=== PATIENT | female | born 1970 | race Caucasian/White ===

== ENCOUNTER 2020-05-06 19:21 | Inpatient (IN) | payer MEDICARE, MEDICAID, SELFPAY ==
--- NOTE | 2020-05-06 | ECG_ITS ---
Test Reason : OVRDOSE Blood Pressure : / mmHG Vent. Rate : 096 BPM Atrial Rate : 096 BPM P-R Int : 138 ms QRS Dur : 078 ms QT Int : 364 ms P-R-T Axes : 065 073 049 degrees QTc Int : 459 ms Normal sinus rhythm Normal ECG When compared with ECG of 06-MAY-2020 21:35, No significant change was found Referred By: Edilson Macario Electronically Signed By:RUBEN COLE MD
--- NOTE | ~2020-05-06 | CT_ITS ---
EXAMINATION: CT HEAD WITHOUT CONTRAST CLINICAL INFORMATION: Altered mental status COMPARISON: None. TECHNIQUE: Contiguous axial imaging was performed from the skull base to vertex without intravenous administration of contrast. Coronal and sagittal reformatted images are performed at the CT scanner. [This CT examination was performed using dose optimization techniques as appropriate, variously including the following: *Automated exposure control *Adjustment of mA and/or kV according to patient size (this includes techniques or standardized protocols for targeted exams where dose is matched to indication/reason for exam; i.e. extremities or head) *Use of iterative reconstruction technique] DLP: 739 mGy-cm. FINDINGS: There is no evidence of acute intracranial hemorrhage or territorial infarction. No abnormal mass-effect or midline shift is seen. Marti to white matter differentiation is well preserved. No extra-axial fluid collections are identified. The ventricles are normal in size. There is no abnormal attenuation within the brain parenchyma. There is no osseous abnormality. The mastoid air cells and visualized portions of the paranasal sinuses are well-aerated. CT/CT head/brain wo con IMPRESSION: No acute intracranial pathology.
--- NOTE | ~2020-05-06 | XR_ITS ---
EXAMINATION: XR CHEST CLINICAL INFORMATION: Hypoxia. Rule out aspiration. COMPARISON: Previous chest x-ray from yesterday TECHNIQUE: Frontal view of the chest was obtained. FINDINGS: The patient is rotated to the right. The cardiac and mediastinal contours are stable. There are increased markings in the right infrahilar region adjacent to the right heart border. It is uncertain whether this is related to patient rotation or could represent a small infiltrate. The lungs are otherwise clear. There is no pleural effusion or pneumothorax. Bony structures are unremarkable. XR/XR chest 1V IMPRESSION: Increased markings at the right lung base, question related to patient rotation versus small infiltrate.
--- NOTE | ~2020-05-06 | XR_ITS ---
EXAMINATION: XR CHEST CLINICAL INFORMATION: Fever COMPARISON: None TECHNIQUE: Frontal view of the chest was obtained. FINDINGS: No significant abnormality is noted involving the heart, lungs, mediastinum, bony thorax or soft tissues. XR/XR chest 1V IMPRESSION: Unremarkable examination.
[2020-05-06 19:33] VITALS: BP 123/56; BP 124/46; PULSE 108; PULSE 111; RESP 16; TEMP 38; O2SAT 2; O2SAT 98; BMI 30.5
--- NOTE | 2020-05-06 19:40 | ECG_ITS ---
Test Reason : Unresponsiveness Blood Pressure : / mmHG Vent. Rate : 109 BPM Atrial Rate : 109 BPM P-R Int : 128 ms QRS Dur : 072 ms QT Int : 326 ms P-R-T Axes : 108 094 128 degrees QTc Int : 439 ms Sinus tachycardia Rightward axis Prolonged QT Abnormal ECG When compared to the previous EKG of QT has lengthened Referred By: Edilson Macario Electronically Signed By: RUBEN COLE MD MTDD
--- NOTE | 2020-05-06 19:43 | ED.AMS ---
HPI - Altered Mental Status General Chief Complaint: Altered Mental Status Stated Complaint: UNRESPONSIVE Time Seen by Provider: 05/06/20 19:40 Source: family and EMS Mode of arrival: EMS Limitations: altered mental status History of Present Illness HPI narrative: Patient has history of depression and history of overdose in 2016 on Zyprexa amitriptyline and was taking Benadryl lately according to her mother patient was doing fine she texted her at 13:00 she responded to text then she texted her at 16:00 but patient did not respond to her text which is not very unusual at 18:30 and mother reached home she found her in her bed not responding and felt warm. She checked her medication and did not find any missing but she could not find bottle of Benadryl which she was taking lately. Arrival patient is semiconscious with dilated people tachycardic flushed face and temperature of 100.4 degrees matching the criteria for possible anticholinergic overdose Related Data Home Medications Medication Instructions Recorded Confirmed cholecalciferol (vitamin D3) 1 tab PO DAILY 05/07/20 05/07/20 [Vitamin D3] clonidine HCl 0.1 mg PO BID PRN 05/07/20 05/07/20 lamotrigine 150 mg PO BID 05/07/20 05/07/20 olanzapine 12.5 mg PO DAILY 05/07/20 05/07/20 pyridoxine (vitamin B6) 50 mg PO DAILY 05/07/20 05/07/20 sertraline 25 mg PO DAILY 05/07/20 05/07/20 Allergies Allergy/AdvReac Type Severity Reaction Status Date / Time Sulfa (Sulfonamide Allergy Unknown HIVES Verified 05/06/20 20:38 Antibiotics) [SULFA (SULFONAMIDE ANTIBIOTICS)] Review of Systems Review of Systems: Yes Unobtainable due to mental status Neurologic: Reports confusion Psychiatric: Psychiatric: Reports confusion PMFSH Past Medical History Medical History Anxiety Bipolar 1 disorder Hx of drug overdose Hyperthyroidism Major depression Social History Social History Advance Directives: No Advance Directives Information Provided: Yes Physical Exam Vital Signs: Vital Signs: Last Vital Signs Temp 100.4 F 05/06/20 23:55 Pulse 100 05/06/20 23:55 Resp 13 05/06/20 23:55 BP 117/68 05/06/20 23:55 Pulse Ox 100 05/06/20 23:55 Body Mass Index 30.5 Const: General: well developed, confusion and patient obtunded Orientation/consciousness: confusion and patient obtunded HENMT: Head: Yes normocephalic and Yes atraumatic Eyes: Conjunctivae: conjunctivae normal Sclerae: sclerae normal Corneas: corneas normal Pupils: Dilated pupils Neck: Neck: Yes normal visual inspection, Yes no lymphadenopathy and Yes no JVD Thyroid: Thyroid normal Chest: Chest palpation & inspection: normal palpation of entire chest wall Resp: Effort & Inspection: normal respiratory effort Auscultation: clear to auscultation bilaterally, no crackles, no rales and no rhonchi Cardio: Jugular venous distension: no JVD Palpation: normal PMI Rate: tachycardic Rhythm: regular rhythm Heart sounds: S1 normal heart sound present, S2 normal heart sound present and no murmurs Peripheral pulses: Peripheral pulses 2+ throughout GI: Inspection: Yes normal to inspection Palpation (GI): Soft to palpation and nontender Auscultation: normal bowel sounds Back/Spine/Pelvis: Thoracic/Lumbar Spine: thoracic and lumbar spine normal to inspection Skin: General skin exam: no rashes or lesions noted Neuro: General: moves all extremities, no focal motor deficits, confusion and patient obtunded Deep tendon reflexes (DTR's): Right patellar reflex intensity grade: 1+ and Left patellar reflex intensity grade: 1+ Plantar Reflex Responses: downgoing: bilateral Extrem: General: Yes normal to inspection and No pedal edema Course Reevaluation(s) Reevaluation #1: Patient likely with anticholinergic overdose workup so far is negative for any other pathology will repeat chemistry and salicylate levels, Patient ABG showed normal anion gap slightly metabolic alkalosis Time: 01:06 Reevaluation #2: Patient repeat chemistry essentially normal C-reactive protein also negative, will continue to watch case discussed with nursing reduction plant supervisor about Physostigmine with is not available in the hospital she will try pharmacist Time: 01:17 Reevaluation #3: Physostigmine not available per pharmacist. Patient repeat salicylate level was negative and Tylenol level is 5 patient received 2 doses of Tylenol per rectum. At this time working diagnosis is anticholinergic overdose plan to observe her tonight patient is able to maintain her airway patient signed out to Dr. Duncan Time: 01:40 MDM - Altered Mental Status MDM Narrative Medical decision making narrative: Patient altered mental status etiology is not very clear likely anticholinergic overdose. Labs workup was negative for any sepsis patient is still febrile 100.4 give Tylenol spinal tap was tried, but was unsuccessful will check the ABG repeat chemistry and salicylate level, case discussed with poison control advised physostigmine which is not available here or continue supportive tt repeat EKG done at 23:39 showed normal sinus rhythm heart rate 96 beats per minute QTC interval [address] T wave changes Differential Diagnosis Differential diagnosis: Likely altered mental status, encephalopathy, hyponatremia, overdose polysubstance, renal failure, subarachnoid hemorrhage and sepsis Medical Records Attestation: I reviewed the patient's medical records. Lab Data Attestation: I reviewed the patient's lab results. Result diagrams: 05/06/20 20:07 05/07/20 00:39 Labs: Lab Results 05/06/20 05/06/20 05/06/20 Range/Units 19:53 20:07 20:07 WBC 9.7 (4.8-10.8) X10*3/uL RBC 4.50 (4.20-5.50) X10*6/uL Hgb 13.5 (12.0-16.0) g/dl Hct 40.0 (37-47) % MCV 88.9 (80-98) fL MCH 30.0 (27.0-33.0) pg MCHC 33.8 (31.0-35.0) g/dl RDW 11.9 (11.0-16.0) % Plt Count 255 (160-400) X10*3/uL MPV 10.8 (9.4-12.3) fL Immature Gran % (Auto) 0.3 (0.0-0.4) % Neut % (Auto) 83.6 H (45-73) % Lymph % (Auto) 8.9 L (20-40) % [place] % (Auto) 7.0 (2-11) % Eos % (Auto) 0.0 (0-4) % Baso % (Auto) 0.2 (0-2) % Lymph # (Auto) 0.9 L (1.2-4.9) X10*3/uL [place] # (Auto) 0.7 (0.1-1.2) X10*3/uL Eos # (Auto) 0.0 (0.0-0.4) X10*3/uL Baso # (Auto) 0.0 (0.0-0.2) X10*3/uL Abs Immat Gran (auto) 0.03 (0.00-0.03) X10*3/uL Absolute Neuts (auto) 8.1 (2.0-8.3) X10*3/uL Absolute Nucleated RBC 0.000 (0.0-0.012) X10*3/uL Nucleated RBC % (auto) 0.0 (0.0-0.2) /100WBC PT 14.0 H (10.8-13.0) SEC INR 1.2 H (0.9-1.1) APTT 35.4 (24.1-38.0) SEC ABG pH (7.35-7.45) ABG pCO2 (32-45) mmHg ABG pO2 (83-108) mmHg ABG HCO3 (22-26) mmol/L ABG O2 Saturation % ABG Base Excess Oxygen Given Sodium (135-145) mmol/L Potassium (3.3-5.1) mmol/L Chloride (96-108) mmol/L Carbon Dioxide (22-29) mmol/L Anion Gap (12-20) BUN (9-16) mg/dL Creatinine (0.5-1.4) mg/dL Estim Creat Clear Calc Estimated GFR POC Glucose 133 H (60-115) mg/dL Random Glucose (60-115) mg/dL Lactic Acid (0.5-2.0) mmol/L Calcium (8.4-10.2) mg/dL Magnesium (1.6-2.6) mg/dL Total Bilirubin (0.0-1.0) mg/dL Direct Bilirubin (0.0-0.5) mg/dL AST (5-31) U/L ALT (0-31) U/L Alkaline Phosphatase (39-117) U/L C-Reactive Protein (< or = 0.50) mg/dL Total Protein (6.5-8.0) g/dL Albumin (3.5-5.0) g/dL Lipase (8-78) U/L Urine Color Urine Appearance Urine pH (5.0-8.0) Ur Specific [place] (1.005-1.025) Urine Protein (NEG-TRACE) MG/DL Urine Glucose (UA) (NEG) MG/DL Urine Ketones (NEG) MG/DL Urine Blood (NEG) Urine Nitrite (NEG) Ur Leukocyte Esterase (NEG) Urine RBC (0) /HPF Urine WBC (0-4) /HPF Ur Squamous Epith Cells /LPF Urine Bacteria /LPF Urine Mucus /LPF Salicylates (15-30) mg/dL Urine Opiates Screen (Not Detect) Acetaminophen (<30) mcg/mL Ur Barbiturates Screen (Not Detect) Ur Phencyclidine Scrn (Not Detect) Ur Amphetamines Screen (Not Detect) U Benzodiazepines Scrn (Not Detect) Urine Cocaine Screen (Not Detect) U Marijuana (THC) Screen (Not Detect) Ethyl Alcohol mg/dL COVID-19 ([facility]) (Negative) COVID-19 Clin Com 05/06/20 05/06/20 05/06/20 Range/Units 20:07 20:07 20:07 WBC (4.8-10.8) X10*3/uL RBC (4.20-5.50) X10*6/uL Hgb (12.0-16.0) g/dl Hct (37-47) % MCV (80-98) fL MCH (27.0-33.0) pg MCHC (31.0-35.0) g/dl RDW (11.0-16.0) % Plt Count (160-400) X10*3/uL MPV (9.4-12.3) fL Immature Gran % (Auto) (0.0-0.4) % Neut % (Auto) (45-73) % Lymph % (Auto) (20-40) % [place] % (Auto) (2-11) % Eos % (Auto) (0-4) % Baso % (Auto) (0-2) % Lymph # (Auto) (1.2-4.9) X10*3/uL [place] # (Auto) (0.1-1.2) X10*3/uL Eos # (Auto) (0.0-0.4) X10*3/uL Baso # (Auto) (0.0-0.2) X10*3/uL Abs Immat Gran (auto) (0.00-0.03) X10*3/uL Absolute Neuts (auto) (2.0-8.3) X10*3/uL Absolute Nucleated RBC (0.0-0.012) X10*3/uL Nucleated RBC % (auto) (0.0-0.2) /100WBC PT (10.8-13.0) SEC INR (0.9-1.1) APTT (24.1-38.0) SEC ABG pH (7.35-7.45) ABG pCO2 (32-45) mmHg ABG pO2 (83-108) mmHg ABG HCO3 (22-26) mmol/L ABG O2 Saturation % ABG Base Excess Oxygen Given Sodium 138 (135-145) mmol/L Potassium 4.2 (3.3-5.1) mmol/L Chloride 101 (96-108) mmol/L Carbon Dioxide 26 (22-29) mmol/L Anion Gap 15 (12-20) BUN 18 H (9-16) mg/dL Creatinine 0.92 (0.5-1.4) mg/dL Estim Creat Clear Calc 85.3 Estimated GFR > 60 POC Glucose (60-115) mg/dL Random Glucose 141 H (60-115) mg/dL Lactic Acid 1.8 (0.5-2.0) mmol/L Calcium 9.1 (8.4-10.2) mg/dL Magnesium 2.0 (1.6-2.6) mg/dL Total Bilirubin 0.6 (0.0-1.0) mg/dL Direct Bilirubin 0.2 (0.0-0.5) mg/dL AST 28 (5-31) U/L ALT 33 H (0-31) U/L Alkaline Phosphatase 74 (39-117) U/L C-Reactive Protein (< or = 0.50) mg/dL Total Protein 6.8 (6.5-8.0) g/dL Albumin 4.1 (3.5-5.0) g/dL Lipase 22 (8-78) U/L Urine Color Urine Appearance Urine pH (5.0-8.0) Ur Specific [place] (1.005-1.025) Urine Protein (NEG-TRACE) MG/DL Urine Glucose (UA) (NEG) MG/DL Urine Ketones (NEG) MG/DL Urine Blood (NEG) Urine Nitrite (NEG) Ur Leukocyte Esterase (NEG) Urine RBC (0) /HPF Urine WBC (0-4) /HPF Ur Squamous Epith Cells /LPF Urine Bacteria /LPF Urine Mucus /LPF Salicylates < 5.0 L (15-30) mg/dL Urine Opiates Screen (Not Detect) Acetaminophen < 1 (<30) mcg/mL Ur Barbiturates Screen (Not Detect) Ur Phencyclidine Scrn (Not Detect) Ur Amphetamines Screen (Not Detect) U Benzodiazepines Scrn (Not Detect) Urine Cocaine Screen (Not Detect) U Marijuana (THC) Screen (Not Detect) Ethyl Alcohol mg/dL COVID-19 ([facility]) (Negative) COVID-19 Clin Com 05/06/20 05/06/20 05/06/20 Range/Units 20:07 20:07 20:07 WBC (4.8-10.8) X10*3/uL RBC (4.20-5.50) X10*6/uL Hgb (12.0-16.0) g/dl Hct (37-47) % MCV (80-98) fL MCH (27.0-33.0) pg MCHC (31.0-35.0) g/dl RDW (11.0-16.0) % Plt Count (160-400) X10*3/uL MPV (9.4-12.3) fL Immature Gran % (Auto) (0.0-0.4) % Neut % (Auto) (45-73) % Lymph % (Auto) (20-40) % [place] % (Auto) (2-11) % Eos % (Auto) (0-4) % Baso % (Auto) (0-2) % Lymph # (Auto) (1.2-4.9) X10*3/uL [place] # (Auto) (0.1-1.2) X10*3/uL Eos # (Auto) (0.0-0.4) X10*3/uL Baso # (Auto) (0.0-0.2) X10*3/uL Abs Immat Gran (auto) (0.00-0.03) X10*3/uL Absolute Neuts (auto) (2.0-8.3) X10*3/uL Absolute Nucleated RBC (0.0-0.012) X10*3/uL Nucleated RBC % (auto) (0.0-0.2) /100WBC PT (10.8-13.0) SEC INR (0.9-1.1) APTT (24.1-38.0) SEC ABG pH (7.35-7.45) ABG pCO2 (32-45) mmHg ABG pO2 (83-108) mmHg ABG HCO3 (22-26) mmol/L ABG O2 Saturation % ABG Base Excess Oxygen Given Sodium (135-145) mmol/L Potassium (3.3-5.1) mmol/L Chloride (96-108) mmol/L Carbon Dioxide (22-29) mmol/L Anion Gap (12-20) BUN (9-16) mg/dL Creatinine (0.5-1.4) mg/dL Estim Creat Clear Calc Estimated GFR POC Glucose (60-115) mg/dL Random Glucose (60-115) mg/dL Lactic Acid (0.5-2.0) mmol/L Calcium (8.4-10.2) mg/dL Magnesium (1.6-2.6) mg/dL Total Bilirubin (0.0-1.0) mg/dL Direct Bilirubin (0.0-0.5) mg/dL AST (5-31) U/L ALT (0-31) U/L Alkaline Phosphatase (39-117) U/L C-Reactive Protein (< or = 0.50) mg/dL Total Protein (6.5-8.0) g/dL Albumin (3.5-5.0) g/dL Lipase (8-78) U/L Urine Color YELLOW Urine Appearance CLEAR Urine pH 6.0 (5.0-8.0) Ur Specific [place] 1.025 (1.005-1.025) Urine Protein NEG (NEG-TRACE) MG/DL Urine Glucose (UA) NEG (NEG) MG/DL Urine Ketones 15 (NEG) MG/DL Urine Blood TRACE (NEG) Urine Nitrite NEG (NEG) Ur Leukocyte Esterase NEG (NEG) Urine RBC 10-14 H (0) /HPF Urine WBC 0-2 (0-4) /HPF Ur Squamous Epith Cells TRACE /LPF Urine Bacteria TRACE /LPF Urine Mucus TRACE /LPF Salicylates (15-30) mg/dL Urine Opiates Screen Not Detected (Not Detect) Acetaminophen (<30) mcg/mL Ur Barbiturates Screen Not Detected (Not Detect) Ur Phencyclidine Scrn Not Detected (Not Detect) Ur Amphetamines Screen Not Detected (Not Detect) U Benzodiazepines Scrn Not Detected (Not Detect) Urine Cocaine Screen Not Detected (Not Detect) U Marijuana (THC) Screen Not Detected (Not Detect) Ethyl Alcohol < 10 mg/dL COVID-19 ([facility]) (Negative) COVID-19 Clin Com 05/06/20 05/07/20 05/07/20 Range/Units 20:58 00:39 00:47 WBC (4.8-10.8) X10*3/uL RBC (4.20-5.50) X10*6/uL Hgb (12.0-16.0) g/dl Hct (37-47) % MCV (80-98) fL MCH (27.0-33.0) pg MCHC (31.0-35.0) g/dl RDW (11.0-16.0) % Plt Count (160-400) X10*3/uL MPV (9.4-12.3) fL Immature Gran % (Auto) (0.0-0.4) % Neut % (Auto) (45-73) % Lymph % (Auto) (20-40) % [place] % (Auto) (2-11) % Eos % (Auto) (0-4) % Baso % (Auto) (0-2) % Lymph # (Auto) (1.2-4.9) X10*3/uL [place] # (Auto) (0.1-1.2) X10*3/uL Eos # (Auto) (0.0-0.4) X10*3/uL Baso # (Auto) (0.0-0.2) X10*3/uL Abs Immat Gran (auto) (0.00-0.03) X10*3/uL Absolute Neuts (auto) (2.0-8.3) X10*3/uL Absolute Nucleated RBC (0.0-0.012) X10*3/uL Nucleated RBC % (auto) (0.0-0.2) /100WBC PT (10.8-13.0) SEC INR (0.9-1.1) APTT (24.1-38.0) SEC ABG pH 7.47 H (7.35-7.45) ABG pCO2 32 (32-45) mmHg ABG pO2 143 H (83-108) mmHg ABG HCO3 24 (22-26) mmol/L ABG O2 Saturation 99.0 % ABG Base Excess 1.3 Oxygen Given 2 L Sodium 140 (135-145) mmol/L Potassium 3.9 (3.3-5.1) mmol/L Chloride 106 (96-108) mmol/L Carbon Dioxide 26 (22-29) mmol/L Anion Gap 12 (12-20) BUN 16 (9-16) mg/dL Creatinine 0.82 (0.5-1.4) mg/dL Estim Creat Clear Calc 95.7 Estimated GFR > 60 POC Glucose (60-115) mg/dL Random Glucose 150 H (60-115) mg/dL Lactic Acid (0.5-2.0) mmol/L Calcium 8.4 D (8.4-10.2) mg/dL Magnesium (1.6-2.6) mg/dL Total Bilirubin (0.0-1.0) mg/dL Direct Bilirubin (0.0-0.5) mg/dL AST (5-31) U/L ALT (0-31) U/L Alkaline Phosphatase (39-117) U/L C-Reactive Protein 0.49 (< or = 0.50) mg/dL Total Protein (6.5-8.0) g/dL Albumin (3.5-5.0) g/dL Lipase (8-78) U/L Urine Color Urine Appearance Urine pH (5.0-8.0) Ur Specific [place] (1.005-1.025) Urine Protein (NEG-TRACE) MG/DL Urine Glucose (UA) (NEG) MG/DL Urine Ketones (NEG) MG/DL Urine Blood (NEG) Urine Nitrite (NEG) Ur Leukocyte Esterase (NEG) Urine RBC (0) /HPF Urine WBC (0-4) /HPF Ur Squamous Epith Cells /LPF Urine Bacteria /LPF Urine Mucus /LPF Salicylates < 5.0 L (15-30) mg/dL Urine Opiates Screen (Not Detect) Acetaminophen 5 (<30) mcg/mL Ur Barbiturates Screen (Not Detect) Ur Phencyclidine Scrn (Not Detect) Ur Amphetamines Screen (Not Detect) U Benzodiazepines Scrn (Not Detect) Urine Cocaine Screen (Not Detect) U Marijuana (THC) Screen (Not Detect) Ethyl Alcohol mg/dL COVID-19 ([facility]) Negative (Negative) COVID-19 Clin Com See Note ABG Data ABG results: Slight metabolic alkalosis without any anion gap ECG Data ECG #1: Attestation: I personally reviewed and interpreted this ECG as follows: Interpretation: Sinus tachycardia heart rate of 114 beats per minute QT interval was prolonged to 523 millisecond rightward axis no acute ST T wave changes. ECG #2: Attestation: I personally reviewed and interpreted this ECG as follows: ECG interpretation date: 05/06/20 ECG interpretation time: 21:35 Prior ECG tracings: available for review Interpretation: Sinus tachycardia heart rate 109 beats per minute normal QT interval no acute ST T wave changes ECG #3: Attestation: I personally reviewed and interpreted this ECG as follows: ECG interpretation date: 05/06/20 ECG interpretation time: 23:39 Prior ECG tracings: available for review Interpretation: Normal sinus rhythm heart rate 96 beats per minute normal intervals normal axis no acute ST T wave changes impression normal EKG Critical Care Time Critical Care Time Critical Care Time: Yes Total Critical Care Time: 50 Attestation: I spent 50 minutes of critical care, with interventions, assessments, speaking to family. Discharge Plan Discharge Clinical Impression: Altered mental status Qualifiers: Altered mental status type: disorientation Qualified Code(s): R41.0 - Disorientation, unspecified Anticholinergic drug overdose Qualifiers: Encounter type: initial encounter Injury intent: undetermined intent Qualified Code(s): T44.3X4A - Poisoning by other parasympatholytics [anticholinergics and antimuscarinics] and spasmolytics, undetermined, initial encounter Prescriptions: No Action lamotrigine 150 mg tablet 150 mg PO BID RF: 0 clonidine HCl 0.1 mg tablet 0.1 mg PO BID PRN (Reason: Anxiety) RF: 0 olanzapine 10 mg tablet 12.5 mg PO DAILY RF: 0 pyridoxine (vitamin B6) 50 mg tablet 50 mg PO DAILY RF: 0 sertraline 25 mg tablet 25 mg PO DAILY RF: 0 cholecalciferol (vitamin D3) [Vitamin D3] 50 mcg (2,000 unit) tablet 1 tab PO DAILY RF: 0
[2020-05-06] MEDS: 0.9 % Sodium Chloride 1,000 ML 999 ML IVCONT ×3 (19:45→23:51)
--- NOTE | 2020-05-06 19:45 | PC.NURSE ---
ED provider is aware that patient is febrile. Medication order for tylenol suppository and patient medicated for fever per emar. Temperature sensing Desouza catheter placed.
[2020-05-06 20:00] VITALS: BP 119/71; PULSE 101; RESP 17; TEMP 37.5; O2SAT 95
[2020-05-06 20:20] LABS: MANUAL DIFF FLAG NO
[2020-05-06 20:25] LABS: Basophils Percent Auto 0.2 % (0-2); Hemoglobin 13.5 g/dl (12.0-16.0); Imm Gran Abs Auto 0.03 X10*3/uL (0.00-0.03); Imm Gran Pct Auto 0.3 % (0.0-0.4); Lymphocytes Absolute Auto 0.9 X10*3/uL (1.2-4.9); Lymphocytes Percent Auto 8.9 % (20-40); Mean Corpuscular HGB Conc 33.8 g/dl (31.0-35.0); Mean Corpuscular Volume 88.9 fL (80-98); Mean Platelet Volume 10.8 fL (9.4-12.3); Monocytes Absolute Auto 0.7 X10*3/uL (0.1-1.2); Neutrophils Absolute Auto 8.1 X10*3/uL (2.0-8.3); Neutrophils Percent Auto 83.6 % (45-73); Platelet Count 255 X10*3/uL (160-400); Red Cell Distribution Width 11.9 % (11.0-16.0); White Blood Count 9.7 X10*3/uL (4.8-10.8)
[2020-05-06 20:28] LABS: INTERNATIONAL NORM RATIO 1.2 (0.9-1.1)
--- NOTE | 2020-05-06 20:30 | PC.NURSE ---
Poison control contacted due to possibility of benadryl overdose. Per conversation that ED Provider spoke with patient's mother and stated that mother believes patient took benadryl because she couldn't find the bottle. Per poison control patient should have EKG q 2 hrs. If potassium is low then patient should have a magnesium supplement. If widened QRS then bicarb should be supplemented. The rest is supportive care. ED provider made aware of recommendations. This job specification writer also spoke with patient's mother for clarification of what were the events leading up to finding patient unresponsive. Mother states that patient text her this morning at 1030 to tell her that she took her morning medication. Mother stated that she text the patient at 1:30 and she got no response and then texted her again at 4:30 and she got no response. When mother arrived home after work is when she found the patient in bed unresponsive and could not wake her up. EMS was called and patient arrived in ER at 1921.
[2020-05-06 20:31] LABS: Partial Thromboplastin Time 35.4 SEC (24.1-38.0)
[2020-05-06 20:39] LABS: Glucose Urine UA NEG (NEG); Leukocyte Esterase Urine NEG (NEG); Nitrite Urine NEG (NEG); Specific Gravity - Urine 1.025 (1.005-1.025); Urine Blood TRACE (NEG); Urine Ketones 15 MG/DL (NEG); Urine Protein NEG (NEG-TRACE)
[2020-05-06 20:42] LABS: Appearance Urine CLEAR; Color Urine YELLOW
[2020-05-06 20:47] LABS: Bacteria Urine TRACE /LPF; Mucus Urine TRACE /LPF; Squamous Epithelial Cell Urine TRACE /LPF; WBC Urine 0-2 /HPF (0-4)
[2020-05-06 20:49] LABS: Lactic Acid 1.8 mmol/L (0.5-2.0)
[2020-05-06 20:54] LABS: Glucose, Whole Blood 133 mg/dL (60-115)
[2020-05-06 20:56] LABS: Acetaminophen LAB < 1 mcg/mL (<30)
[2020-05-06 20:57] LABS: Alanine Aminotransferase 33 U/L (0-31); Albumin Level 4.1 g/dL (3.5-5.0); Alkaline Phosphatase 74 U/L (39-117); Amphetamine Screen Urine Not Detected (Not Detect); Anion Gap 15 (12-20); Aspartate Amino Transferase 28 U/L (5-31); Barbiturates, Urine Not Detected (Not Detect); Benzodiazepines Screen Urine Not Detected (Not Detect); Bilirubin Direct 0.2 mg/dL (0.0-0.5); Bilirubin Total 0.6 mg/dL (0.0-1.0); Blood Urea Nitrogen 18 mg/dL (9-16); Calcium 9.1 mg/dL (8.4-10.2); Cannabinoid Screen Urine Not Detected (Not Detect); Carbon Dioxide 26 mmol/L (22-29); Chloride 101 mmol/L (96-108); Cocaine Screen Urine Not Detected (Not Detect); Creatinine Clr Calc Pharmacy 85.3; Estimated Glomerular Filt Rate > 60; Ethanol < 10 mg/dL; Glucose Random 141 mg/dL (60-115); Lipase 22 U/L (8-78); Opiate Screen Urine Not Detected (Not Detect); Phencyclidine Screen Urine Not Detected (Not Detect); Potassium 4.2 mmol/L (3.3-5.1); Sodium 138 mmol/L (135-145); Total Protein 6.8 g/dL (6.5-8.0)
[2020-05-06 21:00] LABS: Salicylate < 5.0 mg/dL (15-30)
[2020-05-06 21:18] LABS: COVID-19 Test Negative (Negative)
[2020-05-06] MEDS: LORazepam 2 MG/ML VIAL IVPUSH (21:40)
[2020-05-06 22:04] VITALS: BP 135/76; PULSE 107; RESP 17; TEMP 38; O2SAT 100
--- NOTE | 2020-05-06 23:54 | PC.NURSE ---
NO REPORT OF FEVER FROM PREVIOUS RN. DR MEAD AWARE. MEDICATED CHARTED. PATIENT DIFFICULT TO AROUSE.
[2020-05-06 23:55] VITALS: BP 117/68; PULSE 100; RESP 13; TEMP 38; O2SAT 100
[2020-05-07] VITALS (10 sets, daily range): BP systolic 106–124; BP diastolic 49–83; PULSE 95–110; RESP 12–20; TEMP 37–39.1; O2SAT 90–100
--- NOTE | 2020-05-07 00:24 | PC.NURSE ---
DR MEAD ATTEMPTED TO PERFORM LP. UNSUCCESSFUL IN THE LYING POSITION. MULTIPLE STAFF ASSISTED PATIENT TO SITTING POSITION. PATIENT WAS WEIGHT. REMAINS UNSUCCESSFUL AT LP ATTEMPT. NO AREAS OF SKIN BREAK DOWN NOTED AT THIS TIME.
[2020-05-07 00:52] LABS: Pt Ventilation O2% 2 L
[2020-05-07 00:55] LABS: pH ABG 7.47 (7.35-7.45)
[2020-05-07 00:56] LABS: ABG PCO2 32 mmHg (32-45); Base Excess ABG 1.3; HCO3 ABG 24 mmol/L (22-26); PO2 ABG 143 mmHg (83-108)
[2020-05-07 01:14] LABS: Anion Gap 12 (12-20); Blood Urea Nitrogen 16 mg/dL (9-16); C Reactive Protein 0.49 mg/dL (< or = 0.50); Calcium 8.4 mg/dL (8.4-10.2); Carbon Dioxide 26 mmol/L (22-29); Chloride 106 mmol/L (96-108); Creatinine Clr Calc Pharmacy 95.7; Estimated Glomerular Filt Rate > 60; Glucose Random 150 mg/dL (60-115); Potassium 3.9 mmol/L (3.3-5.1); Salicylate < 5.0 mg/dL (15-30); Sodium 140 mmol/L (135-145)
--- NOTE | 2020-05-07 02:00 | PC.NURSE ---
SPOKE WITH POISON CONTROL CONTINUE TO MONITOR. WATCH FOR TEMP AND GIVE MORE BENZOS IF HR SPIKES. DR MEAD AWARE.
--- NOTE | 2020-05-07 03:04 | PC.NURSE ---
PATIENT CONTINUES TO BE DIFFICULT TO AROUSE. RESPONDS TO PAINFUL STIMULI. 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 SUCTIONED THICK, LIGHT YELLOW SPUTUM FROM BACK OF MOUTH. ORAL MUCOSA DRY. CONTINUES TO PRODUCE URINE.
[2020-05-07] MEDS: Heparin Sodium,Porcine 5,000 UNIT/ML VIAL 5000 UNIT SUBCUT ×2 (04:28→14:15)
[2020-05-07] MEDS: Naloxone HCl Nasal 4 MG SPRAY NOSTRILALT (04:57)
--- NOTE | 2020-05-07 04:59 | P.HPHOSP_ITS ---
History of Present Illness Date of Service: 05/07/20 Chief Complaint: Lethargy Female with past medical history of bipolar, hyperthyroidism, major depression disorder, anxiety and history of suicide attempt who presents to the hospital after her mother found her to be lethargic, and unresponsive around 6:00 p.m. Patient is completely lethargic, grimaces to painful stimuli but does not wake up, does not answer any questions, does track with her eyes for very short period time it then goes back to being somnolent. Therefore history is obtained from ED physician and EMR. According to the mother patient was doing fine and last time she heard from her was around 1:00 p.m.. She responded to a text message that her mother sent her. Her mother texted her once again at 4 with no response. Around 630 the mother reached her home and found her in her bed not responding and felt very hot. According to the ED staff and the mother patient usually gets her medication blister pack and no medication was missing. It appears the patient had recently started on Benadryl and it is unclear if patient had taking extra Benadryl or not but according to the mom the blister pack is intact and no medication is missing. On arrival patient was somnolent, had dilated pupils, tachycardic, flushed, had temperature of a 100.4? making it very likely the patient has anticholinergic toxicity. She is currently hemodynamically stable with no CO2 retention, stable blood pressure, no longer tachycardic. Temperature of 99.7?. Labs are generally unremarkable with a PT of 14, INR of 1.2, pH of 7.47, CO2 of 32, PaO2 of 143,. With BMP being unremarkable as well. UA is negative, urine drug screen is negative for salicylates, Tylenol, no opioids, or other drugs detected. CT of the head shows no evidence of acute intracranial hemorrhage or territorial infarction. No abnormal mass effect or midline shift. Chest x-ray unremarkable Past medical history as per EMR Review of Systems Review of Systems: Yes all other systems are reviewed and are negative [facility] Medical History Anxiety Bipolar 1 disorder Hx of drug overdose Hyperthyroidism Major depression Social History Advance Directives: No Advance Directives Information Provided: Yes Meds Allergies Allergy/AdvReac Type Severity Reaction Status Date / Time Sulfa (Sulfonamide Allergy Unknown HIVES Verified 05/06/20 20:38 Antibiotics) [SULFA (SULFONAMIDE ANTIBIOTICS)] Active Medications: Current Medications Generic Name Dose Route Start Last Admin Trade Name Freq PRN Reason Stop Dose Admin Acetaminophen 650 mg 05/07/20 02:50 Acetaminophen 325 Mg Tablet PO Q6H PRN Pain, Mild (Pain Scale 1-3) Docusate Sodium 100 mg 05/07/20 02:50 Docusate Sodium 100 Mg Capsule PO DAILY PRN Constipation Heparin Sodium (Porcine) 5,000 unit 05/07/20 04:00 05/07/20 04:28 Heparin Sodium,Porcine 5,000 Unit/Ml Vial SUBCUT 5,000 unit Q12H GEM Administration Ondansetron HCl 4 mg 05/07/20 02:50 Ondansetron Hcl 4 Mg/2 Ml Vial IVPUSH Q8H PRN Nausea and Vomiting Sodium Chloride 3 ml 05/07/20 08:00 0.9 % Sodium Chloride Flush 3 Ml Syringe IVFLUSH QSHIFT [facility] Home Medications Medication Instructions Recorded Confirmed Last Taken Type cholecalciferol (vitamin D3) 1 tab PO DAILY 05/07/20 05/07/20 Unknown History [Vitamin D3] clonidine HCl 0.1 mg PO BID PRN 05/07/20 05/07/20 Unknown History lamotrigine 150 mg PO BID 05/07/20 05/07/20 Unknown History olanzapine 12.5 mg PO DAILY 05/07/20 05/07/20 Unknown History pyridoxine (vitamin B6) 50 mg PO DAILY 05/07/20 05/07/20 Unknown History sertraline 25 mg PO DAILY 05/07/20 05/07/20 Unknown History Physical Exam Vital Signs and Narrative: Vital Signs: Last Vital Signs Temp 99.7 F 05/07/20 02:00 Pulse 97 05/07/20 02:00 Resp 14 05/07/20 02:00 BP 111/83 05/07/20 02:00 Pulse Ox 97 05/07/20 02:00 Body Mass Index 30.5 Const: General: patient obtunded Orientation/consciousness: patient obtunded Eyes: Other: No pinpoint pupils General: appearance normal, both eyes and all related structures Pupils: Equal, round and reactive pupils present EOM: EOMs intact bilaterally Resp: Effort & Inspection: normal respiratory effort Cardio: Rate: regular rate Rhythm: regular rhythm GI: Palpation (GI): Soft to palpation Auscultation: normal bowel sounds Skin: General skin exam: no rashes or lesions noted Neuro: General: patient obtunded Cranial nerves: Yes Equal, round and reactive pupils present Extrem: Other: pulls away from painful stimuli General: Yes normal to i nspection and Yes no pedal edema Results Labs CBC and Chem 7: 05/06/20 20:07 05/07/20 00:39 Labs: Laboratory Results - last 24 hr 05/06/20 05/06/20 05/06/20 19:53 20:07 20:07 MCV 88.9 MCH 30.0 MCHC 33.8 RDW 11.9 Plt Count 255 MPV 10.8 Immature Gran % (Auto) 0.3 Neut % (Auto) 83.6 H Lymph % (Auto) 8.9 L [place] % (Auto) 7.0 Eos % (Auto) 0.0 Baso % (Auto) 0.2 Lymph # (Auto) 0.9 L [place] # (Auto) 0.7 Eos # (Auto) 0.0 Baso # (Auto) 0.0 Abs Immat Gran (auto) 0.03 Absolute Neuts (auto) 8.1 Absolute Nucleated RBC 0.000 Nucleated RBC % (auto) 0.0 PT 14.0 H INR 1.2 H APTT 35.4 ABG pH ABG pCO2 ABG pO2 ABG HCO3 ABG O2 Saturation ABG Base Excess Oxygen Given Anion Gap Estim Creat Clear Calc Estimated GFR POC Glucose 133 H Random Glucose Lactic Acid Calcium Magnesium Total Bilirubin Direct Bilirubin AST ALT Alkaline Phosphatase C-Reactive Protein Total Protein Albumin Lipase Urine Color Urine Appearance Urine pH Ur Specific [place] Urine Protein Urine Glucose (UA) Urine Ketones Urine Blood Urine Nitrite Ur Leukocyte Esterase Urine RBC Urine WBC Ur Squamous Epith Cells Urine Bacteria Urine Mucus Salicylates Urine Opiates Screen Acetaminophen Ur Barbiturates Screen Ur Phencyclidine Scrn Ur Amphetamines Screen U Benzodiazepines Scrn Urine Cocaine Screen U Marijuana (THC) Screen Ethyl Alcohol COVID-19 ([facility]) COVID-19 Clin Com 05/06/20 05/06/20 05/06/20 20:07 20:07 20:07 MCV MCH MCHC RDW Plt Count MPV Immature Gran % (Auto) Neut % (Auto) Lymph % (Auto) [place] % (Auto) Eos % (Auto) Baso % (Auto) Lymph # (Auto) [place] # (Auto) Eos # (Auto) Baso # (Auto) Abs Immat Gran (auto) Absolute Neuts (auto) Absolute Nucleated RBC Nucleated RBC % (auto) PT INR APTT ABG pH ABG pCO2 ABG pO2 ABG HCO3 ABG O2 Saturation ABG Base Excess Oxygen Given Anion Gap 15 Estim Creat Clear Calc 85.3 Estimated GFR > 60 POC Glucose Random Glucose 141 H Lactic Acid 1.8 Calcium 9.1 Magnesium 2.0 Total Bilirubin 0.6 Direct Bilirubin 0.2 AST 28 ALT 33 H Alkaline Phosphatase 74 C-Reactive Protein Total Protein 6.8 Albumin 4.1 Lipase 22 Urine Color Urine Appearance Urine pH Ur Specific [place] Urine Protein Urine Glucose (UA) Urine Ketones Urine Blood Urine Nitrite Ur Leukocyte Esterase Urine RBC Urine WBC Ur Squamous Epith Cells Urine Bacteria Urine Mucus Salicylates < 5.0 L Urine Opiates Screen Acetaminophen < 1 Ur Barbiturates Screen Ur Phencyclidine Scrn Ur Amphetamines Screen U Benzodiazepines Scrn Urine Cocaine Screen U Marijuana (THC) Screen Ethyl Alcohol COVID-19 ([facility]) COVID-19 Clin Com 05/06/20 05/06/20 05/06/20 20:07 20:07 20:07 MCV MCH MCHC RDW Plt Count MPV Immature Gran % (Auto) Neut % (Auto) Lymph % (Auto) [place] % (Auto) Eos % (Auto) Baso % (Auto) Lymph # (Auto) [place] # (Auto) Eos # (Auto) Baso # (Auto) Abs Immat Gran (auto) Absolute Neuts (auto) Absolute Nucleated RBC Nucleated RBC % (auto) PT INR APTT ABG pH ABG pCO2 ABG pO2 ABG HCO3 ABG O2 Saturation ABG Base Excess Oxygen Given Anion Gap Estim Creat Clear Calc Estimated GFR POC Glucose Random Glucose Lactic Acid Calcium Magnesium Total Bilirubin Direct Bilirubin AST ALT Alkaline Phosphatase C-Reactive Protein Total Protein Albumin Lipase Urine Color YELLOW Urine Appearance CLEAR Urine pH 6.0 Ur Specific [place] 1.025 Urine Protein NEG Urine Glucose (UA) NEG Urine Ketones 15 Urine Blood TRACE Urine Nitrite NEG Ur Leukocyte Esterase NEG Urine RBC 10-14 H Urine WBC 0-2 Ur Squamous Epith Cells TRACE Urine Bacteria TRACE Urine Mucus TRACE Salicylates Urine Opiates Screen Not Detected Acetaminophen Ur Barbiturates Screen Not Detected Ur Phencyclidine Scrn Not Detected Ur Amphetamines Screen Not Detected U Benzodiazepines Scrn Not Detected Urine Cocaine Screen Not Detected U Marijuana (THC) Screen Not Detected Ethyl Alcohol < 10 COVID-19 ([facility]) COVID-19 Clin Com 05/06/20 05/07/20 05/07/20 20:58 00:39 00:47 MCV MCH MCHC RDW Plt Count MPV Immature Gran % (Auto) Neut % (Auto) Lymph % (Auto) [place] % (Auto) Eos % (Auto) Baso % (Auto) Lymph # (Auto) [place] # (Auto) Eos # (Auto) Baso # (Auto) Abs Immat Gran (auto) Absolute Neuts (auto) Absolute Nucleated RBC Nucleated RBC % (auto) PT INR APTT ABG pH 7.47 H ABG pCO2 32 ABG pO2 143 H ABG HCO3 24 ABG O2 Saturation 99.0 ABG Base Excess 1.3 Oxygen Given 2 L Anion Gap 12 Estim Creat Clear Calc 95.7 Estimated GFR > 60 POC Glucose Random Glucose 150 H Lactic Acid Calcium 8.4 D Magnesium Total Bilirubin Direct Bilirubin AST ALT Alkaline Phosphatase C-Reactive Protein 0.49 Total Protein Albumin Lipase Urine Color Urine Appearance Urine pH Ur Specific [place] Urine Protein Urine Glucose (UA) Urine Ketones Urine Blood Urine Nitrite Ur Leukocyte Esterase Urine RBC Urine WBC Ur Squamous Epith Cells Urine Bacteria Urine Mucus Salicylates < 5.0 L Urine Opiates Screen Acetaminophen 5 Ur Barbiturates Screen Ur Phencyclidine Scrn Ur Amphetamines Screen U Benzodiazepines Scrn Urine Cocaine Screen U Marijuana (THC) Screen Ethyl Alcohol COVID-19 ([facility]) Negative COVID-19 Clin Com See Note Imaging Radiologist's Impressions: Impressions Chest X-Ray 05/06/20 19:40 IMPRESSION: Unremarkable examination. Head CT 05/06/20 21:02 IMPRESSION: No acute intracranial pathology. Assessment and Plan (1) Altered mental status: Qualifiers: Altered mental status type: disorientation Qualified Code(s): R41.0 - Disorientation, unspecified Status: Acute (2) Anticholinergic drug overdose: Qualifiers: Encounter type: initial encounter Injury intent: undetermined intent Qualified Code(s): T44.3X4A - Poisoning by other parasympatholytics [anticholinergics and antimuscarinics] and spasmolytics, undetermined, initial encounter Status: Acute This is a 49-year-old female with past medical history on her psych disease including bipolar, anxiety and depression, attempt who presents to the hospital lethargic and altered. # altered mental status - most likely secondary to drug overdose although unclear which 1 - clinical presentation indicates an anticholinergic drug overdose possibly Benadryl - patient presented with tachycardia, fever, dry mouth, flushed - received 2 mg of lorazepam, and currently hemodynamically stable - has no significant prolonged QT on EKG - poison control has been informed, they recommend benzodiazepines for symptomatic relief and monitoring on telemetry Plan: - will monitor on telemetry - benzodiazepine if needed # mood disorder - at this time will hold all her psych medications - will need evaluation by Psychiatry and most likely admission to [facility] once medically stable DVT prophylaxis: Heparin subQ
--- NOTE | 2020-05-07 05:42 | PC.NURSE ---
510AM PT OXYGEN SAT DROPPED TO 86-88%, EtCO2 DROPPED TO 34 PT ORALLY SUCTIONED PATIENT FOR A LARGE AMOUNT OF CREAMY SPUTUM FROM POSTERIOR OROPHARYNX. OROPHARYNX VERY DRY, MOUTH CARE PROVIDED AND SUCTIONED AGAIN. DR. BRIAN AWARE, NEW ORDER FOR O2 AT 3L, HUMIDIFIED. PT SATS NOW 92-93% ON 3L O2 VIA N/C, EtCO2 AT 36. WILL CONTINUE TO MONITOR AND ASSESS.
--- NOTE | 2020-05-07 07:33 | PC.NURSE ---
report taken from lennox salazar pt being admitted for ams secondary to possible overdose. pt is only responding to pain, appears to be having trouble managing secretions on own, desat to 88-90% on 3.[address] moss messaged about pt current presentation. resp tx at bedside to attempt suction.
[2020-05-07] MEDS: Piperacillin Sodium/Tazobactam 3.375 GM in 0.9 % Sodium Chloride 50 ML IV ×3 (09:25→19:57)
--- NOTE | 2020-05-07 09:28 | PC.NURSE ---
VALENTIN MCCORMICK ADJUNCT BUSINESS INSTRUCTOR called to report she is the pts cosmetician apprentice (private practice) and was concerned about pts differential dx. she can be contacted as needed for supportive data. [phone]
[2020-05-07 09:58] LABS: Acetaminophen LAB 6 mcg/mL (<30)
[2020-05-07] MEDS: Acetaminophen Supp 650 MG SUPP.RECT PR ×2 (11:03→17:20)
--- NOTE | 2020-05-07 12:09 | MHC.CM.PN ---
pt lives c her parent in their home. she is independent in her care. pending a psych eval admission to BHU may be appropriate. if this is not indicated then dc plan will be to return home c prior svcs. parent to provide transportation. cm to cont. to follow.
--- NOTE | 2020-05-07 16:55 | PM.EVENT ---
Event Note Date of Service: 05/07/20 Event Note: 49 y o f admitted with history of depression and suicide attempt admitted with drug overdose , poison Control was contacted, Patient seen and examined at bedside patient was very lethargic but arousablein morning more awake now on exam lethargic abd soft , lungs basial rales Admitted for Drug overdose likely anticholenergic from benadryl Poison control contacted monitor on telemetry , Spiking fever likely from anticholenergic or possibly from aspiration pneumonia Continue supportive management, continue Zosyn for aspiration pneumonia, continue oxygen supplementation monitor on telemetry , follow up cultures Discussed with patient's mother healthcare proxy was concerned about patient's fever ,reported questionable h/o infection in brain in past and admitted at [facility] , will get records from [facility] patient is more awake now and given suddenly became unresponsive with no symptoms before and no meningeal signs meningitis less likely but if continue to spike fever and remains confuse will consider lumbar punture
[2020-05-07] MEDS: Dextrose 5 % and 0.9 % NaCl 1,000 ML 100 ML IVCONT (17:20)
[2020-05-08] MEDS: Piperacillin Sodium/Tazobactam 3.375 GM in 0.9 % Sodium Chloride 50 ML IV ×4 (01:26→20:16)
--- NOTE | 2020-05-08 02:48 | PC.NURSE ---
patient on vehicle monitor technician, being monitored by imc rn
[2020-05-08 03:44] VITALS: BP 124/60; PULSE 95; RESP 18; TEMP 36.8; O2SAT 100
[2020-05-08 07:36] VITALS: BP 119/71; PULSE 93; RESP 16; TEMP 37.7; O2SAT 100
[2020-05-08 07:40] LABS: MANUAL DIFF FLAG NO
[2020-05-08 07:51] LABS: Basophils Percent Auto 0.3 % (0-2); Eosinophils Percent Auto 0.1 % (0-4); Hematocrit 35.5 % (37-47); Imm Gran Abs Auto 0.04 X10*3/uL (0.00-0.03); Imm Gran Pct Auto 0.3 % (0.0-0.4); Lymphocytes Absolute Auto 1.2 X10*3/uL (1.2-4.9); Lymphocytes Percent Auto 10.2 % (20-40); Mean Corpuscular HGB Conc 33.8 g/dl (31.0-35.0); Mean Corpuscular Hemoglobin 30.2 pg (27.0-33.0); Mean Corpuscular Volume 89.4 fL (80-98); Mean Platelet Volume 10.9 fL (9.4-12.3); Monocytes Absolute Auto 0.7 X10*3/uL (0.1-1.2); Monocytes Percent Auto 6.1 % (2-11); Neutrophils Absolute Auto 9.8 X10*3/uL (2.0-8.3); Platelet Count 196 X10*3/uL (160-400); Red Blood Count 3.97 X10*6/uL (4.20-5.50); Red Cell Distribution Width 12.2 % (11.0-16.0); White Blood Count 11.8 X10*3/uL (4.8-10.8)
[2020-05-08 08:27] LABS: Anion Gap 12 (12-20); Blood Urea Nitrogen 10 mg/dL (9-16); Calcium 8.3 mg/dL (8.4-10.2); Carbon Dioxide 24 mmol/L (22-29); Chloride 111 mmol/L (96-108); Creatinine Clr Calc Pharmacy 99.4; Estimated Glomerular Filt Rate > 60; Glucose Random 109 mg/dL (60-115); Potassium 3.5 mmol/L (3.3-5.1); Sodium 143 mmol/L (135-145)
[2020-05-08] MEDS: Dextrose 5 % and 0.9 % NaCl 1,000 ML 100 ML IVCONT ×2 (09:19→20:21)
--- NOTE | 2020-05-08 09:20 | HO.PM.IMPN ---
Subjective Subjective Date of Service: 05/08/20 Interval History: Seen in f/u for drug overdose, suicide attempt. She is more alert and wake and says she took klonopin Review of Systems Gen: no fever Resp: no sob, no cough CV: no chest, no HILLS, no leg edema GI: No n/v, no abd pain Neuro: No confusion Physical Exam Vital Signs: Vital Signs: Last Vital Signs Temp 99.8 F 05/08/20 07:36 Pulse 93 05/08/20 07:36 Resp 16 05/08/20 07:36 BP 119/71 05/08/20 07:36 Pulse Ox 100 05/08/20 07:36 Body Mass Index 30.5 Const: General: cooperative and well developed Resp: Effort & Inspection: normal respiratory effort Auscultation: clear to auscultation bilaterally Cardio: Jugular venous distension: no JVD Rate: regular rate Rhythm: regular rhythm Heart sounds: S1 normal heart sound present, S2 normal heart sound present and no murmurs Peripheral pulses: Peripheral pulses 2+ throughout GI: Inspection: Yes normal to inspection Palpation (GI): Soft to palpation and nontender Auscultation: normal bowel sounds Skin: General skin exam: no rashes or lesions noted Neuro: General: moves all extremities and no focal motor deficits Psych: Judgement: Limited judgement present (Psych) Objective Data Current Medications Generic Name Dose Route Start Last Admin Trade Name Freq PRN Reason Stop Dose Admin Acetaminophen 650 mg 05/07/20 10:54 05/07/20 17:20 Acetaminophen Supp 650 Mg Supp.Rect [place] 650 mg Q6H PRN Administration Fever Docusate Sodium 100 mg 05/07/20 02:50 Docusate Sodium 100 Mg Capsule PO DAILY PRN Constipation Heparin Sodium (Porcine) 5,000 unit 05/07/20 04:00 05/08/20 04:40 Heparin Sodium,Porcine 5,000 Unit/Ml Vial SUBCUT Not Given Q12H GEM Piperacillin Sod/Tazobactam 50 mls @ 100 mls/hr 05/07/20 08:00 05/08/20 02:24 Sod 3.375 gm/ Sodium Chloride IV Infused Q6H GEM Infusion Dextrose/Sodium Chloride 1,000 mls @ 100 mls/hr 05/07/20 17:15 05/08/20 07:03 D5ns IVCONT Infused .Q10H GEM Infusion Vancomycin HCl 750 mg/ 275 mls @ 183.333 mls/hr 05/07/20 20:00 05/07/20 23:02 Vancomycin HCl 500 mg/ Sodium IV Infused Chloride Q12H GEM Infusion Ondansetron HCl 4 mg 05/07/20 02:50 Ondansetron Hcl 4 Mg/2 Ml Vial IVPUSH Q8H PRN Nausea and Vomiting Pharmacy Consult 1 each 05/07/20 17:18 Consult Rx Vancomycin Dosing MISCELLANE DAILY PRN Consult order Sodium Chloride 3 ml 05/07/20 08:00 05/08/20 01:52 0.9 % Sodium Chloride Flush 3 Ml Syringe IVFLUSH Not Given QSHIFT [facility] Labs CBC & Chem 7: 05/08/20 07:15 05/08/20 07:15 Microbiology Microbiology Results: Microbiology 05/07/20 00:39 Blood - Venous Blood Culture - Preliminary No growth after 24 hours. 05/06/20 16:59 Blood - Venous Blood Culture - Preliminary No growth after 24 hours. Assessment and Plan (1) Altered mental status: Status: Acute (2) Anticholinergic drug overdose: Status: Acute Assessment and Plan: hosp #2, 49-year-old female with past medical history on her psych disease including bipolar, anxiety and depression, suicide attempt who presented with AMS, Sucide attempt by way of drung over dose # Altered mental status--related to overdose suspected anticholinergic OD, but also claims she took klonopin -She is more lucid this morning. -continue close monitoring -Continue sitter, will need Psych placement # Mood disorder--Hold meds for now,
[2020-05-08 11:24] VITALS: BP 127/76; PULSE 89; RESP 16; TEMP 38.3; O2SAT 100
[2020-05-08 15:34] VITALS: BP 119/66; PULSE 96; RESP 17; TEMP 36.7; O2SAT 100
[2020-05-08] MEDS: Heparin Sodium,Porcine 5,000 UNIT/ML VIAL 5000 UNIT SUBCUT (16:24)
[2020-05-08 19:26] VITALS: BP 112/66; PULSE 92; RESP 13; TEMP 35.6; O2SAT 98
--- NOTE | 2020-05-08 22:11 | P.CNID_ITS ---
History of Present Illness Data of Consult Service Date: 05/08/20 Requesting physician: Kishan Pitt Primary Care Provider: Unknown Physician HPI Reason for consult: fever of unknown origin She presents with suicidal ideation after ingestion of excessive Bendryl She also took Klonipin She is confused and has temperature of 101 Review of Systems Review of Systems: Yes all other systems are reviewed and are negative Neurologic: Reports confusion Psychiatric: Psychiatric: Reports confusion [facility] Past Medical History Medical History Anxiety Bipolar 1 disorder Hx of drug overdose Hyperthyroidism Major depression Family History Family history: reviewed and not pertinent Social History Social History Household Members Other:: unable to access, patient non verbal after SI attempt Unable to assess alcohol history related to: Unable to respond Smoking Status: Unknown if ever smoked Use of substances other than those prescribed or required for medical reasons: Unable to respond Currently Displaying Signs/Symptoms of Drug Intoxication Withdrawal: Yes (drowsyness) Advance Directives: No Advance Directives Information Provided: Yes Do you have thoughts of harming others: None Do you have a plan to hurt others: No Plan Recently lost weight without trying: Unsure service: No Current occupational status: unemployed Meds Allergies Allergy/AdvReac Type Severity Reaction Status Date / Time Sulfa (Sulfonamide Allergy Unknown HIVES Verified 05/06/20 20:38 Antibiotics) [SULFA (SULFONAMIDE ANTIBIOTICS)] Active Medications: Current Medications Generic Name Dose Route Start Last Admin Trade Name Freq PRN Reason Stop Dose Admin Acetaminophen 650 mg 05/07/20 10:54 05/07/20 17:20 Acetaminophen Supp 650 Mg Supp.Rect [place] 650 mg Q6H PRN Administration Fever Docusate Sodium 100 mg 05/07/20 02:50 Docusate Sodium 100 Mg Capsule PO DAILY PRN Constipation Heparin Sodium (Porcine) 5,000 unit 05/07/20 04:00 05/08/20 16:24 Heparin Sodium,Porcine 5,000 Unit/Ml Vial SUBCUT 5,000 unit Q12H GEM Administration Piperacillin Sod/Tazobactam 50 mls @ 100 mls/hr 05/07/20 08:00 05/08/20 20:55 Sod 3.375 gm/ Sodium Chloride IV Infused Q6H GEM Infusion Dextrose/Sodium Chloride 1,000 mls @ 100 mls/hr 05/07/20 17:15 05/08/20 20:21 D5ns IVCONT 100 mls/hr .Q10H GEM Administration Ondansetron HCl 4 mg 05/07/20 02:50 Ondansetron Hcl 4 Mg/2 Ml Vial IVPUSH Q8H PRN Nausea and Vomiting Pharmacy Consult 1 each 05/07/20 17:18 Consult Rx Vancomycin Dosing MISCELLANE DAILY PRN Consult order Sodium Chloride 3 ml 05/07/20 08:00 05/08/20 16:17 0.9 % Sodium Chloride Flush 3 Ml Syringe IVFLUSH Not Given QSHIFT [facility] Home Medications Medication Instructions Recorded Confirmed Last Taken Type cholecalciferol (vitamin D3) 1 tab PO DAILY 05/07/20 05/07/20 Unknown History [Vitamin D3] clonidine HCl 0.1 mg PO BID PRN 05/07/20 05/07/20 Unknown History lamotrigine 150 mg PO BID 05/07/20 05/07/20 Unknown History olanzapine 12.5 mg PO DAILY 05/07/20 05/07/20 Unknown History pyridoxine (vitamin B6) 50 mg PO DAILY 05/07/20 05/07/20 Unknown History sertraline 25 mg PO DAILY 05/07/20 05/07/20 Unknown History Physical Exam Vital Signs: Vital Signs: Last Vital Signs Temp 96.0 F L 05/08/20 19:26 Pulse 92 05/08/20 19:26 Resp 13 05/08/20 19:26 BP 112/66 05/08/20 19:26 Pulse Ox 98 05/08/20 19:26 Body Mass Index 30.5 Const: General: cooperative and confusion Orientation/consciousness: confusion HENMT: Other: some enlarged pupils Mouth: Normal oral and palatal mucosa present Eyes: Other: enlarged pupils Resp: Effort & Inspection: normal respiratory effort Cardio: Rate: regular rate Rhythm: regular rhythm GI: Palpation (GI): Soft to palpation and nontender : General: Yes no CVA tenderness Back/Spine/Pelvis: Back: no CVA tenderness Neuro: General: confusion Extrem: General: Yes normal to inspection Results Labs CBC & Chem 7: 05/08/20 07:15 05/08/20 07:15 Labs: Short CBC 05/08/20 Range/Units 07:15 WBC 11.8 H (4.8-10.8) X10*3/uL Hgb 12.0 (12.0-16.0) g/dl Hct 35.5 L (37-47) % Plt Count 196 (160-400) X10*3/uL BMP 05/08/20 07:15 Sodium 143 Potassium 3.5 Chloride 111 H Carbon Dioxide 24 BUN 10 Creatinine 0.79 Calcium 8.3 L Microbiology Microbiology Results: Microbiology 05/07/20 00:39 Blood - Venous Blood Culture - Preliminary No growth after 24 hours. 05/06/20 16:59 Blood - Venous Blood Culture - Preliminary No growth after 24 hours. Assessment and Plan (1) Altered mental status: Qualifiers: Altered mental status type: disorientation Qualified Code(s): R41.0 - Disorientation, unspecified Problem details: Fever and altered mental status likely due to drug overdose Benadryl particularly causes dilated eyes,dry skin and high temperatures. There is possible aspiration pneumonia,doubt MRSA Status: Acute Continue Zosyn at this time,possible 3-5 days Await cultures (2) Anticholinergic drug overdose: Qualifiers: Encounter type: initial encounter Injury intent: undetermined intent Qualified Code(s): T44.3X4A - Poisoning by other parasympatholytics [anticho linergics and antimuscarinics] and spasmolytics, undetermined, initial encounter Status: Acute
[2020-05-08] MEDS: 0.9 % Sodium Chloride Flush 3 ML SYRINGE IVFLUSH (23:50)
[2020-05-09] VITALS (8 sets, daily range): BP systolic 104–129; BP diastolic 57–83; PULSE 87–110; RESP 14–20; TEMP 36.8–37.4; O2SAT 96–100
[2020-05-09] MEDS: Piperacillin Sodium/Tazobactam 3.375 GM in 0.9 % Sodium Chloride 50 ML IV ×4 (02:29→20:59)
[2020-05-09] MEDS: Heparin Sodium,Porcine 5,000 UNIT/ML VIAL 5000 UNIT SUBCUT ×2 (03:04→15:42)
[2020-05-09 07:39] LABS: Vancomycin Trough 15.7 mcg/mL (10.0-20.0)
--- NOTE | 2020-05-09 08:20 | P.PNIM_ITS ---
Subjective Subjective Date of Service: 05/09/20 Interval History: Seen in f/u for drug overdose, suicide attempt. She is more alert. Denies SI, still has sitter Review of Systems Gen: no fever Resp: no sob, no cough CV: no chest, no HILLS, no leg edema GI: No n/v, no abd pain Neuro: No confusion Physical Exam Vital Signs: Vital Signs: Last Vital Signs Temp 98.7 F 05/09/20 07:54 Pulse 96 05/09/20 07:54 Resp 18 05/09/20 07:54 BP 115/60 05/09/20 07:54 Pulse Ox 96 05/09/20 07:54 Body Mass Index 30.5 Const: General: cooperative and well developed Resp: Effort & Inspection: normal respiratory effort Auscultation: clear to auscultation bilaterally Cardio: Jugular venous distension: no JVD Rate: regular rate Rhythm: regular rhythm Heart sounds: S1 normal heart sound present, S2 normal heart sound present and no murmurs Peripheral pulses: Peripheral pulses 2+ throughout GI: Inspection: Yes normal to inspection Palpation (GI): Soft to palpation and nontender Auscultation: normal bowel sounds Skin: General skin exam: no rashes or lesions noted Neuro: General: moves all extremities and no focal motor deficits Psych: Judgement: Limited judgement present (Psych) Objective Data Current Medications Generic Name Dose Route Start Last Admin Trade Name Freq PRN Reason Stop Dose Admin Acetaminophen 650 mg 05/07/20 10:54 05/07/20 17:20 Acetaminophen Supp 650 Mg Supp.Rect W[place] 650 mg Q6H PRN Administration Fever Docusate Sodium 100 mg 05/07/20 02:50 Docusate Sodium 100 Mg Capsule PO DAILY PRN Constipation Heparin Sodium (Porcine) 5,000 unit 05/07/20 04:00 05/09/20 03:04 Heparin Sodium,Porcine 5,000 Unit/Ml Vial SUBCUT 5,000 unit Q12H GEM Administration Piperacillin Sod/Tazobactam 50 mls @ 100 mls/hr 05/07/20 08:00 05/09/20 03:04 Sod 3.375 gm/ Sodium Chloride IV Infused Q6H GEM Infusion Dextrose/Sodium Chloride 1,000 mls @ 100 mls/hr 05/07/20 17:15 05/09/20 03:04 D5ns IVCONT 100 mls/hr .Q10H GEM Infusion Ondansetron HCl 4 mg 05/07/20 02:50 Ondansetron Hcl 4 Mg/2 Ml Vial IVPUSH Q8H PRN Nausea and Vomiting Pharmacy Consult 1 each 05/07/20 17:18 Consult Rx Vancomycin Dosing MISCELLANE DAILY PRN Consult order Sodium Chloride 3 ml 05/07/20 08:00 05/08/20 23:50 0.9 % Sodium Chloride Flush 3 Ml Syringe IVFLUSH 3 ml QSHIFT [facility] Administration Labs CBC & Chem 7: 05/08/20 07:15 05/08/20 07:15 Microbiology Microbiology Results: Microbiology 05/07/20 00:39 Blood - Venous Blood Culture - Preliminary No growth after 48 hours. 05/06/20 16:59 Blood - Venous Blood Culture - Preliminary No growth after 48 hours. Assessment and Plan (1) Altered mental status: Status: Acute (2) Anticholinergic drug overdose: Status: Acute Assessment and Plan: hosp #2, 49-year-old female with past medical history on her psych disease incl uding bipolar, anxiety and depression, suicide attempt who presented with AMS, Sucide attempt by way of drung over dose # Altered mental status--related to overdose suspected anticholinergic OD, but also claims she took klonopin -She is more lucid this morning. -continue close monitoring -Continue sitter, will need Psych placement #Fever and altered mental status likely due to drug overdose Benadryl particularly causes dilated eyes,dry skin and high temperatures. There is possible aspiration pneumonia,doubt MRSA -Zosyn for now and if cultures negative by tomorrow, change to PO Augmentin or discontinued Abx all together. # Mood disorder--Hold meds for now,
[2020-05-09] MEDS: 0.9 % Sodium Chloride Flush 3 ML SYRINGE IVFLUSH (15:43)
[2020-05-10] MEDS: Piperacillin Sodium/Tazobactam 3.375 GM in 0.9 % Sodium Chloride 50 ML IV ×2 (02:32→08:50)
[2020-05-10] MEDS: 0.9 % Sodium Chloride Flush 3 ML SYRINGE IVFLUSH ×4 (02:33→23:50)
[2020-05-10 03:08] VITALS: BP 109/56; PULSE 85; RESP 18; TEMP 37.2; O2SAT 95
[2020-05-10] MEDS: Heparin Sodium,Porcine 5,000 UNIT/ML VIAL 5000 UNIT SUBCUT ×2 (03:43→17:58)
[2020-05-10 07:05] VITALS: BP 123/58; PULSE 85; RESP 20; TEMP 36.4; O2SAT 97
--- NOTE | 2020-05-10 09:45 | P.PNIM_ITS ---
Subjective Subjective Date of Service: 05/10/20 Interval History: Seen in f/u for drug overdose, suicide attempt. She is lucid, no SI Review of Systems Gen: no fever Resp: no sob, no cough CV: no chest, no HILLS, no leg edema GI: No n/v, no abd pain Neuro: No confusion Physical Exam Vital Signs: Vital Signs: Last Vital Signs Temp 97.6 F 05/10/20 07:05 Pulse 85 05/10/20 07:05 Resp 20 05/10/20 07:05 BP 123/58 L 05/10/20 07:05 Pulse Ox 97 05/10/20 07:05 Body Mass Index 30.5 Const: General: cooperative and well developed Resp: Effort & Inspection: normal respiratory effort Auscultation: clear to auscultation bilaterally Cardio: Jugular venous distension: no JVD Rate: regular rate Rhythm: regular rhythm Heart sounds: S1 normal heart sound present, S2 normal heart sound present and no murmurs Peripheral pulses: Peripheral pulses 2+ throughout GI: Inspection: Yes normal to inspection Palpation (GI): Soft to palpation and nontender Auscultation: normal bowel sounds Skin: General skin exam: no rashes or lesions noted Neuro: General: moves all extremities and no focal motor deficits Psych: Judgement: Limited judgement present (Psych) Objective Data Current Medications Generic Name Dose Route Start Last Admin Trade Name Freq PRN Reason Stop Dose Admin Acetaminophen 650 mg 05/07/20 10:54 05/07/20 17:20 Acetaminophen Supp 650 Mg Supp.Rect [place] 650 mg Q6H PRN Administration Fever Docusate Sodium 100 mg 05/07/20 02:50 Docusate Sodium 100 Mg Capsule PO DAILY PRN Constipation Heparin Sodium (Porcine) 5,000 unit 05/07/20 04:00 05/10/20 03:43 Heparin Sodium,Porcine 5,000 Unit/Ml Vial SUBCUT 5,000 unit Q12H GEM Administration Piperacillin Sod/Tazobactam 50 mls @ 100 mls/hr 05/07/20 08:00 05/10/20 08:50 Sod 3.375 gm/ Sodium Chloride IV 100 mls/hr Q6H GEM Administration Ondansetron HCl 4 mg 05/07/20 02:50 Ondansetron Hcl 4 Mg/2 Ml Vial IVPUSH Q8H PRN Nausea and Vomiting Pharmacy Consult 1 each 05/07/20 17:18 Consult Rx Vancomycin Dosing MISCELLANE DAILY PRN Consult order Sodium Chloride 3 ml 05/07/20 08:00 05/10/20 08:50 0.9 % Sodium Chloride Flush 3 Ml Syringe IVFLUSH 3 ml QSHIFT GEM Administration Labs CBC & Chem 7: 05/08/20 07:15 05/08/20 07:15 Microbiology Microbiology Results: Microbiology 05/07/20 00:39 Blood - Venous Blood Culture - Preliminary No growth after 48 hours. 05/06/20 16:59 Blood - Venous Blood Culture - Preliminary No growth after 48 hours. Assessment and Plan (1) Altered mental status: Status: Acute (2) Anticholinergic drug overdose: Status: Acute Assessment and Plan: hosp #2, 49-year-old female with past medical history on her psych disease including bipolar, anxiety and depression, suicide attempt who presented with AMS, Sucide attempt by way of drung over dose # Altered mental status--d/t Overdose, SI attempt. Resolved. She is lucid #Overdose/Suicide attempt with benadrul and possibly other agents--Has sitter -[facility] consult for inpatient Psych consideration, she is not objecting to this. -Continue Sitter #Fever and altered mental status likely due to drug overdose Benadryl particularly causes dilated eyes,dry skin and high temperatures. There is possible aspiration pneumonia,doubt MRSA Cultures are negative. DC Zosyn and PO Augmentin for total of 7 days of Abx Zosyn for now and if cultures negative by tomorrow, change to PO Augmentin or discontinued Abx all together. # Mood disorder--Resume meds (Clonidine, Lamotrigine, Olanzapin) Dispo: proably inpatient Psych when bed available.
--- NOTE | 2020-05-10 09:47 | MHC.CDI.CONC ---
CDI Concurrent Query Service Date: 05/11/20 Documentation Clarification: Please clarify if you are treating a probable/suspected/likely or confirmed: Toxic encephalopathy Acute encephalopathy Metabolic encephalopathy not treating encephalopathy Please specify if known Provider Response: Toxic Encephalopathy PLEASE DO NOT DELETE/MODIFY EXISTING CONTENT Additional information is needed in order to code to the highest accuracy and appropriate Severity of Illness (SOI). Please clarify the information noted below in your progress notes and discharge summary. Risk Factors/Clinical Indicators/Treatments Altered mental status most likely due to drug overdose Anticholinergic OD ? klonopin spiking fever 100.4 CDS: Maribel Yeung [facility], CDIS Contact Number: [phone] Please Review the information above and exercise your independent professional judgment in responding to the query. If you concur, pleas document in the PROGRESS NOTES and DISCHARGE SUMMARY. If you do not agree with the query, please document in the query above. THIS QUERY IS PART OF THE PERMANENT MEDICAL RECORD
[2020-05-10 11:33] VITALS: BP 106/63; PULSE 68; RESP 18; TEMP 37.4; O2SAT 96
[2020-05-10] MEDS: OLANZapine 10 MG TABLET 12.5 MG PO (12:02)
[2020-05-10] MEDS: Cholecalciferol (Vitamin D3) 25 MCG TABLET 50 MCG PO (12:13)
[2020-05-10] MEDS: Sertraline HCL 25 MG TABLET PO (12:13)
[2020-05-10] MEDS: Pyridoxine HCl (Vitamin B6) 50 MG TABLET PO (12:13)
[2020-05-10] MEDS: lamoTRIgine 25 MG TABLET 150 MG PO ×2 (14:09→22:23)
[2020-05-10 15:18] VITALS: BMI 30.5
[2020-05-10 15:32] VITALS: BP 111/62; PULSE 71; RESP 20; TEMP 37.4; O2SAT 98
--- NOTE | 2020-05-10 15:58 | PC.NURSE ---
1230 mom called stated that Crystal overdosed on zyprexa Message relayed to Dr Pitt.
[2020-05-10 19:07] VITALS: BP 112/65; PULSE 82; RESP 20; TEMP 36.9; O2SAT 100
[2020-05-10 23:27] VITALS: RESP 16
[2020-05-11 04:00] VITALS: BP 101/72; PULSE 69; RESP 18; TEMP 36.4
[2020-05-11] MEDS: Heparin Sodium,Porcine 5,000 UNIT/ML VIAL 5000 UNIT SUBCUT (05:07)
[2020-05-11 07:24] VITALS: BP 116/64; PULSE 71; RESP 19; TEMP 37.1; O2SAT 97
[2020-05-11] MEDS: lamoTRIgine 25 MG TABLET 150 MG PO (08:13)
[2020-05-11] MEDS: Cholecalciferol (Vitamin D3) 25 MCG TABLET 50 MCG PO (08:13)
[2020-05-11] MEDS: Pyridoxine HCl (Vitamin B6) 50 MG TABLET PO (08:13)
[2020-05-11] MEDS: Sertraline HCL 25 MG TABLET PO (08:13)
[2020-05-11] MEDS: 0.9 % Sodium Chloride Flush 3 ML SYRINGE IVFLUSH (08:14)
--- NOTE | 2020-05-11 08:14 | MHC.CM.PN ---
pending a psych evaluation, pt may need BHU stay vs. home no svcs. cm to cont. to follow.
[2020-05-11 11:26] VITALS: BP 110/68; PULSE 70; RESP 18; TEMP 36.5; O2SAT 100
[2020-05-11 15:20] VITALS: BP 104/64; PULSE 86; RESP 18; TEMP 36.4; O2SAT 97
--- NOTE | 2020-05-11 17:13 | PM.DS ---
DS: Providers Provider Date of Service: 07/10/20 Date of admission: 05/07/20 02:13 Primary care physician: Unknown Physician Consults: 05/07/20 17:18 Consult to Infectious Diseases Routine Consulting Provider: Delfina Patton Reason for consultation: fever encephalopathy 05/10/20 08:27 Consult to Crisis NOW Reason for consultation: Intentional sucide attempt, needs inpatient Psych admit, medically readu DS: Diagnosis Discharge Diagnosis (1) Altered mental status: Status: Acute (2) Anticholinergic drug overdose: Status: Resolved DS: Medications Discharge Medications Home Medications: Home Medications Medication Instructions Recorded Confirmed cholecalciferol (vitamin D3) 1 tab PO DAILY 05/07/20 05/07/20 [Vitamin D3] clonidine HCl 0.1 mg PO BID PRN 05/07/20 05/07/20 lamotrigine 150 mg PO BID 05/07/20 05/07/20 olanzapine 12.5 mg PO DAILY 05/07/20 05/07/20 pyridoxine (vitamin B6) 50 mg PO DAILY 05/07/20 05/07/20 sertraline 25 mg PO DAILY 05/07/20 05/07/20 DS: Summary Hospital Course Hospital Course: Chief Complaint: Lethargy 49 Female with past medical history of bipolar, hyperthyroidism, major depression disorder, anxiety and history of suicide attempt who presents to the hospital after her mother found her to be lethargic, and unresponsive around 6:00 p.m. Patient is completely lethargic, grimaces to painful stimuli but does not wake up, does not answer any questions, does track with her eyes for very short period time it then goes back to being somnolent. Therefore history is obtained from ED physician and EMR. According to the mother patient was doing fine and last time she heard from her was around 1:00 p.m.. She responded to a text message that her mother sent her. Her mother texted her once again at 4 with no response. Around 630 the mother reached her home and found her in her bed not responding and felt very hot. According to the ED staff and the mother patient usually gets her medication blister pack and no medication was missing. It appears the patient had recently started on Benadryl and it is unclear if patient had taking extra Benadryl or not but according to the mom the blister pack is intact and no medication is missing. On arrival patient was somnolent, had dilated pupils, tachycardic, flushed, had temperature of a 100.4? making it very likely the patient has anticholinergic toxicity. She is currently hemodynamically stable with no CO2 retention, stable blood pressure, no longer tachycardic. Temperature of 99.7?. Labs are generally unremarkable with a PT of 14, INR of 1.2, pH of 7.47, CO2 of 32, PaO2 of 143,. With BMP being unremarkable as well. UA is negative, urine drug screen is negative for salicylates, Tylenol, no opioids, or other drugs detected. CT of the head shows no evidence of acute intracranial hemorrhage or territorial infarction. No abnormal mass effect or midline shift. Chest x-ray unremarkable Hospital course Essentially the patient was admitted for drug overdose and initially believed to be Benedryl overdose. She was minimally responsive, yet hemodynamically stable. She had a low grade temp and was initiaated on IV antiboitics for possible aspiration pneumonia. ECG showed normal QTC. Over the course of hospital stay she became completly lucid. I spoke to her mother whom she lived with and she related that patient was mixing about 40 tabs of Zyprexa and believed that was the medication she took possibly in addition to Benedryl. Patient later sated also that she had taken Zyprexa in an attempt to drive away all her axiety. She was evaluated by [facility] and recommeded to be admitted to inpatient Psych which she is agreable with. For now Zyprexa has been on hold and restarting this should be reevaluated upon admission to inpatient Psych. For possible aspiration pneumonia, she was on IV Zosyn, she has been afebrile, no sob, and will transition to oral Augmentin for 3 more days. Time Spent with Patient Time attestation: Total time spent providing and/or coordinating discharge services: Discharge coordination time: Greater than 30 minutes Physical Exam Vital Signs: Vital Signs: Last Vital Signs Temp 97.6 F 05/11/20 15:20 Pulse 86 05/11/20 15:20 Resp 18 05/11/20 15:20 BP 104/64 05/11/20 15:20 Pulse Ox 97 05/11/20 15:20 Body Mass Index 30.5 Const: General: cooperative and well developed Resp: Effort & Inspection: normal respiratory effort Auscultation: clear to auscultation bilaterally Cardio: Jugular venous distension: no JVD Rate: regular rate Rhythm: regular rhythm Heart sounds: S1 normal heart sound present, S2 normal heart sound present and no murmurs Peripheral pulses: Peripheral pulses 2+ throughout GI: Inspection: Yes normal to inspection Palpation (GI): Soft to palpation and nontender Auscultation: normal bowel sounds Skin: General skin exam: no rashes or lesions noted Neuro: General: moves all extremities and no focal motor deficits Psych: Judgement: Limited judgement present (Psych) DS: Data Data Completed and Pending Labs on day of discharge: Preliminary micro results at discharge 05/07/20 00:39 Blood Culture - Preliminary Blood - Venous No growth after 48 hours. 05/06/20 16:59 Blood Culture - Preliminary Blood - Venous No growth after 48 hours. Discharge Plan Discharge Anticipated Discharge Date/Time: 05/11/20 17:04 Patient Disposition: Xfer Psychiatric Hosp Referrals: [facility] [Other] Physician,Unknown [Primary Care Provider] - Discharge Medications: Continued pyridoxine (vitamin B6) 50 mg tablet 50 mg PO DAILY RF: 0 cholecalciferol (vitamin D3) [Vitamin D3] 50 mcg (2,000 unit) tablet 1 tab PO DAILY RF: 0 No Action cyanocobalamin (vitamin B-12) [Vitamin B-12] 500 mcg Tablet 500 mcg PO DAILY RF: 0 ascorbic acid (vitamin C) [Vitamin C] 500 mg Tablet 500 mg PO DAILY RF: 0 zinc 50 mg Tablet 50 mg PO DAILY RF: 0 folic acid 800 mcg Tablet 0.8 mg PO DAILY RF: 0 omega-3 fatty acids 1,250 mg Capsule 1,250 mg PO DAILY RF: 0 lamotrigine 150 mg tablet 150 mg PO BID Qty: 60 RF: 0 trazodone 50 mg Tablet 50 mg PO BEDTIME PRN (Reason: Insomnia) Qty: 30 RF: 0 oxcarbazepine 300 mg Tablet 300 mg PO BID Qty: 60 RF: 0 docusate sodium 100 mg Capsule 100 mg PO BID PRN (Reason: Constipation) Qty: 60 RF: 0 gabapentin 300 mg capsule 300 mg PO TID Qty: 90 RF: 0 sertraline 50 mg Tablet 50 mg PO DAILY Qty: 30 RF: 0 Latuda 40 mg Tablet 40 mg PO BEDTIME Qty: 30 RF: 0 Discharge Orders: Discharge Order (Routine); Ordered 05/11/20 Ordered By: Kishan Pitt Diet: advance to usual diet Activity on Discharge: As tolerated Stand Alone Forms: Patient Portal Discharge page Care Plan Goals: Transfer to inpatient Psych Health Concerns: suicide attempt Plan of Treatment: Transfer to Psych Discharge Date/Time: 05/11/20 18:19
== END 2020-05-11 18:19 | DRG 917 ==
LOC: HO.ED 05-07 02:11 → HO.EDOVER 05-07 02:19 → HO.S3 05-07 15:38
PROVIDERS: Internal Medicine; Admitting Provider Internal Medicine; Emergency Provider Internal Medicine; Visit Provider Internal Medicine
DX: T43.592A Poisoning by other antipsychotics and neuroleptics, intentional self-harm, initial encounter (principal); G92 Toxic encephalopathy; T45.0X2A Poisoning by antiallergic and antiemetic drugs, intentional self-harm, initial encounter; Y92.9 Unspecified place or not applicable; Z20.822 Contact with and (suspected) exposure to COVID-19; Z91.5 Personal history of self-harm; Z88.2 Allergy status to sulfonamides; Z79.899 Other long term (current) drug therapy
CPT/HCPCS: 36415; 70450; 71045; 80048; 80076; 80143; 80179; 80202; 80307; 80320; 81001; 82550; 82803; 82947; 83605; 83690; 83735; 85025; 85610; 85730; 86140; 87040; 87635; 93005; 96374; 99285; J2060; J2543; J3370

== ENCOUNTER 2020-05-11 18:52 | Inpatient (IN) | payer MEDICARE, MEDICAID, SELFPAY ==
[2020-05-11] MEDS: OXcarbazepine 150 MG TABLET PO (22:06)
[2020-05-11] MEDS: lamoTRIgine 100 MG TABLET 150 MG PO (22:06)
[2020-05-11 22:14] VITALS: BP 94/66; PULSE 87; TEMP 36.4; O2SAT 97
--- NOTE | 2020-05-11 23:04 | PC.ADMIT ---
Pt is a 44 year old female that came to [facility] due to mother finding pt on the bed after taking 40 zyprexa pills and was unresponsive. Had a prior OD 6 years ago. Came from Med floor to . CV signed. Denied having SI/HI, reports that I feel very regretful for doing that, I'm just happy I'm alive...I have just been stressed out with my new job. 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 Reports that she has been having obsessive thoughts and worrying about the future. I will think of things like my Jury duty that is scheduled in September and I worry about how I am going to get there even though I should not even worry about that right now. Pt states that she has good supports through her therapist, [employer], mother and brother. Reports that her goal is to find the right medication for myself . Zyprexa she does not want to be on and stated that a possible increase in zoloft she would try. Has had previous psych admission and hx of suicidal gestures as early as 17 years old. Medications were verified per [facility] and Med rec from medical floor. Dr. Hood ordered and medications were obtained. Placed on 15 minute checks.
[2020-05-12 06:45] VITALS: BP 100/51; PULSE 77; RESP 18; TEMP 36.4; O2SAT 99
[2020-05-12 08:18] LABS: MANUAL DIFF FLAG NO
[2020-05-12 08:34] LABS: Basophils Percent Auto 0.4 % (0-2); Eosinophils Absolute Auto 0.2 X10*3/uL (0.0-0.4); Eosinophils Percent Auto 2.5 % (0-4); Hematocrit 40.6 % (37-47); Hemoglobin 13.3 g/dl (12.0-16.0); Imm Gran Abs Auto 0.03 X10*3/uL (0.00-0.03); Imm Gran Pct Auto 0.4 % (0.0-0.4); Lymphocytes Absolute Auto 2.9 X10*3/uL (1.2-4.9); Lymphocytes Percent Auto 41.1 % (20-40); Mean Corpuscular HGB Conc 32.8 g/dl (31.0-35.0); Mean Corpuscular Hemoglobin 29.5 pg (27.0-33.0); Mean Platelet Volume 10.3 fL (9.4-12.3); Monocytes Absolute Auto 0.6 X10*3/uL (0.1-1.2); Monocytes Percent Auto 8.9 % (2-11); Neutrophils Absolute Auto 3.3 X10*3/uL (2.0-8.3); Neutrophils Percent Auto 46.7 % (45-73); Platelet Count 353 X10*3/uL (160-400); Red Blood Count 4.51 X10*6/uL (4.20-5.50); Red Cell Distribution Width 11.8 % (11.0-16.0); White Blood Count 7.1 X10*3/uL (4.8-10.8)
[2020-05-12] MEDS: OXcarbazepine 150 MG TABLET PO ×2 (08:49→20:01)
[2020-05-12] MEDS: lamoTRIgine 100 MG TABLET 150 MG PO ×2 (08:49→20:01)
[2020-05-12] MEDS: Cholecalciferol (Vitamin D3) 25 MCG TABLET 50 MCG PO (08:50)
[2020-05-12] MEDS: Sertraline HCL 25 MG TABLET PO (08:50)
[2020-05-12] MEDS: Pyridoxine HCl (Vitamin B6) 50 MG TABLET PO (08:50)
[2020-05-12 08:59] LABS: Alanine Aminotransferase 54 U/L (0-31); Albumin Level 3.9 g/dL (3.5-5.0); Alkaline Phosphatase 85 U/L (39-117); Anion Gap 10 (12-20); Aspartate Amino Transferase 51 U/L (5-31); Bilirubin Total 0.5 mg/dL (0.0-1.0); Blood Urea Nitrogen 18 mg/dL (9-16); Calcium 9.5 mg/dL (8.4-10.2); Carbon Dioxide 30 mmol/L (22-29); Chloride 101 mmol/L (96-108); Cholesterol 232 mg/dL; Estimated Glomerular Filt Rate > 60; Glucose Fasting 95 mg/dL (60-99); HDL Cholesterol 61 mg/dL; LDL Cholesterol Calculated 151 mg/dl; Potassium 4.3 mmol/L (3.3-5.1); Sodium 137 mmol/L (135-145); Triglycerides 100 mg/dL
[2020-05-12 09:19] LABS: TSH reflex Free T4 1.82 uIU/mL (0.32-4.0)
[2020-05-12 10:47] LABS: Reflex LDLD? No
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
[2020-05-12 18:00] VITALS: BP 101/48; BP 109/55; PULSE 71; PULSE 75; TEMP 36.3; TEMP 37
[2020-05-12] MEDS: traZODone HCL 50 MG TABLET PO (20:07)
[2020-05-12] MEDS: Bacitracin Oint 14 GM TUBE 1 APPL TOPICAL (20:52)
[2020-05-13 07:00] VITALS: BMI 29.9
[2020-05-13] MEDS: OXcarbazepine 150 MG TABLET PO ×2 (09:10→20:01)
[2020-05-13] MEDS: Pyridoxine HCl (Vitamin B6) 50 MG TABLET PO (09:10)
[2020-05-13] MEDS: Sertraline HCL 25 MG TABLET 37.5 MG PO (09:10)
[2020-05-13] MEDS: Cholecalciferol (Vitamin D3) 25 MCG TABLET 50 MCG PO (09:10)
[2020-05-13] MEDS: lamoTRIgine 100 MG TABLET 150 MG PO ×2 (09:10→20:00)
[2020-05-13 09:13] VITALS: BP 146/63; PULSE 101
[2020-05-13] MEDS: cloNIDine HCL 0.1 MG TABLET PO (09:13)
[2020-05-13 09:15] LABS: Vitamin D 25-OH Total 41.6 ng/mL (>30)
[2020-05-13 10:26] LABS: Folate 17.7 ng/mL (> or = 4.0); Vitamin B12 735 pg/mL (200-900)
[2020-05-13 11:00] VITALS: BP 146/63
[2020-05-13] MEDS: Bacitracin Oint 14 GM TUBE 1 APPL TOPICAL ×3 (11:06→20:00)
--- NOTE | 2020-05-13 13:08 | HO.PSYCHPN ---
Subjective Subjective Date of Service: 05/13/20 Reason For Visit: MDD, SHIN Subjective Notes: Conditional Voluntary Interim History: Reports she slept last night, is feeling safe in the milieu. Reviewed options of Vraylar, Latuda and prefers Latuda trial. Also interested in TMS consultation and EMDR consultation. Visited by a friend of her mother's who is an employee which she felt supported by. Tolerating small requested increase of Sertraline. No sx of dystonia, dyskinesia noted by pt (mother reports perioral sx) Medication Compliance: Yes Side effects from medications: No Attending Groups: Yes Review of Systems Review of Systems Yes all other systems are reviewed and are negative (denies current sx.) Psychiatric: Reports depression, Reports difficulty concentrating, Reports hopelessness and Reports panic attacks Mental Status Exam Mental Status Exam Patient Appearance: Appropriate Patient Orientation: Person, Place, Time and Situation Level of Consciousness: Awake and Alert Patient Behavior: Talkative, Cooperative, Passive and Anxious Mood Description: Anxious Affect Description: Flat Patient Cognition Impaired: No Ability to Follow Directions: Good Speech Pattern: Clear, Appropriate and Spontaneous Speech Memory Description: Intact Hallucinations: None Delusions: Not Present Thought Process: Intact and Rumination Thought Content: positive for [place], positive for Circumstantial, positive for Perseveration and positive for Suicidal Ideation (denies SI plan or intent today) Depressive Symptoms: Increased Anxiety, Diff. Making Decisions, Loss of Int. in Activity, Feelings of Worthlessness, Hopelessness, Isolating-Friends/Family, Feelings of Guilt, Unhappiness, Increased Fatigue, Low Self Esteem, Loss of Energy and Difficulty Concentrating Judgement: Fair Diagnostics Vital Signs (24Hr): Vital Signs - 24 hr 05/12/20 18:00 05/13/20 09:13 05/13/20 11:00 Temperature 97.3 F Pulse Rate 71 101 H Blood Pressure 101/48 L 146/63 H 146/63 H Labs Results: 05/12/20 08:04 05/12/20 08:03 Labs: Laboratory Results - last 48 hr 05/12/20 05/12/20 05/13/20 08:03 08:04 07:50 WBC 7.1 RBC 4.51 Hgb 13.3 Hct 40.6 MCV 90.0 MCH 29.5 MCHC 32.8 RDW 11.8 Plt Count 353 D MPV 10.3 Immature Gran % (Auto) 0.4 Neut % (Auto) 46.7 Lymph % (Auto) 41.1 H [place] % (Auto) 8.9 Eos % (Auto) 2.5 Baso % (Auto) 0.4 Lymph # (Auto) 2.9 [place] # (Auto) 0.6 Eos # (Auto) 0.2 Baso # (Auto) 0.0 Abs Immat Gran (auto) 0.03 Absolute Neuts (auto) 3.3 Absolute Nucleated RBC 0.000 Nucleated RBC % (auto) 0.0 Sodium 137 Potassium 4.3 D Chloride 101 Carbon Dioxide 30 H Anion Gap 10 L BUN 18 H D Creatinine 0.97 Estim Creat Clear Calc TNP Estimated GFR > 60 Fasting Glucose 95 Calcium 9.5 D Total Bilirubin 0.5 AST 51 H ALT 54 H Alkaline Phosphatase 85 Total Protein 7.0 Albumin 3.9 Triglycerides 100 Cholesterol 232 LDL Cholesterol, Calc 151 HDL Cholesterol 61 Vitamin B12 25-OH Vitamin D Total 41.6 Folate TSH 1.82 05/13/20 07:51 WBC RBC Hgb Hct MCV MCH MCHC RDW Plt Count MPV Immature Gran % (Auto) Neut % (Auto) Lymph % (Auto) [place] % (Auto) Eos % (Auto) Baso % (Auto) Lymph # (Auto) [place] # (Auto) Eos # (Auto) Baso # (Auto) Abs Immat Gran (auto) Absolute Neuts (auto) Absolute Nucleated RBC Nucleated RBC % (auto) Sodium Potassium Chloride Carbon Dioxide Anion Gap BUN Creatinine Estim Creat Clear Calc Estimated GFR Fasting Glucose Calcium Total Bilirubin AST ALT Alkaline Phosphatase Total Protein Albumin Triglycerides Cholesterol LDL Cholesterol, Calc HDL Cholesterol Vitamin B12 735 25-OH Vitamin D Total Folate 17.7 TSH Medications Medications Current Medications Generic Name Dose Route Start Last Admin Trade Name Freq PRN Reason Stop Dose Admin Acetaminophen 650 mg 05/11/20 19:15 Acetaminophen Supp 650 Mg Supp.Rect [place] Q6H PRN Fever Acetaminophen 650 mg 05/11/20 19:15 Acetaminophen 325 Mg Tablet PO Q6H PRN Headache/Pain Mild Scale (1-3) Al Hydroxide/Mg Hydroxide 30 ml 05/11/20 19:15 Magnesium Hydrox/Alum Hydrox 30 Ml Oral.Susp PO Q6H PRN Heartburn/Nausea Bacitracin 1 appl 05/12/20 21:00 05/13/20 11:06 Bacitracin Oint 14 Gm Tube TOPICAL 1 appl TID GEM Administration Protocol Clonidine HCl 0.1 mg 05/11/20 19:15 05/13/20 09:13 Clonidine Hcl 0.1 Mg Tablet PO 0.1 mg BID PRN Administration Anxiety Protocol Docusate Sodium 100 mg 05/11/20 19:15 Docusate Sodium 100 Mg Capsule PO DAILY PRN Constipation Hydroxyzine HCl 25 mg 05/11/20 19:15 Hydroxyzine Hcl 25 Mg Tablet PO BEDTIME PRN Anxiety Lamotrigine 150 mg 05/11/20 21:00 05/13/20 09:10 Lamotrigine 100 Mg Tablet PO 150 mg BID GEM Administration Magnesium Hydroxide 30 ml 05/11/20 19:15 Milk Of Magnesia 30 Ml Oral.Susp PO DAILY PRN Constipation Oxcarbazepine 150 mg 05/11/20 22:00 05/13/20 09:10 Oxcarbazepine 150 Mg Tablet PO 150 mg BID GEM Administration Pyridoxine HCl 50 mg 05/12/20 09:00 05/13/20 09:10 Pyridoxine Hcl (Vitamin B6) 50 Mg Tablet PO 50 mg DAILY GME Administration Sertraline HCl 37.5 mg 05/13/20 09:00 05/13/20 09:10 Sertraline Hcl 25 Mg Tablet PO 37.5 mg DAILY GEM Administration Trazodone HCl 50 mg 05/11/20 19:15 05/12/20 20:07 Trazodone Hcl 50 Mg Tablet PO 50 mg BEDTIME PRN Administration Insomnia Vitamin D 50 mcg 05/12/20 09:00 05/13/20 09:10 Cholecalciferol (Vitamin D3) 25 Mcg Tablet PO 50 mcg DAILY GEM Administration Allergies Allergies Allergy/AdvReac Type Severity Reaction Status Date / Time Sulfa (Sulfonamide Allergy Unknown HIVES Verified 05/06/20 20:38 Antibiotics) [SULFA (SULFONAMIDE ANTIBIOTICS)] Assessment & Plan Assessment & Plan (1) PTSD (post-traumatic stress disorder): Status: Acute Code(s): F43.10 - Post-traumatic stress disorder, unspecified Assessment and Plan: -Pt requests consult for EMDR- will discuss with social services director and provide out patient contact resources. (2) Bipolar disorder: Status: Acute Code(s): F31.9 - Bipolar disorder, unspecified Assessment and Plan: Latuda 20 mg HS Pt requests consult for TMS. Will begin referral process. Greater than 50% of the session was spent on counseling and/or coordination of care Reason for contiued inpatient stay Substantial Risk for: harm to self, inability to function and rapid decompensation
[2020-05-13 18:00] VITALS: BP 114/65; PULSE 89; TEMP 37
[2020-05-13] MEDS: Lurasidone HCl 20 MG TABLET PO (20:01)
[2020-05-13] MEDS: traZODone HCL 50 MG TABLET PO (20:05)
[2020-05-14 06:42] VITALS: BP 102/62; PULSE 91; RESP 16; TEMP 36.6; O2SAT 98
[2020-05-14] MEDS: Sertraline HCL 25 MG TABLET 37.5 MG PO (08:37)
[2020-05-14] MEDS: Cholecalciferol (Vitamin D3) 25 MCG TABLET 50 MCG PO (08:38)
[2020-05-14] MEDS: lamoTRIgine 100 MG TABLET 150 MG PO ×2 (08:38→20:33)
[2020-05-14] MEDS: OXcarbazepine 150 MG TABLET PO ×2 (08:38→20:32)
[2020-05-14] MEDS: Pyridoxine HCl (Vitamin B6) 50 MG TABLET PO (08:38)
[2020-05-14] MEDS: Bacitracin Oint 14 GM TUBE 1 APPL TOPICAL ×3 (08:39→20:33)
[2020-05-14 10:34] LABS: Estimated Average Glucose 88 mg/dL; Hemoglobin A1c % 4.7 %
--- NOTE | 2020-05-14 13:59 | HO.PSYCHPN ---
Subjective Subjective Date of Service: 05/14/20 Reason For Visit: MDD, SHIN Subjective Notes: Conditional Voluntary Interim History: Tolerating Latuda initiation and small increase in Sertraline. Reports feeling bored and worried about work, filing taxes and about her mother. Discussed mother making a statement that if she was hospitalized again she could not live at home. She reports she has not been asked to leave currently and believes she will have housing upon discharge. Pt asks for assistance in applying for housing in [place] so she can work on increasing independence. Pt discussed having a conflictual relationship-wanting to be independent but being dependent in ways where she felt mother had control as I am not successful like my brother is. Discussed mother's request for TW to call to discuss medications-pt authorized permission with some limits we discussed. Pt reports mother wants her to have EMDR and TMS-Discussed EMDR and her therapist's recommendation that this would not be in her best interest at this time. Pt has EMDR literature from [facility]. TMS information given to pt as well, however this is not recommended due to diagnosis of Bipolar Disorder. Call to pt's mother, Susan Blanco [phone] who reports pt has had difficult results with medications including perioral TD, sx where pt appeared groggy (mother reports pt sounded groggy when she spoke with her this morning). Pt, also by hx has had [facility] testing however with no results received. is concerned that pt is not bipolar but depressed as family history is present for major depression in father, grandmother and uncle. By history pt has done poorly on antidepressants and atypicals. Discussed rationale for Latuda in consultation with pt's out patient prescriber and FDA approval for bipolar depression, citing less risk of samuel which both pt and mother report a history is present in pt. Reviewed rationale for not pursuing TMS and therapists indication to [facility] that EMDR is currently not appropriate. Mother was given TW contact information should she have further questions. Call to [facility] [facility] [phone] RE testing results. Pt signed their ALEX and it was sent. [employer] will send results today or on 05/17/20. Review of Systems Review of Systems Yes all other systems are reviewed and are negative (pt denies active sx today ) Psychiatric: Reports anxiety, Reports depression, Reports difficulty concentrating, Reports hopelessness, Reports anhedonia, Reports panic attacks, Reports suicidal ideation (denies active SI plan or intent currently) and Reports other (?OCD sx.) Mental Status Exam Mental Status Exam Patient Appearance: Appropriate Patient Orientation: Person, Place, Time and Situation Level of Consciousness: Awake and Alert Patient Behavior: Appropriate, Talkative, Cooperative, Passive, Anxious, Fearful, Fatigued and Good Eye Contact Mood Description: Withdrawn, Depressed, Anxious and Apprehensive Affect Description: Flat Patient Cognition Impaired: No Ability to Follow Directions: Good Speech Pattern: Clear, Appropriate, Spontaneous Speech and Soft-Spoken Memory Description: Intact Hallucinations: None Delusions: Not Present Thought Process: Intact and Rumination Thought Content: positive for Obsessional Thoughts, positive for Circumstantial, positive for Perseveration and positive for Suicidal Ideation (denies current SI plan or intent) Depressive Symptoms: Increased Anxiety, Diff. Making Decisions, Sleeping More Than Usual, Loss of Int. in Activity, Feelings of Worthlessness, Hopelessness, Isolating-Friends/Family, Feelings of Guilt, Unhappiness, Increased Fatigue, Low Self Esteem, Loss of Energy and Difficulty Concentrating Judgement: Fair Diagnostics Vital Signs (24Hr): Vital Signs - 24 hr 05/13/20 18:00 05/14/20 06:42 Temperature 98.6 F 97.8 F Pulse Rate 89 91 Respiratory Rate 16 Blood Pressure 114/65 102/62 Pulse Oximetry 98 Body Mass Index 29.9 Labs Results: 05/12/20 08:04 05/12/20 08:03 Labs: Laboratory Results - last 48 hr 05/13/20 05/13/20 05/14/20 07:50 07:51 10:07 Estimat Average Glucose 88 Hemoglobin A1c % 4.7 Vitamin B12 735 25-OH Vitamin D Total 41.6 Folate 17.7 Medications Medications Current Medications Generic Name Dose Route Start Last Admin Trade Name Freq PRN Reason Stop Dose Admin Acetaminophen 650 mg 05/11/20 19:15 Acetaminophen Supp 650 Mg Supp.Rect OR Q6H PRN Fever Acetaminophen 650 mg 05/11/20 19:15 Acetaminophen 325 Mg Tablet PO Q6H PRN Headache/Pain Mild Scale (1-3) Al Hydroxide/Mg Hydroxide 30 ml 05/11/20 19:15 Magnesium Hydrox/Alum Hydrox 30 Ml Oral.Susp PO Q6H PRN Heartburn/Nausea Bacitracin 1 appl 05/12/20 21:00 05/14/20 08:39 Bacitracin Oint 14 Gm Tube TOPICAL 1 appl TID GEM Administration Protocol Clonidine HCl 0.1 mg 05/11/20 19:15 05/13/20 09:13 Clonidine Hcl 0.1 Mg Tablet PO 0.1 mg BID PRN Administration Anxiety Protocol Docusate Sodium 100 mg 05/11/20 19:15 Docusate Sodium 100 Mg Capsule PO DAILY PRN Constipation Hydroxyzine HCl 25 mg 05/11/20 19:15 Hydroxyzine Hcl 25 Mg Tablet PO BEDTIME PRN Anxiety Lamotrigine 150 mg 05/11/20 21:00 05/14/20 08:38 Lamotrigine 100 Mg Tablet PO 150 mg BID GEM Administration Lurasidone HCl 20 mg 05/13/20 21:00 05/13/20 20:01 Lurasidone Hcl 20 Mg Tablet PO 20 mg BEDTIME GEM Administration Magnesium Hydroxide 30 ml 05/11/20 19:15 Milk Of Magnesia 30 Ml Oral.Susp PO DAILY PRN Constipation Oxcarbazepine 150 mg 05/11/20 22:00 05/14/20 08:38 Oxcarbazepine 150 Mg Tablet PO 150 mg BID GEM Administration Pyridoxine HCl 50 mg 05/12/20 09:00 05/14/20 08:38 Pyridoxine Hcl (Vitamin B6) 50 Mg Tablet PO 50 mg DAILY GEM Administration Sertraline HCl 37.5 mg 05/13/20 09:00 05/14/20 08:37 Sertraline Hcl 25 Mg Tablet PO 37.5 mg DAILY GEM Administration Trazodone HCl 50 mg 05/11/20 19:15 05/13/20 20:05 Trazodone Hcl 50 Mg Tablet PO 50 mg BEDTIME PRN Administration Insomnia Vitamin D 50 mcg 05/12/20 09:00 05/14/20 08:38 Cholecalciferol (Vitamin D3) 25 Mcg Tablet PO 50 mcg DAILY GEM Administration Allergies Allergies Allergy/AdvReac Type Severity Reaction Status Date / Time Sulfa (Sulfonamide Allergy Unknown HIVES Verified 05/06/20 20:38 Antibiotics) [SULFA (SULFONAMIDE ANTIBIOTICS)] Assessment & Plan Assessment & Plan (1) PTSD (post-traumatic stress disorder): Status: Acute Code(s): F43.10 - Post-traumatic stress disorder, unspecified (2) Bipolar disorder: Status: Acute Code(s): F31.9 - Bipolar disorder, unspecified Assessment and Plan: -Continue current regime -[facility] results requested -Family contact as they request -YBOCS, Mood questionairres for pt. Greater than 50% of the session was spent on counseling and/or coordination of care Reason for contiued inpatient stay Substantial Risk for: harm to self, inability to function and rapid decompensation
[2020-05-14 18:00] VITALS: BP 110/58; PULSE 80; TEMP 37.1
[2020-05-14] MEDS: Lurasidone HCl 20 MG TABLET PO (20:32)
[2020-05-14] MEDS: traZODone HCL 50 MG TABLET PO (20:39)
[2020-05-15 06:20] VITALS: BP 100/56; PULSE 76; RESP 18; TEMP 36.7; O2SAT 97
[2020-05-15] MEDS: OXcarbazepine 150 MG TABLET PO ×2 (08:33→20:32)
[2020-05-15] MEDS: Cholecalciferol (Vitamin D3) 25 MCG TABLET 50 MCG PO (08:33)
[2020-05-15] MEDS: lamoTRIgine 100 MG TABLET 150 MG PO ×2 (08:33→20:31)
[2020-05-15] MEDS: Sertraline HCL 25 MG TABLET 37.5 MG PO (08:34)
[2020-05-15] MEDS: Pyridoxine HCl (Vitamin B6) 50 MG TABLET PO (08:34)
[2020-05-15] MEDS: cloNIDine HCL 0.1 MG TABLET PO (08:36)
[2020-05-15] MEDS: Bacitracin Oint 14 GM TUBE 1 APPL TOPICAL ×3 (10:00→20:26)
[2020-05-15 18:00] VITALS: BP 98/50; PULSE 73; TEMP 36.6
[2020-05-15] MEDS: Lurasidone HCl 20 MG TABLET PO (20:30)
[2020-05-15] MEDS: traZODone HCL 50 MG TABLET PO (20:31)
--- NOTE | 2020-05-15 20:43 | HO.PSYCHPN ---
Subjective Subjective Date of Service: 05/15/20 Reason For Visit: MDD, SHIN Subjective Notes: Conditional Voluntary Interim History: Patient withdrawn and depressed started on Latuda Medication Compliance: Yes Mental Status Exam Mental Status Exam Patient Appearance: Appropriate Patient Orientation: Person, Place, Time and Situation Level of Consciousness: Awake and Alert Patient Behavior: Appropriate, Talkative, Cooperative, Passive, Anxious, Fearful, Fatigued and Good Eye Contact Mood Description: Withdrawn, Depressed, Anxious and Apprehensive Affect Description: Depressed and Flat Patient Cognition Impaired: No Ability to Follow Directions: Good Speech Pattern: Clear, Appropriate, Spontaneous Speech and Soft-Spoken Memory Description: Intact Hallucinations: None Delusions: Not Present Thought Process: Intact and Rumination Thought Content: positive for Obsessional Thoughts, positive for Circumstantial, positive for Perseveration and positive for Suicidal Ideation (denies current SI plan or intent) Depressive Symptoms: Increased Anxiety, Diff. Making Decisions, Sleeping More Than Usual, Loss of Int. in Activity, Feelings of Worthlessness, Hopelessness, Isolating-Friends/Family, Feelings of Guilt, Unhappiness, Increased Fatigue, Low Self Esteem, Loss of Energy and Difficulty Concentrating Judgement: Fair Diagnostics Vital Signs (24Hr): Vital Signs - 24 hr 05/15/20 06:20 Temperature 98.1 F Pulse Rate 76 Respiratory Rate 18 Blood Pressure 100/56 L Pulse Oximetry 97 Body Mass Index 29.9 Labs Results: 05/12/20 08:04 05/12/20 08:03 Labs: Laboratory Results - last 48 hr 05/14/20 10:07 Estimat Average Glucose 88 Hemoglobin A1c % 4.7 Medications Medications Current Medications Generic Name Dose Route Start Last Admin Trade Name Geraldq PRN Reason Stop Dose Admin Acetaminophen 650 mg 05/11/20 19:15 Acetaminophen Supp 650 Mg Supp.Rect [place] Q6H PRN Fever Acetaminophen 650 mg 05/11/20 19:15 Acetaminophen 325 Mg Tablet PO Q6H PRN Headache/Pain Mild Scale (1-3) Al Hydroxide/Mg Hydroxide 30 ml 05/11/20 19:15 Magnesium Hydrox/Alum Hydrox 30 Ml Oral.Susp PO Q6H PRN Heartburn/Nausea Bacitracin 1 appl 05/12/20 21:00 05/15/20 13:50 Bacitracin Oint 14 Gm Tube TOPICAL 1 appl TID GEM Administration Protocol Clonidine HCl 0.1 mg 05/11/20 19:15 05/15/20 08:36 Clonidine Hcl 0.1 Mg Tablet PO 0.1 mg BID PRN Administration Anxiety Protocol Docusate Sodium 100 mg 05/11/20 19:15 Docusate Sodium 100 Mg Capsule PO DAILY PRN Constipation Hydroxyzine HCl 25 mg 05/11/20 19:15 Hydroxyzine Hcl 25 Mg Tablet PO BEDTIME PRN Anxiety Lamotrigine 150 mg 05/11/20 21:00 05/15/20 08:33 Lamotrigine 100 Mg Tablet PO 150 mg BID GEM Administration Lurasidone HCl 20 mg 05/13/20 21:00 05/14/20 20:32 Lurasidone Hcl 20 Mg Tablet PO 20 mg BEDTIME GEM Administration Magnesium Hydroxide 30 ml 05/11/20 19:15 Milk Of Magnesia 30 Ml Oral.Susp PO DAILY PRN Constipation Oxcarbazepine 150 mg 05/11/20 22:00 05/15/20 08:33 Oxcarbazepine 150 Mg Tablet PO 150 mg BID GEM Administration Pyridoxine HCl 50 mg 05/12/20 09:00 05/15/20 08:34 Pyridoxine Hcl (Vitamin B6) 50 Mg Tablet PO 50 mg DAILY GEM Administration Sertraline HCl 37.5 mg 05/13/20 09:00 05/15/20 08:34 Sertraline Hcl 25 Mg Tablet PO 37.5 mg DAILY GEM Administration Trazodone HCl 50 mg 05/11/20 19:15 05/14/20 20:39 Trazodone Hcl 50 Mg Tablet PO 50 mg BEDTIME PRN Administration Insomnia Vitamin D 50 mcg 05/12/20 09:00 05/15/20 08:33 Cholecalciferol (Vitamin D3) 25 Mcg Tablet PO 50 mcg DAILY GEM Administration Allergies Allergies Allergy/AdvReac Type Severity Reaction Status Date / Time Sulfa (Sulfonamide Allergy Unknown HIVES Verified 05/06/20 20:38 Antibiotics) [SULFA (SULFONAMIDE ANTIBIOTICS)] Assessment & Plan Assessment & Plan (1) Bipolar disorder: Status: Acute Code(s): F31.9 - Bipolar disorder, unspecified Assessment and Plan: Continue treatment plan monitor response to Latuda evaluate safety admission history and physical reviewed (2) PTSD (post-traumatic stress disorder): Status: Acute Code(s): F43.10 - Post-traumatic stress disorder, unspecified Greater than 50% of the session was spent on counseling and/or coordination of care Reason for contiued inpatient stay Substantial Risk for: harm to self
[2020-05-16 06:00] VITALS: BP 100/55; PULSE 75; RESP 16; TEMP 36.8; O2SAT 98
[2020-05-16 08:30] VITALS: BP 105/63; PULSE 72
[2020-05-16] MEDS: lamoTRIgine 100 MG TABLET 150 MG PO ×2 (08:34→20:38)
[2020-05-16] MEDS: OXcarbazepine 150 MG TABLET PO ×2 (08:34→20:38)
[2020-05-16] MEDS: Sertraline HCL 25 MG TABLET 37.5 MG PO (08:34)
[2020-05-16] MEDS: cloNIDine HCL 0.1 MG TABLET PO (08:35)
[2020-05-16] MEDS: Pyridoxine HCl (Vitamin B6) 50 MG TABLET PO (08:35)
[2020-05-16] MEDS: Cholecalciferol (Vitamin D3) 25 MCG TABLET 50 MCG PO (08:35)
[2020-05-16] MEDS: Bacitracin Oint 14 GM TUBE 1 APPL TOPICAL ×2 (09:00→12:53)
[2020-05-16] MEDS: hydrOXYzine HCL 25 MG TABLET PO (17:00)
[2020-05-16 18:00] VITALS: BP 137/88; PULSE 72; TEMP 37.1
--- NOTE | 2020-05-16 20:06 | HO.PSYCHPN ---
Subjective Subjective Date of Service: 05/16/20 Reason For Visit: MDD, SHIN Subjective Notes: Conditional Voluntary Interim History: pt depressed anxious ruminating asking about medication for anxiety Medication Compliance: Yes Mental Status Exam Mental Status Exam Patient Appearance: Appropriate Patient Orientation: Person, Place, Time and Situation Level of Consciousness: Awake and Alert Patient Behavior: Appropriate, Talkative, Cooperative, Passive, Anxious, Fearful, Fatigued and Good Eye Contact Mood Description: Withdrawn, Depressed, Anxious and Apprehensive Affect Description: Depressed, Anxious and Flat Patient Cognition Impaired: No Ability to Follow Directions: Good Speech Pattern: Clear, Appropriate, Spontaneous Speech and Soft-Spoken Memory Description: Intact Hallucinations: None Delusions: Not Present Thought Process: Intact and Rumination Thought Content: positive for Obsessional Thoughts, positive for Circumstantial, positive for Perseveration and positive for Suicidal Ideation (denies current SI plan or intent) Depressive Symptoms: Increased Anxiety, Diff. Making Decisions, Sleeping More Than Usual, Loss of Int. in Activity, Feelings of Worthlessness, Hopelessness, Isolating-Friends/Family, Feelings of Guilt, Unhappiness, Increased Fatigue, Low Self Esteem, Loss of Energy and Difficulty Concentrating Judgement: Fair Diagnostics Vital Signs (24Hr): Vital Signs - 24 hr 05/16/20 06:00 05/16/20 08:30 05/16/20 18:00 Temperature 98.2 F 98.8 F Pulse Rate 75 72 72 Respiratory Rate 16 Blood Pressure 100/55 L 105/63 137/88 Pulse Oximetry 98 Body Mass Index 29.9 Labs Results: 05/12/20 08:04 05/12/20 08:03 Medications Medications Current Medications Generic Name Dose Route Start Last Admin Trade Name Geraldq PRN Reason Stop Dose Admin Acetaminophen 650 mg 05/11/20 19:15 Acetaminophen Supp 650 Mg Supp.Rect [place] Q6H PRN Fever Acetaminophen 650 mg 05/11/20 19:15 Acetaminophen 325 Mg Tablet PO Q6H PRN Headache/Pain Mild Scale (1-3) Al Hydroxide/Mg Hydroxide 30 ml 05/11/20 19:15 Magnesium Hydrox/Alum Hydrox 30 Ml Oral.Susp PO Q6H PRN Heartburn/Nausea Bacitracin 1 appl 05/12/20 21:00 05/16/20 12:53 Bacitracin Oint 14 Gm Tube TOPICAL 1 appl TID GEM Administration Protocol Clonidine HCl 0.1 mg 05/11/20 19:15 05/16/20 08:35 Clonidine Hcl 0.1 Mg Tablet PO 0.1 mg BID PRN Administration Anxiety Protocol Docusate Sodium 100 mg 05/11/20 19:15 Docusate Sodium 100 Mg Capsule PO DAILY PRN Constipation Hydroxyzine HCl 25 mg 05/11/20 19:15 Hydroxyzine Hcl 25 Mg Tablet PO BEDTIME PRN Anxiety Hydroxyzine HCl 25 mg 05/16/20 16:45 05/16/20 17:00 Hydroxyzine Hcl 25 Mg Tablet PO 25 mg TID PRN Administration anxiety/restlessness Lamotrigine 150 mg 05/11/20 21:00 05/16/20 08:34 Lamotrigine 100 Mg Tablet PO 150 mg BID GEM Administration Lurasidone HCl 20 mg 05/13/20 21:00 05/15/20 20:30 Lurasidone Hcl 20 Mg Tablet PO 20 mg BEDTIME GEM Administration Magnesium Hydroxide 30 ml 05/11/20 19:15 Milk Of Magnesia 30 Ml Oral.Susp PO DAILY PRN Constipation Oxcarbazepine 150 mg 05/11/20 22:00 05/16/20 08:34 Oxcarbazepine 150 Mg Tablet PO 150 mg BID GEM Administration Pyridoxine HCl 50 mg 05/12/20 09:00 05/16/20 08:35 Pyridoxine Hcl (Vitamin B6) 50 Mg Tablet PO 50 mg DAILY GEM Administration Sertraline HCl 37.5 mg 05/13/20 09:00 05/16/20 08:34 Sertraline Hcl 25 Mg Tablet PO 37.5 mg DAILY GEM Administration Trazodone HCl 50 mg 05/11/20 19:15 05/15/20 20:31 Trazodone Hcl 50 Mg Tablet PO 50 mg BEDTIME PRN Administration Insomnia Vitamin D 50 mcg 05/12/20 09:00 05/16/20 08:35 Cholecalciferol (Vitamin D3) 25 Mcg Tablet PO 50 mcg DAILY GEM Administration Allergies Allergies Allergy/AdvReac Type Severity Reaction Status Date / Time Sulfa (Sulfonamide Allergy Unknown HIVES Verified 05/06/20 20:38 Antibiotics) [SULFA (SULFONAMIDE ANTIBIOTICS)] Assessment & Plan Assessment & Plan (1) PTSD (post-traumatic stress disorder): Status: Acute Code(s): F43.10 - Post-traumatic stress disorder, unspecified (2) Bipolar disorder: Status: Acute Code(s): F31.9 - Bipolar disorder, unspecified Assessment and Plan: dcont latuda hydroxyzine started for anxiety monitor safety Greater than 50% of the session was spent on counseling and/or coordination of care Reason for contiued inpatient stay Substantial Risk for: harm to self and inability to function
[2020-05-16] MEDS: traZODone HCL 50 MG TABLET PO (20:38)
[2020-05-16] MEDS: Lurasidone HCl 20 MG TABLET PO (20:38)
[2020-05-17 05:55] VITALS: BP 88/52; PULSE 80; RESP 18; TEMP 36.7; O2SAT 95
[2020-05-17] MEDS: Sertraline HCL 25 MG TABLET 37.5 MG PO (08:28)
[2020-05-17] MEDS: Bacitracin Oint 14 GM TUBE 1 APPL TOPICAL ×3 (08:28→20:37)
[2020-05-17] MEDS: Cholecalciferol (Vitamin D3) 25 MCG TABLET 50 MCG PO (08:28)
[2020-05-17] MEDS: OXcarbazepine 150 MG TABLET PO ×2 (08:30→20:38)
[2020-05-17] MEDS: Pyridoxine HCl (Vitamin B6) 50 MG TABLET PO (08:30)
[2020-05-17] MEDS: lamoTRIgine 100 MG TABLET 150 MG PO ×2 (08:30→20:37)
[2020-05-17] MEDS: hydrOXYzine HCL 25 MG TABLET PO ×3 (08:54→18:52)
--- NOTE | 2020-05-17 14:45 | HO.PSYCHPN ---
Subjective Subjective Date of Service: 05/17/20 Reason For Visit: MDD, SHIN Subjective Notes: Conditional Voluntary Interim History: Received [facility] testing results-reviewed with pt. Pt completed YBOCS/ MDQ as well. Reports tolerating Latuda without SE, Discussed titration which she is agreeable with.Pt's therapist called as well. Will call pt on 05/18/20 to check in. OP team has housing, case mgt services for pt as needed. Discussed her pattern of telling everyone she is fine to distract attention. Today, states, she is working on things, but is not fine-there is work to do on mood, depression, anxiety. Medication Compliance: Yes Side effects from medications: No Attending Groups: Yes Review of Systems Review of Systems Yes all other systems are reviewed and are negative Psychiatric: Reports anxiety and Reports depression Mental Status Exam Mental Status Exam Patient Appearance: Disheveled Patient Orientation: Person, Place, Time and Situation Level of Consciousness: Alert Patient Behavior: Talkative, Cooperative, Anxious, Fearful and Good Eye Contact Mood Description: Anxious Affect Description: Flat Patient Cognition Impaired: No Ability to Follow Directions: Good Speech Pattern: Clear, Appropriate and Spontaneous Speech Memory Description: Intact Hallucinations: None Delusions: Not Present Thought Process: Intact Thought Content: positive for [place] and positive for Circumstantial Depressive Symptoms: Increased Anxiety Judgement: Fair Diagnostics Vital Signs (24Hr): Vital Signs - 24 hr 05/16/20 18:00 05/17/20 05:55 Temperature 98.8 F 98.0 F Pulse Rate 72 80 Respiratory Rate 18 Blood Pressure 137/88 88/52 L Pulse Oximetry 95 Body Mass Index 29.9 Labs Results: 05/12/20 08:04 05/12/20 08:03 Medications Medications Current Medications Generic Name Dose Route Start Last Admin Trade Name Freq PRN Reason Stop Dose Admin Acetaminophen 650 mg 05/11/20 19:15 Acetaminophen Supp 650 Mg Supp.Rect [place] Q6H PRN Fever Acetaminophen 650 mg 05/11/20 19:15 Acetaminophen 325 Mg Tablet PO Q6H PRN Headache/Pain Mild Scale (1-3) Al Hydroxide/Mg Hydroxide 30 ml 05/11/20 19:15 Magnesium Hydrox/Alum Hydrox 30 Ml Oral.Susp PO Q6H PRN Heartburn/Nausea Bacitracin 1 appl 05/12/20 21:00 05/17/20 08:28 Bacitracin Oint 14 Gm Tube TOPICAL 1 appl TID GEM Administration Protocol Clonidine HCl 0.1 mg 05/11/20 19:15 05/16/20 08:35 Clonidine Hcl 0.1 Mg Tablet PO 0.1 mg BID PRN Administration Anxiety Protocol Docusate Sodium 100 mg 05/11/20 19:15 Docusate Sodium 100 Mg Capsule PO DAILY PRN Constipation Hydroxyzine HCl 25 mg 05/11/20 19:15 Hydroxyzine Hcl 25 Mg Tablet PO BEDTIME PRN Anxiety Hydroxyzine HCl 25 mg 05/16/20 16:45 05/17/20 08:54 Hydroxyzine Hcl 25 Mg Tablet PO 25 mg TID PRN Administration anxiety/restlessness Lamotrigine 150 mg 05/11/20 21:00 05/17/20 08:30 Lamotrigine 100 Mg Tablet PO 150 mg BID GEM Administration Lurasidone HCl 20 mg 05/13/20 21:00 05/16/20 20:38 Lurasidone Hcl 20 Mg Tablet PO 20 mg BEDTIME GEM Administration Magnesium Hydroxide 30 ml 05/11/20 19:15 Milk Of Magnesia 30 Ml Oral.Susp PO DAILY PRN Constipation Oxcarbazepine 150 mg 05/11/20 22:00 05/17/20 08:30 Oxcarbazepine 150 Mg Tablet PO 150 mg BID GEM Administration Pyridoxine HCl 50 mg 05/12/20 09:00 05/17/20 08:30 Pyridoxine Hcl (Vitamin B6) 50 Mg Tablet PO 50 mg DAILY GEM Administration Sertraline HCl 37.5 mg 05/13/20 09:00 05/17/20 08:28 Sertraline Hcl 25 Mg Tablet PO 37.5 mg DAILY GEM Administration Trazodone HCl 50 mg 05/11/20 19:15 05/16/20 20:38 Trazodone Hcl 50 Mg Tablet PO 50 mg BEDTIME PRN Administration Insomnia Vitamin D 50 mcg 05/12/20 09:00 05/17/20 08:28 Cholecalciferol (Vitamin D3) 25 Mcg Tablet PO 50 mcg DAILY GEM Administration Allergies Allergies Allergy/AdvReac Type Severity Reaction Status Date / Time Sulfa (Sulfonamide Allergy Unknown HIVES Verified 05/06/20 20:38 Antibiotics) [SULFA (SULFONAMIDE ANTIBIOTICS)] Assessment & Plan Assessment & Plan (1) PTSD (post-traumatic stress disorder): Status: Acute Code(s): F43.10 - Post-traumatic stress disorder, unspecified (2) Bipolar disorder: Status: Acute Code(s): F31.9 - Bipolar disorder, unspecified Assessment and Plan: -Increase Latuda to 40 mg HS Greater than 50% of the session was spent on counseling and/or coordination of care Reason for contiued inpatient stay Substantial Risk for: harm to self, inability to function and rapid decompensation
[2020-05-17 18:00] VITALS: BP 121/63; PULSE 78; TEMP 37.1
[2020-05-17] MEDS: Lurasidone HCl 40 MG TABLET PO (20:38)
[2020-05-17] MEDS: traZODone HCL 50 MG TABLET PO (20:41)
[2020-05-18 06:00] VITALS: BP 95/55; PULSE 78; RESP 16; TEMP 36.4; O2SAT 98
[2020-05-18] MEDS: Bacitracin Oint 14 GM TUBE 1 APPL TOPICAL ×3 (08:23→20:44)
[2020-05-18] MEDS: lamoTRIgine 100 MG TABLET 150 MG PO ×2 (08:24→20:41)
[2020-05-18] MEDS: Sertraline HCL 25 MG TABLET 37.5 MG PO (08:24)
[2020-05-18] MEDS: OXcarbazepine 150 MG TABLET PO ×2 (08:25→20:43)
[2020-05-18] MEDS: Pyridoxine HCl (Vitamin B6) 50 MG TABLET PO (08:35)
[2020-05-18] MEDS: Cholecalciferol (Vitamin D3) 25 MCG TABLET 50 MCG PO (08:35)
[2020-05-18] MEDS: hydrOXYzine HCL 25 MG TABLET PO ×3 (08:51→22:49)
--- NOTE | 2020-05-18 17:40 | P.PNPSI_ITS ---
Subjective Subjective Date of Service: 05/18/20 Reason For Visit: MDD, SHIN Subjective Notes: Conditional Voluntary Interim History: I still want to have a TMS consult. My therapist tells me [facility] can do this. Reports depressive sx 09/18 today. Tolerating increase in Latuda. Attending groups, participating in milieu today. Medication Compliance: Yes Side effects from medications: No Attending Groups: Yes Review of Systems Review of Systems Yes all other systems are reviewed and are negative (denies) Psychiatric: Reports anxiety, Reports depression, Reports hopelessness, Reports anhedonia and Reports suicidal ideation (reflecting upon the 4 attempts today and asking why-denies current SI) Mental Status Exam Mental Status Exam Patient Appearance: Disheveled Patient Orientation: Person, Place, Time and Situation Level of Consciousness: Awake and Alert Patient Behavior: Appropriate, Talkative and Cooperative Mood Description: Withdrawn, Depressed, Anxious, Nervous and Apprehensive Affect Description: Flat Patient Cognition Impaired: No Ability to Follow Directions: Good Speech Pattern: Clear and Spontaneous Speech Memory Description: Intact Hallucinations: None Delusions: Not Present Thought Process: Rumination (work, housing, needing to do taxes, mom, why she has depression) Thought Content: positive for [place], positive for Obsessional Thoughts (does mom feel pt needs to be taken care of, work, taxes, housing), positive for Circumstantial, positive for Perseveration, positive for Preoccupation and positive for Suicidal Ideation (denies current plan/intent) Depressive Symptoms: Increased Anxiety, Insomnia (last night yes-will increase prn Trazodone), Diff. Making Decisions, Difficulty Sleeping, Feelings of Worthlessness, Hopelessness, Increased Fatigue, Thoughts of /Suicide (denies today, but thinking about her suicide attempts and their meaning.) and Low Self Esteem Judgement: Fair Diagnostics Vital Signs (24Hr): Vital Signs - 24 hr 05/17/20 18:00 05/18/20 06:00 Temperature 98.7 F 97.6 F Pulse Rate 78 78 Respiratory Rate 16 Blood Pressure 121/63 95/55 L Pulse Oximetry 98 Body Mass Index 29.9 Labs Results: 05/12/20 08:04 05/12/20 08:03 Medications Medications Current Medications Generic Name Dose Route Start Last Admin Trade Name Freq PRN Reason Stop Dose Admin Acetaminophen 650 mg 05/11/20 19:15 Acetaminophen Supp 650 Mg Supp.Rect [place] Q6H PRN Fever Acetaminophen 650 mg 05/11/20 19:15 Acetaminophen 325 Mg Tablet PO Q6H PRN Headache/Pain Mild Scale (1-3) Al Hydroxide/Mg Hydroxide 30 ml 05/11/20 19:15 Magnesium Hydrox/Alum Hydrox 30 Ml Oral.Susp PO Q6H PRN Heartburn/Nausea Bacitracin 1 appl 05/12/20 21:00 05/18/20 14:57 Bacitracin Oint 14 Gm Tube TOPICAL 1 appl TID GEM Administration Protocol Clonidine HCl 0.1 mg 05/11/20 19:15 05/16/20 08:35 Clonidine Hcl 0.1 Mg Tablet PO 0.1 mg BID PRN Administration Anxiety Protocol Docusate Sodium 100 mg 05/11/20 19:15 Docusate Sodium 100 Mg Capsule PO DAILY PRN Constipation Hydroxyzine HCl 25 mg 05/11/20 19:15 Hydroxyzine Hcl 25 Mg Tablet PO BEDTIME PRN Anxiety Hydroxyzine HCl 25 mg 05/16/20 16:45 05/18/20 08:51 Hydroxyzine Hcl 25 Mg Tablet PO 25 mg TID PRN Administration anxiety/restlessness Lamotrigine 150 mg 05/11/20 21:00 05/18/20 08:24 Lamotrigine 100 Mg Tablet PO 150 mg BID GEM Administration Lurasidone HCl 40 mg 05/17/20 21:00 05/17/20 20:38 Lurasidone Hcl 40 Mg Tablet PO 40 mg BEDTIME GEM Administration Magnesium Hydroxide 30 ml 05/11/20 19:15 Milk Of Magnesia 30 Ml Oral.Susp PO DAILY PRN Constipation Oxcarbazepine 150 mg 05/11/20 22:00 05/18/20 08:25 Oxcarbazepine 150 Mg Tablet PO 150 mg BID GEM Administration Pyridoxine HCl 50 mg 05/12/20 09:00 05/18/20 08:35 Pyridoxine Hcl (Vitamin B6) 50 Mg Tablet PO 50 mg DAILY GEM Administration Sertraline HCl 37.5 mg 05/13/20 09:00 05/18/20 08:24 Sertraline Hcl 25 Mg Tablet PO 37.5 mg DAILY GEM Administration Trazodone HCl 50 mg 05/11/20 19:15 05/17/20 20:41 Trazodone Hcl 50 Mg Tablet PO 50 mg BEDTIME PRN Administration Insomnia Vitamin D 50 mcg 05/12/20 09:00 05/18/20 08:35 Cholecalciferol (Vitamin D3) 25 Mcg Tablet PO 50 mcg DAILY GEM Administration Allergies Allergies Allergy/AdvReac Type Severity Reaction Status Date / Time Sulfa (Sulfonamide Allergy Unknown HIVES Verified 05/06/20 20:38 Antibiotics) [SULFA (SULFONAMIDE ANTIBIOTICS)] Assessment & Plan Assessment & Plan (1) PTSD (post-traumatic stress disorder): Status: Acute Code(s): F43.10 - Post-traumatic stress disorder, unspecified Assessment and Plan: -Increase Sertraline to 50 mg daily -Increase Trazodone to 75 mg HS prn insomnia (2) Bipolar disorder: Status: Acute Code(s): F31.9 - Bipolar disorder, unspecified Assessment and Plan: -Continue Latuda Greater than 50% of the session was spent on counseling and/or coordination of care Patient educated on: therapeutic strategies Informed Consent: understands and further education needed Reason for contiued inpatient stay Substantial Risk for: harm to self, inability to function and rapid decompensation
[2020-05-18 18:00] VITALS: BP 128/68; PULSE 84; TEMP 36.4
[2020-05-18] MEDS: Lurasidone HCl 40 MG TABLET PO (20:41)
[2020-05-18] MEDS: traZODone HCL 25 MG HALFTAB 75 MG PO (20:41)
[2020-05-19 06:00] VITALS: BP 100/48; PULSE 68; TEMP 36.6
[2020-05-19] MEDS: Cholecalciferol (Vitamin D3) 25 MCG TABLET 50 MCG PO (08:23)
[2020-05-19] MEDS: Pyridoxine HCl (Vitamin B6) 50 MG TABLET PO (08:24)
[2020-05-19] MEDS: OXcarbazepine 150 MG TABLET PO ×2 (08:24→20:31)
[2020-05-19] MEDS: Sertraline HCL 50 MG TABLET PO (08:24)
[2020-05-19] MEDS: lamoTRIgine 100 MG TABLET 150 MG PO ×2 (09:10→20:30)
[2020-05-19] MEDS: Bacitracin Oint 14 GM TUBE 1 APPL TOPICAL ×3 (09:33→20:30)
--- NOTE | 2020-05-19 17:58 | P.PNPSI_ITS ---
Subjective Subjective Date of Service: 05/19/20 Reason For Visit: MDD, SHIN Subjective Notes: Conditional Voluntary Interim History: Tolerating medication titration. Asking about discharge on 05/24. Talking with therapist about attending [facility] program that they will choose. Depressive sx continue 09/18. Discussed relationship with mother and feeling she has to obey all of mothers choices or risk losing her home. Sleeping 8-11pm then 12-6:30am. Medication Compliance: Yes Side effects from medications: No Attending Groups: Yes Review of Systems Review of Systems Yes all other systems are reviewed and are negative (denies) Psychiatric: Reports abnormal sleep pattern (2 hours/6 hours divided), Reports anxiety and Reports depression Mental Status Exam Mental Status Exam Patient Appearance: Disheveled Patient Orientation: Person, Place, Time and Situation Level of Consciousness: Alert Patient Behavior: Talkative, Anxious and Good Eye Contact Mood Description: Depressed Affect Description: Flat Patient Cognition Impaired: No Ability to Follow Directions: Good Speech Pattern: Spontaneous Speech Memory Description: Intact Hallucinations: None Delusions: Not Present Thought Process: Rumination Thought Content: positive for Intact, positive for [place], positive for Circumstantial and positive for Suicidal Ideation (denies current SI plan or intent) Depressive Symptoms: Difficulty Sleeping (divided sleep 2 hours/6 hours with a 1 hour awakening between), Unhappiness, Thoughts of /Suicide (denies SI plan intent) and Low Self Esteem Judgement: Good Diagnostics Vital Signs (24Hr): Vital Signs - 24 hr 05/18/20 18:00 05/19/20 06:00 Temperature 97.6 F 97.9 F Pulse Rate 84 68 Blood Pressure 128/68 100/48 L Body Mass Index 29.9 Labs Results: 05/12/20 08:04 05/12/20 08:03 Medications Medications Current Medications Generic Name Dose Route Start Last Admin Trade Name Freq PRN Reason Stop Dose Admin Acetaminophen 650 mg 05/11/20 19:15 Acetaminophen Supp 650 Mg Supp.Rect [place] Q6H PRN Fever Acetaminophen 650 mg 05/11/20 19:15 Acetaminophen 325 Mg Tablet PO Q6H PRN Headache/Pain Mild Scale (1-3) Al Hydroxide/Mg Hydroxide 30 ml 05/11/20 19:15 Magnesium Hydrox/Alum Hydrox 30 Ml Oral.Susp PO Q6H PRN Heartburn/Nausea Bacitracin 1 appl 05/12/20 21:00 05/19/20 15:23 Bacitracin Oint 14 Gm Tube TOPICAL 1 appl TID GEM Administration Protocol Clonidine HCl 0.1 mg 05/11/20 19:15 05/16/20 08:35 Clonidine Hcl 0.1 Mg Tablet PO 0.1 mg BID PRN Administration Anxiety Protocol Docusate Sodium 100 mg 05/11/20 19:15 Docusate Sodium 100 Mg Capsule PO DAILY PRN Constipation Hydroxyzine HCl 25 mg 05/11/20 19:15 05/18/20 22:49 Hydroxyzine Hcl 25 Mg Tablet PO 25 mg BEDTIME PRN Administration Anxiety Hydroxyzine HCl 25 mg 05/16/20 16:45 05/18/20 18:08 Hydroxyzine Hcl 25 Mg Tablet PO 25 mg TID PRN Administration anxiety/restlessness Lamotrigine 150 mg 05/11/20 21:00 05/19/20 09:10 Lamotrigine 100 Mg Tablet PO 150 mg BID GEM Administration Lurasidone HCl 40 mg 05/17/20 21:00 05/18/20 20:41 Lurasidone Hcl 40 Mg Tablet PO 40 mg BEDTIME GEM Administration Magnesium Hydroxide 30 ml 05/11/20 19:15 Milk Of Magnesia 30 Ml Oral.Susp PO DAILY PRN Constipation Oxcarbazepine 150 mg 05/11/20 22:00 05/19/20 08:24 Oxcarbazepine 150 Mg Tablet PO 150 mg BID GEM Administration Pyridoxine HCl 50 mg 05/12/20 09:00 05/19/20 08:24 Pyridoxine Hcl (Vitamin B6) 50 Mg Tablet PO 50 mg DAILY GEM Administration Sertraline HCl 50 mg 05/19/20 09:00 05/19/20 08:24 Sertraline Hcl 50 Mg Tablet PO 50 mg DAILY GEM Administration Trazodone HCl 75 mg 05/18/20 17:42 05/18/20 20:41 Trazodone Hcl 25 Mg Halftab PO 75 mg BEDTIME PRN Administration Insomnia Vitamin D 50 mcg 05/12/20 09:00 05/19/20 08:23 Cholecalciferol (Vitamin D3) 25 Mcg Tablet PO 50 mcg DAILY GEM Administration Allergies Allergies Allergy/AdvReac Type Severity Reaction Status Date / Time Sulfa (Sulfonamide Allergy Unknown HIVES Verified 05/06/20 20:38 Antibiotics) [SULFA (SULFONAMIDE ANTIBIOTICS)] Assessment & Plan Assessment & Plan (1) Bipolar disorder: Status: Acute Code(s): F31.9 - Bipolar disorder, unspecified Assessment and Plan: Continue current regime. (2) PTSD (post-traumatic stress disorder): Status: Acute Code(s): F43.10 - Post-traumatic stress disorder, unspecified Greater than 50% of the session was spent on counseling and/or coordination of care Reason for contiued inpatient stay Substantial Risk for: harm to self, inability to function and rapid decompensation
[2020-05-19] MEDS: Lurasidone HCl 40 MG TABLET PO (20:30)
[2020-05-19 20:44] VITALS: BP 108/65; PULSE 67; TEMP 36.8; O2SAT 96
[2020-05-19] MEDS: hydrOXYzine HCL 25 MG TABLET PO (20:47)
[2020-05-19] MEDS: traZODone HCL 25 MG HALFTAB 75 MG PO (20:48)
[2020-05-20 06:00] VITALS: BP 99/48; PULSE 63; RESP 16; TEMP 36.6; O2SAT 99
[2020-05-20] MEDS: Bacitracin Oint 14 GM TUBE 1 APPL TOPICAL ×3 (08:55→20:57)
[2020-05-20] MEDS: lamoTRIgine 100 MG TABLET 150 MG PO ×2 (08:55→20:54)
[2020-05-20] MEDS: OXcarbazepine 150 MG TABLET PO ×2 (08:56→20:54)
[2020-05-20] MEDS: hydrOXYzine HCL 25 MG TABLET PO (08:56)
[2020-05-20] MEDS: Sertraline HCL 50 MG TABLET PO (08:56)
[2020-05-20] MEDS: Cholecalciferol (Vitamin D3) 25 MCG TABLET 50 MCG PO (08:56)
[2020-05-20] MEDS: Pyridoxine HCl (Vitamin B6) 50 MG TABLET PO (08:56)
[2020-05-20 11:09] VITALS: BMI 30.2
--- NOTE | 2020-05-20 16:46 | P.PNPSI_ITS ---
Subjective Subjective Date of Service: 05/21/20 Reason For Visit: MDD, SHIN Subjective Notes: Conditional Voluntary Interim History: Pt reports depression 09/18. Tolerating increases in Sertraline, Latuda. Plans to meet with her therapist via Zoom this afternoon and mom plans to visit on Sunday which pt is anxious about. Pt and therapist [place] [facility] [place]entative discharge date 05/24/20 to begin PHP 05/25/20. Medication Compliance: Yes Side effects from medications: No Attending Groups: Yes Review of Systems Review of Systems Yes all other systems are reviewed and are negative (pt denies medical sx) Psychiatric: Reports anxiety, Reports depression and Reports suicidal ideation (denies SI) Mental Status Exam Mental Status Exam Patient Appearance: Appropriate Patient Orientation: Person, Place, Time and Situation Level of Consciousness: Awake and Alert Patient Behavior: Appropriate and Talkative Mood Description: Anxious Affect Description: Flat Patient Cognition Impaired: No Ability to Follow Directions: Good Speech Pattern: Spontaneous Speech Memory Description: Intact Hallucinations: None Delusions: Not Present Thought Process: Intact and Rumination Thought Content: positive for [place], positive for Circumstantial and positive for Suicidal Ideation (denies) Depressive Symptoms: Increased Anxiety, Difficulty Sleeping (improved per pt report) and Thoughts of /Suicide (denies) Judgement: Good Diagnostics Vital Signs (24Hr): Vital Signs - 24 hr 05/19/20 20:44 05/20/20 06:00 Temperature 98.3 F 97.9 F Pulse Rate 67 63 Respiratory Rate 16 Blood Pressure 108/65 99/48 L Pulse Oximetry 96 99 Body Mass Index 30.2 Labs Results: 05/12/20 08:04 05/21/20 07:45 Medications Medications Current Medications Generic Name Dose Route Start Last Admin Trade Name Freq PRN Reason Stop Dose Admin Acetaminophen 650 mg 05/11/20 19:15 Acetaminophen Supp [address] Q6H PRN Fever Acetaminophen 650 mg 05/11/20 19:15 Acetaminophen 325 Mg Tablet PO Q6H PRN Headache/Pain Mild Scale (1-3) Al Hydroxide/Mg Hydroxide 30 ml 05/11/20 19:15 Magnesium Hydrox/Alum Hydrox 30 Ml Oral.Susp PO Q6H PRN Heartburn/Nausea Bacitracin 1 appl 05/12/20 21:00 05/20/20 14:09 Bacitracin Oint 14 Gm Tube TOPICAL 1 appl TID GEM Administration Protocol Clonidine HCl 0.1 mg 05/11/20 19:15 05/16/20 08:35 Clonidine Hcl 0.1 Mg Tablet PO 0.1 mg BID PRN Administration Anxiety Protocol Docusate Sodium 100 mg 05/11/20 19:15 Docusate Sodium 100 Mg Capsule PO DAILY PRN Constipation Hydroxyzine HCl 25 mg 05/11/20 19:15 05/18/20 22:49 Hydroxyzine Hcl 25 Mg Tablet PO 25 mg BEDTIME PRN Administration Anxiety Hydroxyzine HCl 25 mg 05/16/20 16:45 05/20/20 08:56 Hydroxyzine Hcl 25 Mg Tablet PO 25 mg TID PRN Administration anxiety/restlessness Lamotrigine 150 mg 05/11/20 21:00 05/20/20 08:55 Lamotrigine 100 Mg Tablet PO 150 mg BID GEM Administration Lurasidone HCl 40 mg 05/17/20 21:00 05/19/20 20:30 Lurasidone Hcl 40 Mg Tablet PO 40 mg BEDTIME GEM Administration Magnesium Hydroxide 30 ml 05/11/20 19:15 Milk Of Magnesia 30 Ml Oral.Susp PO DAILY PRN Constipation Oxcarbazepine 150 mg 05/11/20 22:00 05/20/20 08:56 Oxcarbazepine 150 Mg Tablet PO 150 mg BID GEM Administration Pyridoxine HCl 50 mg 05/12/20 09:00 05/20/20 08:56 Pyridoxine Hcl (Vitamin B6) 50 Mg Tablet PO 50 mg DAILY GEM Administration Sertraline HCl 50 mg 05/19/20 09:00 05/20/20 08:56 Sertraline Hcl 50 Mg Tablet PO 50 mg DAILY GEM Administration Trazodone HCl 50 mg 05/20/20 15:38 Trazodone Hcl 50 Mg Tablet PO BEDTIME PRN Insomnia Vitamin D 50 mcg 05/12/20 09:00 05/20/20 08:56 Cholecalciferol (Vitamin D3) 25 Mcg Tablet PO 50 mcg DAILY GEM Administration Allergies Allergies Allergy/AdvReac Type Severity Reaction Status Date / Time Sulfa (Sulfonamide Allergy Unknown HIVES Verified 05/06/20 20:38 Antibiotics) [SULFA (SULFONAMIDE ANTIBIOTICS)] Assessment & Plan Assessment & Plan (1) PTSD (post-traumatic stress disorder): Status: Acute Code(s): F43.10 - Post-traumatic stress disorder, unspecified (2) Bipolar disorder: Status: Acute Code(s): F31.9 - Bipolar disorder, unspecified Greater than 50% of the session was spent on counseling and/or coordination of care Reason for contiued inpatient stay Substantial Risk for: harm to self, inability to function and rapid decompensation
[2020-05-20 18:00] VITALS: BP 124/62; PULSE 72; TEMP 36.3
[2020-05-20] MEDS: Lurasidone HCl 40 MG TABLET PO (20:54)
[2020-05-20] MEDS: traZODone HCL 50 MG TABLET PO (21:00)
[2020-05-21 06:00] VITALS: BP 100/54; PULSE 61; RESP 16; TEMP 36.2; O2SAT 98
[2020-05-21] MEDS: Pyridoxine HCl (Vitamin B6) 50 MG TABLET PO (08:30)
[2020-05-21] MEDS: lamoTRIgine 100 MG TABLET 150 MG PO ×2 (08:30→20:23)
[2020-05-21] MEDS: Cholecalciferol (Vitamin D3) 25 MCG TABLET 50 MCG PO (08:33)
[2020-05-21] MEDS: Sertraline HCL 50 MG TABLET PO (08:33)
[2020-05-21 08:44] LABS: Alanine Aminotransferase 35 U/L (0-31); Albumin Level 3.6 g/dL (3.5-5.0); Alkaline Phosphatase 72 U/L (39-117); Anion Gap 12 (12-20); Aspartate Amino Transferase 24 U/L (5-31); Bilirubin Total 0.3 mg/dL (0.0-1.0); Blood Urea Nitrogen 19 mg/dL (9-16); Calcium 8.9 mg/dL (8.4-10.2); Carbon Dioxide 31 mmol/L (22-29); Chloride 104 mmol/L (96-108); Creatinine Clr Calc Pharmacy 66.2; Estimated Glomerular Filt Rate 51; Glucose Fasting 85 mg/dL (60-99); Potassium 4.7 mmol/L (3.3-5.1); Sodium 142 mmol/L (135-145); Total Protein 6.2 g/dL (6.5-8.0)
[2020-05-21] MEDS: Bacitracin Oint 14 GM TUBE 1 APPL TOPICAL ×3 (11:23→20:26)
[2020-05-21] MEDS: Gabapentin 100 MG CAPSULE PO (11:33)
--- NOTE | 2020-05-21 15:46 | HO.PSYCHPN ---
Subjective Subjective Date of Service: 05/21/20 Reason For Visit: MDD, SHIN Subjective Notes: Conditional Voluntary Interim History: Reports anxiety and asks for another medication for mgt-reports hydroxyzine is not helpful. Discussed titration of Trileptal and Gabapentin prn. Pt trialed 100 mg Gabapentin and requested increase. Mother to visit today-possibly contributing to anxiety, pt agrees that this may be a factor. Reports some improvement in her sleep. Tentative discharge for 05/24 with transfer to [facility] on 05/25. Review of Systems Psychiatric: Reports anxiety and Reports depression Mental Status Exam Mental Status Exam Patient Appearance: Appropriate Patient Orientation: Person, Place, Time and Situation Level of Consciousness: Alert Patient Behavior: Talkative and Good Eye Contact Mood Description: Anxious Affect Description: Flat Patient Cognition Impaired: No Ability to Follow Directions: Good Speech Pattern: Spontaneous Speech Memory Description: Intact Hallucinations: None Delusions: Not Present Thought Process: Rumination (worry) Thought Content: positive for Intact Depressive Symptoms: Increased Anxiety, Difficulty Sleeping, Hopelessness, Unhappiness, Low Self Esteem and Loss of Energy Judgement: Good Diagnostics Vital Signs (24Hr): Vital Signs - 24 hr 05/20/20 18:00 05/21/20 06:00 Temperature 97.4 F 97.2 F Pulse Rate 72 61 Respiratory Rate 16 Blood Pressure 124/62 100/54 L Pulse Oximetry 98 Body Mass Index 30.2 Labs Results: 05/12/20 08:04 05/21/20 07:45 Labs: Laboratory Results - last 48 hr 05/21/20 07:45 Sodium 142 Potassium 4.7 Chloride 104 Carbon Dioxide 31 H Anion Gap 12 BUN 19 H Creatinine 1.14 Estim Creat Clear Calc 66.2 Estimated GFR 51 Random Glucose TNP Fasting Glucose 85 Calcium 8.9 D Total Bilirubin 0.3 AST 24 D ALT 35 H Alkaline Phosphatase 72 Total Protein 6.2 L Albumin 3.6 Medications Medications Current Medications Generic Name Dose Route Start Last Admin Trade Name Freq PRN Reason Stop Dose Admin Acetaminophen 650 mg 05/11/20 19:15 Acetaminophen Supp 650 Mg Supp.Rect NM Q6H PRN Fever Acetaminophen 650 mg 05/11/20 19:15 Acetaminophen 325 Mg Tablet PO Q6H PRN Headache/Pain Mild Scale (1-3) Al Hydroxide/Mg Hydroxide 30 ml 05/11/20 19:15 Magnesium Hydrox/Alum Hydrox 30 Ml Oral.Susp PO Q6H PRN Heartburn/Nausea Bacitracin 1 appl 05/12/20 21:00 05/21/20 14:41 Bacitracin Oint 14 Gm Tube TOPICAL 1 appl TID GEM Administration Protocol Clonidine HCl 0.1 mg 05/11/20 19:15 05/16/20 08:35 Clonidine Hcl 0.1 Mg Tablet PO 0.1 mg BID PRN Administration Anxiety Protocol Docusate Sodium 100 mg 05/11/20 19:15 Docusate Sodium 100 Mg Capsule PO DAILY PRN Constipation Gabapentin 300 mg 05/21/20 15:06 Gabapentin 300 Mg Capsule PO BID PRN Anxiety Hydroxyzine HCl 25 mg 05/11/20 19:15 05/18/20 22:49 Hydroxyzine Hcl 25 Mg Tablet PO 25 mg BEDTIME PRN Administration Anxiety Hydroxyzine HCl 25 mg 05/16/20 16:45 05/20/20 08:56 Hydroxyzine Hcl 25 Mg Tablet PO 25 mg TID PRN Administration anxiety/restlessness Lamotrigine 150 mg 05/11/20 21:00 05/21/20 08:30 Lamotrigine 100 Mg Tablet PO 150 mg BID GEM Administration Lurasidone HCl 40 mg 05/17/20 21:00 05/20/20 20:54 Lurasidone Hcl 40 Mg Tablet PO 40 mg BEDTIME GEM Administration Magnesium Hydroxide 30 ml 05/11/20 19:15 Milk Of Magnesia 30 Ml Oral.Susp PO DAILY PRN Constipation Oxcarbazepine 300 mg 05/21/20 21:00 Oxcarbazepine 300 Mg Tablet PO BID GEM Pyridoxine HCl 50 mg 05/12/20 09:00 05/21/20 08:30 Pyridoxine Hcl (Vitamin B6) 50 Mg Tablet PO 50 mg DAILY GEM Administration Sertraline HCl 50 mg 05/19/20 09:00 05/21/20 08:33 Sertraline Hcl 50 Mg Tablet PO 50 mg DAILY GEM Administration Trazodone HCl 50 mg 05/20/20 15:38 05/20/20 21:00 Trazodone Hcl 50 Mg Tablet PO 50 mg BEDTIME PRN Administration Insomnia Vitamin D 50 mcg 05/12/20 09:00 05/21/20 08:33 Cholecalciferol (Vitamin D3) 25 Mcg Tablet PO 50 mcg DAILY GEM Administration Allergies Allergies Allergy/AdvReac Type Severity Reaction Status Date / Time Sulfa (Sulfonamide Allergy Unknown HIVES Verified 05/06/20 20:38 Antibiotics) [SULFA (SULFONAMIDE ANTIBIOTICS)] Assessment & Plan Assessment & Plan (1) PTSD (post-traumatic stress disorder): Status: Acute Code(s): F43.10 - Post-traumatic stress disorder, unspecified (2) Bipolar disorder: Status: Acute Code(s): F31.9 - Bipolar disorder, unspecified Assessment and Plan: Increase Trileptal to 300 mg bid Gabapentin 100 mg tid prn for anxiety changed to 300 mg bid prn anxiety Greater than 50% of the session was spent on counseling and/or coordination of care Reason for contiued inpatient stay Substantial Risk for: harm to self, inability to function and rapid decompensation
[2020-05-21 18:00] VITALS: BP 124/58; PULSE 78; TEMP 36.6
[2020-05-21] MEDS: Lurasidone HCl 40 MG TABLET PO (20:23)
[2020-05-21] MEDS: OXcarbazepine 300 MG TABLET PO (20:23)
[2020-05-21] MEDS: traZODone HCL 50 MG TABLET PO (20:23)
[2020-05-22 06:05] VITALS: BP 99/51; PULSE 67; RESP 16; TEMP 36.9; O2SAT 97
[2020-05-22] MEDS: Bacitracin Oint 14 GM TUBE 1 APPL TOPICAL ×3 (08:34→20:45)
[2020-05-22] MEDS: Sertraline HCL 50 MG TABLET PO (08:35)
[2020-05-22] MEDS: OXcarbazepine 300 MG TABLET PO ×2 (08:35→20:43)
[2020-05-22] MEDS: lamoTRIgine 100 MG TABLET 150 MG PO ×2 (08:35→20:42)
[2020-05-22] MEDS: Pyridoxine HCl (Vitamin B6) 50 MG TABLET PO (08:35)
[2020-05-22] MEDS: Cholecalciferol (Vitamin D3) 25 MCG TABLET 50 MCG PO (08:35)
[2020-05-22] MEDS: Gabapentin 300 MG CAPSULE PO ×2 (09:00→20:42)
[2020-05-22] MEDS: Docusate Sodium 100 MG CAPSULE PO (10:06)
[2020-05-22] MEDS: Milk of Magnesia 30 ML ORAL.SUSP PO (10:06)
--- NOTE | 2020-05-22 12:10 | HO.PSYCHPN ---
Subjective Subjective Date of Service: 05/22/20 Reason For Visit: MDD, SHIN Interim History: 05/22/2020: Patient doing very well. No complains. pleasant mood looking forward to discharge plan on Sunday. Patient feels medications are working well. : Reports anxiety and asks for another medication for mgt-reports hydroxyzine is not helpful. Discussed titration of Trileptal and Gabapentin prn. Pt trialed 100 mg Gabapentin and requested increase. Mother to visit today-possibly contributing to anxiety, pt agrees that this may be a factor. Reports some improvement in her sleep. Tentative discharge for 05/24 with transfer to [facility] on 05/25. 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) Psychiatric: Reports abnormal sleep pattern (2 hours/6 hours divided), Reports anxiety, Reports behavioral changes, Reports depression, Reports difficulty concentrating, Reports hopelessness, Reports anhedonia, Reports panic attacks, Reports suicidal ideation (denies SI) and Reports other (?OCD sx.) Mental Status Exam Mental Status Exam Patient Appearance: Appropriate Patient Orientation: Person, Place, Time and Situation Level of Consciousness: Alert Patient Behavior: Talkative and Good Eye Contact Mood Description: Anxious Affect Description: Flat Patient Cognition Impaired: No Ability to Follow Directions: Good Speech Pattern: Spontaneous Speech Memory Description: Intact Diagnostics Vital Signs (24Hr): Vital Signs - 24 hr 05/21/20 18:00 05/22/20 06:05 Temperature 97.8 F 98.5 F Pulse Rate 78 67 Respiratory Rate 16 Blood Pressure 124/58 L 99/51 L Pulse Oximetry 97 Body Mass Index 30.2 Labs Results: 05/12/20 08:04 05/21/20 07:45 Labs: Laboratory Results - last 48 hr 05/21/20 07:45 Sodium 142 Potassium 4.7 Chloride 104 Carbon Dioxide 31 H Anion Gap 12 BUN 19 H Creatinine 1.14 Estim Creat Clear Calc 66.2 Estimated GFR 51 Random Glucose TNP Fasting Glucose 85 Calcium 8.9 D Total Bilirubin 0.3 AST 24 D ALT 35 H Alkaline Phosphatase 72 Total Protein 6.2 L Albumin 3.6 Medications Medications Current Medications Generic Name Dose Route Start Last Admin Trade Name Freq PRN Reason Stop Dose Admin Acetaminophen 650 mg 05/11/20 19:15 Acetaminophen Supp [address] Q6H PRN Fever Acetaminophen 650 mg 05/11/20 19:15 Acetaminophen 325 Mg Tablet PO Q6H PRN Headache/Pain Mild Scale (1-3) Al Hydroxide/Mg Hydroxide 30 ml 05/11/20 19:15 Magnesium Hydrox/Alum Hydrox 30 Ml Oral.Susp PO Q6H PRN Heartburn/Nausea Bacitracin 1 appl 05/12/20 21:00 05/22/20 08:34 Bacitracin Oint 14 Gm Tube TOPICAL 1 appl TID GEM Administration Protocol Clonidine HCl 0.1 mg 05/11/20 19:15 05/16/20 08:35 Clonidine Hcl 0.1 Mg Tablet PO 0.1 mg BID PRN Administration Anxiety Protocol Docusate Sodium 100 mg 05/11/20 19:15 05/22/20 10:06 Docusate Sodium 100 Mg Capsule PO 100 mg DAILY PRN Administration Constipation Gabapentin 300 mg 05/21/20 15:06 05/22/20 09:00 Gabapentin 300 Mg Capsule PO 300 mg BID PRN Administration Anxiety Hydroxyzine HCl 25 mg 05/11/20 19:15 05/18/20 22:49 Hydroxyzine Hcl 25 Mg Tablet PO 25 mg BEDTIME PRN Administration Anxiety Hydroxyzine HCl 25 mg 05/16/20 16:45 05/20/20 08:56 Hydroxyzine Hcl 25 Mg Tablet PO 25 mg TID PRN Administration anxiety/restlessness Lamotrigine 150 mg 05/11/20 21:00 05/22/20 08:35 Lamotrigine 100 Mg Tablet PO 150 mg BID GEM Administration Lurasidone HCl 40 mg 05/17/20 21:00 05/21/20 20:23 Lurasidone Hcl 40 Mg Tablet PO 40 mg BEDTIME GEM Administration Magnesium Hydroxide 30 ml 05/11/20 19:15 05/22/20 10:06 Milk Of Magnesia 30 Ml Oral.Susp PO 30 ml DAILY PRN Administration Constipation Oxcarbazepine 300 mg 05/21/20 21:00 05/22/20 08:35 Oxcarbazepine 300 Mg Tablet PO 300 mg BID GEM Administration Pyridoxine HCl 50 mg 05/12/20 09:00 05/22/20 08:35 Pyridoxine Hcl (Vitamin B6) 50 Mg Tablet PO 50 mg DAILY GEM Administration Sertraline HCl 50 mg 05/19/20 09:00 05/22/20 08:35 Sertraline Hcl 50 Mg Tablet PO 50 mg DAILY GEM Administration Trazodone HCl 50 mg 05/20/20 15:38 05/21/20 20:23 Trazodone Hcl 50 Mg Tablet PO 50 mg BEDTIME PRN Administration Insomnia Vitamin D 50 mcg 05/12/20 09:00 05/22/20 08:35 Cholecalciferol (Vitamin D3) 25 Mcg Tablet PO 50 mcg DAILY GEM Administration Allergies Allergies Allergy/AdvReac Type Severity Reaction Status Date / Time Sulfa (Sulfonamide Allergy Unknown HIVES Verified 05/06/20 20:38 Antibiotics) [SULFA (SULFONAMIDE ANTIBIOTICS)] Assessment & Plan Assessment & Plan (1) PTSD (post-traumatic stress disorder): Status: Acute Code(s): F43.10 - Post-traumatic stress disorder, unspecified (2) Bipolar disorder: Status: Acute Code(s): F31.9 - Bipolar disorder, unspecified Assessment and Plan: Trileptal to 300 mg bid Gabapentin 100 mg tid prn for anxiety changed to 300 mg bid prn anxiety Continue current treatment plan no medication changes. Greater than 50% of the session was spent on counseling and/or coordination of care Reason for contiued inpatient stay Substantial Risk for: rapid decompensation
[2020-05-22 18:00] VITALS: BP 109/58; PULSE 65; TEMP 37
[2020-05-22] MEDS: traZODone HCL 50 MG TABLET PO (20:42)
[2020-05-22] MEDS: Lurasidone HCl 40 MG TABLET PO (20:43)
[2020-05-23 06:10] VITALS: BP 97/53; PULSE 60; RESP 16; TEMP 36.4; O2SAT 97
--- NOTE | 2020-05-23 08:03 | HO.PSYCHPN ---
Subjective Subjective Date of Service: 05/23/20 Reason For Visit: MDD, SHIN Interim History: 05/23/2020: Patient has no complains. Bright affect looking forward to discharge tomorrow. Future oriented 05/22/2020: Patient doing very well. No complains. pleasant mood looking forward to discharge plan on Sunday. Patient feels medications are working well. : Reports anxiety and asks for another medication for mgt-reports hydroxyzine is not helpful. Discussed titration of Trileptal and Gabapentin prn. Pt trialed 100 mg Gabapentin and requested increase. Mother to visit today-possibly contributing to anxiety, pt agrees that this may be a factor. Reports some improvement in her sleep. Tentative discharge for 05/24 with transfer to [facility] on 05/25. 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) Psychiatric: Reports abnormal sleep pattern (2 hours/6 hours divided), Reports anxiety, Reports behavioral changes, Reports depression, Reports difficulty concentrating, Reports hopelessness, Reports anhedonia, Reports panic attacks, Reports suicidal ideation (denies SI) and Reports other (?OCD sx.) Mental Status Exam Mental Status Exam Patient Appearance: Appropriate Patient Orientation: Person, Place, Time and Situation Level of Consciousness: Alert Patient Behavior: Talkative and Good Eye Contact Mood Description: Anxious Affect Description: Flat Patient Cognition Impaired: No Ability to Follow Directions: Good Speech Pattern: Spontaneous Speech Memory Description: Intact Diagnostics Vital Signs (24Hr): Vital Signs - 24 hr 05/22/20 18:00 05/23/20 06:10 Temperature 98.6 F 97.5 F Pulse Rate 65 60 Respiratory Rate 16 Blood Pressure 109/58 L 97/53 L Pulse Oximetry 97 Body Mass Index 30.2 Labs Results: 05/12/20 08:04 05/21/20 07:45 Labs: Laboratory Results - last 48 hr 05/21/20 07:45 Sodium 142 Potassium 4.7 Chloride 104 Carbon Dioxide 31 H Anion Gap 12 BUN 19 H Creatinine 1.14 Estim Creat Clear Calc 66.2 Estimated GFR 51 Random Glucose TNP Fasting Glucose 85 Calcium 8.9 D Total Bilirubin 0.3 AST 24 D ALT 35 H Alkaline Phosphatase 72 Total Protein 6.2 L Albumin 3.6 Medications Medications Current Medications Generic Name Dose Route Start Last Admin Trade Name Freq PRN Reason Stop Dose Admin Acetaminophen 650 mg 05/11/20 19:15 Acetaminophen Supp 650 Mg Supp.Rect [place] Q6H PRN Fever Acetaminophen 650 mg 05/11/20 19:15 Acetaminophen 325 Mg Tablet PO Q6H PRN Headache/Pain Mild Scale (1-3) Al Hydroxide/Mg Hydroxide 30 ml 05/11/20 19:15 Magnesium Hydrox/Alum Hydrox 30 Ml Oral.Susp PO Q6H PRN Heartburn/Nausea Bacitracin 1 appl 05/12/20 21:00 05/22/20 20:45 Bacitracin Oint 14 Gm Tube TOPICAL 1 appl TID GEM Administration Protocol Clonidine HCl 0.1 mg 05/11/20 19:15 05/16/20 08:35 Clonidine Hcl 0.1 Mg Tablet PO 0.1 mg BID PRN Administration Anxiety Protocol Docusate Sodium 100 mg 05/11/20 19:15 05/22/20 10:06 Docusate Sodium 100 Mg Capsule PO 100 mg DAILY PRN Administration Constipation Gabapentin 300 mg 05/21/20 15:06 05/22/20 20:42 Gabapentin 300 Mg Capsule PO 300 mg BID PRN Administration Anxiety Hydroxyzine HCl 25 mg 05/11/20 19:15 05/18/20 22:49 Hydroxyzine Hcl 25 Mg Tablet PO 25 mg BEDTIME PRN Administration Anxiety Hydroxyzine HCl 25 mg 05/16/20 16:45 05/20/20 08:56 Hydroxyzine Hcl 25 Mg Tablet PO 25 mg TID PRN Administration anxiety/restlessness Lamotrigine 150 mg 05/11/20 21:00 05/22/20 20:42 Lamotrigine 100 Mg Tablet PO 150 mg BID GEM Administration Lurasidone HCl 40 mg 05/17/20 21:00 05/22/20 20:43 Lurasidone Hcl 40 Mg Tablet PO 40 mg BEDTIME GEM Administration Magnesium Hydroxide 30 ml 05/11/20 19:15 05/22/20 10:06 Milk Of Magnesia 30 Ml Oral.Susp PO 30 ml DAILY PRN Administration Constipation Oxcarbazepine 300 mg 05/21/20 21:00 05/22/20 20:43 Oxcarbazepine 300 Mg Tablet PO 300 mg BID GEM Administration Pyridoxine HCl 50 mg 05/12/20 09:00 05/22/20 08:35 Pyridoxine Hcl (Vitamin B6) 50 Mg Tablet PO 50 mg DAILY GEM Administration Sertraline HCl 50 mg 05/19/20 09:00 05/22/20 08:35 Sertraline Hcl 50 Mg Tablet PO 50 mg DAILY GEM Administration Trazodone HCl 50 mg 05/20/20 15:38 05/22/20 20:42 Trazodone Hcl 50 Mg Tablet PO 50 mg BEDTIME PRN Administration Insomnia Vitamin D 50 mcg 05/12/20 09:00 05/22/20 08:35 Cholecalciferol (Vitamin D3) 25 Mcg Tablet PO 50 mcg DAILY GEM Administration Allergies Allergies Allergy/AdvReac Type Severity Reaction Status Date / Time Sulfa (Sulfonamide Allergy Unknown HIVES Verified 05/06/20 20:38 Antibiotics) [SULFA (SULFONAMIDE ANTIBIOTICS)] Assessment & Plan Assessment & Plan (1) PTSD (post-traumatic stress disorder): Status: Acute Code(s): F43.10 - Post-traumatic stress disorder, unspecified (2) Bipolar disorder: Status: Acute Code(s): F31.9 - Bipolar disorder, unspecified Assessment and Plan: Trileptal to 300 mg bid Gabapentin 100 mg tid prn for anxiety changed to 300 mg bid prn anxiety Continue current treatment plan no medication changes. Greater than 50% of the session was spent on counseling and/or coordination of care Reason for contiued inpatient stay Substantial Risk for: inability to function and rapid decompensation
[2020-05-23] MEDS: Bacitracin Oint 14 GM TUBE 1 APPL TOPICAL ×3 (08:33→20:36)
[2020-05-23] MEDS: lamoTRIgine 100 MG TABLET 150 MG PO ×2 (08:33→20:36)
[2020-05-23] MEDS: Pyridoxine HCl (Vitamin B6) 50 MG TABLET PO (08:34)
[2020-05-23] MEDS: OXcarbazepine 300 MG TABLET PO ×2 (08:34→20:36)
[2020-05-23] MEDS: Gabapentin 300 MG CAPSULE PO ×2 (08:34→20:36)
[2020-05-23] MEDS: Cholecalciferol (Vitamin D3) 25 MCG TABLET 50 MCG PO (08:34)
[2020-05-23] MEDS: Sertraline HCL 50 MG TABLET PO (08:34)
[2020-05-23] MEDS: Docusate Sodium 100 MG CAPSULE PO (09:24)
[2020-05-23 18:00] VITALS: BP 109/63; PULSE 71; TEMP 37.4
[2020-05-23] MEDS: traZODone HCL 50 MG TABLET PO (20:35)
[2020-05-23] MEDS: Lurasidone HCl 40 MG TABLET PO (20:36)
[2020-05-24 06:00] VITALS: BP 94/55; PULSE 60; RESP 16; TEMP 36.4; O2SAT 98
[2020-05-24] MEDS: Bacitracin Oint 14 GM TUBE 1 APPL TOPICAL (08:38)
[2020-05-24] MEDS: Cholecalciferol (Vitamin D3) 25 MCG TABLET 50 MCG PO (08:38)
[2020-05-24] MEDS: lamoTRIgine 100 MG TABLET 150 MG PO (08:39)
[2020-05-24] MEDS: Sertraline HCL 50 MG TABLET PO (08:39)
[2020-05-24] MEDS: Pyridoxine HCl (Vitamin B6) 50 MG TABLET PO (08:40)
[2020-05-24] MEDS: Docusate Sodium 100 MG CAPSULE PO (08:40)
[2020-05-24] MEDS: OXcarbazepine 300 MG TABLET PO (08:40)
[2020-05-24] MEDS: Gabapentin 300 MG CAPSULE PO (08:40)
--- NOTE | 2020-05-24 10:12 | PC.NURSE ---
PT REPORTS READINESS AND AWARENESS FOR DISCHARGE. PT STATES THAT SHE IS EXCITED BUT NERVOUS TO BE LEAVING. PT REPORTS ANXIETY AND DEPRESSION A 4/10 BUT IT IS BEING HELPED WITH MEDICATIONS. PT IS INDEPENDENTLY TAKING CARE OF ADLS. SHE IS EATING AND SLEEPING ADEQUATELY. PT HAS BEEN ATTENDING ALL GROUPS. PT HAS BEEN EDUCATED ON HER MEDICATIONS AND COPING SKILLS. PT VERBALIZES UNDERSTANDING. PT HAS A SOLID SUPPORT SYSTEM. PT HAS A PLAN FOR DISCARGE AFTERCARE INCLUDING A PARTIAL PROGRAM. PTS PAPERWORK HAS BEEN FAXED TO PCP PER PROTOCOL. PTS APPOINTMENTS ARE SCHEDULED.
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
--- NOTE | 2020-06-03 16:31 | PM.EVENT ---
Event Note Date of Service: 06/03/20 Event Note: Paperwork completed for Jeremiah Lui per pt request. Reviewed with pt by phone and faxed. Copy mailed to pt on this day.
== END 2020-05-24 11:05 | disposition home or self-care (01) | DRG 885 ==
PROVIDERS: Admitting Provider Psychiatry & Neurology Psychiatry; Visit Provider Clinical Nurse Specialist Psychiatric/Mental Health, Adult
DX: F31.9 Bipolar disorder, unspecified (principal); R45.851 Suicidal ideations; F43.10 Post-traumatic stress disorder, unspecified; E03.9 Hypothyroidism, unspecified; Z88.2 Allergy status to sulfonamides; Z79.899 Other long term (current) drug therapy
CPT/HCPCS: 36415; 80053; 80061; 82306; 82607; 82746; 82947; 83036; 84443; 85025

== ENCOUNTER 2020-06-11 08:30 | Outpatient (RCR) | payer MEDICARE, MEDICAID, SELFPAY ==
[2020-05-25 13:22] VITALS: BMI 30.2
--- NOTE | 2020-05-25 13:35 | PC.ADMIT ---
Patient was referred by [facility] M/[facility] unit where patient was hospitalized after a suicide attempt. Pt reportedly had taken an overdose of Zyprexa taking 45 tabs. She was found by her mother and taken to the hospital. 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 In addition prior to hospitalization patient had some medication changes. Patient stated she is attending PHP as, I had a suicide attempt and I'd like to prevent that from ever happening again . Patient presents with depressed mood anxious affect. Denied SI. Stated she has thought about the suicide attempt and stated she is sad that it happened. Patient denied any substance use. Thus far reports liking the groups. Medications reconciled with patient and [facility] [place] list. Patient reports taking as prescribed.
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
--- NOTE | 2020-05-26 14:57 | PC.NURSE ---
I called and left a message for casey Davey clients therapist. RE client started program and will be attending 10-12 days.
--- NOTE | 2020-05-27 14:58 | PC.NURSE ---
Case opened in treatment team
--- NOTE | 2020-05-31 15:12 | PC.NURSE ---
Client states she needs [facility] paperwork completed. I gave her the fax number.
--- NOTE | 2020-05-31 17:19 | P.PNPSP_ITS ---
Subjective Subjective Date of Service: 05/31/20 Reason For Visit: depression Interim History: Pt reports increase in motivation, able to go out with a friend yesterday and was able to enjoy herself with anxiety 7-8/10 as my mind grasps onto things . Depression is 6/10. Sleep is good, appetite is WNL, SI- thoughts and is discussing with her therapist. Pt did call suicide prevention hotlines to preview programming in case she is in need. Currently no active plan or intent. Appt with Dr. Carrion postponed until June 17, 2020 however therapist she states met with her mom and pt will go to medication appt alone, without mother- she reports mother is upset about this, but she is tolerating it. Mom still telling pt she has perioral TD-today, no sx seen and pt's friends are not noticing this symptom as well. Medication Compliance: Yes Side effects from medications: No Attending Groups: Yes Review of Systems Review of Systems Yes all other systems are reviewed and are negative (denies) Psychiatric: Reports anxiety, Reports depression and Reports suicidal ideation (passive at times, denies plan or intent) Mental Status Exam Mental Status Exam Patient Appearance: Appropriate Patient Orientation: Person, Place, Time and Situation Level of Consciousness: Alert Patient Behavior: Talkative Mood Description: Anxious Affect Description: Flat Patient Cognition Impaired: No Ability to Follow Directions: Good Speech Pattern: Spontaneous Speech Memory Description: Intact Hallucinations: None Delusions: Not Present Thought Process: Intact and Rumination Thought Content: positive for Intact and positive for Circumstantial Depressive Symptoms: Increased Anxiety and Low Self Esteem Judgement: Good Diagnostics Vital Signs (24Hr): Body Mass Index 30.2 Assessment & Plan Assessment & Plan (1) PTSD (post-traumatic stress disorder): Status: Acute Code(s): F43.10 - Post-traumatic stress disorder, unspecified (2) Bipolar disorder: Status: Acute Code(s): F31.9 - Bipolar disorder, unspecified Assessment and Plan: -Continue current regime. Certification I certify that partial hospital treatment is medically necessary due to the symptoms and problems resulting from the patient's mental illness and the failure to treat the patient at the partial hospital level of care would likely result in the patient requiring inpatient psychiatric care which could not be prevented at a less intensive level of care. Greater than 50% of the session was spent on counseling and/or coordination of care Discharge Plan Discharge Attending provider: Zoltan Hood Medications: New gabapentin 300 mg capsule 300 mg PO TID Qty: 21 RF: 3 Continued Latuda 40 mg Tablet 40 mg PO BEDTIME Qty: 14 RF: 1 Discontinued gabapentin 300 mg Capsule 300 mg PO BID PRN (Reason: Anxiety) Qty: 30 RF: 1 No Action oxcarbazepine 300 mg Tablet 300 mg PO BID Qty: 30 RF: 0 sertraline 50 mg Tablet 50 mg PO DAILY Qty: 30 RF: 0 trazodone 50 mg Tablet 50 mg PO BEDTIME PRN (Reason: Insomnia) Qty: 14 RF: 0 docusate sodium 100 mg Capsule 100 mg PO DAILY PRN (Reason: Constipation) Qty: 30 RF: 0 lamotrigine 150 mg tablet 150 mg PO BID RF: 0 pyridoxine (vitamin B6) 50 mg tablet 50 mg PO DAILY RF: 0 cholecalciferol (vitamin D3) [Vitamin D3] 50 mcg (2,000 unit) tablet 1 tab PO DAILY RF: 0 Telehealth Telehealth Location of provider rendering services: practice address Location of patient: address on file Patient Identification confirmed using: Name, : Yes Telehealth method: video Patient verbally consented to treatment: Yes Patient verbally consented to billing insurance company: Yes Patient informed of any privacy concerns related to visit: Yes Time spent with patient (mins): 15
--- NOTE | 2020-06-09 13:43 | HO.PHPPROGNO ---
Subjective Subjective Date of Service: 06/09/20 Reason For Visit: depression Interim History: The patient reported euthymia with the current regimen, no side effects, able to funtion in the community. She is going to have a prescriber in the next month and she requested scripts for 4 weeks. Medication Compliance: Yes Side effects from medications: No Review of Systems Review of Systems Yes all other systems are reviewed and are negative Mental Status Exam Mental Status Exam Patient Appearance: Well Grooomed Patient Orientation: Person, Place, Time and Situation Level of Consciousness: Awake Patient Behavior: Appropriate Mood Description: Calm Patient Cognition Impaired: No Ability to Follow Directions: Excellent Speech Pattern: Clear Memory Description: Intact Hallucinations: None Delusions: Not Present Thought Process: Intact Thought Content: positive for Goal Oriented Judgement: Fair Diagnostics Vital Signs (24Hr): Body Mass Index 30.2 Assessment & Plan Assessment & Plan (1) Bipolar disorder: Status: Acute Code(s): F31.9 - Bipolar disorder, unspecified Assessment and Plan: Continue same treatment Certification I certify that partial hospital treatment is medically necessary due to the symptoms and problems resulting from the patient's mental illness and the failure to treat the patient at the partial hospital level of care would likely result in the patient requiring inpatient psychiatric care which could not be prevented at a less intensive level of care. Greater than 50% of the session was spent on counseling and/or coordination of care Discharge Plan Discharge Attending provider: Zoltan Hood Medications: Continued lamotrigine 150 mg tablet 150 mg PO BID Qty: 60 RF: 1 trazodone 50 mg Tablet 50 mg PO BEDTIME PRN (Reason: Insomnia) Qty: 30 RF: 1 oxcarbazepine 300 mg Tablet 300 mg PO BID Qty: 60 RF: 1 gabapentin 300 mg capsule 300 mg PO TID Qty: 90 RF: 1 sertraline 50 mg Tablet 50 mg PO DAILY Qty: 30 RF: 1 Latuda 40 mg Tablet 40 mg PO BEDTIME Qty: 30 RF: 1 Changed docusate sodium 100 mg Capsule 100 mg PO BID PRN (Reason: Constipation) Qty: 60 RF: 0 Discontinued gabapentin 300 mg Capsule 300 mg PO BID PRN (Reason: Anxiety) Qty: 30 RF: 1 No Action cyanocobalamin (vitamin B-12) [Vitamin B-12] 500 mcg Tablet 500 mcg PO DAILY RF: 0 ascorbic acid (vitamin C) [Vitamin C] 500 mg Tablet 500 mg PO DAILY RF: 0 zinc 50 mg Tablet 50 mg PO DAILY RF: 0 folic acid 800 mcg Tablet 0.8 mg PO DAILY RF: 0 Fish Oil Capsule 1,250 mg PO DAILY RF: 0 pyridoxine (vitamin B6) 50 mg tablet 50 mg PO DAILY RF: 0 cholecalciferol (vitamin D3) [Vitamin D3] 50 mcg (2,000 unit) tablet 1 tab PO DAILY RF: 0 Telehealth Telehealth Location of provider rendering services: practice address Location of patient: address on file Patient Identification confirmed using: Name, : Yes Telehealth method: video Patient verbally consented to treatment: Yes Patient verbally consented to billing insurance company: Yes Patient informed of any privacy concerns related to visit: Yes Time spent with patient (mins): 20
--- NOTE | 2020-06-11 10:04 | PC.NURSE ---
Called clients therapist Reema Davey and left message regarding the client discharge from PHP
--- NOTE | 2020-06-11 14:36 | PC.NURSE ---
Spoke with the clients therapist Reema roberts clients progress in PHP and discharge plans
--- NOTE | 2020-06-14 14:29 | PC.NURSE ---
Case closed in treatment team
== END 2020-06-11 23:55 | disposition home or self-care (01) ==
LOC: HO.PHPA 08:30
PROVIDERS: Visit Provider Psychiatry & Neurology Psychiatry
DX: F31.9 Bipolar disorder, unspecified (principal); F43.10 Post-traumatic stress disorder, unspecified
CPT/HCPCS: 90791; 90853; 99213

== ENCOUNTER 2023-01-19 19:57 | Inpatient (IN) | payer MEDICARE, MEDICAID, SELFPAY ==
--- NOTE | ~2023-01-19 | US_ITS ---
EXAMINATION: US VENOUS WITH DOPPLER UPPER EXTREMITY, LEFT CLINICAL INFORMATION: Left upper extremity edema, swelling and pain COMPARISON: None available. TECHNIQUE: Ultrasound of the upper extremity is performed using compression sonography and color and pulse Doppler flow with assessment of augmentation of flow. There is also imaging and Doppler assessment of the jugular and subclavian veins. Spectral analysis with color-flow imaging is performed. FINDINGS: Respiratory variation, normal compression, and augmented flow are noted throughout the upper extremity including the axillary, brachial, cubital, and radial and ulnar veins. There is normal flow in the internal jugular and subclavian veins. There is no visible deep or superficial thrombophlebitis. If the patient's symptoms progress, a followup ultrasound in 5 -7 days might be of value to exclude proximal propagation from a nonvisualized distal arm vein. US/US venous duplex UE LT IMPRESSION: No DVT demonstrated in the left upper extremity
--- NOTE | ~2023-01-19 | CT_ITS ---
EXAMINATION: CT HEAD WITHOUT CONTRAST CLINICAL INFORMATION: Acute confusion COMPARISON: TECHNIQUE: Contiguous axial imaging was performed from the skull base to vertex without intravenous administration of contrast. This CT examination was performed using dose optimization techniques as appropriate, variously including the following: *Automated exposure control *Adjustment of mA and/or kV according to patient size (this includes techniques or standardized protocols for targeted exams where dose is matched to indication/reason for exam; i.e. extremities or head) *Use of iterative reconstruction technique DLP: 765 mGy-cm FINDINGS: Mild atrophy. Marti-white matter differentiation is preserved. No evolving infarct, mass lesion, mass effect or midline shift. No hemorrhage or extra-axial fluid collections. Intraorbital structures are unremarkable. Sinuses and mastoids are free of disease. Bony structures are intact. Soft tissues are unremarkable. CT/CT head/brain wo IV con IMPRESSION: Mild volume loss. No acute intracranial pathology.
--- NOTE | ~2023-01-19 | US_ITS ---
EXAMINATION: US VENOUS WITH DOPPLER UPPER EXTREMITY, RIGHT CLINICAL INFORMATION: Right upper extremity edema COMPARISON: Prior left upper extremity ultrasound 01/30/2023 which was normal TECHNIQUE: Ultrasound of the upper extremity is performed using compression sonography and color and pulse Doppler flow with assessment of augmentation of flow. There is also imaging and Doppler assessment of the jugular and subclavian veins. Spectral analysis with color-flow imaging is performed. FINDINGS: Respiratory variation, normal compression, and augmented flow are noted throughout the upper extremity including the axillary, brachial, cubital, and radial and ulnar veins. There is normal flow in the internal jugular and subclavian veins. There is no visible deep or superficial thrombophlebitis. If the patient's symptoms progress, a followup ultrasound in 5 -7 days might be of value to exclude proximal propagation from a nonvisualized distal arm vein. US/US venous duplex UE RT IMPRESSION: No DVT demonstrated in the right upper extremity
--- OUTSIDE RECORDS SUMMARY | 2023-01-19 20:01 | XMS_ITS | Patient Health Record ---
Author Name Unknown Organization [facility] radha Address [address] [place] [address] Care Team Providers Care Copper Miner Name Role Phone Tyra Varela Primary Care Provider [phone] Marybeth Daniel Unavailable [phone] Monalisa London Unavailable Debra Motley Unavailable [phone] BrandiReema escobar Unavailable [phone] Flynn Michelle Unavailable [phone] ALLERGIES Allergen (clinical drug ingredient) Drug/Non Drug Allergy documented on EMR Reaction Allergy Type Onset Date Status olanzapine OLANZapine extrapyramidal Drug Allergy Active lithium carbonate lithium kidney problems Drug Allergy Active topiramate Topamax memory problems Drug Allergy Active bupropion Wellbutrin SR samuel Drug Allergy Act pritesh Sulfa hives Drug Allergy Active quetiapine QUEtiapine increased aggression Drug Allergy Active RESULTS Component Value Reference Range Notes COMPREHENSIVE METABOLIC PANL Reviewed date:05/11/2022 01:29:13 PM Interpretation: Performing Lab:Testing performed or reported by [facility], a Service of [facility], [address] [place] [address] Jose Kaiser MD, Senior Assistant Manager [facility]# [id number] Notes/Report: GLUCOSE 93 (70-99) MG/DL BUN 21 (6-20) MG/DL CREATININE 1.0 (0.5-1.0) MG/DL SODIUM 140 (133-145) MMOL/L POTASSIUM 4.7 (3.6-5.2) MMOL/L CHLORIDE 104 (98-107) MMOL/L BICARBONATE 25 (22-29) MMOL/L ANION GAP 11 (4-17) ALBUMIN 4.2 (3.4-4.8) GM/DL CALCIUM 9.4 (8.6-10.5) MG/DL BILIRUBIN,TOTAL 0.2 (0-1.2) MG/DL TOTAL PROTEIN 7.1 (6.2-8.2) GM/DL AG RATIO 1.4 AST 30 (0-32) U/L ALK PHOS 106 (35-104) U/L ALT 28 (0-33) U/L ESTIMATED GFR CREATININE 68 Creatinine based estimated glomerular filtration (eGFR) in adults is calculated using the National Kidney Foundation recommended 2020 CKD-EPI equation. Estimates GFR from serum creatinine, age and sex. LIPID PANEL Reviewed date:05/11/2022 01:28:15 PM Interpretation: Performing Lab:Testing performed or reported by [facility], [place] [address] Jose Kaiser MD, Senior Assistant Manager [facility]# [id number] Notes/Report: CHOLESTEROL, TOTAL 229 (<200) MG/DL TRIGLYCERIDE 117 (<150) MG/DL HDL CHOL 71 (>39) MG/DL LDL CHOLESTEROL, CALCULATED 135 (0-130) MG/DL NON HDL CHOLESTEROL (CALC) 158 (<160) MG/DL TSH WITH REFLEX TO T4 Reviewed date:05/11/2022 01:26:54 PM Interpretation: Performing Lab:Testing performed or reported by [facility], [place] [address] Jose Kaiser MD, Senior Assistant Manager [facility]# [id number] Notes/Report: TSH 3.25 (0.4-4.2) uIU/mL ESTRADIOL Reviewed date:05/11/2022 01:27:30 PM Interpretation: Performing Lab:Testing performed or reported by [facility], a Service of [address] [address] Jose Kaiser MD, Senior Assistant Manager [facility]# [id number] Notes/Report: ESTRADIOL 6 Reference Ranges: Luteal Phase: 44-211 pg/mL Ovulation: 86-498 pg/mL Follicular Phase: 13-166 pg/mL Postmenopausal: <55 pg/mL Estradiol test method is an electrochemiluminescence immunoassay manufactured by [employer] and performed on the Modular or Chely system. This assay has cross reactivity to the drug fulvestrant which may lead to falsely elevated estradiol results. Therefore, an alternate method such as liquid chromatography-tandem mass spectrometry should be used when monitoring estradiol levels in patients being treated with the drug fulvestrant. FSH Reviewed date:05/11/2022 01:27:48 PM Interpretation: Performing Lab:Testing performed or reported by [facility], [place] [address] Jose Kaiser MD, Senior Assistant Manager [facility]# [id number] Notes/Report: FSH 71.3 Reference Range: Follicular: 3.5-12.5 mIU/mL Ovulation: 4.7-21.5 mIU/mL Luteal: 1.7-7.7 mIU/mL Postmenopausal: 25.8-134.8 mIU/mL LH Reviewed date:05/11/2022 01:30:14 PM Interpretation: Performing Lab:Testing performed or reported by [facility], a Service of [address] [address] Jose Kaiser MD, Senior Assistant Manager [facility]# [id number] Notes/Report: LH 28.3 Reference Range: Follicular: 2.4-12.6 mIU/mL Ovulation: 14.0-95.6 mIU/mL Luteal: 1.0-11.4 mIU/mL Postmenopausal: 7.7-58.5 mIU/mL Vitamin D25 OH Reviewed date:05/11/2022 01:30:22 PM Interpretation: Performing Lab:Testing performed or reported by [facility], a Service of [address] [address] Jose Kaiser MD, Senior Assistant Manager [facility]# [id number] Notes/Report: 25OH VITAMIN D 56.7 (20-50) NG/ML CBC AUTO DIFF Reviewed date:05/11/2022 01:29:47 PM Interpretation: Performing Lab:Testing performed or reported by [facility], a Service of [address] [address] Jose Kaiser MD, Senior Assistant Manager CLIA# [id number] Notes/Report: WBC 7.4 (4.0-11.0) K/MM3 RBC 4.66 (4.20-5.40) M/MM3 HGB 12.9 (11.7-15.5) GM/DL HCT 40.7 (35.7-45.8) % MCV 87.3 (80.0-100.0) FL MCH 27.7 (27.0-34.0) PG MCHC 31.7 (33.0-37.0) g/dL PLT 341 (150-460) K/MM3 RDW-SD 43.5 (<47.0) FL MPV 10.5 (9.4-12.4) FL AUTOMATED NRBC 0.0 ABS. NRBC 0.0 NEUT # 4.6 (1.3-7.0) K/MM3 LYMPH # 1.8 (0.8-3.1) K/MM3 MONO# 0.8 (0.4-0.9) K/MM3 EO # 0.1 (0.0-0.4) K/MM3 BASO # 0.1 (0.0-0.1) K/MM3 ABS. IMM GRAN 0.0 NEUT 61.8 (44-76) % LYMPH 24.6 (15-43) % MONOCYTE 11.0 (4.5-10.5) % EO 1.6 (0-6) % BASO 0.7 (0-2) % IMM GRAN 0.3 COVID-19 (NOVEL CORONAVIRUS) , PCR Drive Through Reviewed date:08/23/2022 09:07:43 AM Interpretation: Performing Lab:Testing performed or reported by [facility], a Service of [facility], [address] [place] [address] Ran Nowak MD, Senior Assistant Manager [facility]# [id number] Notes/Report: COVID-19 PCR RESULT NEGATIVE (NEG) 2019-novel Coronavirus (2019-nCoV) not detected by real-time RT-PCR. Note: If clinical suspicion for COVID-19 is high, continue to maintain precautions and consider repeat testing. Result reported to the [facility]. To prevent errors in diagnosis, test results should be interpreted in the context of clinical findings and other laboratory data. Rare polymorphisms exist that could lead to false-negative or false-positive results. If results obtained do not match the clinical findings, additional testing should be considered. This test has been authorized by the FDA under an Emergency Use Authorization (EUA) for use by authorized laboratories. Testing performed by real time PCR utilizing [employer] authorGEN0 SARS-CoV-2 test. COVID-19 PCR SPECIMEN SOURCE NASAL Rapid Covid 19 Reviewed date:08/22/2022 12:12:58 PM Interpretation:Negative Performing Lab: Notes/Report: Negative SURGICAL PATHOLOGY Reviewed date:10/19/2022 01:56:32 PM Interpretation: Performing Lab:Testing performed or reported by [facility], a Service of [address] [address] Ran Nowak MD, Senior Assistant Manager CLIA# [id number] Notes/Report: Patient Name: LEONEL ROWELL Lab Patient : 1970 (Age: 52) Collection Date: 10/18/2022 Accession Date: 10/18/2022 Sign Out Date: 10/19/2022 Tissue Source: 1:RIGHT INNER THIGH Final Diagnosis: Skin, right inner thigh, punch: - Central epidermal ulceration with rare underlying eosinophils (see note). Note: A central epidermal ulceration is present, below which is a mild inflammatory infiltrate of neutrophils, lymphocytes, and scattered eosinophils. While the histologic findings are not specific, they are consistent with the effect of external irritation. Due to the presence of eosinophils, an excoriated dermal hypersensitivity response or a bug bite are possibilities. Primary Pathologist:Armen Joel M.D. electronically signed out by: Armen Joel M.D. / Matilde Clinical History: Rash and other nonspecific skin eruption Gross Description: Labelled right inner thigh . Received in formalin is a soft white, red-tinged skin punch with a diameter of 0.3 cm and a depth of 0.2 cm. The specimen is inked, and is entirely submitted. 1- 1 piece, x 3, PASD, punch orientation. (EG)* Phone #: [phone], On-Call Pathologist: [id number] COMPREHENSIVE METABOLIC PANL (Not yet reviewed by provider) Interpretation: Performing Lab:Testing performed or reported by [facility], a Service of [address] [address] Ran Nowak MD, Senior Assistant Manager CLIA# [id number] Notes/Report: GLUCOSE 107 (70-99) MG/DL BUN 16 (6-20) MG/DL CREATININE 0.9 (0.5-1.0) MG/DL SODIUM 139 (133-145) MMOL/L POTASSIUM 4.2 (3.6-5.2) MMOL/L CHLORIDE 101 (98-107) MMOL/L BICARBONATE 27 (22-29) MMOL/L ANION GAP 11 (4-17) ALBUMIN 4.3 (3.4-4.8) GM/DL CALCIUM 9.4 (8.6-10.5) MG/DL BILIRUBIN,TOTAL 0.2 (0-1.2) MG/DL TOTAL PROTEIN 6.8 (6.2-8.2) GM/DL AG RATIO 1.7 AST 49 (0-32) U/L ALK PHOS 113 (35-104) U/L ALT 41 (0-33) U/L ESTIMATED GFR CREATININE 74 Creatinine based estimated glomerular filtration (eGFR) in adults is calculated using the National Kidney Foundation recommended 2020 CKD-EPI equation. Estimates GFR from serum creatinine, age and sex. Lamotrigine level Reviewed date:01/10/2023 10:23:47 PM Interpretation: Performing Lab: Notes/Report: TSH with reflex Reviewed date:01/07/2023 07:43:47 PM Interpretation: Performing Lab: Notes/Report: TSH 2.00 0.27-4.20 uIU/mL BASIC METABOLIC PANEL Reviewed date:01/07/2023 07:43:17 PM Interpretation: Performing Lab: Notes/Report: SODIUM 137 133-146 mmol/L CHLORIDE 99 96-108 mmol/L POTASSIUM 4.2 3.3-5.1 mmol/L CO2 27 21-35 mmol/L BUN 15 6-19 mg/dL CREATININE 0.90 0.5-1.5 mg/dL GLUCOSE 101 70-99 mg/dL CALCIUM 9.1 8.4-10.3 mg/dL EGFR 77 >59 mL/min/1.73m2 Estimated glomerular filtration rate calculated using the CKD-EPI refit equation. ANION GAP 15 10-20 mmol/L HEPATIC FUNCTION PANEL Reviewed date:01/07/2023 07:43:20 PM Interpretation: Performing Lab: Notes/Report: ALKALINE PHOSPHATASE 101 39-117 U/L TOTAL BILIRUBIN <0.2 0.0-1.2 mg/dL DIRECT BILIRUBIN <0.2 0-0.3 mg/dL BILIRUBIN (INDIRECT) NOT CALCULATED 0-1.5 mg/dL AST 40 0-37 U/L ALT 34 0-40 U/L TOTAL PROTEIN 7.4 6.5-8.0 g/dL ALBUMIN 4.3 3.9-4.8 g/dL A/G RATIO 1.39 1.00-4.80 RATIO Acetaminophen level Reviewed date:01/07/2023 07:43:54 PM Interpretation: Performing Lab: Notes/Report: ACETAMINOPHEN <5.0 15.0-30.0 ug/mL Ethanol, blood Reviewed date:01/07/2023 07:44:00 PM Interpretation: Performing Lab: Notes/Report: ETHANOL <10 <10 mg/dL Magnesium Reviewed date:01/07/2023 07:43:23 PM Interpretation: Performing Lab: Notes/Report: MAGNESIUM 2.1 1.6-2.6 mg/dL Salicylates Reviewed date:01/07/2023 07:44:05 PM Interpretation: Performing Lab: Notes/Report: SALICYLATES <0.3 2.8-19.9 mg/dL CBC AND DIFFERENTIAL Reviewed date:01/07/2023 07:43:51 PM Interpretation: Performing Lab: Notes/Report: WBC 8.12 4.00-11.00 K/uL RBC 4.52 3.72-5.30 M/uL HGB 12.5 10.6-15.5 g/dL HCT 39.2 32.0-45.0 % PLT 336 140-430 K/uL MCV 86.7 78.0-97.0 fL MCH 27.7 25.0-33.0 pg MCHC 31.9 32.0-36.0 g/dL RDW 14.0 11.0-16.0 % MPV 9.9 8.4-12.8 fl DIFF METHOD Auto PANDEMIC RESPIRATORY VIRAL O RDER (PRO) Reviewed date:01/07/2023 07:34:02 PM Interpretation: Performing Lab: Notes/Report: TEST ORDERED Rapid COVID, Flu has been ordered XR CHEST PA AND LATERAL 2 EWS Reviewed date:01/07/2023 07:36:33 PM Interpretation: Performing Lab: Notes/Report: XR CHEST PA AND LATERAL 2 VIEWS COMPARISON: None. FINDINGS: Devices/Tubes/Lines: None. Lungs: No focal consolidation or pulmonary edema. Pleura: No pleural effusions or pneumothorax. Heart/Mediastinum: Normal cardiomediastinal silhouette. Bones/Soft Tissues: No significant abnormality. IMPRESSION: No acute abnormality. Interpreted by: Deidra Rubio MD Signed by: Deidra Rubio MD 01/06/23 Final result Cough, pain, back pain BASIC METABOLIC PANEL (Not y et reviewed by provider) Interpretation: Performing Lab: Notes/Report: SODIUM 137 133-146 mmol/L CHLORIDE 100 96-108 mmol/L POTASSIUM 4.0 3.3-5.1 mmol/L CO2 23 21-35 mmol/L BUN 19 6-19 mg/dL CREATININE 0.90 0.5-1.5 mg/dL GLUCOSE 97 70-99 mg/dL CALCIUM 9.3 8.4-10.3 mg/dL EGFR 77 >59 mL/min/1.73m2 Estimated glomerular filtration rate calculated using the CKD-EPI refit equation. ANION GAP 18 10-20 mmol/L HEPATIC FUNCTION PANEL (Not yet reviewed by provider) Interpretation: Performing Lab: Notes/Report: ALKALINE PHOSPHATASE 104 39-117 U/L TOTAL BILIRUBIN <0.2 0.0-1.2 mg/dL DIRECT BILIRUBIN <0.2 0-0.3 mg/dL BILIRUBIN (INDIRECT) NOT CALCULATED 0-1.5 mg/dL AST 66 0-37 U/L ALT 47 0-40 U/L TOTAL PROTEIN 7.6 6.5-8.0 g/dL ALBUMIN 4.2 3.9-4.8 g/dL A/G RATIO 1.24 1.00-4.80 RATIO Ethanol, blood (Not yet revi ewed by provider) Interpretation: Performing Lab: Notes/Report: ETHANOL <10 <10 mg/dL Magnesium (Not yet reviewed by provider) Interpretation: Performing Lab: Notes/Report: MAGNESIUM 2.1 1.6-2.6 mg/dL CBC AND DIFFERENTIAL (Not ye t reviewed by provider) Interpretation: Performing Lab: Notes/Report: WBC 8.74 4.00-11.00 K/uL RBC 4.69 3.72-5.30 M/uL HGB 13.0 10.6-15.5 g/dL HCT 39.9 32.0-45.0 % PLT 366 140-430 K/uL MCV 85.1 78.0-97.0 fL MCH 27.7 25.0-33.0 pg MCHC 32.6 32.0-36.0 g/dL RDW 13.7 11.0-16.0 % MPV 10.0 8.4-12.8 fl DIFF METHOD Auto URINE MICROSCOPIC (Not yet r eviewed by provider) Interpretation: Performing Lab: Notes/Report: WBC 5-10 NONE SEEN /hpf RBC 11-20 NONE SEEN /hpf URINE EPITHELIAL 5-10 NONE SEEN MUCUS NONE SEEN NONE SEEN /hpf BACTERIA Trace NONE SEEN /hpf Urinalysis w/reflex Urine Cu lture (Not yet reviewed by provider) Interpretation: Performing Lab: Notes/Report: COLOR Yellow Yellow CLARITY Clear GLUCOSE Negative Negative BILI Negative Negative KETONES Negative Negative SPECIFIC GRAVITY <1.005 1.005-1.030 BLOOD 2+ Negative PH 6.0 5.0-8.0 PROTEIN Negative Negative NITRITE Negative Negative LEUKOCYTE ESTERASE, UR Trace Negative TOXICOLOGY SCREEN, URINE (No t yet reviewed by provider) Interpretation: Performing Lab: Notes/Report: URINE CANNABINOIDS NONE DETECTED NONE DETECTED Cutoff: 50 ng/mL URINE COCAINE METAB NONE DETECTED NONE DETECTED Cutoff : 300 ng/mL URINE AMPHETAMINES NONE DETECTED NONE DETECTED Cutoff: 1000 ng/mL URINE METHADONE NONE DETECTED NONE DETECTED Cutoff: 30 0 ng/mL URINE OPIATES NONE DETECTED NONE DETECTED Cutoff: 300 ng/mL URINE PHENCYCLIDINE NONE DETECTED NONE DETECTED Cutoff : 25 ng/mL URINE OXYCODONE NONE DETECTED NONE DETECTED Cutoff: 30 0 ng/mL URINE BARBITURATES NONE DETECTED NONE DETECTED Cutoff: 200 ng/mL URINE BENZODIAZEPINE NONE DETECTED NONE DETECTED Cutof f: 200 ng/mL PANDEMIC RESPIRATORY VIRAL O RDER (PRO) (Not yet reviewed by provider) Interpretation: Performing Lab: Notes/Report: REASON FOR REFERRAL Reason Home Sleep Study Diagnosis 1 Sleep disorder, unsp ecified (G47.9) Referral Organization [facility] Referring Provider First Name Marybeth Referring Provider Last Name Fredy Referring Provider Speciality Family Pra ctice Referred Provider Sleep Medicine [facility] Referred Provider Specialty SLEEP MEDICI NE General Notes Aracelis Cook 04/26 08:40:53 AM EST > NO AUTH REQUIRED MEDICARE IS PRIMARY, Faxed to: [phone] Clinical Notes Provider Name: [facility] , Provider , Address1: [address] [place] [address] [address] , [facility], [facility], Zip: [place], [address] , , Referral Priority Routine MEDICATIONS Medication SIG (Take, Route, Frequency, Duration) Notes Start Date End Date Status LORazepam 1 mg 1/2 tab(s) orally 2- 3 x weekly as needed for anxiety 12/19/2022 Active Co Q-10 100 mg 1 cap(s) orally once a day for 90 days Active CPAP on & off Active ranitidine BID 150mg prn Active Zinc PO QD 50mg Active Latuda 80 mg 1 tab(s) orally QD Active Colace sodium 100 mg 1 cap(s) orally QD Active Probiotic Formula 2-3gummies QD Active Fish Oil 1000mg 3 TID 1200mg Acti ve gabapentin 300 mg 1 tab(s) orally 2 times a day for 90 days Active traZODone 50 mg as directed orally 1 -2 tabs at bedtime for 30 days 01/16/2023 Active Zoloft 25 mg 1 tab(s) orally QD f or 90 days Active LaMICtal 150 mg 1 tab(s) orally 2 times a day for 90 days Active Vitamin B complex with Vit C 100 mcg 1 tab(s) orally once a day for 90 day(s) 06/29/2022 Active Trileptal 150 mg 1 tab(s) orally 2 times a day Active Vitamin D 5000 intl units 1 tab(s) orally once a day 05/12/2022 Active IMMUNIZATIONS Vaccine Route Administration Date Status Comme nts PPD planted ID Intradermal 11/08/2015 Administered Negative PPD Read ID Intradermal 11/10/2015 Administered TDAP >7 PURCHASED (ADACEL) IM Intramuscular 02/15/2018 Adm inistered FLULAVAL PURCHASED ID Intradermal 05/03/2018 Administered Flu Vaccine; History Unknown 12/10/2018 Administered COVID-19 Vaccine (Pfizer), History Unknown 06/28/2020 Administered COVID-19 Vaccine (Pfizer), History Unknown 07/19/2020 Administered Covid Vac Bivalent Moderna,History Unknown 01/27/2022 Administered Flu Vaccine; History Unknown 01/27/2022 Administered SOCIAL HISTORY Sex Assigned At : Social History Observation Description Sex Assigned At Unknown PROBLEMS Problem Type ICD Code Onset Dates Problem Status W/U Status Risk SNOMED Code Notes Problem Allergic rhinitis, unspecified (J30.9) Active confirmed Allergic rhinit is (58443217) Problem Sleep disorder, unspecified (G47.9) Active confirmed Sleep disorder (55029733) Problem Vitamin D deficiency, unspecified (E55.9) Active confirmed Vitamin D deficiency (03638390) Problem Bipolar disorder, other (F31.89) Active confirmed Manic bipolar I disorder (42610771) Problem Acute stress reaction (F43.0) Active confirmed Acute stres s reaction (15510594) Problem Hypersomnia, unspecified (G47.10) Active confirmed Hypersomnia (01045712) Problem JERRY (G47.33) Active confirmed Obstructi ve sleep apnea syndrome (45349443) Problem Menopausal and female climacteric states (N95.1) Active confirmed Menopause (898053127) Problem BMI 36.0-36.9, adult (Z68.36) Active confirmed Body mass ind ex 35.00 to 39.99 (521240099027875) Problem BMI 40.0-44.9, adult (Z68.41) Active confirmed Body mass ind ex 40+ - morbidly obese (128148114) Problem Dietary counseling and surveillance (Z71.3) Active confirmed Dietary management surveillance (981991369) Problem Hyperlipidemia unspecified (E78.5) Active confirmed Hyperlipidemia (72183397) Problem Constipation NOS (K59.00) Active confirmed Constipation (00556923) Problem Atrophic vaginitis (N95.2) Active confirmed Atrophic vaginitis (34742714) VITAL SIGNS Temperature 98.1 degrees Fahrenheit 10/18/2022 decl ined wt Oximetry 98% 10/18/2022 declined wt Blood pressure diastolic 82 mm Hg 10/18/2022 dec lined wt Height 66 in 12/21/2022 Blood pressure systolic 138 mm Hg 10/18/2022 decl ined wt Weight 269 lbs 12/21/2022 BMI 43.41 kg/m2 12/21/2022 Encounters Encounter Location Date Provider Diagnosis [place] [address] [place] [address] 04/19/2022 Marybeth Daniel CPE Z00.00 ; Fatigue R53.83 ; Vitamin D deficiency, unspecified E55.9 ; Menopausal and female climacteric states N95.1 ; Sleep disorder, unspecified G47.9 ; Bowel changes R19.4 and BMI 40.0-44.9, adult Z68.[address] [address] 01/23/2022 Tyra Varela BMI 36.0-36.9, adult Z68.36 and Dietary counseling and surveillance Z71.[address] [address] 02/06/2022 Tyra Varela [address] [address] 02/13/2022 Tyra Varela BMI 36.0-36.9, adult Z68.36 and Dietary counseling and surveillance Z71.[address] [address] 02/20/2022 Tyra Varela [address] [address] 02/27/2022 Tyra Varela BMI 36.0-36.9, adult Z68.36 and Dietary counseling and surveillance Z71.[address] [place] [address] [place] [address] 03/24/2022 Tyra Varela Constipation NOS K59.00 and Dietary counseling and surveillance Z71.3 [place] [address] [place] [address] 04/14/2022 Tyra Varela BMI 36.0-36.9, adult Z68.36 and Dietary counseling and surveillance Z71.3 [place] [address] [place] [address] 04/28/2022 Tyra Varela BMI 40.0-44.9, adult Z68.41 and Dietary counseling and surveillance Z71.[address] [place] [address] [place] [address] 05/24/2022 Tyralorraine Turneron Hyperlipidemia unspecified E78.5 and Dietary counseling and surveillance Z71.[address] [place] [address] [place] [address] 06/02/2022 Tyralorraine Varela Hyperlipidemia unspecified E78.5 [place] [address] [place] [address] 06/16/2022 Tyracarmen Varela [facility] [address] [place] [address] 06/14/2022 Ytra Varela [facility] [address] [place] [address] 06/27/2022 Tyra Varela Hyperlipidemia unspecified E78.5 and Dietary counseling and surveillance Z71.3 [facility] [address] [place] [address] 07/07/2022 Tyracarmen Varela Dietary counseling and surveillance Z71.3 [facility] [address] [place] [address] 07/12/2022 Tyra Varela Hyperlipidemia unspecified E78.5 and Dietary counseling and surveillance Z71.3 [facility] [address] [place] [address] 08/04/2022 Tyra Varela Hyperlipidemia unspecified E78.5 and Dietary counseling and surveillance Z71.3 [facility] [address] [place] [address] 08/11/2022 Tyra Varela Hyperlipidemia unspecified E78.5 and Dietary counseling and surveillance Z71.3 [facility] [address] [place] [address] 08/25/2022 Tyra Varela No Show or Late Cancel [email or web address].[email or web address] [facility] [address] [place] [address] 09/08/2022 Tyra Varela Hyperlipidemia unspecified E78.5 and Dietary counseling and surveillance Z71.3 [facility] [address] [place] [address] 09/06/2022 Tyra Varela Hyperlipidemia unspecified E78.5 and Dietary counseling and surveillance Z71.3 [facility] [address] [place] [address] 09/22/2022 Tyra Varela Sleep disorder, unspecified G47.9 and Dietary counseling and surveillance Z71.3 [facility] [address] [place] [address] 10/06/2022 Tyra Varela No Show or Late Cancel NS.[email or web address] [place] [address] [place] [address] 10/17/2022 Tyracarmen Varela [place] [address] [place] [address] 11/17/2022 Tyra Varela Hyperlipidemia unspecified E78.5 and Dietary counseling and surveillance Z71.3 [place] [address] [place] [address] 12/15/2022 Tyra Varela [place] [address] [place] [address] 03/17/2022 Tyra Varela Fatigue R53.83 and Dietary counseling and surveillance Z71.3 [place] [address] [place] [address] 06/21/2022 Marybeth Daniel [facility] [address] [place] [address] 08/22/2022 Flynn Michelle Cough, unspecified R05.9 and Unspecified acute lower respiratory infection J22 [facility] [address] [place] [address] 09/06/2022 Flynn Chavesan [facility] [address] [place] [address] 10/18/2022 Reema Brandi Rash and other nonspecific skin eruption R21 [facility] [address] [address] 10/26/2022 Reema Brandi Rash and other nonspecific skin eruption R21 [place] [address] [place] [address] 07/27/2022 Debra Motley Bipolar disorder, other F31.89 and Menopausal and female climacteric states N95.1 [place] [address] [place] [address] 07/05/2022 Debrakenny Motley Bipolar disorder, other F31.89 and Menopausal and female climacteric states N95.[address] [facility] [address] [place] [address] 09/19/2022 Debra Tiesha Bipolar disorder, other F31.89 and Menopausal and female climacteric states N95.1 [place] [address] [place] [address] 10/18/2022 Debra Vaillant Bipolar disorder, other F31.89 ; Menopausal and female climacteric states N95.1 and Acute stress reaction F43.0 [place] [address] [place] [address] 11/16/2022 Debra Vaillant Bipolar disorder, other F31.89 ; Menopausal and female climacteric states N95.1 and Acute stress reaction F43.0 [place] [address] [place] [address] 11/30/2022 Debra Vaillant Bipolar disorder, other F31.89 ; Menopausal and female climacteric states N95.1 and Acute stress reaction F43.0 [facility] [address] [place] [id number] 01/09/2023 Debra Vaillant Bipolar disorder, other F31.89 ; Menopausal and female climacteric states N95.1 and Acute stress reaction F43.0 [place] [address] [place] [address] 01/04/2023 Debra Vaillant [facility] [address] [place] [id number] 12/26/2022 Debra Vaillant Bipolar disorder, other F31.89 ; Menopausal and female climacteric states N95.1 and Acute stress reaction F43.0 [place] [address] [place] [address] 12/29/2022 Debra Vaillant Bipolar disorder, other F31.89 ; Menopausal and female climacteric states N95.1 and Acute stress reaction F43.[address] [facility] [address] [place] [id number] 01/02/2023 Debra Vaillant Bipolar disorder, other F31.89 ; Menopausal and female climacteric states N95.1 and Acute stress reaction F43.[address] [facility] [address] [place] [id number] 10/03/2022 Reema Brandi Rash and other nonspecific skin eruption R21 and Elevated blood-pressure reading, without diagnosis of hypertension R03.0 [place] [address] [place] [address] 03/27/2022 Marybeth Daniel [place] [address] [place] [address] 04/19/2022 Marybeth Grahams Hypersomnia, unspecified G47.10 and Snoring R06.83 [facility] [address] [place] [address] 05/09/2022 Tyra Varela Vitamin D deficiency, unspecified E55.9 and Fatigue R53.83 [facility] [address] [place] [address] 05/10/2022 Marybeth rylan [facility] [address] [place] [address] 05/12/2022 Marybethevaristo Daniel Vitamin D deficiency , unspecified E55.9 [facility] [address] [place] [address] 05/31/2022 Marybethevaristo Daniel [facility] [address] [place] [address] 07/05/2022 Tyra aVrela Bipolar disorder, other F31.89 [place] [address] [place] [address] 07/27/2022 Tyra Varela [facility] [address] [place] [address] 07/27/2022 Marybethevaristo Daniel [facility] [address] [place] [address] 07/28/2022 Tyra Varela [facility] [address] [place] [address] 07/28/2022 Tyra Varela [facility] [address] [place] [address] 08/25/2022 Tyra Varela [facility] [address] [place] [address] 09/05/2022 Marybethevaristo Daniel [facility] [address] [place] [address] 09/07/2022 Tyra Varela Menopausal and female climacteric states N95.1 [facility] [address] [place] [address] 09/29/2022 Tyra Varela [facility] [address] [place] [address] 10/10/2022 Tyra Varela [address] [address] 10/18/2022 Reemacassidy Paz [facility] [address] [place] [address] 11/08/2022 Tyra [facility] [address] [place] [address] 12/11/2022 Debra Motley [facility] [address] [place] [address] 12/19/2022 Tyra [facility] [address] [place] [address] 12/20/2022 Tyra [facility] [address] [place] [address] 12/21/2022 Tyra [facility] [address] [place] [address] 12/21/2022 Marybeth Daniel [facility] [address] [place] [address] 12/26/2022 Tyra [facility] [address] [place] [address] 01/02/2023 Tyra [facility] [address] [place] [address] 01/07/2023 Tyra [facility] [address] [place] [address] 01/08/2023 Tyra [facility] [address] [place] [address] 01/09/[address] [place] [id number] 01/11/2023 Tyra Varela [facility] [address] [place] [id number] 01/11/2023 Marybeth Daniel BREAST LUMP NOS N63. 0 [facility] [address] [place] [address] 01/12/2023 Marybeth Daniel [facility] [address] [place] [address] 05/25/2022 Marybeth Daniel Fatigue R53.83 [facility] [address] [place] [address] 07/21/2022 Marybeth Daniel [place] [address] [place] [address] 06/29/2022 Marybethevaristo Daniel Sleep disorder, unspecified G47.9 ; Fatigue R53.83 and BMI 40.0-44.9, adult Z68.41 [place] [address] [place] [address] 07/28/2022 Marybeth Daniel Cough, unspecified R05.9 ; Fatigue, other R53.83 ; BMI 40.0-44.9, adult Z68.41 and JERRY G47.33 [place] [address] [place] [address] 09/07/2022 Marybeth Daniel Fatigue, other R53.8 3 ; Menopausal and female climacteric states N95.1 ; Atrophic vaginitis N95.2 ; JERRY G47.33 and BMI 40.0-44.9, adult Z68.41 [place] [address] [place] [address] 10/05/2022 Marybeth Daniel Insect bite (nonvenomous) of lower back and pelvis, initial encounter S30.860A ; Fatigue R53.83 and Atrophic vaginitis N95.2 [place] [address] [place] [address] 11/08/2022 Marybeth Daniel Rash and other nonspecific skin eruption R21 ; Fatigue R53.83 and Sleep disorder, unspecified G47.9 [place] [address] [place] [address] 12/21/2022 Marybeth Daniel Fatigue R53.83 ; Constipation NOS K59.00 ; Sleep disorder, unspecified G47.9 and Menopausal and female climacteric states N95.1 [place] [address] [place] [address] 01/11/2023 Marybethevaristo Daniel Fatigue R53.83 ; BREAST LUMP NOS N63.0 and Sleep disorder, unspecified G47.9 [place] [address] [place] [address] 01/19/2023 Marybeth Daniel No Show or Late Canc el NS.LTCX [place] [address] [place] [address] 12/20/2022 Debra Motley Bipolar disorder, other F31.89 ; Menopausal and female climacteric states N95.1 and Acute stress reaction F43.0 [facility] [address] [place] [address] 06/16/2022 Debra Motley Bipolar disorder, other F31.89 and Menopausal and female climacteric states N95.1 [facility] [address] [place] [address] 02/28/2022 Tyra Varela URI J06.9 [place] [address] [place] [address] 06/21/2022 Debra Motley [facility] [address] [place] [address] 06/29/2022 Debra Motley [facility] [address] [place] [address] 07/05/2022 Marybeth Daniel [facility] [address] [place] [address] 08/05/2022 Debra Motley [facility] [address] [place] [address] 08/20/2022 Marybethevaristo Daniel [facility] [address] [place] [address] 08/28/2022 Marybethevaristo Daniel [facility] [address] [place] [address] 09/15/2022 Marybethevaristo Daniel [facility] [address] [place] [address] 10/16/2022 Marybeth Daniel [facility] [address] [place] [address] 10/16/2022 Reema Paz [facility] [address] [place] [address] 10/19/2022 Marybethevaristo Daniel [facility] [address] [place] [address] 10/19/2022 Marybethevaristo Daniel [facility] [address] [place] [address] 10/19/2022 Debra Motley [facility] [address] [place] [address] 11/22/2022 Debra Motley Bipolar disorder, other F31.89 [facility] [address] [place] [address] 11/23/2022 Debra Vaillant [facility] [address] [address] 12/05/2022 Debra Vaillant [facility] [address] [address] 12/10/2022 Debra Vaillant [facility] [address] [address] 12/11/2022 Debra Vaillant [facility] [address] [address] 12/21/2022 Debra Rufinaillant [facility] [address] [address] 12/24/2022 Debra Motley [place] [address] [place] [address] 12/27/2022 Debra Motley [place] [address] [place] [address] 12/28/2022 Debra Motley [place] [address] [place] [address] 12/29/2022 Debra Motley [place] [address] [place] [address] 12/30/2022 Monalisa London [place] [address] [place] [address] 01/01/2023 Debra Motley [place] [address] [place] [address] 01/03/2023 Debra Motley [place] [address] [place] [address] 01/03/2023 Debra Motley ASSESSMENTS Encounter Date Diagnosis Assessment Notes Treatment Notes Treatment Clinical Notes 04/19/2022 CPE (ICD-10 - Z00.00) Pt encouraged to continue leading a healthy lifestyle. counseled on maintaining a healthy diet and regular exercise routine 04/19/2022 Fatigue (ICD-10 - R53.83) Concerned for JERRY based on history. Will order home sleep study. Extensive counseling and emotional support. Overall time spent in patient care coordination, medical management, counseling and education of patient and family 01/23/2022 BMI 36.0-36.9, adult (ICD-10 - Z68.36) 1. continue w/ art exercises for body image 2. continue exposure to additional resources, i.e. podcast 3. cont. going through old clothes that no longer fit 01/23/2022 Dietary counseling and surveillance (ICD-10 - Z71.3) 02/13/2022 BMI 36.0-36.9, adult (ICD-10 - Z68.36) 02/13/2022 Dietary counseling and surveillance (ICD-10 - Z71.3) 02/27/2022 BMI 36.0-36.9, adult (ICD-10 - Z68.36) 1. Body image art workbook 2. Possibly adding physical activity, but being intentional w/ mindset surrounding it 3. Working on positive eating routine 02/27/2022 Dietary counseling and surveillance (ICD-10 - Z71.3) 03/24/2022 Dietary counseling and surveillance (ICD-10 - Z71.3) 03/24/2022 Constipation NOS (ICD-10 - K59.00) 04/14/2022 BMI 36.0-36.9, adult (ICD-10 - Z68.36) 1. Make leftovers for the next day the evening prior 2. Think about what food she will eat the day prior- planning to be more intentional around PO intake 3. Sleep as body neeeds Overall time spent in patient care coordination, medical management, counseling and education of patient and family as well as interpreting test results and discussion with other experts involved in the patient's care. 60 minutes were spent involving this patient's care 04/14/2022 Dietary counseling and surveillance (ICD-10 - Z71.3) 04/28/2022 BMI 40.0-44.9, adult (ICD-10 - Z68.41) Continue working on finding other coping strategies to include alongside food. Add snacks to work schedule. Continue walking. Overall time spent in patient care coordination, medical management, counseling and education of patient and family as well as interpreting test results and discussion with other experts involved in the patient's care. 75 minutes were spent involving this patient's care 04/28/2022 Dietary counseling and surveillance (ICD-10 - Z71.3) 05/24/2022 Dietary counseling and surveillance (ICD-10 - Z71.3) 05/24/2022 Hyperlipidemia unspecified (ICD-10 - E78.5) Continue current PO intake, reviewed eating for heart-healthy diet inlcluding fiber. Overall time spent in patient care coordination, medical management, counseling and education of patient and family as well as interpreting test results and discussion with other experts involved in the patient's care. 60 minutes were spent involving this patient's care 06/02/2022 Hyperlipidemia unspecified (ICD-10 - E78.5) Will purchase IE workbook Continue current PO intake, focusing on WG, high fiber foods Overall time spent in patient care coordination, medical management, counseling and education of patient and family as well as interpreting test results and discussion with other experts involved in the patient's care. 60 minutes were spent involving this patient's care 06/27/2022 Dietary counseling and surveillance (ICD-10 - Z71.3) 06/27/2022 Hyperlipidemia unspecified (ICD-10 - E78.5) Discussed breakfast options when taking medications- can do oatmeal or avocado toast or have energy bar with handful nuts. Discussed PA and importance for mental health Overall time spent in patient care coordination, medical management, counseling and education of patient and family as well as interpreting test results and discussion with other experts involved in the patient's care. 60 minutes were spent involving this patient's care 07/07/2022 Dietary counseling and surveillance (ICD-10 - Z71.3) Continue current PO intake and physical activity. Ask what do I feel/need before using food to cope with emotions. Overall time spent in patient care coordination, medical management, counseling and education of patient and family as well as interpreting test results and discussion with other experts involved in the patient's care. , 40 minutes were spent involving this patient's care 07/12/2022 Dietary counseling and surveillance (ICD-10 - Z71.3) 07/12/2022 Hyperlipidemia unspecified (ICD-10 - E78.5) Continue current PO intake, discussed why food can be helpful to soothe and to think about what else besides food can be used to cope. Overall time spent in patient care coordination, medical management, counseling and education of patient and family as well as interpreting test results and discussion with other experts involved in the patient's care. , 40 minutes were spent involving this patient's care 08/04/2022 Dietary counseling and surveillance (ICD-10 - Z71.3) 08/04/2022 Hyperlipidemia unspecified (ICD-10 - E78.5) Continue current PO intake and physical activity Should continue working through IE Workbook Overall time spent in patient care coordination, medical management, counseling and education of patient and family as well as interpreting test results and discussion with other experts involved in the patient's care. , 40 minutes were spent involving this patient's care 08/11/2022 Dietary counseling and surveillance (ICD-10 - Z71.3) 08/11/2022 Hyperlipidemia unspecified (ICD-10 - E78.5) Continue current PO intake Will start topamax- reach out if GI/nausea have effect on PO intake Overall time spent in patient care coordination, medical management, counseling and education of patient and family as well as interpreting test results and discussion with other experts involved in the patient's care. 60 minutes were spent involving this patient's care 08/25/2022 No Show or Late Cancel (ICD-10 - NS.LTCX) 09/08/2022 Dietary counseling and surveillance (ICD-10 - Z71.3) 09/08/2022 Hyperlipidemia unspecified (ICD-10 - E78.5) Continue current PO intake. Eat every 4-5 hrs, balance pro/fat/CHO and a meal upon waking even if not hungry. Overall time spent in patient care coordination, medical management, counseling and education of patient and family as well as interpreting test results and discussion with other experts involved in the patient's care. 60 minutes were spent involving this patient's care 09/06/2022 Dietary counseling and surveillance (ICD-10 - Z71.3) 09/06/2022 Hyperlipidemia unspecified (ICD-10 - E78.5) Leave one-two bites at end of meal and save, or take part of meal at beginning and put away. Eat meal when waking up, especially after prolonged sleep. Will work on food rules Overall time spent in patient care coordination, medical management, counseling and education of patient and family as well as interpreting test results and discussion with other experts involved in the patient's care., 60 minutes were spent involving this patient's care 09/22/2022 Sleep disorder, unspecified (ICD-10 - G47.9) Plan to eat snack before bed- mix of complex CHO and protein. Find relaxing activities to do before bed, consider worry journal before bed. Overall time spent in patient care coordination, medical management, counseling and education of patient and family as well as interpreting test results and discussion with other experts involved in the patient's care. 60 minutes were spent involving this patient's care 09/22/2022 Dietary counseling and surveillance (ICD-10 - Z71.3) 10/06/2022 No Show or Late Cancel (ICD-10 - NS.LTCX) 11/17/2022 Dietary counseling and surveillance (ICD-10 - Z71.3) 11/17/2022 Hyperlipidemia unspecified (ICD-10 - E78.5) Continue current PO intake, focusing on easy to prepare foods. Discussed using food as a coping mechanism and other ways to regular besides using food. Overall time spent in patient care coordination, medical management, counseling and education of patient and family as well as interpreting test results and discussion with other experts involved in the patient's care. 60 minutes were spent involving this patient's care 03/17/2022 Dietary counseling and surveillance (ICD-10 - Z71.3) 03/17/2022 Fatigue (ICD-10 - R53.83) 1. Recommend increasing vit D to 10,000IU for 6 weeks, add zinc 35-50mg for 6 weeks. 2. Think of ways to measure progress that are not weight related 3. Apply 'what do I feel, what do I need before eating for reasons other than hunger. Overall time spent in patient care coordination, medical management, counseling and education of patient and family as well as interpreting test results and discussion with other experts involved in the patient's care. 75 minutes were spent involving this patient's care 08/22/2022 Unspecified acute lower respiratory infection (ICD-10 - J22) 08/22/2022 Cough, unspecified (ICD-10 - R05.9) consider walking pna, unlikely caused by cpap given less than 1 week of use and having low grade fevers and purulent mucus production- advised zpack and mucinex- should avoid dairy and hydrate well. should fu if worsening or not improving. ED precautions given. pt understood plan. 10/18/2022 Rash and other nonspecific skin eruption (ICD-10 - R21) See proc note. 10/26/2022 Rash and other nonspecific skin eruption (ICD-10 - R21) Discussed biopsy results, inconclusive, continue to monitor, seems to be improving, follow up as needed. 07/27/2022 Bipolar disorder, other (ICD-10 - F31.89) 30 minutes were spent involving this patient's care Overall time spent in patient care coordination, medical management, counseling and education of patient and family as well as interpreting test results and discussion with other experts involved in the patient's care. See HPI for details. Will see [facility] tomorrow and we discussed more mood supporting options for weight mgmt than phentermine and also hormone therapy options. MenoPro radha shared with pt; to complete prior to seeing PCP to guide decision making. She will call to book f/u with [facility] for 6 wks; prior psychiatrist covered refills for next 3 mos; will let AV know when running low. Anticipatory guidance re: vulnerable times of year for her (Fall/Winter). Strengths and resources identified and validated. 07/27/2022 Menopausal and female climacteric states (ICD-10 - N95.1) see above. HT deferred for now. 07/05/2022 Bipolar disorder, other (ICD-10 - F31.89) 30 minutes were spent involving this patient's care Overall time spent in patient care coordination, medical management, counseling and education of patient and family as well as interpreting test results and discussion with other experts involved in the patient's care. See HPI. Here for meeting to transition to psych care at [facility]. Getting records sent over from ; will keep therapist there. Last visit wt Dr Carrion tomorrow. working on tx for severe JERRY, good support from PCP with this; also discussed weight loss meds with her; for now can think of better meds in context of bipolar than phentermine. WIll discuss with PCP when she returns. Pt was oriented to psychiatric care within [facility]. Importance of regular visits and limitations on refills were reviewed. Discussed portal use and limitations; advised if urgent to call office, use walk in hours or call crisis in their area. Reviewed [facility] cancellation policy with patient. 07/05/2022 Menopausal and female climacteric states (ICD-10 - N95.1) see above. HT deferred for now. 09/19/2022 Bipolar disorder, other (ICD-10 - F31.89) 30 minutes were spent involving this patient's care Overall time spent in patient care coordination, medical management, counseling and education of patient and family as well as interpreting test results and discussion with other experts involved in the patient's care. See HPI for details. Mood stable but low; we discussed adding back bupropion as she is now on 3 mood stabilizers (4 if you count topamax) and suffering with anhedonia, low energy and motivation; also reports being off it did not stabilize her mood further. CPAP helping with daytime sleepiness. Pros and cons of bupropion reviewed-- very familiar with med as on it for 20 years til 2019. Discussed pros and cons of wellbutrin and SE/AE including lower seizure threshold which can be exacerbated by activities causing rapid unreplaced electrolyte loss such as binge drinking, purging, extreme endurance sports. Reviewed target sx, titration and and transient SE such as sleep,energy and appetite changes. 09/19/2022 Menopausal and female climacteric states (ICD-10 - N95.1) see above. 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 10/18/2022 Bipolar disorder, other (ICD-10 - F31.89) 30 minutes were spent involving this patient's care Overall time spent in patient care coordination, medical management, counseling and education of patient and family as well as interpreting test results and discussion with other experts involved in the patient's care. See HPI for details. 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 Denies reduced need for sleep, eating OK, tho endorses more snacking/emotional eating at night. Seeing therapist regularly, feels meds are effective and tolerated. Will monitor closely; does not feel wellbutrin is destabilizing mood at this point.Denies SI, SIB. 10/18/2022 Menopausal and female climacteric states (ICD-10 - N95.1) see above. 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 11/16/2022 Bipolar disorder, other (ICD-10 - F31.89) 30 minutes were spent involving this patient's care Overall time spent in patient care coordination, medical management, counseling and education of patient and family as well as interpreting test results and discussion with other experts involved in the patient's care. See HPI for details. Endorses depression, helped some by bupropion 100 mg SR tho incompletely per pt. Denies SI/SIB urges or thoughts. Managing stressors skilfully. Self care progressing, using FMLA as needed for work stressors. refills sent as needed 11/16/2022 Menopausal and female climacteric states (ICD-10 - N95.1) see above. 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 11/30/2022 Bipolar disorder, other (ICD-10 - F31.89) 30 minutes were spent involving this patient's care Overall time spent in patient care coordination, medical management, counseling and education of patient and family as well as interpreting test results and discussion with other experts involved in the patient's care. See HPI for details. 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 insight, judgment, supports good. Enc to alk wiht AM re: resources for BED beyond IE. refills/adjustments sent as needed Pt to call for [facility] appt in [facility] 4-6 wks 11/30/2022 Menopausal and female climacteric states (ICD-10 - N95.1) see above. 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 01/09/2023 Bipolar disorder, other (ICD-10 - F31.89) 45 minutes were spent involving this patient's care Overall time spent in patient care coordination, medical management, counseling and education of patient and family as well as interpreting test results and discussion with other experts involved in the patient's care. Met with pt alone and with mom today; see HPI for details. Also discussed case with therapist before and after appt. Med organization, sleep and CPAP use seem to be biggest drivers of current presentation which is labile, stressed and somewhat dissociated. Completed HIPAA with mom as designee. Will explore referrals to MARKETING OPERATIONS COORDINATOR respite, [facility] case mgmt, SN case mgmt and consider [facility]. Waiting on records from SN for more complete medication hx-- but difficult to adjust as not clear what or how she is taking at present. Close f/u with AV, therapist and will pursue additional supports. 01/09/2023 Menopausal and female climacteric states (ICD-10 - N95.1) see above. On vaginal estrogen; not really using it due to difficulties with applicator per pt; no sig menopausal sx and will pause it for now as we prioritize mood stabilization. 12/26/2022 Bipolar disorder, other (ICD-10 - F31.89) 45 minutes were spent involving this patient's care Overall time spent in patient care coordination, medical management, counseling and education of patient and family as well as interpreting test results and discussion with other experts involved in the patient's care. Met with pt alone and also with mom; spoke with therapist also after appt to compare notes. She shared concerns about possibly needing a higher level of care but expresses a wish to keep her out of the hospital as that has been retraumatizing in the past. relationship with mom has been complicated also. [place] sched for 2 wks; will put on cxl list for next week; seeing therapist 2 x weekly. 12/26/2022 Menopausal and female climacteric states (ICD-10 - N95.1) see above. 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 12/29/2022 Bipolar disorder, other (ICD-10 - F31.89) 45 minutes were spent involving this patient's care Overall time spent in patient care coordination, medical management, counseling and education of patient and family as well as interpreting test results and discussion with other experts involved in the patient's care. Met with pt alone today; mom weighed in at end of appt with supplemental info on med reactions which pt had not recalled. Will not rx seroquel given hx of adverse reaction and review prior med trials in detail and pt an unclear historian at present. Seeing resp medicine for CPAP; has intake for PHP Close f/u with BH at [facility] sched for 2 wks; will put on cxl list for next week; seeing therapist 2 x weekly. Needs to sign for SN records at [facility] and renew HIPAA with mom on file if possible() 12/29/2022 Menopausal and female climacteric states (ICD-10 - N95.1) see above. 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 01/02/2023 Bipolar disorder, other (ICD-10 - F31.89) 45 minutes were spent involving this patient's care Overall time spent in patient care coordination, medical management, counseling and education of patient and family as well as interpreting test results and discussion with other experts involved in the patient's care. Met with pt alone today; see HPI for details. INtake for PHP was canceled by pt; not clear exactly why. Completed ppwk for medical leave and copies made and faxed. Pt completed ROR for [employer] records. Reviewed case with therapist, close f/u scheduled and possible team meeting. Refills sent as needed, RTO 1 wk CMP sent for trileptal and check of renal function 01/02/2023 Menopausal and female climacteric states (ICD-10 - N95.1) see above. On vaginal estrogen; not really using it due to difficulties with applicator per pt; no sig menopausal sx and will pause it for now as we prioritize mood stabilization. 10/03/2022 Rash and other nonspecific skin eruption (ICD-10 - R21) Discussed uncertain etiology of rash- very few overall lesions, do not suspect bed bug bite, flea, scabies given very focal lesions spread on arms and legs, no coalescence of lesions. Will treat symptomatically- continue to monitor, f/u if sx persist/worsen. 10/03/2022 Elevated blood-pressure reading, without diagnosis of hypertension (ICD-10 - R03.0) BP slightly elevated in office today, will continue to monitor. 04/19/2022 Hypersomnia, unspecified (ICD-10 - G47.10) 04/19/2022 Snoring (ICD-10 - R06.83) 05/09/2022 Vitamin D deficiency, unspecified (ICD-10 - E55.9) 05/12/2022 Vitamin D deficiency, unspecified (ICD-10 - E55.9) 07/05/2022 Bipolar disorder, other (ICD-10 - F31.89) 09/07/2022 Menopausal and female climacteric states (ICD-10 - N95.1) 01/11/2023 BREAST LUMP NOS (ICD-10 - N63.0) 05/25/2022 Fatigue (ICD-10 - R53.83) Discussed TMS. Would like to meet with [facility] psych to discuss meds/eligibility. Extensive counseling and emotional support. Overall time spent in patient care coordination, medical management, counseling and education of patient and family 06/29/2022 Sleep disorder, unspecified (ICD-10 - G47.9) Discussed causes of JERRY at length and the advantages of treating it. Questions answered at length 06/29/2022 Fatigue (ICD-10 - R53.83) Will reach out to JON to check which kind of estrogen compund needed. Will update. Extensive counseling and emotional support. Overall time spent in patient care coordination, medical management, counseling and education of patient and family 07/28/2022 Fatigue, other (ICD-10 - R53.83) Extensive counseling and emotional support. Overall time spent in patient care coordination, medical management, counseling and education of patient and family 07/28/2022 Cough, unspecified (ICD-10 - R05.9) Given the history and physical above, I believe this patient has a viral infection that would not currently benefit from antibiotic treatment. Use fluids, humidified air, rest, OTC antipyretics if needed for fever or aches. May use honey to help throat, salt water gargles, etc. Has cepacol for cough. Advised follow-up with us if develops increasingly elevated temps, headache, shortness of breath, nausea, vomiting, etc. Patient is verbalizing good understanding of the plan of care and is agreeable to the plan. 09/07/2022 Menopausal and female climacteric states (ICD-10 - N95.1) Agree a bone density is indicated. Will send order to [facility] 09/07/2022 Fatigue, other (ICD-10 - R53.83) Continue with JON. Extensive counseling and emotional support. Overall time spent in patient care coordination, medical management, counseling and education of patient and family 10/05/2022 Fatigue (ICD-10 - R53.83) will monitor response to wellbutrin, aware when to seek urgent care. Extensive counseling and emotional support. Overall time spent in patient care coordination, medical management, counseling and education of patient and family 10/05/2022 Insect bite (nonvenomous) of lower back and pelvis, initial encounter (ICD-10 - S30.860A) Etiology of lesions unclear but some insect bite seems likely. Will tx w/ permethrin. Instructed on use and advised of expected outcomes. Return with worsening/persistin g 11/08/2022 Rash and other nonspecific skin eruption (ICD-10 - R21) Will monitor for now. Unclear etiology but bites did not occur for weeks so I think recent 2 are unrelated 11/08/2022 Fatigue (ICD-10 - R53.83) Extensive counseling and emotional support. Overall time spent in patient care coordination, medical management, counseling and education of patient and family 12/21/2022 Fatigue (ICD-10 - R53.83) Discussed depression/SAD. Agree with SAD lamp. Extensive counseling and emotional support. Overall time spent in patient care coordination, medical management, counseling and education of patient and family 12/21/2022 Constipation NOS (ICD-10 - K59.00) Instructed to use colace every other day to manage constipation while preventing accidents, instructed to report worsening 01/11/2023 Fatigue (ICD-10 - R53.83) Medication list updated based on last JON visit. Extensive counseling and emotional support. Overall time spent in patient care coordination, medical management, counseling and education of patient and family 01/11/2023 BREAST LUMP NOS (ICD-10 - N63.0) Lump as described higher on axillary area, there is need to do ultrasound instead ([facility]illary ultrasound at [facility]) 01/19/2023 No Show or Late Cancel (ICD-10 - NS.LTCX) 12/20/2022 Bipolar disorder, other (ICD-10 - F31.89) 30 minutes were spent involving this patient's care Overall time spent in patient care coordination, medical management, counseling and education of patient and family as well as interpreting test results and discussion with other experts involved in the patient's care. See HPI for details. Given ongoing sx of mild hypomania and some confusion will stop wellbutrin (pt was still taking it sometimes ) and increase trileptal as above. No other changes today but will continue to follow q 1-2 wks with AV and 2x wk with therapist. Self care continues excellent, insight good, denies SI/SIB/AH/paranoid ideation. Will have crisis consult today with help of therapist to look into other resources. consider ppwk for continuous leave at [place] if warranted. 12/20/2022 Menopausal and female climacteric states (ICD-10 - N95.1) see above. 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 06/16/2022 Bipolar disorder, other (ICD-10 - F31.89) 06/16/2022 Menopausal and female climacteric states (ICD-10 - N95.1) 60 minutes were spent involving this patient's care Overall time spent in patient care coordination, medical management, counseling and education of patient and family as well as interpreting test results and discussion with other experts involved in the patient's care. Here for second opinion/consult re: intersection of hypersomnia, worsening mood, menopause sx and possible med changes. Seeing Dr Carrion at for last 2 yrs but does find them hard to access and only sees every 3 mos. looking into other prescribers with help of therapist. After review of recent psych hx and med trials we emphasized taking latuda with food at least 350 kel every day; waiting for results of sleep study; and considering HT as SSRI's can be less effective in hypoestrogenic states. 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 She will be in touch if she decides to transfer psychiatric care to us; portal use encouraged in interim PRN. 02/28/2022 URI (ICD-10 - J06.9) this sounds like RSV supportive care. fu prn 11/22/2022 Bipolar disorder, other (ICD-10 - F31.89) 04/19/2022 Vitamin D deficiency, unspecified (ICD-10 - E55.9) 10/18/2022 Acute stress reaction (ICD-10 - F43.0) see HPI for details-- would like something for anxiety that is not habit forming or sedating. Discussed MOA of beta blockers, significant interactions, SE/AE, how to titrate, when to expect results and interim portal use as needed. States understanding and will start with 10 mg PO qd. Importance of adequate po intake and hydration emphasized. 11/16/2022 Acute stress reaction (ICD-10 - F43.0) see HPI for details-- would like something for anxiety that is not habit forming or sedating. tolerating 10 mg propranolol; will advance as needed/ tolerated to max of 40 mg/d. 11/30/2022 Acute stress reaction (ICD-10 - F43.0) see HPI for details-- would like something for anxiety that is not habit forming or sedating. tolerating 10 mg propranolol; will advance as needed/ tolerated to max of 40 mg/d. 01/09/2023 Acute stress reaction (ICD-10 - F43.0) see HPI for details-- would like something for anxiety that is not habit forming or sedating. tolerating 10 mg propranolol; will advance as needed/ tolerated to max of 40 mg/d. 12/26/2022 Acute stress reaction (ICD-10 - F43.0) see HPI for details-- would like something for anxiety that is not habit forming or sedating. tolerating 10 mg propranolol; will advance as needed/ tolerated to max of 40 mg/d. 12/29/2022 Acute stress reaction (ICD-10 - F43.0) see HPI for details-- would like something for anxiety that is not habit forming or sedating. tolerating 10 mg propranolol; will advance as needed/ tolerated to max of 40 mg/d. 01/02/2023 Acute stress reaction (ICD-10 - F43.0) see HPI for details-- would like something for anxiety that is not habit forming or sedating. tolerating 10 mg propranolol; will advance as needed/ tolerated to max of 40 mg/d. 05/09/2022 Fatigue (ICD-10 - R53.83) 06/29/2022 BMI 40.0-44.9, adult (ICD-10 - Z68.41) Will reach out to JON for management of weight gain keeping in mind safety with her psych meds. Discussed use of phentermine as potential choice at length includng side effects and expected outcomes. Will ff up 07/28/2022 BMI 40.0-44.9, adult (ICD-10 - Z68.41) Discussed topamax with JON. Pt agrees to trial. Start with 1/2 25mg tab once at night. Can increase to 25mg if tolerated. Follow up in 4-5 weeks. Advised of possible side effects. Discussed expected outcomes 09/07/2022 Atrophic vaginitis (ICD-10 - N95.2) Pt willing to try vaginal estrogen. Instructed on use and expected outcomes 10/05/2022 Atrophic vaginitis (ICD-10 - N95.2) Continue with estrace for now 11/08/2022 Sleep disorder, unspecified (ICD-10 - G47.9) On CPAP with scheduled ff up, there is improvement. Will lorri progress 12/21/2022 Sleep disorder, unspecified (ICD-10 - G47.9) CPAP has been helping a lot with sleep and managing her constinuing depression 01/11/2023 Sleep disorder, unspecified (ICD-10 - G47.9) Discussed alternative devices for sleep apnea but is not yet interested for it right now. Encouraged to get CPAP set up and to use it regularly. 12/20/2022 Acute stress reaction (ICD-10 - F43.0) see HPI for details-- would like something for anxiety that is not habit forming or sedating. tolerating 10 mg propranolol; will advance as needed/ tolerated to max of 40 mg/d. 04/19/2022 Menopausal and female climacteric states (ICD-10 - N95.1) Likely now postmenopausal. Discussed menopause, meds, possible JERRY and how these relate to weight. Discussed weight management strategies. Labs ordered to assess for disease 07/28/2022 JERRY (ICD-10 - G47.33) CPAP trial pending 09/07/2022 JERRY (ICD-10 - G47.33) Continue with CPAP. Seems to be having some benefit so far 12/21/2022 Menopausal and female climacteric states (ICD-10 - N95.1) Continue current plan 04/19/2022 Sleep disorder, unspecified (ICD-10 - G47.9) see above 09/07/2022 BMI 40.0-44.9, adult (ICD-10 - Z68.41) Continue topamax 25mg once daily for another 2 weeks. Can increase to 25mg twice daily if well tolerated and not seeing desired changes in appetite/weight 04/19/2022 Bowel changes (ICD-10 - R19.4) Possible pelvic floor dysfunction, discussed pelvic floor PT. Provided with information and resources for pelvic floor PT 04/19/2022 BMI 40.0-44.9, adult (ICD-10 - Z68.41) see above 02/13/2022 Other 1. Body image art therapy exercises 2. Practicing being compassionate to self 3. Cooking for self in way that feels good 05/25/2022 Other Reviewed labs a t length 07/05/2022 Other Met with pt for 30 minute therapy. therapuetic focus was managing affect regulation Today's session focused around coping strategies. 07/27/2022 Other Met with pt for 30 minute therapy. therapuetic focus was managing affect regulation Today's session focused around coping strategies. 07/28/2022 Other 20 minutes spe nt revieweing consult notes, having visit, and determining next steps/follow up 09/19/2022 Other Met with pt for 30 minute therapy. therapuetic focus was managing affect regulation Today's session focused around coping strategies. 10/18/2022 Other Met with pt for 30 minute therapy. therapuetic focus was managing affect regulation Today's session focused around coping strategies. 11/16/2022 Other Met with pt for 30 minute therapy. therapuetic focus was managing affect regulation Today's session focused around coping strategies. 11/30/2022 Other Met with pt for 30 minute therapy. therapuetic focus was managing affect regulation Today's session focused around coping strategies. 12/20/2022 Other Met with pt for 30 minute therapy. therapuetic focus was managing affect regulation Today's session focused around coping strategies. 12/26/2022 Other Met with pt for 30 minute therapy. therapuetic focus was managing affect regulation Today's session focused around coping strategies. 12/29/2022 Other Met with pt for 30 minute therapy. therapuetic focus was managing affect regulation Today's session focused around coping strategies. 01/02/2023 Other Met with pt for 30 minute therapy. therapuetic focus was managing affect regulation Today's session focused around coping strategies. 01/09/2023 Other Met with pt for 30 minute therapy. therapuetic focus was managing affect regulation Today's session focused around coping strategies. 01/11/2023 Other Discussed Chronic Care Management with pt at today's visit. Informed pt of the availability of CCM services, possible cost-sharing responsibilites, only one practice can bill CCM services in a calendar month. The Patient has the right to stop CCM services at any time. They only need to enroll once unless they want to switch to a different CCM practice. THis goes into effect the end of this calendar month. (*Billing code: [id number]) Verbal consent obtained PLAN OF TREATMENT Pending Test Test Name Order Date X ray : Ankle, left 11/22/2018 X ray : Knee, left 11/22/2018 Bone density 09/07/2022 Mammogram 04/13/2021 Colonoscopy 04/13/2021 ekg 01/21/2019 ekg 05/03/2018 PAP, cervical; HPV Hybrid Capture High R isk DNA Probe any Dx 05/03/2018 PAP, cervical; HPV Hybrid Capture High R isk DNA Probe any Dx 04/13/2021 PAP, cervical, & GC/Chlamydi a AMP DNA probe from [employer]; HPV Hybrid Capture High Risk DNA Probe ( 09/27/2015 Mammogram, routine annual screening 12/11 Mammogram, routine annual screening 04/13 LAMOTRIGINE 04/06/2017 GLUCOSE 05/31/2015 COMPREHENSIVE METABOLIC PANL 04/06/2017 COMPREHENSIVE METABOLIC PANL 01/02/2023 LIPID PANEL 04/06/2017 LIPID PANEL 05/31/2015 TSH WITH REFLEX TO T4 04/06/2017 FSH 09/27/2015 LH 09/27/2015 Vitamin D25 [place] 04/06/2017 CBC AUTO DIFF 04/06/2017 Home Sleep Study 04/19/2022 BASIC METABOLIC PANEL 01/18/2023 HEPATIC FUNCTION PANEL 01/18/2023 URINE MICROSCOPIC 01/19/2023 Ethanol, blood 01/18/2023 Magnesium 01/18/2023 CBC AND DIFFERENTIAL 01/18/2023 Urinalysis w/reflex Urine Culture 2022 TOXICOLOGY SCREEN, URINE 01/19/2023 Covid-19 PCR (use this one) 08/22/2022 PANDEMIC RESPIRATORY VIRAL ORDER (PRO) 1 03/21/2022 US Breast Axillary Right 01/11/2023 Next Appt Details Provider Name:Debra cabezas, 01/25/2023 10:30:00 AM, [address] [place], [address], Provider Name:Marybeth kirby, 04/19/2023 08:30:00 AM, [address] [place], [address], Insurance Providers Payer Name Payer Address Payer Phone Subscriber Number Group Number Insured Name Patient Relationship to Insured Coverage Start Date Coverage End Date MEDICARE [address] [place] [phone] [id number] LEONEL ROWELL Self - patient is the insured [employer] [address] [place] [id number] [phone] [id number] LEONEL ROWELL - patient is the insured MEDICAL (GENERAL) HISTORY Medical History History ICD Code Suicide Attempt by Ivanna OD 03/2015 Bipolar disorder COVID 03/2021 mild depression Surgical History Surgery Date(Month/Year) Hospitalization History Reason Date(Month/Year) Psychiatric hospitalization - [facility] following suicide attempt 03/2015 prior psychiatric hospitalizations in [facility] psychiatric visi ts; 12/25/2018 - 03/13/2018 [facility] attempt 05/06/20 [facility]- mental confusion 01/06/23
--- NOTE | 2023-01-19 20:59 | PC.ADMIT ---
Addendum entered by Claire Garrison RN 01/19/23 21:31: After inventorying patients belongings, it was noted her cell phone was not with patients items. Pt called mother on hospital phones and Pt confirmed that her Mother had her cellphone at home. Original Note: Pt admitted from [facility]. Pt arrived to [facility] at 2004. Pt arrived via stretcher. Pt signed a CV prior to entering the unit. Contraband search was completed and patient changed into [facility]. Pt declined going through her phone for contacts and declined getting a set of donated slippers. Pt came into [facility] after a crisis evaluation was completed in home. Pt was found to be disorganized, confused, & paranoid. Having a hard time tending to ADLs such as making her own bed, using her CPAP, making food and unlocking her door. Pt states she has had a general sense of confusion for a month and a half and it has steadily been increasing. 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 Pt does have a history of trauma. History of 4 suicide attempts in the past via overdose on medications. Pt does report poor sleep. Pt also reports not taking her medications consistently and a recent medication change. Legals have been signed. Treatment plan completed. Pt oriented to the unit. Pt is not a smoker and refuses flu vaccine at this time.
[2023-01-19] MEDS: traZODone HCL 50 MG TABLET PO (21:30)
[2023-01-20] MEDS: traZODone HCL 50 MG TABLET PO (03:10)
[2023-01-20] MEDS: hydrOXYzine HCL 25 MG TABLET PO (03:10)
[2023-01-20 08:33] LABS: Estimated Average Glucose 105 mg/dL; Hemoglobin A1c % 5.3 % (<6.0)
[2023-01-20 08:39] LABS: Alanine Aminotransferase 45 U/L (0-31); Alkaline Phosphatase 100 U/L (39-117); Anion Gap 11 (12-20); Aspartate Amino Transferase 50 U/L (5-31); Bilirubin Total 0.3 mg/dL (0.0-1.0); Blood Urea Nitrogen 16 mg/dL (9-16); Calcium 9.5 mg/dL (8.4-10.2); Carbon Dioxide 29 mmol/L (22-29); Chloride 106 mmol/L (96-108); Cholesterol 191 mg/dL (<200); Estimated Glomerular Filt Rate > 60; Glucose Fasting 90 mg/dL (60-99); HDL Cholesterol 65 mg/dL (>40); LDL Cholesterol Calculated 110 mg/dL (<100); Potassium 4.1 mmol/L (3.3-5.1); Sodium 142 mmol/L (135-145); Total Protein 7.4 g/dL (6.5-8.0); Triglycerides 80 mg/dL (<150)
[2023-01-20 08:54] LABS: Free T4 (Free Thyroxine) 1.04 ng/dL (0.71-1.85); Thyroid Stimulating Hormone 2.04 uIU/mL (0.32-4.0)
[2023-01-20 09:02] LABS: Folate 12.1 ng/mL (> or = 4.0); Vitamin B12 451 pg/mL (200-900)
[2023-01-20] MEDS: Sertraline HCL 25 MG TABLET PO (09:34)
[2023-01-20] MEDS: lamoTRIgine 100 MG TABLET PO ×2 (09:34→19:52)
[2023-01-20] MEDS: OXcarbazepine 150 MG TABLET PO ×2 (09:34→19:52)
[2023-01-20] MEDS: Propranolol HCL 10 MG TABLET PO ×2 (09:34→19:52)
[2023-01-20] MEDS: lamoTRIgine 25 MG TABLET 50 MG PO ×2 (09:34→19:52)
[2023-01-20] MEDS: Gabapentin 300 MG CAPSULE PO ×2 (09:35→19:52)
[2023-01-20 09:47] VITALS: BP 125/83; PULSE 85; RESP 18; TEMP 36.1; O2SAT 99
[2023-01-20] MEDS: Lurasidone HCl 80 MG TABLET PO (09:50)
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
[2023-01-20] MEDS: Acetaminophen 325 MG TABLET 650 MG PO (16:19)
[2023-01-20 16:52] VITALS: BP 125/81; PULSE 75; TEMP 36.6; O2SAT 75
[2023-01-20 19:54] VITALS: BP 132/80; PULSE 97
[2023-01-21] MEDS: hydrOXYzine HCL 25 MG TABLET PO (01:57)
[2023-01-21] MEDS: traZODone HCL 50 MG TABLET PO (01:57)
[2023-01-21] MEDS: LORazepam 1 MG TABLET PO (02:18)
[2023-01-21 08:00] VITALS: BP 112/71; PULSE 74; RESP 18; TEMP 36.2; O2SAT 96
[2023-01-21] MEDS: lamoTRIgine 100 MG TABLET PO ×2 (08:02→20:02)
[2023-01-21] MEDS: OXcarbazepine 150 MG TABLET PO (08:02)
[2023-01-21] MEDS: lamoTRIgine 25 MG TABLET 50 MG PO (08:02)
[2023-01-21] MEDS: Gabapentin 300 MG CAPSULE PO ×2 (08:02→20:02)
[2023-01-21] MEDS: Lurasidone HCl 80 MG TABLET PO (08:02)
[2023-01-21] MEDS: Sertraline HCL 25 MG TABLET PO (08:02)
[2023-01-21] MEDS: Propranolol HCL 10 MG TABLET PO ×2 (08:02→20:02)
--- NOTE | 2023-01-21 08:27 | HO.PM.IMCN ---
History of Present Illness Data of Consult Service Date: 01/21/23 Primary Care Provider: Unknown Physician HPI 52 year old female with past medical history of bipolar, hyperthyroidism, major depression disorder, anxiety who is presently admitted to psych for management of decompensated bipolar with depression. Patient presently reporting feeling anxious, she tells me she at [facility] but was easily redirected, she's otherwise oriented and cooperative. She has no acute medical complaint. Vital reviewed and stable. a manufacturing planner was present Review of Systems Review of Systems: Gen: no fever Resp: no sob, no cough CV: no chest, no HILLS, no leg edema GI: No n/v, no abd pain Neuro: No confusion [facility] Medical History PTSD (post-traumatic stress disorder) Bipolar disorder Hyperthyroidism Hx of drug overdose Bipolar 1 disorder Anxiety Major depression Surgical History History of cholecystectomy Social History Household Members: None Household Members Other:: unable to access, patient non verbal after SI attempt Housing: Apartment Do you presently have visiting nurse or other home services: No Unable to assess alcohol history related to: Refusing to respond Patient Tobacco Use Status: Never used Tobacco Smoked in Last 30 Days: No e-Cigarette/Vaping Use: Never Used Patient Interested in Nicotine Replacement: No Second Hand Smoke Exposure: No Use of substances other than those prescribed or required for medical reasons: No Currently Displaying Signs/Symptoms of Drug Intoxication Withdrawal: No Any prior treatment program specific to substance use: No Advance Directives: No Advance Directives Information Provided: No Do you have thoughts of harming others: None Do you have a plan to hurt others: No Plan Recently lost weight without trying: No How much weight loss: Not applicable Eating poorly because of decreased appetite: No Nutrition screen score: 0 Nutrition Risks: No Nutritional Risk Patient : No : No Poor oral hygiene: No service: No Current occupational status: unemployed Sexual orientation: Don't Know Meds Allergies Allergy/AdvReac Type Severity Reaction Status Date / Time Sulfa (Sulfonamide Allergy Unknown HIVES Verified 05/06/20 20:38 Antibiotics) [SULFA (SULFONAMIDE ANTIBIOTICS)] Active Medications: Current Medications Acetaminophen (Acetaminophen 325 Mg Tablet) 650 mg PO Q6H PRN PRN Reason: Headache/Pain Mild Scale (1-3) Last Admin: 01/20/23 16:19 Dose: 650 mg Al Hydroxide/Mg Hydroxide (Magnesium Hydrox/Alum Hydrox 30 Ml Oral.Susp) 30 ml PO Q6H PRN PRN Reason: Heartburn/Nausea Gabapentin (Gabapentin 300 Mg Capsule) 300 mg PO BID [facility] Last Admin: 01/21/23 08:02 Dose: 300 mg Hydroxyzine HCl (Hydroxyzine Hcl 25 Mg Tablet) 25 mg PO Q6H PRN PRN Reason: Anxiety Last Admin: 01/21/23 01:57 Dose: 25 mg Lamotrigine (Lamotrigine 25 Mg Tablet) 50 mg PO BID [facility] Last Admin: 01/21/23 08:02 Dose: 50 mg Lamotrigine (Lamotrigine 100 Mg Tablet) 100 mg PO BID [facility] Last Admin: 01/21/23 08:02 Dose: 100 mg Lorazepam (Lorazepam 1 Mg Tablet) 1 mg PO DAILY PRN PRN Reason: Anxiety Last Admin: 01/21/23 02:18 Dose: 1 mg Lurasidone HCl (Lurasidone Hcl 80 Mg Tablet) 80 mg PO DAILY [facility] Last Admin: 01/21/23 08:02 Dose: 80 mg Magnesium Hydroxide (Milk Of Magnesia 30 Ml Oral.Susp) 30 ml PO DAILY PRN PRN Reason: Constipation Nicotine Polacrilex (Nicotine Polacrilex 2 Mg Gum) 4 mg BUCCAL Q2H PRN PRN Reason: Nicotine Cravings Oxcarbazepine (Oxcarbazepine 150 Mg Tablet) 150 mg PO BID [facility] Last Admin: 01/21/23 08:02 Dose: 150 mg Propranolol HCl (Propranolol Hcl 10 Mg Tablet) 10 mg PO BID [facility]; Protocol Last Admin: 01/21/23 08:02 Dose: 10 mg Sertraline HCl (Sertraline Hcl 25 Mg Tablet) 25 mg PO DAILY [facility] Last Admin: 01/21/23 08:02 Dose: 25 mg Trazodone HCl (Trazodone Hcl 50 Mg Tablet) 50 mg PO BEDTIME MRX1 PRN PRN Reason: Sleep Last Admin: 01/21/23 01:57 Dose: 50 mg Home Medications Medication Instructions Recorded Confirmed Last Taken Type gabapentin 300 mg capsule 300 mg PO BID 01/19/23 01/19/23 Unknown History lorazepam 1 mg tablet (Ativan) 1 mg PO 3XW PRN Anxiety 01/19/23 01/19/23 Unknown History lurasidone 40 mg tablet (Latuda) 80 mg PO DAILY 01/19/23 01/19/23 Unknown History oxcarbazepine 300 mg tablet 150 mg PO BID 01/19/23 01/19/23 Unknown History propranolol 10 mg tablet 10 mg PO BID 01/19/23 01/19/23 Unknown History sertraline 50 mg tablet 25 mg PO DAILY 01/19/23 01/19/23 Unknown History Physical Exam Vital Signs and Narrative: Vital Signs: Last Vital Signs Temp 97.1 F 01/21/23 08:00 Pulse 74 01/21/23 08:00 Resp 18 01/21/23 08:00 BP 112/71 01/21/23 08:00 Pulse Ox 96 01/21/23 08:00 O2 Del Method Room Air 01/21/23 08:00 Const: Other: Constitutional: Alert, in no distress, overweight Mental Status: Oriented to person, place and time. Eyes: Pupils are equal, round and reactive to light. Ear, Nose and Throat: Oropharynx clear, mucous membranes moist. Ears and nose without eformities. Trachea midline. Respiratory: Clear to auscultation. No wheezing, rales or rhonchi. Cardiovascular: S1 S2 regular. No murmurs, rubs or gallops. Gastrointestinal: Abdomen soft, non-tender, non-distended. Normal bowel sounds.? Neurologic: Cranial nerves II-XII grossly intact. No focal neurological deficits. Moves all extremities spontaneously.? Skin: No rashes or lesions.? Musculoskeletal: No cyanosis or clubbing. Psychiatric: Normal mood and affect? Results Labs 01/20/23 07:34 Labs: Laboratory Results - last 24 hr 01/20/23 07:34 Anion Gap 11 L Estim Creat Clear Calc TNP Estimated GFR > 60 Fasting Glucose 90 Estimat Average Glucose 105 Hemoglobin A1c % 5.3 Calcium 9.5 D Total Bilirubin 0.3 AST 50 H ALT 45 H Alkaline Phosphatase 100 Total Protein 7.4 Albumin 4.0 Triglycerides 80 Cholesterol 191 LDL Cholesterol, Calc 110 H HDL Cholesterol 65 Vitamin B12 451 Folate 12.1 TSH 2.04 Free T4 1.04 Assessment and Plan (1) Altered mental status: Qualifiers: Altered mental status type: disorientation Qualified Code(s): R41.0 - Disorientation, unspecified Status: Acute (2) PTSD (post-traumatic stress disorder): Status: Acute Plan 52 year old female with past medical history of bipolar, hyperthyroidism, major depression disorder, anxiety presently admitted for management of Bipolar/depression. There are no acute medical issues idientified. Plan: Continue curent care by the Psychiatric team. Continue. Please inform the medical team should any acute medical issue arise.
[2023-01-21] MEDS: Magnesium Hydrox/Alum Hydrox 30 ML ORAL.SUSP PO (09:23)
[2023-01-21] MEDS: traZODone HCL 25 MG HALFTAB 12.5 MG PO (12:05)
--- NOTE | 2023-01-21 17:59 | P.PNPSI_ITS ---
Subjective Subjective Date of Service: 01/21/23 Reason For Visit: disorganized agitated behavior Subjective Notes: Conditional Voluntary Interim History: staff report pt did not sleep through the night; she was pacing and going on an out of her room and others rooms; pt spitting on floor intermittently and appears unaware of her behavior until peer points it out then she responds appropriately and cleans up sputum. pt less irritable; more organized and able to ask for needs; less suspicious; oriented x 3 today; Pt history indicates possible frontal lobe deterioration. Medication Compliance: Yes Side effects from medications: No Attending Groups: Intermittent Review of Systems Acute medical concerns: No Medical Review of Systems: unchanged Review of Systems Review of Systems Gen: no fever Resp: no sob, no cough CV: no chest, no HILLS, no leg edema GI: No n/v, no abd pain Neuro: No confusion Yes Unobtainable due to mental status Mental Status Exam Mental Status Exam Patient Appearance: Appropriate and Unkempt Patient Orientation: Person, Place and Situation Level of Consciousness: Awake Patient Behavior: Guarded, Anxious, Invasion - Personal Space, Distractible and Poor Eye Contact Mood Description: Withdrawn and Apprehensive Affect Description: Flat Patient Cognition Impaired: Yes Ability to Follow Directions: Fair Speech Pattern: Perseverating, Spontaneous Speech, Rambling, Delayed and Long Pauses Memory Description: Episodic Impaired Hallucinations: Auditory Perceptual Disturbances: Hallucinations Thought Process: Incoherent Thought Content: positive for Preoccupation and positive for Thought Blocking Judgement: Poor Diagnostics Vital Signs (24Hr): Vital Signs - 24 hr 01/20/23 19:54 01/21/23 08:00 Temperature 97.1 F Pulse Rate 97 74 Respiratory Rate 18 Blood Pressure 132/80 112/71 Pulse Oximetry 96 Oxygen Delivery Method Room Air Labs 01/20/23 07:34 Labs: Laboratory Results - last 48 hr 01/20/23 07:34 Sodium 142 Potassium 4.1 Chloride 106 Carbon Dioxide 29 Anion Gap 11 L BUN 16 Creatinine 0.83 Estim Creat Clear Calc TNP Estimated GFR > 60 Fasting Glucose 90 Estimat Average Glucose 105 Hemoglobin A1c % 5.3 Calcium 9.5 D Total Bilirubin 0.3 AST 50 H ALT 45 H Alkaline Phosphatase 100 Total Protein 7.4 Albumin 4.0 Triglycerides 80 Cholesterol 191 LDL Cholesterol, Calc 110 H HDL Cholesterol 65 Vitamin B12 451 Folate 12.1 TSH 2.04 Free T4 1.04 Medications Medications Current Medications Acetaminophen (Acetaminophen 325 Mg Tablet) 650 mg PO Q6H PRN PRN Reason: Headache/Pain Mild Scale (1-3) Last Admin: 01/20/23 16:19 Dose: 650 mg Al Hydroxide/Mg Hydroxide (Magnesium Hydrox/Alum Hydrox 30 Ml Oral.Susp) 30 ml PO Q6H PRN PRN Reason: Heartburn/Nausea Last Admin: 01/21/23 09:23 Dose: 30 ml Gabapentin (Gabapentin 300 Mg Capsule) 300 mg PO BID [facility] Last Admin: 01/21/23 08:02 Dose: 300 mg Hydroxyzine HCl (Hydroxyzine Hcl 25 Mg Tablet) 25 mg PO Q6H PRN PRN Reason: Anxiety Last Admin: 01/21/23 01:57 Dose: 25 mg Lamotrigine (Lamotrigine 25 Mg Tablet) 50 mg PO BID [facility] Last Admin: 01/21/23 08:02 Dose: 50 mg Lamotrigine (Lamotrigine 100 Mg Tablet) 100 mg PO BID [facility] Last Admin: 01/21/23 08:02 Dose: 100 mg Lorazepam (Lorazepam 1 Mg Tablet) 1 mg PO DAILY PRN PRN Reason: Anxiety Last Admin: 01/21/23 02:18 Dose: 1 mg Lurasidone HCl (Lurasidone Hcl 20 Mg Tablet) 60 mg PO DAILY [facility] Magnesium Hydroxide (Milk Of Magnesia 30 Ml Oral.Susp) 30 ml PO DAILY PRN PRN Reason: Constipation Nicotine Polacrilex (Nicotine Polacrilex 2 Mg Gum) 4 mg BUCCAL Q2H PRN PRN Reason: Nicotine Cravings Oxcarbazepine (Oxcarbazepine 300 Mg Tablet) 300 mg PO BID [facility] Propranolol HCl (Propranolol Hcl 10 Mg Tablet) 10 mg PO BID [facility]; Protocol Last Admin: 01/21/23 08:02 Dose: 10 mg Sertraline HCl (Sertraline Hcl 25 Mg Tablet) 25 mg PO DAILY [facility] Last Admin: 01/21/23 08:02 Dose: 25 mg Trazodone HCl (Trazodone Hcl 50 Mg Tablet) 50 mg PO BEDTIME MRX1 PRN PRN Reason: Sleep Last Admin: 01/21/23 01:57 Dose: 50 mg Allergies Allergies Allergy/AdvReac Type Severity Reaction Status Date / Time Sulfa (Sulfonamide Allergy Unknown HIVES Verified 05/06/20 20:38 Antibiotics) [SULFA (SULFONAMIDE ANTIBIOTICS)] Assessment & Plan Assessment & Plan (1) Altered mental status: Qualifiers: Altered mental status type: disorientation Qualified Code(s): R41.0 - Disorientation, unspecified Status: Acute Code(s): R41.82 - Altered mental status, unspecified (2) PTSD (post-traumatic stress disorder): Status: Acute Code(s): F43.10 - Post-traumatic stress disorder, unspecified (3) Bipolar disorder: Status: Acute Code(s): F31.9 - Bipolar disorder, unspecified Plan 52 yo single woman with Bipolar Disorder, PTSD and confusion with past medical history of hyperthyroidism presently admitted for management of Bipolar/depression. Plan: cv 15 min checks latuda reduced to 60 mg daily due to possible akathesia trileptal increased to 300mg BID lamictal decreased to 150 mg in am and 100mg at bedtime due to elevated liver enzymes and poor sleep trazodone in creased to 75 mg at hs and MRx1 consider imaging for frontal lobe deterioration clarification collateral contact Patient educated on: medication risk/benefits and therapeutic strategies Informed Consent: does not understand Reason for continued inpatient stay Substantial Risk for: harm to self, inability to function and rapid decompensation Time Spent With Patient Time: Total time managing care of this patient today ____ minutes.
[2023-01-21 18:00] VITALS: BP 114/62; PULSE 86; RESP 16; TEMP 36.4; O2SAT 97
[2023-01-21] MEDS: OXcarbazepine 300 MG TABLET PO (20:02)
[2023-01-21] MEDS: traZODone HCL 25 MG HALFTAB 75 MG PO (20:02)
[2023-01-21] MEDS: Acetaminophen 325 MG TABLET 650 MG PO (20:04)
[2023-01-22] MEDS: Acetaminophen 325 MG TABLET 650 MG PO (04:50)
[2023-01-22 06:00] VITALS: BP 137/86; PULSE 78; RESP 18; TEMP 36.4; O2SAT 969
[2023-01-22] MEDS: OXcarbazepine 300 MG TABLET PO ×2 (08:15→19:26)
[2023-01-22] MEDS: Gabapentin 300 MG CAPSULE PO ×2 (08:15→19:26)
[2023-01-22] MEDS: Lurasidone HCl 20 MG TABLET 60 MG PO (08:15)
[2023-01-22] MEDS: lamoTRIgine 100 MG TABLET PO ×2 (08:16→19:26)
[2023-01-22] MEDS: lamoTRIgine 25 MG TABLET 50 MG PO (08:16)
[2023-01-22] MEDS: Sertraline HCL 25 MG TABLET PO (08:16)
[2023-01-22] MEDS: Propranolol HCL 10 MG TABLET PO ×2 (09:34→19:26)
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
[2023-01-22 16:45] VITALS: BP 133/74; PULSE 77; RESP 16; TEMP 36.6; O2SAT 98
[2023-01-22] MEDS: LORazepam 1 MG TABLET PO (17:03)
[2023-01-23 08:15] VITALS: BP 128/74; PULSE 81; RESP 18; TEMP 36.4; O2SAT 97
[2023-01-23] MEDS: OXcarbazepine 300 MG TABLET PO ×2 (08:46→21:04)
[2023-01-23] MEDS: Gabapentin 300 MG CAPSULE PO ×2 (08:46→21:03)
[2023-01-23] MEDS: Lurasidone HCl 20 MG TABLET 60 MG PO (08:46)
[2023-01-23] MEDS: lamoTRIgine 25 MG TABLET 50 MG PO (08:47)
[2023-01-23] MEDS: lamoTRIgine 100 MG TABLET PO ×2 (08:47→21:04)
[2023-01-23] MEDS: Propranolol HCL 10 MG TABLET PO ×2 (08:47→21:04)
[2023-01-23] MEDS: Sertraline HCL 25 MG TABLET PO (08:47)
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
[2023-01-23 18:00] VITALS: BP 138/70; PULSE 76; RESP 16; TEMP 36.5; O2SAT 97
[2023-01-23] MEDS: Acetaminophen 325 MG TABLET 650 MG PO (21:01)
[2023-01-24] MEDS: Lurasidone HCl 20 MG TABLET 60 MG PO (09:23)
[2023-01-24] MEDS: Gabapentin 300 MG CAPSULE PO ×2 (09:23→21:39)
[2023-01-24] MEDS: OXcarbazepine 300 MG TABLET PO ×2 (09:23→21:39)
[2023-01-24] MEDS: Sertraline HCL 25 MG TABLET PO (09:23)
[2023-01-24] MEDS: lamoTRIgine 100 MG TABLET PO ×2 (09:23→21:38)
[2023-01-24] MEDS: lamoTRIgine 25 MG TABLET 50 MG PO (09:24)
[2023-01-24] MEDS: OLANZapine ODT 10 MG TAB.RAPDIS TRANSLINGU ×2 (11:23→21:40)
--- NOTE | 2023-01-24 14:39 | P.PNPSI_ITS ---
Subjective Subjective Date of Service: 01/24/23 Reason For Visit: disorganized agitated behavior Subjective Notes: Conditional Voluntary Healthcare Proxy: No Guardianship: No Medical Problems Affecting Mental Status: No Interim History: Team reports more disorganized, intrusive behavior today. Paranoid and suspicious along with internal preoccupation. Spitting at times in the milieu. One to one initiated. Olanzapine changed from prn to scheduled. Pt, currently is not appropriate for psych groups. Team is attempting to integrate her into activity, structured groups. Asked to meet, then changed her mind, then walked away from this loan underwriter, appearing dissociative. Medication Compliance: Yes Side effects from medications: No Attending Groups: Intermittent Review of Systems Acute medical concerns: No Medical Review of Systems: unchanged Review of Systems Review of Systems Yes Unobtainable due to mental status Mental Status Exam Mental Status Exam Patient Appearance: Bizarre Patient Orientation: Person, Place and Situation Level of Consciousness: Alert Patient Behavior: Guarded, Talkative, Cooperative, Distractible and Good Eye Contact Mood Description: Depressed and Anxious Affect Description: Flat Patient Cognition Impaired: Yes Ability to Follow Directions: Fair Speech Pattern: Perseverating, Spontaneous Speech and Soft-Spoken Memory Description: Remote Impaired Hallucinations: Auditory and Visual Delusions: Paranoid Ideation and Present Perceptual Disturbances: Depersonalization and Derealization Thought Process: Distracted and Rumination Thought Content: positive for Perseveration and positive for Suicidal Ideation (denies) Depressive Symptoms: Difficulty Sleeping, Unhappiness, Low Self Esteem and Difficulty Concentrating Abnormal Motor Activity Signs and Symptoms: Restlessness Judgement: Poor Diagnostics Vital Signs (24Hr): Vital Signs - 24 hr 01/23/23 18:00 Temperature 97.7 F Pulse Rate 76 Respiratory Rate 16 Blood Pressure 138/70 Pulse Oximetry 97 Oxygen Delivery Method Room Air Labs 01/20/23 07:34 Medications Medications Current Medications Acetaminophen (Acetaminophen 325 Mg Tablet) 650 mg PO Q6H PRN PRN Reason: Headache/Pain Mild Scale (1-3) Last Admin: 01/23/23 21:01 Dose: 650 mg Al Hydroxide/Mg Hydroxide (Magnesium Hydrox/Alum Hydrox 30 Ml Oral.Susp) 30 ml PO Q6H PRN PRN Reason: Heartburn/Nausea Last Admin: 01/21/23 09:23 Dose: 30 ml Gabapentin (Gabapentin 300 Mg Capsule) 300 mg PO BID [facility] Last Admin: 01/24/23 09:23 Dose: 300 mg Hydroxyzine HCl (Hydroxyzine Hcl 25 Mg Tablet) 25 mg PO Q6H PRN PRN Reason: Anxiety Last Admin: 01/21/23 01:57 Dose: 25 mg Lamotrigine (Lamotrigine 100 Mg Tablet) 100 mg PO BID [facility] Last Admin: 01/24/23 09:23 Dose: 100 mg Lamotrigine (Lamotrigine 25 Mg Tablet) 50 mg PO DAILY [facility] Last Admin: 01/24/23 09:24 Dose: 50 mg Lorazepam (Lorazepam 1 Mg Tablet) 1 mg PO DAILY PRN PRN Reason: Anxiety Last Admin: 01/22/23 17:03 Dose: 1 mg Lurasidone HCl (Lurasidone Hcl 20 Mg Tablet) 60 mg PO DAILY [facility] Last Admin: 01/24/23 09:23 Dose: 60 mg Magnesium Hydroxide (Milk Of Magnesia 30 Ml Oral.Susp) 30 ml PO DAILY PRN PRN Reason: Constipation Nicotine Polacrilex (Nicotine Polacrilex 2 Mg Gum) 4 mg BUCCAL Q2H PRN PRN Reason: Nicotine Cravings Olanzapine (Olanzapine Odt 10 Mg Tab.Rapdis) 10 mg TRANSLINGU BID [facility] Last Admin: 01/24/23 11:23 Dose: 10 mg Oxcarbazepine (Oxcarbazepine 300 Mg Tablet) 300 mg PO BID [facility] Last Admin: 01/24/23 09:23 Dose: 300 mg Propranolol HCl (Propranolol Hcl 10 Mg Tablet) 10 mg PO BID [facility]; Protocol Last Admin: 01/24/23 10:42 Dose: Not Given Sertraline HCl (Sertraline Hcl 25 Mg Tablet) 25 mg PO DAILY [facility] Last Admin: 01/24/23 09:23 Dose: 25 mg Trazodone HCl (Trazodone Hcl 25 Mg Halftab) 75 mg PO BEDTIME MRX1 PRN PRN Reason: Sleep Last Admin: 01/21/23 20:02 Dose: 75 mg Allergies Allergies Allergy/AdvReac Type Severity Reaction Status Date / Time Sulfa (Sulfonamide Allergy Unknown HIVES Verified 05/06/20 20:38 Antibiotics) [SULFA (SULFONAMIDE ANTIBIOTICS)] Assessment & Plan Assessment & Plan (1) Altered mental status: Qualifiers: Altered mental status type: disorientation Qualified Code(s): R41.0 - Disorientation, unspecified Status: Acute Code(s): R41.82 - Altered mental status, unspecified (2) PTSD (post-traumatic stress disorder): Status: Acute Code(s): F43.10 - Post-traumatic stress disorder, unspecified (3) Bipolar disorder: Status: Acute Code(s): F31.9 - Bipolar disorder, unspecified Plan 52 yo single woman with Bipolar Disorder, PTSD and confusion with past medical history of hyperthyroidism presently admitted for management of Bipolar/depression. Plan: cv 15 min checks latuda reduced to 60 mg daily due to possible akathesia trileptal increased to 300mg BID lamictal decreased to 150 mg in am and 100mg at bedtime due to elevated liver enzymes and poor sleep trazodone in creased to 75 mg at hs and MRx1 consider imaging for frontal lobe deterioration clarification collateral contact 01/22/23 Pt experiencing visual/auditory fearful perceptual alterations -Zydis 10 mg bid prn for relieve of severe sx. -AIMS=0, no akathesia noted today Message left for pt's therapist who has called in today. 01/23/23 Continue current regime Encourage milieu involvement Collateral contact 01/24/23 Change Zydis to scheduled vs prn Patient educated on: therapeutic strategies Informed Consent: further education needed Reason for continued inpatient stay Substantial Risk for: rapid decompensation Time Spent With Patient Time: Total time managing care of this patient today ____ minutes.
[2023-01-24] MEDS: LORazepam 1 MG TABLET PO (16:04)
[2023-01-24 21:35] VITALS: BP 93/58; PULSE 74; TEMP 36.1
[2023-01-24] MEDS: traZODone HCL 25 MG HALFTAB 75 MG PO (21:37)
[2023-01-24] MEDS: Docusate Sodium 100 MG CAPSULE PO (21:37)
[2023-01-24] MEDS: Propranolol HCL 10 MG TABLET PO (21:41)
[2023-01-25 07:00] VITALS: BMI 41.6
[2023-01-25] MEDS: Propranolol HCL 10 MG TABLET PO ×2 (09:06→20:45)
[2023-01-25] MEDS: lamoTRIgine 25 MG TABLET 50 MG PO (09:06)
[2023-01-25] MEDS: OXcarbazepine 300 MG TABLET PO ×2 (09:06→20:47)
[2023-01-25] MEDS: Docusate Sodium 100 MG CAPSULE PO (09:06)
[2023-01-25] MEDS: Sertraline HCL 25 MG TABLET PO (09:06)
[2023-01-25] MEDS: Gabapentin 300 MG CAPSULE PO ×2 (09:07→20:45)
[2023-01-25] MEDS: lamoTRIgine 100 MG TABLET PO ×2 (09:07→20:45)
[2023-01-25] MEDS: Lurasidone HCl 20 MG TABLET 60 MG PO (09:07)
[2023-01-25] MEDS: OLANZapine ODT 10 MG TAB.RAPDIS TRANSLINGU (09:07)
[2023-01-25 11:10] VITALS: BP 131/77; TEMP 36.5; O2SAT 98
--- NOTE | 2023-01-25 14:35 | P.PNPSI_ITS ---
Subjective Subjective Date of Service: 01/25/23 Reason For Visit: disorganized agitated behavior Subjective Notes: Conditional Voluntary Healthcare Proxy: No Guardianship: No Medical Problems Affecting Mental Status: No Interim History: Pt on one to one special as she has been intrusive, spitting water at others, throwing belongings. Per mother pt is overmedicated. (PRN Olanzapine was scheduled yesterday due to sx). Pt, per mother was having trouble speaking and mother believes this is due to meds. OP team reports by history pt has tolerated and benefited from Olanzapine. Met with pt, she reports she slept, she reports feeling improved with some sedation. We decided to keep Olanzapine, yet decrease to 5 mg bid. Pt finds this effective. Messages left for OP prescriber Debra, and therapist, Katia. Pt with visitors this afternoon. Discussed returning to work- thinks she should attend PHP after discharge and consider a return to work after the holiday season. Presents with improvement today. Medication Compliance: Yes Side effects from medications: No Attending Groups: Intermittent Review of Systems Acute medical concerns: No Review of Systems Review of Systems Yes Unobtainable due to mental status Mental Status Exam Mental Status Exam Patient Appearance: Appropriate Patient Orientation: Person, Place and Situation Level of Consciousness: Alert Patient Behavior: Talkative, Cooperative, Distractible and Good Eye Contact Mood Description: Depressed and Anxious Affect Description: Flat Patient Cognition Impaired: Yes Ability to Follow Directions: Fair Speech Pattern: Spontaneous Speech and Soft-Spoken Memory Description: Remote Impaired Hallucinations: Auditory Delusions: Present Perceptual Disturbances: Depersonalization and Derealization Thought Process: Distracted and Rumination Thought Content: positive for Perseveration and positive for Suicidal Ideation (denies) Depressive Symptoms: Difficulty Sleeping, Unhappiness, Low Self Esteem and Difficulty Concentrating Abnormal Motor Activity Signs and Symptoms: Restlessness Judgement: Fair Diagnostics Vital Signs (24Hr): Vital Signs - 24 hr 01/24/23 21:35 01/25/23 11:10 Temperature 97.0 F 97.7 F Pulse Rate 74 Blood Pressure 93/58 L 131/77 Pulse Oximetry 98 Oxygen Delivery Method Room Air Labs 01/20/23 07:34 Medications Medications Current Medications Acetaminophen (Acetaminophen 325 Mg Tablet) 650 mg PO Q6H PRN PRN Reason: Headache/Pain Mild Scale (1-3) Last Admin: 01/23/23 21:01 Dose: 650 mg Al Hydroxide/Mg Hydroxide (Magnesium Hydrox/Alum Hydrox 30 Ml Oral.Susp) 30 ml PO Q6H PRN PRN Reason: Heartburn/Nausea Last Admin: 01/21/23 09:23 Dose: 30 ml Docusate Sodium (Docusate Sodium 100 Mg Capsule) 200 mg PO DAILY [facility] Gabapentin (Gabapentin 300 Mg Capsule) 300 mg PO BID [facility] Last Admin: 01/25/23 09:07 Dose: 300 mg Hydroxyzine HCl (Hydroxyzine Hcl 25 Mg Tablet) 25 mg PO Q6H PRN PRN Reason: Anxiety Last Admin: 01/21/23 01:57 Dose: 25 mg Lamotrigine (Lamotrigine 100 Mg Tablet) 100 mg PO BID [facility] Last Admin: 01/25/23 09:07 Dose: 100 mg Lamotrigine (Lamotrigine 25 Mg Tablet) 50 mg PO DAILY [facility] Last Admin: 01/25/23 09:06 Dose: 50 mg Lurasidone HCl (Lurasidone Hcl 20 Mg Tablet) 60 mg PO DAILY [facility] Last Admin: 01/25/23 09:07 Dose: 60 mg Magnesium Hydroxide (Milk Of Magnesia 30 Ml Oral.Susp) 30 ml PO DAILY PRN PRN Reason: Constipation Nicotine Polacrilex (Nicotine Polacrilex 2 Mg Gum) 4 mg BUCCAL Q2H PRN PRN Reason: Nicotine Cravings Olanzapine (Olanzapine Odt 10 Mg Tab.Rapdis) 5 mg TRANSLINGU BID [facility] Oxcarbazepine (Oxcarbazepine 300 Mg Tablet) 300 mg PO BID [facility] Last Admin: 01/25/23 09:06 Dose: 300 mg Polyethylene Glycol (Polyethylene Glycol 3350 17 Gm Powd.Pack) 17 gm PO BEDTIME PRN PRN Reason: Constipation Propranolol HCl (Propranolol Hcl 10 Mg Tablet) 10 mg PO BID [facility]; Protocol Last Admin: 01/25/23 09:06 Dose: 10 mg Sertraline HCl (Sertraline Hcl 25 Mg Tablet) 25 mg PO DAILY [facility] Last Admin: 01/25/23 09:06 Dose: 25 mg Trazodone HCl (Trazodone Hcl 25 Mg Halftab) 75 mg PO BEDTIME MRX1 PRN PRN Reason: Sleep Last Admin: 01/24/23 21:37 Dose: 75 mg Allergies Allergies Allergy/AdvReac Type Severity Reaction Status Date / Time Sulfa (Sulfonamide Allergy Unknown HIVES Verified 05/06/20 20:38 Antibiotics) [SULFA (SULFONAMIDE ANTIBIOTICS)] Assessment & Plan Assessment & Plan (1) Altered mental status: Qualifiers: Altered mental status type: disorientation Qualified Code(s): R41.0 - Disorientation, unspecified Status: Acute Code(s): R41.82 - Altered mental status, unspecified (2) PTSD (post-traumatic stress disorder): Status: Acute Code(s): F43.10 - Post-traumatic stress disorder, unspecified (3) Bipolar disorder: Status: Acute Code(s): F31.9 - Bipolar disorder, unspecified Plan 52 yo single woman with Bipolar Disorder, PTSD and confusion with past medical history of hyperthyroidism presently admitted for management of Bipolar/depression. Plan: cv 15 min checks latuda reduced to 60 mg daily due to possible akathesia trileptal increased to 300mg BID lamictal decreased to 150 mg in am and 100mg at bedtime due to elevated liver enzymes and poor sleep trazodone in creased to 75 mg at hs and MRx1 consider imaging for frontal lobe deterioration clarification collateral contact 01/22/23 Pt experiencing visual/auditory fearful perceptual alterations -Zydis 10 mg bid prn for relieve of severe sx. -AIMS=0, no akathesia noted today Message left for pt's therapist who has called in today. 01/23/23 Continue current regime Encourage milieu involvement Collateral contact 01/24/23 Change Zydis to scheduled vs prn 01/25/23 Decrease Zyprexa to 5 mg bid Informed Consent: further education needed Reason for continued inpatient stay Substantial Risk for: rapid decompensation Time Spent With Patient Time: Total time managing care of this patient today ____ minutes.
[2023-01-25 18:00] VITALS: BP 122/65; PULSE 82; TEMP 35.9; O2SAT 82
[2023-01-25] MEDS: traZODone HCL 25 MG HALFTAB 75 MG PO (20:44)
[2023-01-25] MEDS: OLANZapine ODT 10 MG TAB.RAPDIS 5 MG TRANSLINGU (20:45)
[2023-01-26 08:00] VITALS: BP 123/67; PULSE 73; RESP 16; TEMP 36.3; O2SAT 97
[2023-01-26] MEDS: Propranolol HCL 10 MG TABLET PO ×2 (08:43→19:43)
[2023-01-26] MEDS: Gabapentin 300 MG CAPSULE PO ×2 (08:43→19:43)
[2023-01-26] MEDS: lamoTRIgine 25 MG TABLET 50 MG PO (08:43)
[2023-01-26] MEDS: Sertraline HCL 25 MG TABLET PO (08:43)
[2023-01-26] MEDS: Lurasidone HCl 20 MG TABLET 60 MG PO (08:43)
[2023-01-26] MEDS: lamoTRIgine 100 MG TABLET PO ×2 (08:44→19:43)
[2023-01-26] MEDS: Docusate Sodium 100 MG CAPSULE 200 MG PO (08:44)
[2023-01-26] MEDS: OLANZapine ODT 10 MG TAB.RAPDIS 5 MG TRANSLINGU ×2 (08:44→19:47)
[2023-01-26] MEDS: OXcarbazepine 300 MG TABLET PO (08:44)
[2023-01-26] MEDS: hydrOXYzine HCL 25 MG TABLET PO (12:13)
[2023-01-26] MEDS: Milk of Magnesia 30 ML ORAL.SUSP PO (12:23)
--- NOTE | 2023-01-26 16:08 | P.PNPSI_ITS ---
Subjective Subjective Date of Service: 01/26/23 Reason For Visit: disorganized agitated behavior Subjective Notes: Conditional Voluntary Healthcare Proxy: No Guardianship: No Medical Problems Affecting Mental Status: No Interim History: Some improvement with Olanzapine adjustment-this may need re-adjustment over the weekend. Discussed trileptal hx of 600 mg bid. Will begin titration 300/600 for 2 days. Pt believes she decompensated with decrease. Alert, oriented, distracted today. Talked of meds, visitors (friends). Pleased that moms visits are supervised. Currently, milieu is overstimulating. We reviewed some management strategies to help remain grounded. Medication Compliance: Yes Side effects from medications: No Attending Groups: No Review of Systems Acute medical concerns: No Medical Review of Systems: unchanged Review of Systems Review of Systems Yes all other systems are reviewed and are negative Mental Status Exam Mental Status Exam Patient Appearance: Appropriate Patient Orientation: Person, Place and Situation Level of Consciousness: Alert Patient Behavior: Talkative, Cooperative, Distractible and Good Eye Contact Mood Description: Depressed and Anxious Affect Description: Flat Patient Cognition Impaired: Yes Ability to Follow Directions: Fair Speech Pattern: Spontaneous Speech and Soft-Spoken Memory Description: Remote Impaired Hallucinations: Auditory Delusions: Present Perceptual Disturbances: Depersonalization and Derealization Thought Process: Distracted and Rumination Thought Content: positive for Perseveration and positive for Suicidal Ideation (denies) Depressive Symptoms: Difficulty Sleeping, Unhappiness, Low Self Esteem and Difficulty Concentrating Abnormal Motor Activity Signs and Symptoms: Restlessness Judgement: Fair Diagnostics Vital Signs (24Hr): Vital Signs - 24 hr 01/25/23 18:00 01/26/23 08:00 Temperature 96.6 F L 97.3 F Pulse Rate 82 73 Respiratory Rate 16 Blood Pressure 122/65 123/67 Pulse Oximetry 82 L 97 Oxygen Delivery Method Room Air Room Air BMI result Body Mass Index 41.6 Labs 01/20/23 07:34 Medications Medications Current Medications Acetaminophen (Acetaminophen 325 Mg Tablet) 650 mg PO Q6H PRN PRN Reason: Headache/Pain Mild Scale (1-3) Last Admin: 01/23/23 21:01 Dose: 650 mg Al Hydroxide/Mg Hydroxide (Magnesium Hydrox/Alum Hydrox 30 Ml Oral.Susp) 30 ml PO Q6H PRN PRN Reason: Heartburn/Nausea Last Admin: 01/21/23 09:23 Dose: 30 ml Docusate Sodium (Docusate Sodium 100 Mg Capsule) 200 mg PO DAILY [facility] Last Admin: 01/26/23 08:44 Dose: 200 mg Gabapentin (Gabapentin 300 Mg Capsule) 300 mg PO BID [facility] Last Admin: 01/26/23 08:43 Dose: 300 mg Hydroxyzine HCl (Hydroxyzine Hcl 25 Mg Tablet) 25 mg PO Q6H PRN PRN Reason: Anxiety Last Admin: 01/26/23 12:13 Dose: 25 mg Lamotrigine (Lamotrigine 100 Mg Tablet) 100 mg PO BID [facility] Last Admin: 01/26/23 08:44 Dose: 100 mg Lamotrigine (Lamotrigine 25 Mg Tablet) 50 mg PO DAILY [facility] Last Admin: 01/26/23 08:43 Dose: 50 mg Lurasidone HCl (Lurasidone Hcl 20 Mg Tablet) 60 mg PO DAILY [facility] Last Admin: 01/26/23 08:43 Dose: 60 mg Magnesium Hydroxide (Milk Of Magnesia 30 Ml Oral.Susp) 30 ml PO DAILY PRN PRN Reason: Constipation Last Admin: 01/26/23 12:23 Dose: 30 ml Nicotine Polacrilex (Nicotine Polacrilex 2 Mg Gum) 4 mg BUCCAL Q2H PRN PRN Reason: Nicotine Cravings Olanzapine (Olanzapine Odt 10 Mg Tab.Rapdis) 5 mg TRANSLINGU BID [facility] Last Admin: 01/26/23 08:44 Dose: 5 mg Oxcarbazepine (Oxcarbazepine 300 Mg Tablet) 300 mg PO BID [facility] Last Admin: 01/26/23 08:44 Dose: 300 mg Polyethylene Glycol (Polyethylene Glycol 3350 17 Gm Powd.Pack) 17 gm PO BEDTIME PRN PRN Reason: Constipation Propranolol HCl (Propranolol Hcl 10 Mg Tablet) 10 mg PO BID [facility]; Protocol Last Admin: 01/26/23 08:43 Dose: 10 mg Sertraline HCl (Sertraline Hcl 25 Mg Tablet) 25 mg PO DAILY [facility] Last Admin: 01/26/23 08:43 Dose: 25 mg Trazodone HCl (Trazodone Hcl 25 Mg Halftab) 75 mg PO BEDTIME MRX1 PRN PRN Reason: Sleep Last Admin: 01/25/23 20:44 Dose: 75 mg Allergies Allergies Allergy/AdvReac Type Severity Reaction Status Date / Time Sulfa (Sulfonamide Allergy Unknown HIVES Verified 05/06/20 20:38 Antibiotics) [SULFA (SULFONAMIDE ANTIBIOTICS)] Assessment & Plan Assessment & Plan (1) Altered mental status: Qualifiers: Altered mental status type: disorientation Qualified Code(s): R41.0 - Disorientation, unspecified Status: Acute Code(s): R41.82 - Altered mental status, unspecified (2) PTSD (post-traumatic stress disorder): Status: Acute Code(s): F43.10 - Post-traumatic stress disorder, unspecified (3) Bipolar disorder: Status: Acute Code(s): F31.9 - Bipolar disorder, unspecified Plan 52 yo single woman with Bipolar Disorder, PTSD and confusion with past medical history of hyperthyroidism presently admitted for management of Bipolar/depression. Plan: cv 15 min checks latuda reduced to 60 mg daily due to possible akathesia trileptal increased to 300mg BID lamictal decreased to 150 mg in am and 100mg at bedtime due to elevated liver enzymes and poor sleep trazodone in creased to 75 mg at hs and MRx1 consider imaging for frontal lobe deterioration clarification collateral contact 01/22/23 Pt experiencing visual/auditory fearful perceptual alterations -Zydis 10 mg bid prn for relieve of severe sx. -AIMS=0, no akathesia noted today Message left for pt's therapist who has called in today. 01/23/23 Continue current regime Encourage milieu involvement Collateral contact 01/24/23 Change Zydis to scheduled vs prn 01/25/23 Decrease Zyprexa to 5 mg bid 01/26/23 Increase Trileptal to 300 mg a.m, 600 mg hs Patient educated on: medication risk/benefits and therapeutic strategies Informed Consent: understands and further education needed Reason for continued inpatient stay Substantial Risk for: rapid decompensation Time Spent With Patient Time: Total time managing care of this patient today ____ minutes.
[2023-01-26 17:24] VITALS: BP 132/76; PULSE 75; O2SAT 96
[2023-01-26] MEDS: traZODone HCL 25 MG HALFTAB 75 MG PO (19:43)
[2023-01-26] MEDS: polyethylene glycoL 3350 17 GM POWD.PACK PO (19:47)
[2023-01-26] MEDS: OXcarbazepine 300 MG TABLET 600 MG PO (22:00)
[2023-01-27] MEDS: hydrOXYzine HCL 25 MG TABLET PO ×2 (02:51→20:16)
[2023-01-27 08:30] VITALS: BP 129/73; PULSE 71; RESP 16; TEMP 36.4; O2SAT 98
[2023-01-27] MEDS: Propranolol HCL 10 MG TABLET PO ×2 (09:12→20:16)
[2023-01-27] MEDS: Docusate Sodium 100 MG CAPSULE 200 MG PO (09:13)
[2023-01-27] MEDS: OXcarbazepine 300 MG TABLET PO (09:13)
[2023-01-27] MEDS: Gabapentin 300 MG CAPSULE PO ×2 (09:13→20:16)
[2023-01-27] MEDS: Sertraline HCL 25 MG TABLET PO (09:13)
[2023-01-27] MEDS: lamoTRIgine 25 MG TABLET 50 MG PO (09:13)
[2023-01-27] MEDS: lamoTRIgine 100 MG TABLET PO ×2 (09:13→20:16)
[2023-01-27] MEDS: Lurasidone HCl 20 MG TABLET 60 MG PO (09:13)
--- NOTE | 2023-01-27 09:21 | HO.PSYCHPN ---
Subjective Subjective Date of Service: 01/27/23 Reason For Visit: disorganized agitated behavior Interim History: met with patient; discussed with team; reviewed chart Patient a little disorganized, Repeats questions and appears internally preoccupied; intermittently tearful and says she just does not know what to expect and that this is just how she gets sometimes.... Patient is taking medication; she says she slept well enough. Mental Status Exam Mental Status Exam Patient Appearance: Appropriate Patient Orientation: Person, Place and Situation Level of Consciousness: Awake, Appropriate and Alert Patient Behavior: Talkative, Cooperative, Anxious, Distractible and Good Eye Contact Mood Description: Depressed and Anxious Affect Description: Constricted and Anxious Patient Cognition Impaired: Yes Ability to Follow Directions: Fair Speech Pattern: Clear and Spontaneous Speech Memory Description: Remote Impaired Hallucinations: Auditory Delusions: Present Perceptual Disturbances: Depersonalization and Derealization Thought Process: Rumination and Goal Oriented Thought Content: positive for Perseveration and positive for Suicidal Ideation (denies) Depressive Symptoms: Difficulty Sleeping, Unhappiness, Low Self Esteem and Difficulty Concentrating Abnormal Motor Activity Signs and Symptoms: Restlessness Judgement and Insight: impaired Diagnostics Vital Signs (24Hr): Vital Signs - 24 hr 01/26/23 17:24 Pulse Rate 75 Blood Pressure 132/76 Pulse Oximetry 96 Oxygen Delivery Method Room Air BMI result Body Mass Index 41.6 Labs 01/20/23 07:34 Medications Medications Current Medications Acetaminophen (Acetaminophen 325 Mg Tablet) 650 mg PO Q6H PRN PRN Reason: Headache/Pain Mild Scale (1-3) Last Admin: 01/23/23 21:01 Dose: 650 mg Al Hydroxide/Mg Hydroxide (Magnesium Hydrox/Alum Hydrox 30 Ml Oral.Susp) 30 ml PO Q6H PRN PRN Reason: Heartburn/Nausea Last Admin: 01/21/23 09:23 Dose: 30 ml Docusate Sodium (Docusate Sodium 100 Mg Capsule) 200 mg PO DAILY [facility] Last Admin: 01/26/23 08:44 Dose: 200 mg Gabapentin (Gabapentin 300 Mg Capsule) 300 mg PO BID [facility] Last Admin: 01/26/23 19:43 Dose: 300 mg Hydroxyzine HCl (Hydroxyzine Hcl 25 Mg Tablet) 25 mg PO Q6H PRN PRN Reason: Anxiety Last Admin: 01/27/23 02:51 Dose: 25 mg Lamotrigine (Lamotrigine 100 Mg Tablet) 100 mg PO BID [facility] Last Admin: 01/26/23 19:43 Dose: 100 mg Lamotrigine (Lamotrigine 25 Mg Tablet) 50 mg PO DAILY [facility] Last Admin: 01/26/23 08:43 Dose: 50 mg Lurasidone HCl (Lurasidone Hcl 20 Mg Tablet) 60 mg PO DAILY [facility] Last Admin: 01/26/23 08:43 Dose: 60 mg Magnesium Hydroxide (Milk Of Magnesia 30 Ml Oral.Susp) 30 ml PO DAILY PRN PRN Reason: Constipation Last Admin: 01/26/23 12:23 Dose: 30 ml Nicotine Polacrilex (Nicotine Polacrilex 2 Mg Gum) 4 mg BUCCAL Q2H PRN PRN Reason: Nicotine Cravings Olanzapine (Olanzapine Odt 10 Mg Tab.Rapdis) 5 mg TRANSLINGU BID [facility] Last Admin: 01/26/23 19:47 Dose: 5 mg Oxcarbazepine (Oxcarbazepine 300 Mg Tablet) 300 mg PO DAILY [facility] Oxcarbazepine (Oxcarbazepine 300 Mg Tablet) 600 mg PO BEDTIME [facility] Last Admin: 01/26/23 22:00 Dose: 600 mg Polyethylene Glycol (Polyethylene Glycol 3350 17 Gm Powd.Pack) 17 gm PO BEDTIME PRN PRN Reason: Constipation Last Admin: 01/26/23 19:47 Dose: 17 gm Propranolol HCl (Propranolol Hcl 10 Mg Tablet) 10 mg PO BID [facility]; Protocol Last Admin: 01/26/23 19:43 Dose: 10 mg Sertraline HCl (Sertraline Hcl 25 Mg Tablet) 25 mg PO DAILY [facility] Last Admin: 01/26/23 08:43 Dose: 25 mg Trazodone HCl (Trazodone Hcl 25 Mg Halftab) 75 mg PO BEDTIME MRX1 PRN PRN Reason: Sleep Last Admin: 01/26/23 19:43 Dose: 75 mg Allergies Allergies Allergy/AdvReac Type Severity Reaction Status Date / Time Sulfa (Sulfonamide Allergy Unknown HIVES Verified 05/06/20 20:38 Antibiotics) [SULFA (SULFONAMIDE ANTIBIOTICS)] Assessment & Plan Assessment & Plan (1) Altered mental status: Qualifiers: Altered mental status type: disorientation Qualified Code(s): R41.0 - Disorientation, unspecified Status: Acute Code(s): R41.82 - Altered mental status, unspecified (2) PTSD (post-traumatic stress disorder): Status: Acute Code(s): F43.10 - Post-traumatic stress disorder, unspecified (3) Bipolar disorder: Status: Acute Code(s): F31.9 - Bipolar disorder, unspecified Plan 52 yo single woman with Bipolar Disorder, PTSD and confusion with past medical history of hyperthyroidism presently admitted for management of Bipolar/depression. Plan: cv 15 min checks latuda reduced to 60 mg daily due to possible akathesia trileptal increased to 300mg BID lamictal decreased to 150 mg in am and 100mg at bedtime due to elevated liver enzymes and poor sleep trazodone in creased to 75 mg at hs and MRx1 consider imaging for frontal lobe deterioration clarification collateral contact 01/22/23 Pt experiencing visual/auditory fearful perceptual alterations -Zydis 10 mg bid prn for relieve of severe sx. -AIMS=0, no akathesia noted today Message left for pt's therapist who has called in today. 01/23/23 Continue current regime Encourage milieu involvement Collateral contact 01/24/23 Change Zydis to scheduled vs prn 01/25/23 Decrease Zyprexa to 5 mg bid 01/26/23 Increase Trileptal to 300 mg a.m, 600 mg hs 01/27/23: Patient reports sleeping better; continue current treatment plan Patient educated on: diagnosis Informed Consent: further education needed Reason for continued inpatient stay Substantial Risk for: inability to function Time Spent With Patient Time: Total time managing care of this patient today ____ minutes.
[2023-01-27] MEDS: OLANZapine ODT 10 MG TAB.RAPDIS 5 MG TRANSLINGU ×2 (09:23→20:17)
[2023-01-27] MEDS: polyethylene glycoL 3350 17 GM POWD.PACK PO (14:06)
[2023-01-27 18:00] VITALS: BP 141/75; PULSE 84; RESP 16; TEMP 37.1
[2023-01-27] MEDS: OXcarbazepine 300 MG TABLET 600 MG PO (20:16)
[2023-01-27] MEDS: traZODone HCL 25 MG HALFTAB 75 MG PO (20:16)
[2023-01-28 08:10] VITALS: BP 113/61; PULSE 75; RESP 16; TEMP 36.3; O2SAT 97
[2023-01-28] MEDS: Propranolol HCL 10 MG TABLET PO ×2 (08:21→21:21)
[2023-01-28] MEDS: Docusate Sodium 100 MG CAPSULE 200 MG PO (08:21)
[2023-01-28] MEDS: Sertraline HCL 25 MG TABLET PO (08:21)
[2023-01-28] MEDS: lamoTRIgine 100 MG TABLET PO ×2 (08:22→21:21)
[2023-01-28] MEDS: OXcarbazepine 300 MG TABLET PO (08:22)
[2023-01-28] MEDS: lamoTRIgine 25 MG TABLET 50 MG PO (08:23)
[2023-01-28] MEDS: Gabapentin 300 MG CAPSULE PO ×2 (08:23→21:21)
[2023-01-28] MEDS: Lurasidone HCl 20 MG TABLET 60 MG PO (08:23)
[2023-01-28] MEDS: OLANZapine ODT 10 MG TAB.RAPDIS 5 MG TRANSLINGU ×2 (08:24→21:26)
--- NOTE | 2023-01-28 10:33 | HO.PSYCHPN ---
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 She?said? I?thought?you?were Sherwin. She?then?walked?away?abruptly.??Attempts?to?interact?met?with Avoidance.??Patient?with?similar?interactions?with?others.??Did?sleep Mental Status Exam Mental Status Exam Patient Appearance: Appropriate Patient Orientation: Person, Place and Situation Level of Consciousness: Awake, Appropriate and Alert Patient Behavior: Talkative, Cooperative, Anxious, Distractible and Good Eye Contact Mood Description: Depressed and Anxious Affect Description: Constricted and Anxious Patient Cognition Impaired: Yes Ability to Follow Directions: Fair Speech Pattern: Clear and Spontaneous Speech Memory Description: Remote Impaired Hallucinations: Auditory Delusions: Present Perceptual Disturbances: Depersonalization and Derealization Thought Process: Rumination and Goal Oriented Thought Content: positive for Perseveration and positive for Suicidal Ideation (denies) Depressive Symptoms: Difficulty Sleeping, Unhappiness, Low Self Esteem and Difficulty Concentrating Abnormal Motor Activity Signs and Symptoms: Restlessness Judgement and Insight: impaired Diagnostics Vital Signs (24Hr): Vital Signs - 24 hr 01/27/23 18:00 01/28/23 08:10 Temperature 98.7 F 97.3 F Pulse Rate 84 75 Respiratory Rate 16 16 Blood Pressure 141/75 H 113/61 Pulse Oximetry 97 Oxygen Delivery Method Room Air BMI result Body Mass Index 41.6 Labs 01/20/23 07:34 Medications Medications Current Medications Acetaminophen (Acetaminophen 325 Mg Tablet) 650 mg PO Q6H PRN PRN Reason: Headache/Pain Mild Scale (1-3) Last Admin: 01/23/23 21:01 Dose: 650 mg Al Hydroxide/Mg Hydroxide (Magnesium Hydrox/Alum Hydrox 30 Ml Oral.Susp) 30 ml PO Q6H PRN PRN Reason: Heartburn/Nausea Last Admin: 01/21/23 09:23 Dose: 30 ml Docusate Sodium (Docusate Sodium 100 Mg Capsule) 200 mg PO DAILY [facility] Last Admin: 01/28/23 08:21 Dose: 200 mg Gabapentin (Gabapentin 300 Mg Capsule) 300 mg PO BID [facility] Last Admin: 01/28/23 08:23 Dose: 300 mg Hydroxyzine HCl (Hydroxyzine Hcl 25 Mg Tablet) 25 mg PO Q6H PRN PRN Reason: Anxiety Last Admin: 01/27/23 20:16 Dose: 25 mg Lamotrigine (Lamotrigine 100 Mg Tablet) 100 mg PO BID [facility] Last Admin: 01/28/23 08:22 Dose: 100 mg Lamotrigine (Lamotrigine 25 Mg Tablet) 50 mg PO DAILY [facility] Last Admin: 01/28/23 08:23 Dose: 50 mg Lurasidone HCl (Lurasidone Hcl 20 Mg Tablet) 60 mg PO DAILY [facility] Last Admin: 01/28/23 08:23 Dose: 60 mg Magnesium Hydroxide (Milk Of Magnesia 30 Ml Oral.Susp) 30 ml PO DAILY PRN PRN Reason: Constipation Last Admin: 01/26/23 12:23 Dose: 30 ml Nicotine Polacrilex (Nicotine Polacrilex 2 Mg Gum) 4 mg BUCCAL Q2H PRN PRN Reason: Nicotine Cravings Olanzapine (Olanzapine Odt 10 Mg Tab.Rapdis) 5 mg TRANSLINGU BID [facility] Last Admin: 01/28/23 08:24 Dose: 5 mg Oxcarbazepine (Oxcarbazepine 300 Mg Tablet) 300 mg PO DAILY [facility] Last Admin: 01/28/23 08:22 Dose: 300 mg Oxcarbazepine (Oxcarbazepine 300 Mg Tablet) 600 mg PO BEDTIME [facility] Last Admin: 01/27/23 20:16 Dose: 600 mg Polyethylene Glycol (Polyethylene Glycol 3350 17 Gm Powd.Pack) 17 gm PO BEDTIME PRN PRN Reason: Constipation Last Admin: 01/27/23 14:06 Dose: 17 gm Propranolol HCl (Propranolol Hcl 10 Mg Tablet) 10 mg PO BID [facility]; Protocol Last Admin: 01/28/23 08:21 Dose: 10 mg Sertraline HCl (Sertraline Hcl 25 Mg Tablet) 25 mg PO DAILY [facility] Last Admin: 01/28/23 08:21 Dose: 25 mg Trazodone HCl (Trazodone Hcl 25 Mg Halftab) 75 mg PO BEDTIME MRX1 PRN PRN Reason: Sleep Last Admin: 01/27/23 20:16 Dose: 75 mg Allergies Allergies Allergy/AdvReac Type Severity Reaction Status Date / Time Sulfa (Sulfonamide Allergy Unknown HIVES Verified 05/06/20 20:38 Antibiotics) [SULFA (SULFONAMIDE ANTIBIOTICS)] Assessment & Plan Assessment & Plan (1) Altered mental status: Qualifiers: Altered mental status type: disorientation Qualified Code(s): R41.0 - Disorientation, unspecified Status: Acute Code(s): R41.82 - Altered mental status, unspecified (2) PTSD (post-traumatic stress disorder): Status: Acute Code(s): F43.10 - Post-traumatic stress disorder, unspecified (3) Bipolar disorder: Status: Acute Code(s): F31.9 - Bipolar disorder, unspecified Plan 52 yo single woman with Bipolar Disorder, PTSD and confusion with past medical history of hyperthyroidism presently admitted for management of Bipolar/depression. Plan: cv 15 min checks latuda reduced to 60 mg daily due to possible akathesia trileptal increased to 300mg BID lamictal decreased to 150 mg in am and 100mg at bedtime due to elevated liver enzymes and poor sleep trazodone in creased to 75 mg at hs and MRx1 consider imaging for frontal lobe deterioration clarification collateral contact 01/22/23 Pt experiencing visual/auditory fearful perceptual alterations -Zydis 10 mg bid prn for relieve of severe sx. -AIMS=0, no akathesia noted today Message left for pt's therapist who has called in today. 01/23/23 Continue current regime Encourage milieu involvement Collateral contact 01/24/23 Change Zydis to scheduled vs prn 01/25/23 Decrease Zyprexa to 5 mg bid 01/26/23 Increase Trileptal to 300 mg a.m, 600 mg hs 01/27/23: Patient reports sleeping better; continue current treatment plan 01/28/23:??Continue?current?treatment?plan Patient educated on: diagnosis Informed Consent: does not understand Reason for continued inpatient stay Substantial Risk for: inability to function Time Spent With Patient Time: Total time managing care of this patient today ____ minutes.
[2023-01-28] MEDS: Magnesium Hydrox/Alum Hydrox 30 ML ORAL.SUSP PO (10:45)
[2023-01-28] MEDS: Milk of Magnesia 30 ML ORAL.SUSP PO (13:45)
[2023-01-28] MEDS: bisacodyL 5 MG TABLET.DR 10 MG PO (14:07)
[2023-01-28] MEDS: hydrOXYzine HCL 25 MG TABLET PO (17:16)
[2023-01-28 18:00] VITALS: BP 126/82; PULSE 82; TEMP 36.1; O2SAT 98
[2023-01-28] MEDS: traZODone HCL 25 MG HALFTAB 75 MG PO (21:19)
[2023-01-28] MEDS: OXcarbazepine 300 MG TABLET 600 MG PO (21:22)
[2023-01-28] MEDS: polyethylene glycoL 3350 17 GM POWD.PACK PO (21:27)
[2023-01-29] MEDS: Docusate Sodium 100 MG CAPSULE 200 MG PO (08:14)
[2023-01-29] MEDS: bisacodyL 5 MG TABLET.DR 10 MG PO (08:14)
[2023-01-29 08:20] VITALS: BP 116/76; PULSE 85; RESP 16; TEMP 36.3; O2SAT 97
[2023-01-29] MEDS: OLANZapine ODT 10 MG TAB.RAPDIS 5 MG TRANSLINGU (08:31)
[2023-01-29] MEDS: OXcarbazepine 300 MG TABLET PO (08:31)
[2023-01-29] MEDS: Sertraline HCL 25 MG TABLET PO (08:31)
[2023-01-29] MEDS: lamoTRIgine 100 MG TABLET PO (08:31)
[2023-01-29] MEDS: Gabapentin 300 MG CAPSULE PO ×2 (08:31→21:40)
[2023-01-29] MEDS: Lurasidone HCl 20 MG TABLET 60 MG PO (08:31)
[2023-01-29] MEDS: Propranolol HCL 10 MG TABLET PO (08:31)
[2023-01-29] MEDS: lamoTRIgine 25 MG TABLET 50 MG PO (08:39)
--- NOTE | 2023-01-29 09:36 | P.PNPSI_ITS ---
Subjective Subjective Date of Service: 01/29/23 Reason For Visit: disorganized agitated behavior Subjective Notes: Conditional Voluntary Healthcare Proxy: No Guardianship: No Medical Problems Affecting Mental Status: No Interim History: Presents with internal preoccupation, thought blocking, response to internal stimuli with intermittent clarity. Guarded at times and anxious. Met with pt and Cecy Fisher [facility] to review mother's request to meet to review regime. Pt agrees. Reports constipation, yet reports two bowel movements today. Discussed KUB- pt declines x2. One to one discontinued. Pt visable in the milieu, intermittently engaged with peers, staff. Pt tells team she has UTI sx-UACC ordered. Pt met with a friend later in the afternoon and reported arm swelling, leg swelling, constipation with 2-3 bowel movements today. Friend reports mother asked her to have this checked. Of note, nursing had reported pt's concerns about arm swelling earlier and when pt was asked she denied this symptom. Hospitalist consult ordered. Pt, at that time, asked for a list of her medications and did a review, asking for changes, including a decrease in colace, an increase in Latuda back to 80 mg pre admit (a 20 mg increase), an increase in Lamictal back to 150 mg bid (a 50 mg increase), a decrease in Triletpal back to 150 mg bid a decrease of 600 mg, changing propranolol to prn and decreasing Lorazapam to 50 mg hs prn. She reports she believes this regime will be more helpful. Care and treatment plan reviewed with pts' therapist, Katia Davey [phone] x [phone]. Medication Compliance: Yes Side effects from medications: Yes (???) Attending Groups: Intermittent Review of Systems Acute medical concerns: No Right arm swelling Medical Review of Systems: unchanged Review of Systems Comments: R arm,wrist,hand swelling-no evidence of cellulitis sx, denies pain. Gastrointestinal: Reports loose stools (constipation, laxative response initiated) Genitourinary: Reports urinary urgency (reports uti sx) Comments: reports no menses in ~2 years-unclear if this is a UTI or she believes she may be beginning menses. Reports behavioral changes and Reports confusion Psychiatric: Reports anxiety, Reports behavioral changes, Reports confusion, Reports depression, Reports difficulty concentrating, Reports anhedonia, Reports paranoia and Reports suicidal ideation (denies) Mental Status Exam Mental Status Exam Patient Appearance: Appropriate Patient Orientation: Person, Place and Situation (at times) Level of Consciousness: Awake, Restless and Alert Patient Behavior: Guarded, Talkative, Cooperative, Suspicious, Wandering, Anxious, Distractible, Confused, Isolative and Good Eye Contact Mood Description: Calm, Suspicious, Withdrawn, Constricted, Anxious, Flat, Nervous and Apprehensive Affect Description: Flat Patient Cognition Impaired: No Ability to Follow Directions: Fair Speech Pattern: Perseverating, Spontaneous Speech and Soft-Spoken Memory Description: Episodic Impaired Hallucinations: Auditory Delusions: Paranoid Ideation and Present Perceptual Disturbances: Depersonalization and Derealization Thought Process: Distracted Thought Content: positive for Circumstantial, positive for Perseveration, positive for Loose Associations, positive for Thought Blocking and positive for Tangential Depressive Symptoms: Thoughts of /Suicide (denies) and Difficulty Concentrating Abnormal Motor Activity Signs and Symptoms: Restlessness Judgement: Fair Diagnostics Vital Signs (24Hr): Vital Signs - 24 hr 01/28/23 18:00 Temperature 97.0 F Pulse Rate 82 Blood Pressure 126/82 Pulse Oximetry 98 Oxygen Delivery Method Room Air BMI result Body Mass Index 41.6 Labs 01/20/23 07:34 Medications Medications Current Medications Acetaminophen (Acetaminophen 325 Mg Tablet) 650 mg PO Q6H PRN PRN Reason: Headache/Pain Mild Scale (1-3) Last Admin: 01/23/23 21:01 Dose: 650 mg Al Hydroxide/Mg Hydroxide (Magnesium Hydrox/Alum Hydrox 30 Ml Oral.Susp) 30 ml PO Q6H PRN PRN Reason: Heartburn/Nausea Last Admin: 01/28/23 10:45 Dose: 30 ml Bisacodyl (Bisacodyl 5 Mg Tablet.Dr) 10 mg PO DAILY [facility] Last Admin: 01/29/23 08:14 Dose: 10 mg Docusate Sodium (Docusate Sodium 100 Mg Capsule) 200 mg PO DAILY [facility] Last Admin: 01/29/23 08:14 Dose: 200 mg Gabapentin (Gabapentin 300 Mg Capsule) 300 mg PO BID [facility] Last Admin: 01/29/23 08:31 Dose: 300 mg Hydroxyzine HCl (Hydroxyzine Hcl 25 Mg Tablet) 25 mg PO Q6H PRN PRN Reason: Anxiety Last Admin: 01/28/23 17:16 Dose: 25 mg Lamotrigine (Lamotrigine 100 Mg Tablet) 100 mg PO BID [facility] Last Admin: 01/29/23 08:31 Dose: 100 mg Lamotrigine (Lamotrigine 25 Mg Tablet) 50 mg PO DAILY [facility] Last Admin: 01/29/23 08:39 Dose: 50 mg Lurasidone HCl (Lurasidone Hcl 20 Mg Tablet) 60 mg PO DAILY [facility] Last Admin: 01/29/23 08:31 Dose: 60 mg Magnesium Hydroxide (Milk Of Magnesia 30 Ml Oral.Susp) 30 ml PO DAILY PRN PRN Reason: Constipation Last Admin: 01/28/23 13:45 Dose: 30 ml Nicotine Polacrilex (Nicotine Polacrilex 2 Mg Gum) 4 mg BUCCAL Q2H PRN PRN Reason: Nicotine Cravings Olanzapine (Olanzapine Odt 10 Mg Tab.Rapdis) 5 mg TRANSLINGU BID [facility] Last Admin: 01/29/23 08:31 Dose: 5 mg Oxcarbazepine (Oxcarbazepine 300 Mg Tablet) 300 mg PO DAILY [facility] Last Admin: 01/29/23 08:31 Dose: 300 mg Oxcarbazepine (Oxcarbazepine 300 Mg Tablet) 600 mg PO BEDTIME [facility] Last Admin: 01/28/23 21:22 Dose: 600 mg Polyethylene Glycol (Polyethylene Glycol 3350 17 Gm Powd.Pack) 17 gm PO BEDTIME PRN PRN Reason: Constipation Last Admin: 01/28/23 21:27 Dose: 17 gm Propranolol HCl (Propranolol Hcl 10 Mg Tablet) 10 mg PO BID [facility]; Protocol Last Admin: 01/29/23 08:31 Dose: 10 mg Sertraline HCl (Sertraline Hcl 25 Mg Tablet) 25 mg PO DAILY [facility] Last Admin: 01/29/23 08:31 Dose: 25 mg Trazodone HCl (Trazodone Hcl 25 Mg Halftab) 75 mg PO BEDTIME MRX1 PRN PRN Reason: Sleep Last Admin: 01/28/23 21:19 Dose: 75 mg Allergies Allergies Allergy/AdvReac Type Severity Reaction Status Date / Time Sulfa (Sulfonamide Allergy Unknown HIVES Verified 05/06/20 20:38 Antibiotics) [SULFA (SULFONAMIDE ANTIBIOTICS)] Assessment & Plan Assessment & Plan (1) Altered mental status: Qualifiers: Altered mental status type: disorientation Qualified Code(s): R41.0 - Disorientation, unspecified Status: Acute Code(s): R41.82 - Altered mental status, unspecified (2) PTSD (post-traumatic stress disorder): Status: Acute Code(s): F43.10 - Post-traumatic stress disorder, unspecified (3) Bipolar disorder: Status: Acute Code(s): F31.9 - Bipolar disorder, unspecified Plan 52 yo single woman with Bipolar Disorder, PTSD and confusion with past medical history of hyperthyroidism presently admitted for management of Bipolar/depression. Plan: cv 15 min checks latuda reduced to 60 mg daily due to possible akathesia trileptal increased to 300mg BID lamictal decreased to 150 mg in am and 100mg at bedtime due to elevated liver enzymes and poor sleep trazodone in creased to 75 mg at hs and MRx1 consider imaging for frontal lobe deterioration clarification collateral contact 01/22/23 Pt experiencing visual/auditory fearful perceptual alterations -Zydis 10 mg bid prn for relieve of severe sx. -AIMS=0, no akathesia noted today Message left for pt's therapist who has called in today. 01/23/23 Continue current regime Encourage milieu involvement Collateral contact 01/24/23 Change Zydis to scheduled vs prn 01/25/23 Decrease Zyprexa to 5 mg bid 01/26/23 Increase Trileptal to 300 mg a.m, 600 mg hs 01/27/23: Patient reports sleeping better; continue current treatment plan 01/28/23:??Continue?current?treatment?plan 01/29/23: Pt requests to make regime changes to those she was taking prior to admission. -Decrease colace to 100 mg daily -Increase Latuda to 80 mg daily -Increase Lamictal to 150 mg bid -Decrease Trileptal to 150 mg bid -Change Propranolol to prn -Decrease Trazodone to 50 mg hs prn -Change Olanzapine to prn -[facility] -Hospitalist consult- R arm edema, forearm, wrist, hand -Meeting with mother and a support of her choice on 01/29. Mother reports pt is not being cared for properly. Pt agrees to this meeting. Patient educated on: therapeutic strategies Reason for continued inpatient stay Substantial Risk for: inability to function and rapid decompensation Time Spent With Patient Time: Total time managing care of this patient today ____ minutes.
--- NOTE | 2023-01-29 09:37 | PC.NURSE ---
Addendum entered by Isabel Toro RN 01/29/23 09:48: temp 98.4 Original Note: pt reports nausea and dizziness since waking. pt also reports left arm swelling. Forearm noted to be swollen, no tenderness or pitting noted; vitals 118/67, 18, 97% ; provider notified
--- NOTE | 2023-01-29 11:01 | PC.NURSE ---
PT REPORTS PAIN WHEN URINATING AND CONSTIPATION; MOM ADMINISTERED, EFFECTIVENESS PENDING; PROVIDER NOTIFIED; AWAITING NEW ORDERS
[2023-01-29] MEDS: Milk of Magnesia 30 ML ORAL.SUSP PO (11:34)
[2023-01-29 18:56] VITALS: BP 130/78; PULSE 82; RESP 16; TEMP 36; O2SAT 96
--- NOTE | 2023-01-29 20:42 | P.EN_ITS ---
Event Note Date of Service: 01/29/23 Event Note: 52-year-old female with history of bipolar disorder, PTSD, who is morbidly obese with BMI greater than 41 admitted to Psychiatry with consult placed to hospitalist service for evaluation of ?right arm, hand, wrist edema? at the request of patient's mother. Patient denies any trauma. No prior history of similar symptoms. She denies any pain. States she feels that since being admitted the left arm is swollen and her wrist band fits tighter than previously. She has full ROM of all joints in LUE. No hx blood clots. On exam, patient has fat pads of the upper extremities bilaterally that appear equal in size without any edematous changes noted to the LUE. There is no focal swelling. Left wrist, elbow, and shoulder are nontender to palpation with full ROM. She reports mild tenderness to gentle squeeze of the left upper arms without any deformity noted. No erythema, warmth. 5/5 strength bue. At this time, there does not appear to be any acute medical issue. No xray imaging indicated. Will check venous duplex LUE to rule out DVT, though suspicion is ve ry low for this. Thank you for allowing me to participate in this consult. Signing off at this time. Please do not hesitate to call for further questions or for any acute medical issues that may arise. Time Spent With Patient Time: Total time managing care of this patient today ____ minutes.
[2023-01-29] MEDS: OXcarbazepine 150 MG TABLET PO (21:40)
[2023-01-29] MEDS: lamoTRIgine 25 MG TABLET 150 MG PO (21:40)
[2023-01-29] MEDS: LORazepam 0.5 MG TABLET PO (21:40)
[2023-01-29] MEDS: traZODone HCL 50 MG TABLET PO (21:40)
[2023-01-29] MEDS: hydrOXYzine HCL 25 MG TABLET PO (21:41)
--- NOTE | 2023-01-30 00:33 | PC.NURSE ---
pt refused cpap
[2023-01-30 07:56] VITALS: BP 134/71; PULSE 70; RESP 16; TEMP 36.6; O2SAT 98
[2023-01-30] MEDS: lamoTRIgine 25 MG TABLET 150 MG PO ×2 (08:32→20:41)
[2023-01-30] MEDS: Gabapentin 300 MG CAPSULE PO ×2 (08:32→20:40)
[2023-01-30] MEDS: OXcarbazepine 150 MG TABLET PO ×2 (08:32→20:38)
[2023-01-30] MEDS: Sertraline HCL 25 MG TABLET PO (08:32)
[2023-01-30] MEDS: Lurasidone HCl 80 MG TABLET PO ×2 (08:33→18:43)
[2023-01-30] MEDS: Docusate Sodium 100 MG CAPSULE PO (08:33)
[2023-01-30 09:22] LABS: MANUAL DIFF FLAG NO
[2023-01-30 09:28] LABS: Basophils Percent Auto 0.4 % (0-2); Eosinophils Absolute Auto 0.2 X10*3/uL (0.0-0.4); Eosinophils Percent Auto 2.6 % (0-4); Hematocrit 39.4 % (37.0-47.0); Hemoglobin 12.6 g/dl (12.0-16.0); Imm Gran Abs Auto 0.02 X10*3/uL (0.00-0.03); Imm Gran Pct Auto 0.3 % (0.0-0.4); Lymphocytes Percent Auto 27.7 % (20-40); Mean Corpuscular Hemoglobin 27.9 pg (27.0-33.0); Mean Corpuscular Volume 87.2 fL (80.0-98.0); Mean Platelet Volume 10.7 fL (9.4-12.3); Monocytes Absolute Auto 0.7 X10*3/uL (0.1-1.2); Monocytes Percent Auto 10.2 % (2-11); Neutrophils Absolute Auto 4.2 x10*3/uL (2.0-8.3); Neutrophils Percent Auto 58.8 % (45-73); Platelet Count 336 X10*3/uL (160-400); Red Blood Count 4.52 X10*6/uL (4.20-5.50); Red Cell Distribution Width 13.8 % (11.0-16.0); White Blood Count 7.2 X10*3/uL (4.8-10.8)
[2023-01-30 09:40] LABS: Alanine Aminotransferase 42 U/L (0-31); Albumin Level 3.6 g/dL (3.5-5.0); Alkaline Phosphatase 94 U/L (39-117); Anion Gap 11 (12-20); Aspartate Amino Transferase 36 U/L (5-31); Bilirubin Total 0.2 mg/dL (0.0-1.0); Blood Urea Nitrogen 16 mg/dL (9-16); Calcium 9.1 mg/dL (8.4-10.2); Carbon Dioxide 29 mmol/L (22-29); Chloride 105 mmol/L (96-108); Estimated Glomerular Filt Rate > 60; Glucose Random 109 mg/dL (60-115); Potassium 3.8 mmol/L (3.3-5.1); Sodium 141 mmol/L (135-145); Total Protein 6.8 g/dL (6.5-8.0)
[2023-01-30 10:06] LABS: Appearance Urine Clear; Color Urine Yellow; Glucose Urine UA Negative (Negative); Leukocyte Esterase Urine Negative (Negative); Nitrite Urine Negative (Negative); UMIC TRIGGER UACC YES; Urine Blood Small (1+) (Negative); Urine Ketones Negative (Negative); Urine Protein Negative (Neg-Trace)
[2023-01-30 10:08] LABS: Bacteria Urine None Seen (None Seen); Hyaline Casts Urine 0-2 /LPF (0-2); RBC Urine >20 /HPF (0-2); Squamous Epithelial Cell Urine 0-2 /HPF (0-2); WBC Urine 0-5 /HPF (0-5)
[2023-01-30] MEDS: HaloperidoL 5 MG TABLET PO ×2 (10:57→20:38)
--- NOTE | 2023-01-30 16:03 | P.PNPSI_ITS ---
Subjective Subjective Date of Service: 01/30/23 Reason For Visit: disorganized agitated behavior Subjective Notes: Conditional Voluntary Healthcare Proxy: No Guardianship: No Medical Problems Affecting Mental Status: No Interim History: Meeting with pt, mother, mother and pt's friend, Cecy Fisher [facility]. Mother reports pt has had a decrease in functioning, unable to complete simple tasks. Beginning in July she also displayed OCD like sx, could not stop doing things in ordered fashion. She has had trouble by history in word finding as well. Mother found that takng Latuda in the a.m. helped, however by 12pm sx had exacerbated. Pt's judgment was poor-walking on [address] [place] [address], found walking downtown. Calling a cab when family was available to drive her. These turned into daily safety concerns, sleep was poor, CPAP compliance was poor (by history, pt is usually precise and organized with good self care. Friend added that there is significant stress at work-pt has been bullied, has minimal supports. 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 Both friend and mother add that addition of Ativan seemed to intensify sx. Pt has a hx of dx of FTE. Per OP team, this is a false diagnosis. Mother disagrees and asked for a repeat MRI. This was ordered and [facility] declined to consider pt for the test (Nahomy Almanza and Pio Mc MD) Mother discussed PET scan availability-we will discuss with [facility], [place]. Rick of neurology. CAT scan ordered at [facility] which pt and mother approve of. Review of medications, new trial of Haldol to augment Latuda-mother commented pt appeard improved today. Pt, mother also discussed HOUSEKEEPING AID issues, need for PAP, Mammogram. Pt recalled a difficult experience with [facility] [place], was tearful and would like to begin this eval at her PCP office, Dr. Varela. Pt reporting nausea, vertigo, dizziness at times but states she has been telling herself not providers. We will begin to specifically ask about these sx. Also discussed CPAP. Respiratory consult for pt was requested as she has questions regarding her settings. Medication Compliance: Yes Side effects from medications: No Attending Groups: Intermittent Review of Systems Acute medical concerns: No Medical Review of Systems: unchanged Review of Systems Comments: intermittent nausea Comments: intermittent vertigo, dizziness Mental Status Exam Mental Status Exam Patient Appearance: Appropriate Patient Orientation: Person, Place and Situation (at times) Level of Consciousness: Awake, Restless and Alert Patient Behavior: Guarded, Talkative, Cooperative, Suspicious, Wandering, Anxious, Distractible, Confused, Isolative and Good Eye Contact Mood Description: Calm, Suspicious, Withdrawn, Constricted, Anxious, Flat, Nervous and Apprehensive Affect Description: Flat Patient Cognition Impaired: No Ability to Follow Directions: Fair Speech Pattern: Perseverating, Spontaneous Speech and Soft-Spoken Memory Description: Episodic Impaired Hallucinations: Auditory Delusions: Paranoid Ideation and Present Perceptual Disturbances: Depersonalization and Derealization Thought Process: Distracted Thought Content: positive for Circumstantial, positive for Perseveration, positive for Loose Associations, positive for Thought Blocking and positive for Tangential Depressive Symptoms: Thoughts of /Suicide (denies) and Difficulty Concentrating Abnormal Motor Activity Signs and Symptoms: Restlessness Judgement: Fair Diagnostics Vital Signs (24Hr): Vital Signs - 24 hr 01/29/23 18:56 01/30/23 07:56 Temperature 96.8 F 97.9 F Pulse Rate 82 70 Respiratory Rate 16 16 Blood Pressure 130/78 134/71 Pulse Oximetry 96 98 Oxygen Delivery Method Room Air Room Air BMI result Body Mass Index 41.6 Labs 01/30/23 09:02 01/30/23 09:02 Labs: Laboratory Results - last 48 hr 01/30/23 01/30/23 09:02 09:27 WBC 7.2 RBC 4.52 Hgb 12.6 Hct 39.4 MCV 87.2 MCH 27.9 MCHC 32.0 RDW 13.8 Plt Count 336 MPV 10.7 Immature Gran % (Auto) 0.3 Neut % (Auto) 58.8 Lymph % (Auto) 27.7 [place] % (Auto) 10.2 Eos % (Auto) 2.6 Baso % (Auto) 0.4 Lymph # (Auto) 2.0 [place] # (Auto) 0.7 Eos # (Auto) 0.2 Baso # (Auto) 0.0 Abs Immat Gran (auto) 0.02 Absolute Neuts (auto) 4.2 Absolute Nucleated RBC 0.000 Nucleated RBC % (auto) 0.0 Sodium 141 Potassium 3.8 Chloride 105 Carbon Dioxide 29 Anion Gap 11 L BUN 16 Creatinine 0.92 Estim Creat Clear Calc 94.0 Estimated GFR > 60 Random Glucose 109 Calcium 9.1 Total Bilirubin 0.2 AST 36 H ALT 42 H Alkaline Phosphatase 94 Total Protein 6.8 Albumin 3.6 Urine Color Yellow Urine Appearance Clear Urine pH 7.0 Ur Specific [place] 1.010 Urine Protein Negative Urine Glucose (UA) Negative Urine Ketones Negative Urine Blood Small (1+) H Urine Nitrite Negative Ur Leukocyte Esterase Negative Urine RBC >20 H Urine WBC 0-5 Ur Squamous Epith Cells 0-2 Urine Bacteria None Seen Hyaline Casts 0-2 Imaging Radiology Impressions: ITS Impressions Venous Duplex 01/30/23 10:06 IMPRESSION: No DVT demonstrated in the left upper extremity Medications Medications Current Medications Acetaminophen (Acetaminophen 325 Mg Tablet) 650 mg PO Q6H PRN PRN Reason: Headache/Pain Mild Scale (1-3) Last Admin: 01/23/23 21:01 Dose: 650 mg Al Hydroxide/Mg Hydroxide (Magnesium Hydrox/Alum Hydrox 30 Ml Oral.Susp) 30 ml PO Q6H PRN PRN Reason: Heartburn/Nausea Last Admin: 01/28/23 10:45 Dose: 30 ml Bisacodyl (Bisacodyl 5 Mg Tablet.Dr) 10 mg PO DAILY [facility] Last Admin: 01/29/23 08:14 Dose: 10 mg Docusate Sodium (Docusate Sodium 100 Mg Capsule) 100 mg PO DAILY [facility] Last Admin: 01/30/23 08:33 Dose: 100 mg Gabapentin (Gabapentin 300 Mg Capsule) 300 mg PO BID [facility] Last Admin: 01/30/23 08:32 Dose: 300 mg Haloperidol (Haloperidol 5 Mg Tablet) 5 mg PO BID [facility] Last Admin: 01/30/23 10:57 Dose: 5 mg Hydroxyzine HCl (Hydroxyzine Hcl 25 Mg Tablet) 25 mg PO Q6H PRN PRN Reason: Anxiety Last Admin: 01/29/23 21:41 Dose: 25 mg Lamotrigine (Lamotrigine 25 Mg Tablet) 150 mg PO BID [facility] Last Admin: 01/30/23 08:32 Dose: 150 mg Lorazepam (Lorazepam 0.5 Mg Tablet) 0.5 mg PO Q12H PRN PRN Reason: Anxiety Last Admin: 01/29/23 21:40 Dose: 0.5 mg Lurasidone HCl (Lurasidone Hcl 80 Mg Tablet) 80 mg PO DAILY@1900 [facility] Magnesium Hydroxide (Milk Of Magnesia 30 Ml Oral.Susp) 30 ml PO DAILY PRN PRN Reason: Constipation Last Admin: 01/29/23 11:34 Dose: 30 ml Nicotine Polacrilex (Nicotine Polacrilex 2 Mg Gum) 4 mg BUCCAL Q2H PRN PRN Reason: Nicotine Cravings Olanzapine (Olanzapine Odt 10 Mg Tab.Rapdis) 5 mg TRANSLINGU DAILY PRN PRN Reason: psychosis Oxcarbazepine (Oxcarbazepine 150 Mg Tablet) 150 mg PO BID [facility] Last Admin: 01/30/23 08:32 Dose: 150 mg Polyethylene Glycol (Polyethylene Glycol 3350 17 Gm Powd.Pack) 17 gm PO BEDTIME PRN PRN Reason: Constipation Last Admin: 01/28/23 21:27 Dose: 17 gm Propranolol HCl (Propranolol Hcl 10 Mg Tablet) 10 mg PO BID PRN; Protocol PRN Reason: anxiety Sertraline HCl (Sertraline Hcl 25 Mg Tablet) 25 mg PO DAILY [facility] Last Admin: 01/30/23 08:32 Dose: 25 mg Trazodone HCl (Trazodone Hcl 50 Mg Tablet) 50 mg PO BEDTIME PRN PRN Reason: Insomnia Last Admin: 01/29/23 21:40 Dose: 50 mg Allergies Allergies Allergy/AdvReac Type Severity Reaction Status Date / Time Sulfa (Sulfonamide Allergy Unknown HIVES Verified 05/06/20 20:38 Antibiotics) [SULFA (SULFONAMIDE ANTIBIOTICS)] Assessment & Plan Assessment & Plan (1) Altered mental status: Qualifiers: Altered mental status type: disorientation Qualified Code(s): R41.0 - Disorientation, unspecified Status: Acute Code(s): R41.82 - Altered mental status, unspecified (2) PTSD (post-traumatic stress disorder): Status: Acute Code(s): F43.10 - Post-traumatic stress disorder, unspecified (3) Bipolar disorder: Status: Acute Code(s): F31.9 - Bipolar disorder, unspecified Plan 52 yo single woman with Bipolar Disorder, PTSD and confusion with past medical history of hyperthyroidism presently admitted for management of Bipolar/depression. Plan: cv 15 min checks latuda reduced to 60 mg daily due to possible akathesia trileptal increased to 300mg BID lamictal decreased to 150 mg in am and 100mg at bedtime due to elevated liver enzymes and poor sleep trazodone in creased to 75 mg at hs and MRx1 consider imaging for frontal lobe deterioration clarification collateral contact 01/22/23 Pt experiencing visual/auditory fearful perceptual alterations -Zydis 10 mg bid prn for relieve of severe sx. -AIMS=0, no akathesia noted today Message left for pt's therapist who has called in today. 01/23/23 Continue current regime Encourage milieu involvement Collateral contact 01/24/23 Change Zydis to scheduled vs prn 01/25/23 Decrease Zyprexa to 5 mg bid 01/26/23 Increase Trileptal to 300 mg a.m, 600 mg hs 01/27/23: Patient reports sleeping better; continue current treatment plan 01/28/23:??Continue?current?treatment?plan 01/29/23: Pt requests to make regime changes to those she was taking prior to admission. -Decrease colace to 100 mg daily -Increase Latuda to 80 mg daily -Increase Lamictal to 150 mg bid -Decrease Trileptal to 150 mg bid -Change Propranolol to prn -Decrease Trazodone to 50 mg hs prn -Change Olanzapine to prn -[facility] -Hospitalist consult- R arm edema, forearm, wrist, hand -Meeting with mother and a support of her choice on 01/29. Mother reports pt is not being cared for properly. Pt agrees to this meeting. 01/30/23 Haldol trial to augment Latuda CAT Brain Patient educated on: therapeutic strategies Guardian/Caregiver educated on: therapeutic strategies Informed Consent: understands Reason for continued inpatient stay Substantial Risk for: med/psych decompensation Time Spent With Patient Time: Total time managing care of this patient today ____ minutes.
[2023-01-30] MEDS: OLANZapine ODT 10 MG TAB.RAPDIS 5 MG TRANSLINGU (16:57)
[2023-01-30 18:00] VITALS: BP 132/74; PULSE 72; TEMP 36.4; O2SAT 98
[2023-01-30] MEDS: Acetaminophen 325 MG TABLET 650 MG PO (18:58)
[2023-01-31] MEDS: OXcarbazepine 150 MG TABLET PO ×2 (08:40→21:54)
[2023-01-31] MEDS: HaloperidoL 5 MG TABLET PO (08:40)
[2023-01-31] MEDS: Sertraline HCL 25 MG TABLET PO (08:40)
[2023-01-31] MEDS: Docusate Sodium 100 MG CAPSULE PO (08:40)
[2023-01-31] MEDS: Gabapentin 300 MG CAPSULE PO ×2 (08:40→21:54)
[2023-01-31] MEDS: lamoTRIgine 25 MG TABLET 150 MG PO ×2 (08:41→21:54)
[2023-01-31 08:46] VITALS: BP 114/64; PULSE 63; RESP 16; TEMP 36.4; O2SAT 97
[2023-01-31] MEDS: OLANZapine ODT 10 MG TAB.RAPDIS TRANSLINGU ×2 (15:02→21:54)
--- NOTE | 2023-01-31 16:46 | P.PNPSI_ITS ---
Subjective Subjective Date of Service: 01/31/23 Reason For Visit: disorganized agitated behavior Subjective Notes: Conditional Voluntary Healthcare Proxy: No Guardianship: No Medical Problems Affecting Mental Status: No Interim History: Increase in disorganization today. Discussed effect of Haldol trial vs Olanzapine given. Pt reports she thinks olanzapine worked better. We will change this and discontinue Haldol. Nausea and dizziness she reports are still there at times, I think it is hormonal Reports constipation is not currently a problem however she worries it will be. Pt incontinent of stool x1. Mother reports pt has discussed her concern about constipation and asks that we assist pt with her menu daily to increase fruit and vegetables. Pt also tells her mother she feels like she is in two worlds, here a minute, then gone. 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 Mother would like a report on doppler results and if salt may be a factor in pt's extremity edema. Medication Compliance: Yes Side effects from medications: No Attending Groups: Yes (structured offered, no process groups yet) Review of Systems Acute medical concerns: No Medical Review of Systems: unchanged Review of Systems Review of Systems Yes Unobtainable due to mental status Mental Status Exam Mental Status Exam Patient Appearance: Appropriate Patient Orientation: Person and Place Level of Consciousness: Awake, Restless and Alert Patient Behavior: Talkative, Cooperative, Wandering, Anxious, Distractible, Confused, Isolative and Good Eye Contact Mood Description: Calm, Withdrawn, Depressed, Anxious, Flat and Apprehensive Affect Description: Flat Patient Cognition Impaired: Yes Ability to Follow Directions: Fair Speech Pattern: Perseverating, Spontaneous Speech and Soft-Spoken Memory Description: Episodic Impaired Hallucinations: None Perceptual Disturbances: Depersonalization and Derealization Thought Process: Distracted, Rumination, Slowed Thinking and Confusion Thought Content: positive for Circumstantial, positive for Perseveration, positive for Loose Associations, positive for Thought Blocking and positive for Tangential Depressive Symptoms: Increased Anxiety, Thoughts of /Suicide (denies) and Difficulty Concentrating Judgement: Poor Diagnostics Vital Signs (24Hr): Vital Signs - 24 hr 01/30/23 18:00 01/31/23 08:46 Temperature 97.6 F 97.6 F Pulse Rate 72 63 Respiratory Rate 16 Blood Pressure 132/74 114/64 Pulse Oximetry 98 97 Oxygen Delivery Method Room Air Room Air BMI result Body Mass Index 41.6 Labs 01/30/23 09:02 01/30/23 09:02 Labs: Laboratory Results - last 48 hr 01/30/23 01/30/23 09:02 09:27 WBC 7.2 RBC 4.52 Hgb 12.6 Hct 39.4 MCV 87.2 MCH 27.9 MCHC 32.0 RDW 13.8 Plt Count 336 MPV 10.7 Immature Gran % (Auto) 0.3 Neut % (Auto) 58.8 Lymph % (Auto) 27.7 [place] % (Auto) 10.2 Eos % (Auto) 2.6 Baso % (Auto) 0.4 Lymph # (Auto) 2.0 [place] # (Auto) 0.7 Eos # (Auto) 0.2 Baso # (Auto) 0.0 Abs Immat Gran (auto) 0.02 Absolute Neuts (auto) 4.2 Absolute Nucleated RBC 0.000 Nucleated RBC % (auto) 0.0 Sodium 141 Potassium 3.8 Chloride 105 Carbon Dioxide 29 Anion Gap 11 L BUN 16 Creatinine 0.92 Estim Creat Clear Calc 94.0 Estimated GFR > 60 Random Glucose 109 Calcium 9.1 Total Bilirubin 0.2 AST 36 H ALT 42 H Alkaline Phosphatase 94 Total Protein 6.8 Albumin 3.6 Urine Color Yellow Urine Appearance Clear Urine pH 7.0 Ur Specific [place] 1.010 Urine Protein Negative Urine Glucose (UA) Negative Urine Ketones Negative Urine Blood Small (1+) H Urine Nitrite Negative Ur Leukocyte Esterase Negative Urine RBC >20 H Urine WBC 0-5 Ur Squamous Epith Cells 0-2 Urine Bacteria None Seen Hyaline Casts 0-2 Imaging Radiology Impressions: ITS Impressions Venous Duplex 01/30/23 10:06 IMPRESSION: No DVT demonstrated in the left upper extremity Head CT 01/30/23 15:17 IMPRESSION: Mild volume loss. No acute intracranial pathology. Medications Medications Current Medications Acetaminophen (Acetaminophen 325 Mg Tablet) 650 mg PO Q6H PRN PRN Reason: Headache/Pain Mild Scale (1-3) Last Admin: 01/30/23 18:58 Dose: 650 mg Al Hydroxide/Mg Hydroxide (Magnesium Hydrox/Alum Hydrox 30 Ml Oral.Susp) 30 ml PO Q6H PRN PRN Reason: Heartburn/Nausea Last Admin: 01/28/23 10:45 Dose: 30 ml Bisacodyl (Bisacodyl 5 Mg Tablet.Dr) 10 mg PO DAILY [facility] Last Admin: 01/29/23 08:14 Dose: 10 mg Docusate Sodium (Docusate Sodium 100 Mg Capsule) 100 mg PO DAILY [facility] Last Admin: 01/31/23 08:40 Dose: 100 mg Gabapentin (Gabapentin 300 Mg Capsule) 300 mg PO BID [facility] Last Admin: 01/31/23 08:40 Dose: 300 mg Hydroxyzine HCl (Hydroxyzine Hcl 25 Mg Tablet) 25 mg PO Q6H PRN PRN Reason: Anxiety Last Admin: 01/29/23 21:41 Dose: 25 mg Lamotrigine (Lamotrigine 25 Mg Tablet) 150 mg PO BID [facility] Last Admin: 01/31/23 08:41 Dose: 150 mg Lorazepam (Lorazepam 0.5 Mg Tablet) 0.5 mg PO Q12H PRN PRN Reason: Anxiety Last Admin: 01/29/23 21:40 Dose: 0.5 mg Lurasidone HCl (Lurasidone Hcl 80 Mg Tablet) 80 mg PO DAILY@1900 [facility] Last Admin: 01/30/23 18:43 Dose: 80 mg Magnesium Hydroxide (Milk Of Magnesia 30 Ml Oral.Susp) 30 ml PO DAILY PRN PRN Reason: Constipation Last Admin: 01/29/23 11:34 Dose: 30 ml Nicotine Polacrilex (Nicotine Polacrilex 2 Mg Gum) 4 mg BUCCAL Q2H PRN PRN Reason: Nicotine Cravings Olanzapine (Olanzapine Odt 10 Mg Tab.Rapdis) 5 mg TRANSLINGU DAILY PRN PRN Reason: psychosis Last Admin: 01/30/23 16:57 Dose: 5 mg Olanzapine (Olanzapine Odt 10 Mg Tab.Rapdis) 10 mg TRANSLINGU BID [facility] Oxcarbazepine (Oxcarbazepine 150 Mg Tablet) 150 mg PO BID [facility] Last Admin: 01/31/23 08:40 Dose: 150 mg Polyethylene Glycol (Polyethylene Glycol 3350 17 Gm Powd.Pack) 17 gm PO BEDTIME PRN PRN Reason: Constipation Last Admin: 01/28/23 21:27 Dose: 17 gm Propranolol HCl (Propranolol Hcl 10 Mg Tablet) 10 mg PO BID PRN; Protocol PRN Reason: anxiety Sertraline HCl (Sertraline Hcl 25 Mg Tablet) 25 mg PO DAILY [facility] Last Admin: 01/31/23 08:40 Dose: 25 mg Trazodone HCl (Trazodone Hcl 50 Mg Tablet) 50 mg PO BEDTIME PRN PRN Reason: Insomnia Last Admin: 01/29/23 21:40 Dose: 50 mg Allergies Allergies Allergy/AdvReac Type Severity Reaction Status Date / Time Sulfa (Sulfonamide Allergy Unknown HIVES Verified 05/06/20 20:38 Antibiotics) [SULFA (SULFONAMIDE ANTIBIOTICS)] Assessment & Plan Assessment & Plan (1) Altered mental status: Qualifiers: Altered mental status type: disorientation Qualified Code(s): R41.0 - Disorientation, unspecified Status: Acute Code(s): R41.82 - Altered mental status, unspecified (2) PTSD (post-traumatic stress disorder): Status: Acute Code(s): F43.10 - Post-traumatic stress disorder, unspecified (3) Bipolar disorder: Status: Acute Code(s): F31.9 - Bipolar disorder, unspecified Plan 52 yo single woman with Bipolar Disorder, PTSD and confusion with past medical history of hyperthyroidism presently admitted for management of Bipolar/depression. Plan: cv 15 min checks latuda reduced to 60 mg daily due to possible akathesia trileptal increased to 300mg BID lamictal decreased to 150 mg in am and 100mg at bedtime due to elevated liver enzymes and poor sleep trazodone in creased to 75 mg at hs and MRx1 consider imaging for frontal lobe deterioration clarification collateral contact 01/22/23 Pt experiencing visual/auditory fearful perceptual alterations -Zydis 10 mg bid prn for relieve of severe sx. -AIMS=0, no akathesia noted today Message left for pt's therapist who has called in today. 01/23/23 Continue current regime Encourage milieu involvement Collateral contact 01/24/23 Change Zydis to scheduled vs prn 01/25/23 Decrease Zyprexa to 5 mg bid 01/26/23 Increase Trileptal to 300 mg a.m, 600 mg hs 01/27/23: Patient reports sleeping better; continue current treatment plan 01/28/23:??Continue?current?treatment?plan 01/29/23: Pt requests to make regime changes to those she was taking prior to admission. -Decrease colace to 100 mg daily -Increase Latuda to 80 mg daily -Increase Lamictal to 150 mg bid -Decrease Trileptal to 150 mg bid -Change Propranolol to prn -Decrease Trazodone to 50 mg hs prn -Change Olanzapine to prn -[facility] -Hospitalist consult- R arm edema, forearm, wrist, hand -Meeting with mother and a support of her choice on 01/29. Mother reports pt is not being cared for properly. Pt agrees to this meeting. 01/30/23 Haldol trial to augment Latuda CAT Brain 01/31/23 DC Haldol Return to Zydis 10 mg bid Patient educated on: medication risk/benefits and therapeutic strategies Informed Consent: further education needed Reason for continued inpatient stay Substantial Risk for: rapid decompensation Time Spent With Patient Time: Total time managing care of this patient today ____ minutes.
[2023-01-31] MEDS: Lurasidone HCl 80 MG TABLET PO (20:57)
[2023-02-01 08:30] VITALS: BP 107/64; PULSE 93; RESP 18; TEMP 36.4; O2SAT 99
[2023-02-01] MEDS: OLANZapine ODT 10 MG TAB.RAPDIS TRANSLINGU ×2 (08:37→21:40)
[2023-02-01] MEDS: Gabapentin 300 MG CAPSULE PO ×2 (08:37→21:39)
[2023-02-01] MEDS: OXcarbazepine 150 MG TABLET PO ×2 (08:37→21:40)
[2023-02-01] MEDS: lamoTRIgine 25 MG TABLET 150 MG PO ×2 (08:37→21:38)
[2023-02-01] MEDS: Sertraline HCL 25 MG TABLET PO (08:37)
[2023-02-01] MEDS: Docusate Sodium 100 MG CAPSULE PO (08:37)
[2023-02-01] MEDS: LORazepam 0.5 MG TABLET PO (10:46)
--- NOTE | 2023-02-01 11:52 | HO.PSYCHPN ---
Subjective Subjective Date of Service: 02/01/23 Reason For Visit: disorganized agitated behavior Interim History: Met with patient; discussed with team; reviewed notes Patient remains confused. Yesterday evening 2nd shift patient urinated in the defecated on herself, worried that there might not being of toilet paper for other people. Today she says she is not great... And that she is confused. She says I do not know where I am but then when asked says [facility]; she then says I do not know the president but then says [facility]. Patient looks at sba underwriter's watch, points to an says it has been a long-time... Mother visited and expressed concern for peripheral edema; reviewed progress notes and Calvin donahue. Mental Status Exam Mental Status Exam Patient Appearance: Appropriate Patient Orientation: Person and Place Level of Consciousness: Awake, Restless and Alert Patient Behavior: Talkative, Cooperative, Wandering, Anxious, Distractible, Confused and Good Eye Contact Mood Description: Constricted, Depressed, Anxious and Apprehensive Affect Description: Constricted Patient Cognition Impaired: Yes Ability to Follow Directions: Fair Speech Pattern: Perseverating, Spontaneous Speech and Soft-Spoken Memory Description: Episodic Impaired Hallucinations: None Perceptual Disturbances: Depersonalization and Derealization Thought Process: Distracted, Rumination, Slowed Thinking and Confusion Thought Content: positive for Circumstantial, positive for Perseveration, positive for Loose Associations, positive for Thought Blocking and positive for Tangential Depressive Symptoms: Increased Anxiety, Thoughts of /Suicide (denies) and Difficulty Concentrating Judgement: Poor Diagnostics Vital Signs (24Hr): Vital Signs - 24 hr 02/01/23 08:30 Temperature 97.6 F Pulse Rate 93 Respiratory Rate 18 Blood Pressure 107/64 Pulse Oximetry 99 Oxygen Delivery Method Room Air BMI result Body Mass Index 41.6 Labs 01/30/23 09:02 01/30/23 09:02 Imaging Radiology Impressions: ITS Impressions Venous Duplex 01/30/23 10:06 IMPRESSION: No DVT demonstrated in the left upper extremity Head CT 01/30/23 15:17 IMPRESSION: Mild volume loss. No acute intracranial pathology. Medications Medications Current Medications Acetaminophen (Acetaminophen 325 Mg Tablet) 650 mg PO Q6H PRN PRN Reason: Headache/Pain Mild Scale (1-3) Last Admin: 01/30/23 18:58 Dose: 650 mg Al Hydroxide/Mg Hydroxide (Magnesium Hydrox/Alum Hydrox 30 Ml Oral.Susp) 30 ml PO Q6H PRN PRN Reason: Heartburn/Nausea Last Admin: 01/28/23 10:45 Dose: 30 ml Bisacodyl (Bisacodyl 5 Mg Tablet.Dr) 10 mg PO DAILY REPLACED BY [facility] Last Admin: 01/29/23 08:14 Dose: 10 mg Docusate Sodium (Docusate Sodium 100 Mg Capsule) 100 mg PO DAILY [facility] Last Admin: 02/01/23 08:37 Dose: 100 mg Gabapentin (Gabapentin 300 Mg Capsule) 300 mg PO BID [facility] Last Admin: 02/01/23 08:37 Dose: 300 mg Hydroxyzine HCl (Hydroxyzine Hcl 25 Mg Tablet) 25 mg PO Q6H PRN PRN Reason: Anxiety Last Admin: 01/29/23 21:41 Dose: 25 mg Lamotrigine (Lamotrigine 25 Mg Tablet) 150 mg PO BID [facility] Last Admin: 02/01/23 08:37 Dose: 150 mg Lorazepam (Lorazepam 0.5 Mg Tablet) 0.5 mg PO Q12H PRN PRN Reason: Anxiety Last Admin: 02/01/23 10:46 Dose: 0.5 mg Lurasidone HCl (Lurasidone Hcl 80 Mg Tablet) 80 mg PO DAILY@1900 [facility] Last Admin: 01/31/23 20:57 Dose: 80 mg Magnesium Hydroxide (Milk Of Magnesia 30 Ml Oral.Susp) 30 ml PO DAILY PRN PRN Reason: Constipation Last Admin: 01/29/23 11:34 Dose: 30 ml Nicotine Polacrilex (Nicotine Polacrilex 2 Mg Gum) 4 mg BUCCAL Q2H PRN PRN Reason: Nicotine Cravings Olanzapine (Olanzapine Odt 10 Mg Tab.Rapdis) 5 mg TRANSLINGU DAILY PRN PRN Reason: psychosis Last Admin: 01/30/23 16:57 Dose: 5 mg Olanzapine (Olanzapine Odt 10 Mg Tab.Rapdis) 10 mg TRANSLINGU BID REPLACED BY [facility] Last Admin: 02/01/23 08:37 Dose: 10 mg Oxcarbazepine (Oxcarbazepine 150 Mg Tablet) 150 mg PO BID [facility]PL[facility] BY [facility] Last Admin: 02/01/23 08:37 Dose: 150 mg Polyethylene Glycol (Polyethylene Glycol 3350 17 Gm Powd.Pack) 17 gm PO BEDTIME PRN PRN Reason: Constipation Last Admin: 01/28/23 21:27 Dose: 17 gm Propranolol HCl (Propranolol Hcl 10 Mg Tablet) 10 mg PO BID PRN; Protocol PRN Reason: anxiety Sertraline HCl (Sertraline Hcl 25 Mg Tablet) 25 mg PO DAILY [facility] Last Admin: 02/01/23 08:37 Dose: 25 mg Trazodone HCl (Trazodone Hcl 50 Mg Tablet) 50 mg PO BEDTIME PRN PRN Reason: Insomnia Last Admin: 01/29/23 21:40 Dose: 50 mg Allergies Allergies Allergy/AdvReac Type Severity Reaction Status Date / Time Sulfa (Sulfonamide Allergy Unknown HIVES Verified 05/06/20 20:38 Antibiotics) [SULFA (SULFONAMIDE ANTIBIOTICS)] Assessment & Plan Assessment & Plan (1) Altered mental status: Qualifiers: Altered mental status type: disorientation Qualified Code(s): R41.0 - Disorientation, unspecified Status: Acute Code(s): R41.82 - Altered mental status, unspecified (2) PTSD (post-traumatic stress disorder): Status: Acute Code(s): F43.10 - Post-traumatic stress disorder, unspecified (3) Bipolar disorder: Status: Acute Code(s): F31.9 - Bipolar disorder, unspecified Plan 52 yo single woman with Bipolar Disorder, PTSD and confusion with past medical history of hyperthyroidism presently admitted for management of Bipolar/depression. Plan: cv 15 min checks latuda reduced to 60 mg daily due to possible akathesia trileptal increased to 300mg BID lamictal decreased to 150 mg in am and 100mg at bedtime due to elevated liver enzymes and poor sleep trazodone in creased to 75 mg at hs and MRx1 consider imaging for frontal lobe deterioration clarification collateral contact 01/22/23 Pt experiencing visual/auditory fearful perceptual alterations -Zydis 10 mg bid prn for relieve of severe sx. -AIMS=0, no akathesia noted today Message left for pt's therapist who has called in today. 01/23/23 Continue current regime Encourage milieu involvement Collateral contact 01/24/23 Change Zydis to scheduled vs prn 01/25/23 Decrease Zyprexa to 5 mg bid 01/26/23 Increase Trileptal to 300 mg a.m, 600 mg hs 01/27/23: Patient reports sleeping better; continue current treatment plan 01/28/23:??Continue?current?treatment?plan 01/29/23: Pt requests to make regime changes to those she was taking prior to admission. -Decrease colace to 100 mg daily -Increase Latuda to 80 mg daily -Increase Lamictal to 150 mg bid -Decrease Trileptal to 150 mg bid -Change Propranolol to prn -Decrease Trazodone to 50 mg hs prn -Change Olanzapine to prn -[facility] -Hospitalist consult- R arm edema, forearm, wrist, hand -Meeting with mother and a support of her choice on 01/29. Mother reports pt is not being cared for properly. Pt agrees to this meeting. 01/30/23 Haldol trial to augment Latuda CAT Brain 01/31/23 DC Haldol Return to Zydis 10 mg bid 02/01/23 Patient remains confused. Yesterday evening 2nd shift patient urinated in the defecated on herself, worried that there might not being of toilet paper for other people. Today she says she is not great... And that she is confused. She says I do not know where I am but then when asked says [facility]; she then says I do not know the president but then says [facility]. Patient looks at sba underwriter's watch, points to an says it has been a long-time... Mother visited and expressed concern for peripheral edema Considered lowering gabapentin which could be a potential cause, however patient was admitted already on this medication; sba underwriter reviewed progress notes and Calvin donahue (has discussed with mother) and will be back tomorrow Patient educated on: diagnosis Informed Consent: further education needed Reason for continued inpatient stay Substantial Risk for: inability to function Time Spent With Patient Time: Total time managing care of this patient today ____ minutes.
[2023-02-01] MEDS: hydrOXYzine HCL 25 MG TABLET PO (16:12)
[2023-02-01 18:00] VITALS: BP 120/67; PULSE 93; RESP 16; TEMP 36.4; O2SAT 98
[2023-02-01] MEDS: OLANZapine ODT 10 MG TAB.RAPDIS 5 MG TRANSLINGU (18:20)
[2023-02-01] MEDS: Lurasidone HCl 80 MG TABLET PO (21:09)
[2023-02-02 08:00] VITALS: BP 117/67; PULSE 72; RESP 16; TEMP 36.4; O2SAT 98
[2023-02-02] MEDS: lamoTRIgine 25 MG TABLET 150 MG PO ×2 (09:12→20:56)
[2023-02-02] MEDS: Sertraline HCL 25 MG TABLET PO (09:13)
[2023-02-02] MEDS: Gabapentin 300 MG CAPSULE PO (09:14)
[2023-02-02] MEDS: Docusate Sodium 100 MG CAPSULE PO (09:14)
[2023-02-02] MEDS: OLANZapine ODT 10 MG TAB.RAPDIS TRANSLINGU ×2 (09:14→20:56)
[2023-02-02] MEDS: OXcarbazepine 150 MG TABLET PO ×2 (09:14→20:56)
--- NOTE | 2023-02-02 15:26 | P.PNPSI_ITS ---
Subjective Subjective Date of Service: 02/02/23 Reason For Visit: disorganized agitated behavior Subjective Notes: Conditional Voluntary Healthcare Proxy: No Guardianship: No Medical Problems Affecting Mental Status: No Interim History: Disorganized, paranoid and suspicious this a.m. Difficult beginning-spit out meds, needed to re-take them, confused. Met with pt ~1pm. She is less symptomatic. She reports I feel pretty good . She discussed several topics. Denies vertigo, syncope, dizziness, nausea, vomiting. She spoke of worry-about where some of her belongings might be, including [place], jewelry. Worry about paperwork in her home for short term disability, housing-there are dates these need to be fille out (02/10 she believes). Asks if we will help her with paperwork and assured her we will assist in any way appropriate to her needs. Spoke of her worry about others-about others having enough, being well. Do you think I cause others to have a hard time? Worries about her mother- she does what she can . I worry when I am not with her, what if she dies? (tearful) Discussion. Reports edema has not changed in her arm-discussed possibility of Gabapentin being a potential cause, however with no changes in dose since admission. We will begin tapering. Discussed PTSD sx, feelings of choking at times- I know this is a flashback- I have had this for a long time. 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 Pt reviewed medicine questions, we initiated her supplements as requested and when asked about her view about how she was doing- I am better, but I am manic-the zyprexa is the right choice for me. Email received from pt's mother asking that pt be seen by hospitalist for UE edema (this was completed on 01/29/23.) Mother also asks for [place] Scan[place] [facility] [place] for [place]-we do not have capacity to do PET. Medication Compliance: Yes Side effects from medications: Yes (? gabapentin possibly causing UE edema) Attending Groups: Yes (structured) Review of Systems Acute medical concerns: No Medical Review of Systems: unchanged Review of Systems Comments: upper extremity edema Mental Status Exam Mental Status Exam Patient Appearance: Disheveled Patient Orientation: Person, Place and Situation Level of Consciousness: Alert Patient Behavior: Talkative, Anxious, Fatigued, Good Eye Contact and Crying Mood Description: Sad Affect Description: Flat Patient Cognition Impaired: No Ability to Follow Directions: Good Speech Pattern: Perseverating, Spontaneous Speech and Soft-Spoken Memory Description: Episodic Impaired Hallucinations: None (denies this afternoon) Delusions: Not Present Perceptual Disturbances: Depersonalization and Derealization Thought Process: Rumination and Goal Oriented Thought Content: positive for Circumstantial, positive for Perseveration and positive for Suicidal Ideation (denies) Depressive Symptoms: Increased Anxiety and Thoughts of /Suicide (denies) Judgement: Poor Diagnostics Vital Signs (24Hr): Vital Signs - 24 hr 02/01/23 18:00 02/02/23 08:00 Temperature 97.5 F 97.6 F Pulse Rate 93 72 Respiratory Rate 16 16 Blood Pressure 120/67 117/67 Pulse Oximetry 98 98 Oxygen Delivery Method Room Air Room Air BMI result Body Mass Index 41.6 Labs 01/30/23 09:02 01/30/23 09:02 Imaging Radiology Impressions: ITS Impressions Venous Duplex 01/30/23 10:06 IMPRESSION: No DVT demonstrated in the left upper extremity Head CT 01/30/23 15:17 IMPRESSION: Mild volume loss. No acute intracranial pathology. Medications Medications Current Medications Acetaminophen (Acetaminophen 325 Mg Tablet) 650 mg PO Q6H PRN PRN Reason: Headache/Pain Mild Scale (1-3) Last Admin: 01/30/23 18:58 Dose: 650 mg Al Hydroxide/Mg Hydroxide (Magnesium Hydrox/Alum Hydrox 30 Ml Oral.Susp) 30 ml PO Q6H PRN PRN Reason: Heartburn/Nausea Last Admin: 01/28/23 10:45 Dose: 30 ml Bisacodyl (Bisacodyl 5 Mg Tablet.Dr) 10 mg PO DAILY REPLACED BY [facility] Last Admin: 01/29/23 08:14 Dose: 10 mg Docusate Sodium (Docusate Sodium 100 Mg Capsule) 100 mg PO DAILY REPLACED BY [facility] Last Admin: 02/02/23 09:14 Dose: 100 mg Gabapentin (Gabapentin 100 Mg Capsule) 200 mg PO BID GEM Stop: 02/04/23 09:00 Gabapentin (Gabapentin 100 Mg Capsule) 100 mg PO BID REPLACED BY [facility] Hydroxyzine HCl (Hydroxyzine Hcl 25 Mg Tablet) 25 mg PO Q6H PRN PRN Reason: Anxiety Last Admin: 02/01/23 16:12 Dose: 25 mg Lamotrigine (Lamotrigine 25 Mg Tablet) 150 mg PO BID REPLACED BY [facility] Last Admin: 02/02/23 09:12 Dose: 150 mg Lorazepam (Lorazepam 0.5 Mg Tablet) 0.5 mg PO Q12H PRN PRN Reason: Anxiety Last Admin: 02/01/23 10:46 Dose: 0.5 mg Lurasidone HCl (Lurasidone Hcl 80 Mg Tablet) 80 mg PO DAILY@1900 REPLACED BY [facility] Last Admin: 02/01/23 21:09 Dose: 80 mg Magnesium Hydroxide (Milk Of Magnesia 30 Ml Oral.Susp) 30 ml PO DAILY PRN PRN Reason: Constipation Last Admin: 01/29/23 11:34 Dose: 30 ml Nicotine Polacrilex (Nicotine Polacrilex 2 Mg Gum) 4 mg BUCCAL Q2H PRN PRN Reason: Nicotine Cravings Olanzapine (Olanzapine Odt 10 Mg Tab.Rapdis) 5 mg TRANSLINGU DAILY PRN PRN Reason: psychosis Last Admin: 02/01/23 18:20 Dose: 5 mg Olanzapine (Olanzapine Odt 10 Mg Tab.Rapdis) 10 mg TRANSLINGU BID REPLACED BY [facility] Last Admin: 02/02/23 09:14 Dose: 10 mg Oxcarbazepine (Oxcarbazepine 150 Mg Tablet) 150 mg PO BID REPLACED BY [facility] Last Admin: 02/02/23 09:14 Dose: 150 mg Polyethylene Glycol (Polyethylene Glycol 3350 17 Gm Powd.Pack) 17 gm PO BEDTIME PRN PRN Reason: Constipation Last Admin: 01/28/23 21:27 Dose: 17 gm Propranolol HCl (Propranolol Hcl 10 Mg Tablet) 10 mg PO BID PRN; Protocol PRN Reason: anxiety Pyridoxine HCl (Pyridoxine Hcl (Vitamin B6) 50 Mg Tablet) 25 mg PO DAILY REPLACED BY [facility] Sertraline HCl (Sertraline Hcl 25 Mg Tablet) 25 mg PO DAILY REPLACED BY [facility] Last Admin: 02/02/23 09:13 Dose: 25 mg Trazodone HCl (Trazodone Hcl 50 Mg Tablet) 50 mg PO BEDTIME PRN PRN Reason: Insomnia Last Admin: 01/29/23 21:40 Dose: 50 mg Vitamin D (Cholecalciferol (Vitamin D3) 10 Mcg Tablet) 20 mcg PO DAILY GEM Allergies Allergies Allergy/AdvReac Type Severity Reaction Status Date / Time Sulfa (Sulfonamide Allergy Unknown HIVES Verified 05/06/20 20:38 Antibiotics) [SULFA (SULFONAMIDE ANTIBIOTICS)] Assessment & Plan Assessment & Plan (1) Altered mental status: Qualifiers: Altered mental status type: disorientation Qualified Code(s): R41.0 - Disorientation, unspecified Status: Acute Code(s): R41.82 - Altered mental status, unspecified (2) PTSD (post-traumatic stress disorder): Status: Acute Code(s): F43.10 - Post-traumatic stress disorder, unspecified (3) Bipolar disorder: Status: Acute Code(s): F31.9 - Bipolar disorder, unspecified Plan 52 yo single woman with Bipolar Disorder, PTSD and confusion with past medical history of hyperthyroidism presently admitted for management of Bipolar/depression. Plan: cv 15 min checks latuda reduced to 60 mg daily due to possible akathesia trileptal increased to 300mg BID lamictal decreased to 150 mg in am and 100mg at bedtime due to elevated liver enzymes and poor sleep trazodone in creased to 75 mg at hs and MRx1 consider imaging for frontal lobe deterioration clarification collateral contact 01/22/23 Pt experiencing visual/auditory fearful perceptual alterations -Zydis 10 mg bid prn for relieve of severe sx. -AIMS=0, no akathesia noted today Message left for pt's therapist who has called in today. 01/23/23 Continue current regime Encourage milieu involvement Collateral contact 01/24/23 Change Zydis to scheduled vs prn 01/25/23 Decrease Zyprexa to 5 mg bid 01/26/23 Increase Trileptal to 300 mg a.m, 600 mg hs 01/27/23: Patient reports sleeping better; continue current treatment plan 01/28/23:??Continue?current?treatment?plan 01/29/23: Pt requests to make regime changes to those she was taking prior to admission. -Decrease colace to 100 mg daily -Increase Latuda to 80 mg daily -Increase Lamictal to 150 mg bid -Decrease Trileptal to 150 mg bid -Change Propranolol to prn -Decrease Trazodone to 50 mg hs prn -Change Olanzapine to prn -[facility] -Hospitalist consult- R arm edema, forearm, wrist, hand -Meeting with mother and a support of her choice on 01/29. Mother reports pt is not being cared for properly. Pt agrees to this meeting. 01/30/23 Haldol trial to augment Latuda CAT Brain 01/31/23 DC Haldol Return to Zydis 10 mg bid 02/01/23 Patient remains confused. Yesterday evening 2nd shift patient urinated in the defecated on herself, worried that there might not being of toilet paper for other people. Today she says she is not great... And that she is confused. She says I do not know where I am but then when asked says [facility]; she then says I do not know the president but then says John. Patient looks at account underwriter's watch, points to an says it has been a long-time... 02/02/23 Symptoms of dysphoric samuel. Pt agrees to allow tapering of Gabapentin 200 mg bid 02/02-, 100 mg bid 02/04 then re-assess. Continue Olanzapine Mother requests hospitalist consult for upper extremity edema- completed 01/29 and [place] [facility] [place] today for [place], pt's team will return 02/05. Mother visited and expressed concern for peripheral edema Considered lowering gabapentin which could be a potential cause, however patient was admitted already on this medication; account underwriter reviewed progress notes and Calvin donahue (has discussed with mother) and will be back tomorrow Patient educated on: medication risk/benefits and therapeutic strategies Informed Consent: further education needed Reason for continued inpatient stay Substantial Risk for: rapid decompensation Time Spent With Patient Time: Total time managing care of this patient today ____ minutes.
[2023-02-02 18:00] VITALS: BP 122/59; PULSE 88; RESP 18; TEMP 36.3; O2SAT 98
[2023-02-02] MEDS: Gabapentin 100 MG CAPSULE 200 MG PO (20:55)
[2023-02-02] MEDS: Lurasidone HCl 80 MG TABLET PO (20:55)
[2023-02-03 08:01] VITALS: BP 119/65; PULSE 76; RESP 16; TEMP 36.2; O2SAT 97
[2023-02-03] MEDS: lamoTRIgine 25 MG TABLET 150 MG PO ×2 (09:31→21:24)
[2023-02-03] MEDS: Pyridoxine HCl (Vitamin B6) 50 MG TABLET 25 MG PO (09:33)
[2023-02-03] MEDS: OXcarbazepine 150 MG TABLET PO ×2 (09:34→21:25)
[2023-02-03] MEDS: Docusate Sodium 100 MG CAPSULE PO (09:34)
[2023-02-03] MEDS: Cholecalciferol (Vitamin D3) 10 MCG TABLET 20 MCG PO (09:35)
[2023-02-03] MEDS: Gabapentin 100 MG CAPSULE 200 MG PO ×2 (09:35→21:24)
[2023-02-03] MEDS: OLANZapine ODT 10 MG TAB.RAPDIS TRANSLINGU ×2 (09:36→21:24)
[2023-02-03 12:30] VITALS: BP 132/73
--- NOTE | 2023-02-03 15:57 | HO.PSYCHPN ---
Subjective Subjective Date of Service: 02/03/23 Reason For Visit: disorganized agitated behavior Interim History: met with patient. Discussed with Nursing. Overall no management issues. CT pending. Has been guarded and suspicious. Noted augmentation with olanzapine. With writer technical publications she does have difficulty with focus and concentration. Stated she was admitted here 3 weeks ago (closer to 2 weeks), very hard time staying focused and commenting mostly on her environment for example that is full, when reading oxygen tank sign, seeing phones on the wall then talking about contacting family,. Denies depression. Is guarded. Did not answer feeling safe and not. No evidence of SI. Medication Compliance: Yes Side effects from medications: No Attending Groups: Intermittent Review of Systems Acute medical concerns: No Review of Systems Review of Systems Yes Unobtainable due to mental status Mental Status Exam Mental Status Exam Patient Appearance: Disheveled Patient Orientation: Person, Place and Situation Level of Consciousness: Alert Patient Behavior: Talkative, Anxious, Fatigued, Good Eye Contact and Crying Mood Description: Sad Affect Description: Flat Patient Cognition Impaired: No Ability to Follow Directions: Good Speech Pattern: Perseverating, Spontaneous Speech and Soft-Spoken Memory Description: Episodic Impaired Hallucinations: None (denies this afternoon) Delusions: Not Present Perceptual Disturbances: Depersonalization and Derealization Thought Process: Rumination and Goal Oriented Thought Content: positive for Circumstantial, positive for Perseveration and positive for Suicidal Ideation (denies) Depressive Symptoms: Increased Anxiety and Thoughts of /Suicide (denies) Judgement: Poor Diagnostics Vital Signs (24Hr): Vital Signs - 24 hr 02/02/23 18:00 02/03/23 08:01 02/03/23 12:30 Temperature 97.4 F 97.1 F Pulse Rate 88 76 Respiratory Rate 18 16 Blood Pressure 122/59 L 119/65 132/73 Pulse Oximetry 98 97 Oxygen Delivery Method Room Air Room Air BMI result Body Mass Index 41.6 Labs 01/30/23 09:02 01/30/23 09:02 Imaging Radiology Impressions: ITS Impressions Venous Duplex 01/30/23 10:06 IMPRESSION: No DVT demonstrated in the left upper extremity Head CT 01/30/23 15:17 IMPRESSION: Mild volume loss. No acute intracranial pathology. Medications Medications Current Medications Acetaminophen (Acetaminophen 325 Mg Tablet) 650 mg PO Q6H PRN PRN Reason: Headache/Pain Mild Scale (1-3) Last Admin: 01/30/23 18:58 Dose: 650 mg Al Hydroxide/Mg Hydroxide (Magnesium Hydrox/Alum Hydrox 30 Ml Oral.Susp) 30 ml PO Q6H PRN PRN Reason: Heartburn/Nausea Last Admin: 01/28/23 10:45 Dose: 30 ml Bisacodyl (Bisacodyl 5 Mg Tablet.Dr) 10 mg PO DAILY [facility] Last Admin: 01/29/23 08:14 Dose: 10 mg Docusate Sodium (Docusate Sodium 100 Mg Capsule) 100 mg PO DAILY [facility] Last Admin: 02/03/23 09:34 Dose: 100 mg Gabapentin (Gabapentin 100 Mg Capsule) 200 mg PO BID [facility] Stop: 02/04/23 09:00 Last Admin: 02/03/23 09:35 Dose: 200 mg Gabapentin (Gabapentin 100 Mg Capsule) 100 mg PO BID [facility] Hydroxyzine HCl (Hydroxyzine Hcl 25 Mg Tablet) 25 mg PO Q6H PRN PRN Reason: Anxiety Last Admin: 02/01/23 16:12 Dose: 25 mg Lamotrigine (Lamotrigine 25 Mg Tablet) 150 mg PO BID [facility] Last Admin: 02/03/23 09:31 Dose: 150 mg Lorazepam (Lorazepam 0.5 Mg Tablet) 0.5 mg PO Q12H PRN PRN Reason: Anxiety Last Admin: 02/01/23 10:46 Dose: 0.5 mg Lurasidone HCl (Lurasidone Hcl 80 Mg Tablet) 80 mg PO DAILY@1900 [facility] Last Admin: 02/02/23 20:55 Dose: 80 mg Magnesium Hydroxide (Milk Of Magnesia 30 Ml Oral.Susp) 30 ml PO DAILY PRN PRN Reason: Constipation Last Admin: 01/29/23 11:34 Dose: 30 ml Nicotine Polacrilex (Nicotine Polacrilex 2 Mg Gum) 4 mg BUCCAL Q2H PRN PRN Reason: Nicotine Cravings Olanzapine (Olanzapine Odt 10 Mg Tab.Rapdis) 5 mg TRANSLINGU DAILY PRN PRN Reason: psychosis Last Admin: 02/01/23 18:20 Dose: 5 mg Olanzapine (Olanzapine Odt 10 Mg Tab.Rapdis) 10 mg TRANSLINGU BID [facility] Last Admin: 02/03/23 09:36 Dose: 10 mg Oxcarbazepine (Oxcarbazepine 150 Mg Tablet) 150 mg PO BID [facility] Last Admin: 02/03/23 09:34 Dose: 150 mg Polyethylene Glycol (Polyethylene Glycol 3350 17 Gm Powd.Pack) 17 gm PO BEDTIME PRN PRN Reason: Constipation Last Admin: 01/28/23 21:27 Dose: 17 gm Propranolol HCl (Propranolol Hcl 10 Mg Tablet) 10 mg PO BID PRN; Protocol PRN Reason: anxiety Pyridoxine HCl (Pyridoxine Hcl (Vitamin B6) 50 Mg Tablet) 25 mg PO DAILY [facility] Last Admin: 02/03/23 09:33 Dose: 25 mg Sertraline HCl (Sertraline Hcl 25 Mg Tablet) 25 mg PO DAILY [facility] Last Admin: 02/02/23 09:13 Dose: 25 mg Trazodone HCl (Trazodone Hcl 50 Mg Tablet) 50 mg PO BEDTIME PRN PRN Reason: Insomnia Last Admin: 01/29/23 21:40 Dose: 50 mg Vitamin D (Cholecalciferol (Vitamin D3) 10 Mcg Tablet) 20 mcg PO DAILY [facility] Last Admin: 02/03/23 09:35 Dose: 20 mcg Allergies Allergies Allergy/AdvReac Type Severity Reaction Status Date / Time Sulfa (Sulfonamide Allergy Unknown HIVES Verified 05/06/20 20:38 Antibiotics) [SULFA (SULFONAMIDE ANTIBIOTICS)] Assessment & Plan Assessment & Plan (1) Altered mental status: Qualifiers: Altered mental status type: disorientation Qualified Code(s): R41.0 - Disorientation, unspecified Status: Acute Code(s): R41.82 - Altered mental status, unspecified (2) PTSD (post-traumatic stress disorder): Status: Acute Code(s): F43.10 - Post-traumatic stress disorder, unspecified (3) Bipolar disorder: Status: Acute Code(s): F31.9 - Bipolar disorder, unspecified Plan 52 yo single woman with Bipolar Disorder, PTSD and confusion with past medical history of hyperthyroidism presently admitted for management of Bipolar/depression. Plan: cv 15 min checks latuda reduced to 60 mg daily due to possible akathesia trileptal increased to 300mg BID lamictal decreased to 150 mg in am and 100mg at bedtime due to elevated liver enzymes and poor sleep trazodone in creased to 75 mg at hs and MRx1 consider imaging for frontal lobe deterioration clarification collateral contact 01/22/23 Pt experiencing visual/auditory fearful perceptual alterations -Zydis 10 mg bid prn for relieve of severe sx. -AIMS=0, no akathesia noted today Message left for pt's therapist who has called in today. 01/23/23 Continue current regime Encourage milieu involvement Collateral contact 01/24/23 Change Zydis to scheduled vs prn 01/25/23 Decrease Zyprexa to 5 mg bid 01/26/23 Increase Trileptal to 300 mg a.m, 600 mg hs 01/27/23: Patient reports sleeping better; continue current treatment plan 01/28/23:??Continue?current?treatment?plan 01/29/23: Pt requests to make regime changes to those she was taking prior to admission. -Decrease colace to 100 mg daily -Increase Latuda to 80 mg daily -Increase Lamictal to 150 mg bid -Decrease Trileptal to 150 mg bid -Change Propranolol to prn -Decrease Trazodone to 50 mg hs prn -Change Olanzapine to prn -[facility] -Hospitalist consult- R arm edema, forearm, wrist, hand -Meeting with mother and a support of her choice on 01/29. Mother reports pt is not being cared for properly. Pt agrees to this meeting. 01/30/23 Haldol trial to augment Latuda CAT Brain 01/31/23 DC Haldol Return to Zydis 10 mg bid 02/01/23 Patient remains confused. Yesterday evening 2nd shift patient urinated in the defecated on herself, worried that there might not being of toilet paper for other people. Today she says she is not great... And that she is confused. She says I do not know where I am but then when asked says [facility]; she then says I do not know the president but then says John. Patient looks at writer technical publications's watch, points to an says it has been a long-time... 02/02/23 Symptoms of dysphoric samuel. Pt agrees to allow tapering of Gabapentin 200 mg bid 02/02-, 100 mg bid 02/04 then re-assess. Continue Olanzapine Mother requests hospitalist consult for upper extremity edema-completed 01/29 and PET scan[place] [facility] [facility] [place]y [place] closed today for holiday, pt's team will return 02/05. Mother visited and expressed concern for peripheral edema Considered lowering gabapentin which could be a potential cause, however patient was admitted already on this medication; writer technical publications reviewed progress notes and Calvin donahue (has discussed with mother) and will be back tomorrow 02/03/2023: No changes to current plan Reason for continued inpatient stay Substantial Risk for: inability to function Time Spent With Patient Time: Total time managing care of this patient today ____ minutes.
[2023-02-03 16:24] VITALS: BP 134/75; PULSE 88; RESP 16; TEMP 36.8; O2SAT 97
[2023-02-03] MEDS: Lurasidone HCl 80 MG TABLET PO (18:10)
[2023-02-03] MEDS: Acetaminophen 325 MG TABLET 650 MG PO (18:14)
[2023-02-03] MEDS: Magnesium Hydrox/Alum Hydrox 30 ML ORAL.SUSP PO (18:15)
[2023-02-04 09:00] VITALS: BP 119/69; PULSE 87; RESP 18; TEMP 36.2; O2SAT 98
[2023-02-04] MEDS: OXcarbazepine 150 MG TABLET PO ×2 (09:10→19:53)
[2023-02-04] MEDS: OLANZapine ODT 10 MG TAB.RAPDIS TRANSLINGU ×2 (09:11→19:53)
[2023-02-04] MEDS: Cholecalciferol (Vitamin D3) 10 MCG TABLET 20 MCG PO (09:11)
[2023-02-04] MEDS: Pyridoxine HCl (Vitamin B6) 50 MG TABLET 25 MG PO (09:11)
[2023-02-04] MEDS: Gabapentin 100 MG CAPSULE 200 MG PO (09:12)
[2023-02-04] MEDS: Docusate Sodium 100 MG CAPSULE PO (09:12)
[2023-02-04] MEDS: lamoTRIgine 25 MG TABLET 150 MG PO ×2 (09:12→19:51)
--- NOTE | 2023-02-04 14:55 | P.PNPSI_ITS ---
Subjective Subjective Date of Service: 02/04/23 Reason For Visit: disorganized agitated behavior Interim History: Overall no management issues but remains disorganized, guarded and internally preoccupied. Difficulty with focus and concentration. Was talking about there being moths (as in the insect) on the unit. Denies depression. Is guarded. Did not answer feeling safe and not. No evidence of SI. Medication Compliance: Yes Side effects from medications: No Attending Groups: No Review of Systems Acute medical concerns: No Review of Systems Review of Systems Yes Unobtainable due to mental status Mental Status Exam Mental Status Exam Patient Appearance: Disheveled Patient Orientation: Person, Place and Situation Level of Consciousness: Alert Patient Behavior: Talkative, Anxious, Fatigued, Good Eye Contact and Crying Mood Description: Sad Affect Description: Flat Patient Cognition Impaired: No Ability to Follow Directions: Good Speech Pattern: Perseverating, Spontaneous Speech and Soft-Spoken Memory Description: Episodic Impaired Diagnostics Vital Signs (24Hr): Vital Signs - 24 hr 02/03/23 16:24 02/04/23 09:00 Temperature 98.2 F 97.2 F Pulse Rate 88 87 Respiratory Rate 16 18 Blood Pressure 134/75 119/69 Pulse Oximetry 97 98 Oxygen Delivery Method Room Air Room Air BMI result Body Mass Index 41.6 Labs 01/30/23 09:02 01/30/23 09:02 Imaging Radiology Impressions: ITS Impressions Venous Duplex 01/30/23 10:06 IMPRESSION: No DVT demonstrated in the left upper extremity Head CT 01/30/23 15:17 IMPRESSION: Mild volume loss. No acute intracranial pathology. Medications Medications Current Medications Acetaminophen (Acetaminophen 325 Mg Tablet) 650 mg PO Q6H PRN PRN Reason: Headache/Pain Mild Scale (1-3) Last Admin: 02/03/23 18:14 Dose: 650 mg Al Hydroxide/Mg Hydroxide (Magnesium Hydrox/Alum Hydrox 30 Ml Oral.Susp) 30 ml PO Q6H PRN PRN Reason: Heartburn/Nausea Last Admin: 02/03/23 18:15 Dose: 30 ml Bisacodyl (Bisacodyl 5 Mg Tablet.Dr) 10 mg PO DAILY [facility] Last Admin: 01/29/23 08:14 Dose: 10 mg Docusate Sodium (Docusate Sodium 100 Mg Capsule) 100 mg PO DAILY [facility] Last Admin: 02/04/23 09:12 Dose: 100 mg Gabapentin (Gabapentin 100 Mg Capsule) 100 mg PO BID [facility] Hydroxyzine HCl (Hydroxyzine Hcl 25 Mg Tablet) 25 mg PO Q6H PRN PRN Reason: Anxiety Last Admin: 02/01/23 16:12 Dose: 25 mg Lamotrigine (Lamotrigine 25 Mg Tablet) 150 mg PO BID [facility] Last Admin: 02/04/23 09:12 Dose: 150 mg Lurasidone HCl (Lurasidone Hcl 80 Mg Tablet) 80 mg PO DAILY@1900 [facility] Last Admin: 02/03/23 18:10 Dose: 80 mg Magnesium Hydroxide (Milk Of Magnesia 30 Ml Oral.Susp) 30 ml PO DAILY PRN PRN Reason: Constipation Last Admin: 01/29/23 11:34 Dose: 30 ml Nicotine Polacrilex (Nicotine Polacrilex 2 Mg Gum) 4 mg BUCCAL Q2H PRN PRN Reason: Nicotine Cravings Olanzapine (Olanzapine Odt 10 Mg Tab.Rapdis) 5 mg TRANSLINGU DAILY PRN PRN Reason: psychosis Last Admin: 02/01/23 18:20 Dose: 5 mg Olanzapine (Olanzapine Odt 10 Mg Tab.Rapdis) 10 mg TRANSLINGU BID [facility] Last Admin: 02/04/23 09:11 Dose: 10 mg Oxcarbazepine (Oxcarbazepine 150 Mg Tablet) 150 mg PO BID [facility] Last Admin: 02/04/23 09:10 Dose: 150 mg Polyethylene Glycol (Polyethylene Glycol 3350 17 Gm Powd.Pack) 17 gm PO BEDTIME PRN PRN Reason: Constipation Last Admin: 01/28/23 21:27 Dose: 17 gm Propranolol HCl (Propranolol Hcl 10 Mg Tablet) 10 mg PO BID PRN; Protocol PRN Reason: anxiety Pyridoxine HCl (Pyridoxine Hcl (Vitamin B6) 50 Mg Tablet) 25 mg PO DAILY [facility] Last Admin: 02/04/23 09:11 Dose: 25 mg Sertraline HCl (Sertraline Hcl 25 Mg Tablet) 25 mg PO DAILY [facility] Last Admin: 02/02/23 09:13 Dose: 25 mg Trazodone HCl (Trazodone Hcl 50 Mg Tablet) 50 mg PO BEDTIME PRN PRN Reason: Insomnia Last Admin: 01/29/23 21:40 Dose: 50 mg Vitamin D (Cholecalciferol (Vitamin D3) 10 Mcg Tablet) 20 mcg PO DAILY [facility] Last Admin: 02/04/23 09:11 Dose: 20 mcg Allergies Allergies Allergy/AdvReac Type Severity Reaction Status Date / Time Sulfa (Sulfonamide Allergy Unknown HIVES Verified 05/06/20 20:38 Antibiotics) [SULFA (SULFONAMIDE ANTIBIOTICS)] Assessment & Plan Assessment & Plan (1) Altered mental status: Qualifiers: Altered mental status type: disorientation Qualified Code(s): R41.0 - Disorientation, unspecified Status: Acute Code(s): R41.82 - Altered mental status, unspecified (2) PTSD (post-traumatic stress disorder): Status: Acute Code(s): F43.10 - Post-traumatic stress disorder, unspecified (3) Bipolar disorder: Status: Acute Code(s): F31.9 - Bipolar disorder, unspecified Plan 52 yo single woman with Bipolar Disorder, PTSD and confusion with past medical history of hyperthyroidism presently admitted for management of Bipolar/depression. Plan: cv 15 min checks latuda reduced to 60 mg daily due to possible akathesia trileptal increased to 300mg BID lamictal decreased to 150 mg in am and 100mg at bedtime due to elevated liver enzymes and poor sleep trazodone in creased to 75 mg at hs and MRx1 consider imaging for frontal lobe deterioration clarification collateral contact 01/22/23 Pt experiencing visual/auditory fearful perceptual alterations -Zydis 10 mg bid prn for relieve of severe sx. -AIMS=0, no akathesia noted today Message left for pt's therapist who has called in today. 01/23/23 Continue current regime Encourage milieu involvement Collateral contact 01/24/23 Change Zydis to scheduled vs prn 01/25/23 Decrease Zyprexa to 5 mg bid 01/26/23 Increase Trileptal to 300 mg a.m, 600 mg hs 01/27/23: Patient reports sleeping better; continue current treatment plan 01/28/23:??Continue?current?treatment?plan 01/29/23: Pt requests to make regime changes to those she was taking prior to admission. -Decrease colace to 100 mg daily -Increase Latuda to 80 mg daily -Increase Lamictal to 150 mg bid -Decrease Trileptal to 150 mg bid -Change Propranolol to prn -Decrease Trazodone to 50 mg hs prn -Change Olanzapine to prn -[facility] -Hospitalist consult- R arm edema, forearm, wrist, hand -Meeting with mother and a support of her choice on 01/29. Mother reports pt is not being cared for properly. Pt agrees to this meeting. 01/30/23 Haldol trial to augment Latuda CAT Brain 01/31/23 DC Haldol Return to Zydis 10 mg bid 02/01/23 Patient remains confused. Yesterday evening 2nd shift patient urinated in the defecated on herself, worried that there might not being of toilet paper for other people. Today she says she is not great... And that she is confused. She says I do not know where I am but then when asked says [facility]; she then says I do not know the president but then says [facility]. Patient looks at song writer's watch, points to an says it has been a long-time... 02/02/23 Symptoms of dysphoric samuel. Pt agrees to allow tapering of Gabapentin 200 mg bid 02/02-, 100 mg bid 02/04 then re-assess. Continue Olanzapine Mother requests hospitalist consult for upper extremity edema- completed 01/29 and PET scan-call to [facility] however neurology is closed today for holiday, pt's team will return 02/05. Mother visited and expressed concern for peripheral edema Considered lowering gabapentin which could be a potential cause, however patient was admitted already on this medication; song writer reviewed progress notes and Calvin aware (has discussed with mother) and will be back tomorrow 02/04/2023: CT pending. No changes to current plan Reason for continued inpatient stay Substantial Risk for: inability to function Time Spent With Patient Time: Total time managing care of this patient today ____ minutes.
[2023-02-04 16:14] VITALS: BP 130/79; PULSE 85; RESP 17; TEMP 36.7; O2SAT 98
[2023-02-04] MEDS: traZODone HCL 50 MG TABLET PO (19:52)
[2023-02-04] MEDS: Lurasidone HCl 80 MG TABLET PO (19:52)
[2023-02-04] MEDS: Gabapentin 100 MG CAPSULE PO (19:52)
[2023-02-05 08:00] VITALS: BP 118/67; PULSE 72; TEMP 36.3; O2SAT 98
[2023-02-05] MEDS: lamoTRIgine 25 MG TABLET 150 MG PO ×2 (08:18→20:15)
[2023-02-05] MEDS: Cholecalciferol (Vitamin D3) 10 MCG TABLET 20 MCG PO (08:19)
[2023-02-05] MEDS: Gabapentin 100 MG CAPSULE PO ×2 (08:19→20:16)
[2023-02-05] MEDS: OLANZapine ODT 10 MG TAB.RAPDIS TRANSLINGU ×2 (08:20→20:15)
[2023-02-05] MEDS: OXcarbazepine 150 MG TABLET PO ×2 (08:20→20:15)
[2023-02-05] MEDS: Pyridoxine HCl (Vitamin B6) 50 MG TABLET 25 MG PO (08:20)
[2023-02-05] MEDS: Docusate Sodium 100 MG CAPSULE PO (08:23)
--- NOTE | 2023-02-05 09:55 | HO.PSYCHPN ---
Subjective Subjective Date of Service: 02/05/23 Reason For Visit: disorganized agitated behavior Subjective Notes: Conditional Voluntary Interim History: Reviewed with Dr. Hood. Patient presents calm, cooperative; difficulty focusing on conversation; pt stated, I'm feeling anxious, manic perhaps. I got all of my medications mixed up at home . Patient reports she believed she was going home today. denies SI/HI/VH/AH. Medication Compliance: Yes Side effects from medications: No Review of Systems Constitutional: Reports as per HPI Eyes: Reports as per HPI Reports as per HPI Cardiovascular: Reports as per HPI Respiratory: Reports as per HPI Gastrointestinal: Reports as per HPI Genitourinary: Reports as per HPI Musculoskeletal: Reports as per HPI Skin/Breast: Reports as per HPI Reports as per HPI Psychiatric: Reports as per HPI Endocrine: Reports as per HPI Hematologic/Lymphatic: Reports as per HPI Allergic/Immunologic: Reports as per HPI Mental Status Exam Mental Status Exam Patient Appearance: Well Grooomed Patient Orientation: Person, Place, Time and Situation Level of Consciousness: Awake Patient Behavior: Cooperative and Anxious Mood Description: Anxious Speech Pattern: Clear Hallucinations: None Delusions: Not Present Thought Process: Distracted Diagnostics Vital Signs (24Hr): Vital Signs - 24 hr 02/04/23 16:14 02/05/23 08:00 Temperature 98.1 F 97.3 F Pulse Rate 85 72 Respiratory Rate 17 Blood Pressure 130/79 118/67 Pulse Oximetry 98 98 Oxygen Delivery Method Room Air Room Air BMI result Body Mass Index 41.6 Labs 01/30/23 09:02 01/30/23 09:02 Imaging Radiology Impressions: ITS Impressions Venous Duplex 01/30/23 10:06 IMPRESSION: No DVT demonstrated in the left upper extremity Head CT 01/30/23 15:17 IMPRESSION: Mild volume loss. No acute intracranial pathology. Medications Medications Current Medications Acetaminophen (Acetaminophen 325 Mg Tablet) 650 mg PO Q6H PRN PRN Reason: Headache/Pain Mild Scale (1-3) Last Admin: 02/03/23 18:14 Dose: 650 mg Al Hydroxide/Mg Hydroxide (Magnesium Hydrox/Alum Hydrox 30 Ml Oral.Susp) 30 ml PO Q6H PRN PRN Reason: Heartburn/Nausea Last Admin: 02/03/23 18:15 Dose: 30 ml Bisacodyl (Bisacodyl 5 Mg Tablet.Dr) 10 mg PO DAILY [facility] Last Admin: 01/29/23 08:14 Dose: 10 mg Docusate Sodium (Docusate Sodium 100 Mg Capsule) 100 mg PO DAILY [facility] Last Admin: 02/05/23 08:23 Dose: 100 mg Gabapentin (Gabapentin 100 Mg Capsule) 100 mg PO BID [facility] Last Admin: 02/05/23 08:19 Dose: 100 mg Hydroxyzine HCl (Hydroxyzine Hcl 25 Mg Tablet) 25 mg PO Q6H PRN PRN Reason: Anxiety Last Admin: 02/01/23 16:12 Dose: 25 mg Lamotrigine (Lamotrigine 25 Mg Tablet) 150 mg PO BID [facility] Last Admin: 02/05/23 08:18 Dose: 150 mg Lurasidone HCl (Lurasidone Hcl 80 Mg Tablet) 80 mg PO DAILY@1900 [facility] Last Admin: 02/04/23 19:52 Dose: 80 mg Magnesium Hydroxide (Milk Of Magnesia 30 Ml Oral.Susp) 30 ml PO DAILY PRN PRN Reason: Constipation Last Admin: 01/29/23 11:34 Dose: 30 ml Nicotine Polacrilex (Nicotine Polacrilex 2 Mg Gum) 4 mg BUCCAL Q2H PRN PRN Reason: Nicotine Cravings Olanzapine (Olanzapine Odt 10 Mg Tab.Rapdis) 5 mg TRANSLINGU DAILY PRN PRN Reason: psychosis Last Admin: 02/01/23 18:20 Dose: 5 mg Olanzapine (Olanzapine Odt 10 Mg Tab.Rapdis) 10 mg TRANSLINGU BID [facility] Last Admin: 02/05/23 08:20 Dose: 10 mg Oxcarbazepine (Oxcarbazepine 150 Mg Tablet) 150 mg PO BID [facility] Last Admin: 02/05/23 08:20 Dose: 150 mg Polyethylene Glycol (Polyethylene Glycol 3350 17 Gm Powd.Pack) 17 gm PO BEDTIME PRN PRN Reason: Constipation Last Admin: 01/28/23 21:27 Dose: 17 gm Propranolol HCl (Propranolol Hcl 10 Mg Tablet) 10 mg PO BID PRN; Protocol PRN Reason: anxiety Pyridoxine HCl (Pyridoxine Hcl (Vitamin B6) 50 Mg Tablet) 25 mg PO DAILY [facility] Last Admin: 02/05/23 08:20 Dose: 25 mg Sertraline HCl (Sertraline Hcl 25 Mg Tablet) 25 mg PO DAILY [facility] Last Admin: 02/02/23 09:13 Dose: 25 mg Trazodone HCl (Trazodone Hcl 50 Mg Tablet) 50 mg PO BEDTIME PRN PRN Reason: Insomnia Last Admin: 02/04/23 19:52 Dose: 50 mg Vitamin D (Cholecalciferol (Vitamin D3) 10 Mcg Tablet) 20 mcg PO DAILY [facility] Last Admin: 02/05/23 08:19 Dose: 20 mcg Allergies Allergies Allergy/AdvReac Type Severity Reaction Status Date / Time Sulfa (Sulfonamide Allergy Unknown HIVES Verified 05/06/20 20:38 Antibiotics) [SULFA (SULFONAMIDE ANTIBIOTICS)] Assessment & Plan Assessment & Plan (1) Altered mental status: Qualifiers: Altered mental status type: disorientation Qualified Code(s): R41.0 - Disorientation, unspecified Status: Acute Code(s): R41.82 - Altered mental status, unspecified (2) PTSD (post-traumatic stress disorder): Status: Acute Code(s): F43.10 - Post-traumatic stress disorder, unspecified (3) Bipolar disorder: Status: Acute Code(s): F31.9 - Bipolar disorder, unspecified Plan 52 yo single woman with Bipolar Disorder, PTSD and confusion with past medical history of hyperthyroidism presently admitted for management of Bipolar/depression. Plan: cv 15 min checks latuda reduced to 60 mg daily due to possible akathesia trileptal increased to 300mg BID lamictal decreased to 150 mg in am and 100mg at bedtime due to elevated liver enzymes and poor sleep trazodone in creased to 75 mg at hs and MRx1 consider imaging for frontal lobe deterioration clarification collateral contact 01/22/23 Pt experiencing visual/auditory fearful perceptual alterations -Zydis 10 mg bid prn for relieve of severe sx. -AIMS=0, no akathesia noted today Message left for pt's therapist who has called in today. 01/23/23 Continue current regime Encourage milieu involvement Collateral contact 01/24/23 Change Zydis to scheduled vs prn 01/25/23 Decrease Zyprexa to 5 mg bid 01/26/23 Increase Trileptal to 300 mg a.m, 600 mg hs 01/27/23: Patient reports sleeping better; continue current treatment plan 01/28/23:??Continue?current?treatment?plan 01/29/23: Pt requests to make regime changes to those she was taking prior to admission. -Decrease colace to 100 mg daily -Increase Latuda to 80 mg daily -Increase Lamictal to 150 mg bid -Decrease Trileptal to 150 mg bid -Change Propranolol to prn -Decrease Trazodone to 50 mg hs prn -Change Olanzapine to prn -[facility] -Hospitalist consult- R arm edema, forearm, wrist, hand -Meeting with mother and a support of her choice on 01/29. Mother reports pt is not being cared for properly. Pt agrees to this meeting. 01/30/23 Haldol trial to augment Latuda CAT Brain 01/31/23 DC Haldol Return to Zydis 10 mg bid 02/01/23 Patient remains confused. Yesterday evening 2nd shift patient urinated in the defecated on herself, worried that there might not being of toilet paper for other people. Today she says she is not great... And that she is confused. She says I do not know where I am but then when asked says [facility]; she then says I do not know the president but then says [place]. Patient looks at race and sports book writer's watch, points to an says it has been a long-time... 02/02/23 Symptoms of dysphoric samuel. Pt agrees to allow tapering of Gabapentin 200 mg bid 02/02-, 100 mg bid 02/04 then re-assess. Continue Olanzapine Mother requests hospitalist consult for upper extremity edema-completed 01/29 and [place] [facility] [place] neurology is closed today for holiday, pt's team will return 02/05. Mother visited and expressed concern for peripheral edema Considered lowering gabapentin which could be a potential cause, however patient was admitted already on this medication; race and sports book writer reviewed progress notes and Calvin aware (has discussed with mother) and will be back tomorrow 02/04/2023: CT pending. No changes to current plan 02/05: Patient presents calm, cooperative; difficulty focusing on conversation; pt stated, I'm feeling anxious, manic perhaps. I got all of my medications mixed up at home . Patient reports she believed she was going home today. denies SI/HI/VH/AH. Continue current tx plan. Patient educated on: diagnosis and medication risk/benefits Informed Consent: understands Reason for continued inpatient stay Substantial Risk for: med/psych decompensation Time Spent With Patient Time: Total time managing care of this patient today _30___ minutes.
[2023-02-05] MEDS: hydrOXYzine HCL 25 MG TABLET PO (16:42)
[2023-02-05 18:00] VITALS: BP 110/66; PULSE 86; RESP 16; TEMP 36.6; O2SAT 99
[2023-02-05] MEDS: OLANZapine ODT 10 MG TAB.RAPDIS 5 MG TRANSLINGU (18:35)
[2023-02-05] MEDS: Lurasidone HCl 80 MG TABLET PO (18:35)
[2023-02-06] VITALS (7 sets, daily range): BP systolic 113–122; BP diastolic 57–88; PULSE 79–90; RESP 16; TEMP 36.1; O2SAT 97
--- NOTE | 2023-02-06 | ECG_ITS ---
Test Reason : ankle swelling Blood Pressure : / mmHG Vent. Rate : 094 BPM Atrial Rate : 094 BPM P-R Int : 134 ms QRS Dur : 072 ms QT Int : 344 ms P-R-T Axes : 054 073 028 degrees QTc Int : 430 ms Normal sinus rhythm Right atrial enlargement RSR' or QR pattern in V1 suggests right ventricular conduction delay Nonspecific T wave abnormality Inferior leads Nonspecific ST abnormality Lateral leads Abnormal ECG When compared with ECG of 06-MAY-2020 23:39, T wave amplitude has decreased in Inferior leads ST more depressed Lateral leads Referred By: Debi Villeda Electronically Signed By:LIZA JARAMILLO MD
[2023-02-06] MEDS: Cholecalciferol (Vitamin D3) 10 MCG TABLET 20 MCG PO (08:49)
[2023-02-06] MEDS: lamoTRIgine 25 MG TABLET 150 MG PO (08:50)
[2023-02-06] MEDS: Docusate Sodium 100 MG CAPSULE PO (08:51)
[2023-02-06] MEDS: OLANZapine ODT 10 MG TAB.RAPDIS TRANSLINGU (08:51)
[2023-02-06] MEDS: OXcarbazepine 150 MG TABLET PO ×2 (08:51→20:03)
[2023-02-06] MEDS: Pyridoxine HCl (Vitamin B6) 50 MG TABLET 25 MG PO (08:52)
[2023-02-06] MEDS: Gabapentin 100 MG CAPSULE PO ×2 (08:52→20:03)
[2023-02-06] MEDS: Lithium Carbonate 300 MG CAPSULE PO (12:20)
--- NOTE | 2023-02-06 12:24 | HO.PM.IMCN ---
History of Present Illness Data of Consult Service Date: 02/06/23 Primary Care Provider: Unknown Physician HPI Reason for consult: Right upper extremity edema 52-year-old female with history of bipolar disorder, PTSD, who is morbidly obese with BMI greater than 41 admitted to Psychiatry with consult placed to hospitalist service for evaluation of ?right arm, hand, wrist edema? at the request of patient's mother. Patient denies any trauma. No prior history of similar symptoms. She denies any pain. States she feels that since being admitted the left arm is swollen and her wrist band fits tighter than previously. She has full ROM of all joints in LUE. No hx blood clots. On exam, patient has fat pads of the upper extremities bilaterally that appear equal in size without any edematous changes noted to the LUE. There is no focal swelling. Left wrist, elbow, and shoulder are nontender to palpation with full ROM. She reports mild tenderness to gentle squeeze of the left upper arms without any deformity noted. No erythema, warmth. 5/5 strength bue. At this time, there does not appear to be any acute medical issue. No xray imaging indicated. Will check venous duplex LUE to rule out DVT, though suspicion is very low for this. Thank you for allowing me to participate in this consult. Signing off at this time. Please do not hesitate to call for further questions or for any acute medical issues that may arise. [facility] Medical History PTSD (post-traumatic stress disorder) Bipolar disorder Hyperthyroidism Hx of drug overdose Bipolar 1 disorder Anxiety Major depression Surgical History History of cholecystectomy Social History Household Members: None Household Members Other:: unable to access, patient non verbal after SI attempt Housing: Apartment Do you presently have visiting nurse or other home services: No Unable to assess alcohol history related to: Refusing to respond Comment: patient asleep Patient Tobacco Use Status: Never used Tobacco Smoked in Last 30 Days: No e-Cigarette/Vaping Use: Never Used Patient Interested in Nicotine Replacement: No Second Hand Smoke Exposure: No Use of substances other than those prescribed or required for medical reasons: No Currently Displaying Signs/Symptoms of Drug Intoxication Withdrawal: No Any prior treatment program specific to substance use: No Advance Directives: No Advance Directives Information Provided: No Do you have thoughts of harming others: None Do you have a plan to hurt others: No Plan Recently lost weight without trying: No How much weight loss: Not applicable Eating poorly because of decreased appetite: No Nutrition screen score: 0 Nutrition Risks: No Nutritional Risk Patient : No : No Poor oral hygiene: No service: No Current occupational status: unemployed Sexual orientation: Don't Know Meds Allergies Allergy/AdvReac Type Severity Reaction Status Date / Time Sulfa (Sulfonamide Allergy Unknown HIVES Verified 05/06/20 20:38 Antibiotics) [SULFA (SULFONAMIDE ANTIBIOTICS)] Active Medications: Current Medications Acetaminophen (Acetaminophen 325 Mg Tablet) 650 mg PO Q6H PRN PRN Reason: Headache/Pain Mild Scale (1-3) Last Admin: 02/03/23 18:14 Dose: 650 mg Al Hydroxide/Mg Hydroxide (Magnesium Hydrox/Alum Hydrox 30 Ml Oral.Susp) 30 ml PO Q6H PRN PRN Reason: Heartburn/Nausea Last Admin: 02/03/23 18:15 Dose: 30 ml Bisacodyl (Bisacodyl 5 Mg Tablet.Dr) 10 mg PO DAILY [facility] Last Admin: 01/29/23 08:14 Dose: 10 mg Docusate Sodium (Docusate Sodium 100 Mg Capsule) 100 mg PO DAILY [facility] Last Admin: 02/06/23 08:51 Dose: 100 mg Gabapentin (Gabapentin 100 Mg Capsule) 100 mg PO BID [facility] Last Admin: 02/06/23 08:52 Dose: 100 mg Hydroxyzine HCl (Hydroxyzine Hcl 25 Mg Tablet) 25 mg PO Q6H PRN PRN Reason: Anxiety Last Admin: 02/05/23 16:42 Dose: 25 mg Lamotrigine (Lamotrigine 25 Mg Tablet) 150 mg PO BID [facility] Last Admin: 02/06/23 08:50 Dose: 150 mg [place] Carbonate ([place] Carbonate 300 Mg Capsule) 300 mg PO DAILY [facility] Last Admin: 02/06/23 12:20 Dose: 300 mg Lurasidone HCl (Lurasidone Hcl 80 Mg Tablet) 80 mg PO DAILY@1900 [facility] Last Admin: 02/05/23 18:35 Dose: 80 mg Magnesium Hydroxide (Milk Of Magnesia 30 Ml Oral.Susp) 30 ml PO DAILY PRN PRN Reason: Constipation Last Admin: 01/29/23 11:34 Dose: 30 ml Nicotine Polacrilex (Nicotine Polacrilex 2 Mg Gum) 4 mg BUCCAL Q2H PRN PRN Reason: Nicotine Cravings Olanzapine (Olanzapine Odt 10 Mg Tab.Rapdis) 5 mg TRANSLINGU DAILY PRN PRN Reason: psychosis Last Admin: 02/05/23 18:35 Dose: 5 mg Olanzapine (Olanzapine 7.5 Mg Tablet) 15 mg PO BID [facility] Oxcarbazepine (Oxcarbazepine 150 Mg Tablet) 150 mg PO BID [facility] Last Admin: 02/06/23 08:51 Dose: 150 mg Polyethylene Glycol (Polyethylene Glycol 3350 17 Gm Powd.Pack) 17 gm PO BEDTIME PRN PRN Reason: Constipation Last Admin: 01/28/23 21:27 Dose: 17 gm Propranolol HCl (Propranolol Hcl 10 Mg Tablet) 10 mg PO BID PRN; Protocol PRN Reason: anxiety Pyridoxine HCl (Pyridoxine Hcl (Vitamin B6) 50 Mg Tablet) 25 mg PO DAILY [facility] Last Admin: 02/06/23 08:52 Dose: 25 mg Trazodone HCl (Trazodone Hcl 50 Mg Tablet) 50 mg PO BEDTIME PRN PRN Reason: Insomnia Last Admin: 02/04/23 19:52 Dose: 50 mg Vitamin D (Cholecalciferol (Vitamin D3) 10 Mcg Tablet) 20 mcg PO DAILY [facility] Last Admin: 02/06/23 08:49 Dose: 20 mcg Home Medications Medication Instructions Recorded Confirmed Last Taken Type gabapentin 300 mg capsule 300 mg PO BID 01/19/23 01/19/23 Unknown History lorazepam 1 mg tablet (Ativan) 1 mg PO 3XW PRN Anxiety 01/19/23 01/19/23 Unknown History lurasidone 40 mg tablet (Latuda) 80 mg PO DAILY 01/19/23 01/19/23 Unknown History oxcarbazepine 300 mg tablet 150 mg PO BID 01/19/23 01/19/23 Unknown History propranolol 10 mg tablet 10 mg PO BID 01/19/23 01/19/23 Unknown History sertraline 50 mg tablet 25 mg PO DAILY 01/19/23 01/19/23 Unknown History Physical Exam Vital Signs and Narrative: Vital Signs: Last Vital Signs Temp 96.9 F 02/06/23 08:00 Pulse 87 11/28/23 11:28 Resp 16 02/06/23 08:00 BP 119/58 L 02/06/23 11:28 Pulse Ox 97 02/06/23 08:00 O2 Del Method Room Air 02/06/23 08:00 BMI result Body Mass Index 41.6 Results Labs 01/30/23 09:02 01/30/23 09:02
[2023-02-06 12:44] LABS: Appearance Urine Cloudy; Color Urine Yellow; Glucose Urine UA Negative (Negative); Leukocyte Esterase Urine Negative (Negative); Nitrite Urine Negative (Negative); Specific Gravity - Urine 1.015 (1.005-1.025); UMIC TRIGGER UACC YES; Urine Blood Moderate (2+) (Negative); Urine Ketones Negative (Negative); Urine Protein Negative (Neg-Trace)
[2023-02-06 12:47] LABS: Bacteria Urine None Seen (None Seen); Hyaline Casts Urine 0-2 /LPF (0-2); RBC Urine >20 /HPF (0-2); WBC Urine 0-5 /HPF (0-5)
--- NOTE | 2023-02-06 15:36 | P.PNPSI_ITS ---
Subjective Subjective Date of Service: 02/06/23 Reason For Visit: disorganized agitated behavior Subjective Notes: Conditional Voluntary Healthcare Proxy: Yes Guardianship: No Medical Problems Affecting Mental Status: No Interim History: Brittney reports some nausea last evening. Denies any vertigo, syncope, dizziness. Orthostatic vital sx ordered. Reports sleep is adequate, however latency period is long, it takes me a long time to calm . Reports she does lose track of days/dates and worries about missing deadlines with housing applications. L arm edema is decreased, however, R arm edema is increased. Ordered testing and medical consultation. Mother reports pt is choking on fluids. Requested swallow eval. Per team, pt is not having active sx of swallowing sx. Pt states she has been choking as she is going to sleep with cough drops-discussed avoidance of this practice and risk. Covid testing pending. Pt discussed what helps her to calm- individual talks with family, friends, team, art, journaling, visits. Tearful when discussing how she feels overstimulated in the milieu and when other patients confront her. Completed [employer] paperwork for [facility]. Review of meds with pt. Discussed [place] augment which she agrees with. Lamictal level 2.9 (range 2.5-15). Discussed increasing this as well which she believes will help. I know I don't have a dementia- I am manic . Continues with tangential, dyphoric moments, some confusion and perseverative episodes. Overall presents clearer and more coherent today. Per team, they are seeing some of this clarity this afternoon. States she has not been using CPAP, I think they recalled the machine Contact [place] [facility] [place] to begin to reconnect pt with her neuro team and assess availability to schedule PET scan. Medication Compliance: Yes Side effects from medications: No Attending Groups: Intermittent (structured) Review of Systems Acute medical concerns: No Medical Review of Systems: unchanged Review of Systems Comments: RUE edema Mental Status Exam Mental Status Exam Patient Appearance: Unkempt Patient Orientation: Person, Place and Situation Level of Consciousness: Alert Patient Behavior: Talkative, Cooperative, Passive, Anxious, Fatigued, Distractible, Confused (at times), Good Eye Contact and Crying (at times) Mood Description: Sad Affect Description: Flat Patient Cognition Impaired: No Speech Pattern: Perseverating, Spontaneous Speech and Soft-Spoken Memory Description: Episodic Impaired Hallucinations: None (denies) Delusions: Not Present Perceptual Disturbances: Depersonalization and Derealization Thought Process: Distracted, Rumination, Goal Oriented and Confusion (at times) Thought Content: positive for [place], positive for Circumstantial, positive for Perseveration, positive for Loose Associations, positive for Tangential, positive for Disorganized (at times) and positive for Suicidal Ideation (denies SI, plan, intent) Depressive Symptoms: Increased Anxiety, Diff. Making Decisions, Crying Spells, Thoughts of /Suicide (denies SI, plan, intent) and Low Self Esteem Judgement: Fair Diagnostics Vital Signs (24Hr): Vital Signs - 24 hr 02/05/23 18:00 02/06/23 08:00 02/06/23 11:26 Temperature 97.9 F 96.9 F Pulse Rate 86 87 79 Respiratory Rate 16 16 Blood Pressure 110/66 116/68 122/60 Pulse Oximetry 99 97 Oxygen Delivery Method Room Air Room Air 02/06/23 11:27 02/06/23 11:28 Temperature Pulse Rate 84 87 Respiratory Rate Blood Pressure 116/57 L 119/58 L Pulse Oximetry Oxygen Delivery Method BMI result Body Mass Index 41.6 Labs 01/30/23 09:02 01/30/23 09:02 Labs: Laboratory Results - last 48 hr 02/06/23 12:28 Urine Color Yellow Urine Appearance Cloudy Urine pH 6.0 Ur Specific [place] 1.015 Urine Protein Negative Urine Glucose (UA) Negative Urine Ketones Negative Urine Blood Moderate (2+) H Urine Nitrite Negative Ur Leukocyte Esterase Negative Urine RBC >20 H Urine WBC 0-5 Ur Squamous Epith Cells 3-5 Urine Bacteria None Seen Hyaline Casts 0-2 Imaging Radiology Impressions: ITS Impressions Venous Duplex 01/30/23 10:06 IMPRESSION: No DVT demonstrated in the left upper extremity Head CT 01/30/23 15:17 IMPRESSION: Mild volume loss. No acute intracranial pathology. Medications Medications Current Medications Acetaminophen (Acetaminophen 325 Mg Tablet) 650 mg PO Q6H PRN PRN Reason: Headache/Pain Mild Scale (1-3) Last Admin: 02/03/23 18:14 Dose: 650 mg Al Hydroxide/Mg Hydroxide (Magnesium Hydrox/Alum Hydrox 30 Ml Oral.Susp) 30 ml PO Q6H PRN PRN Reason: Heartburn/Nausea Last Admin: 02/03/23 18:15 Dose: 30 ml Bisacodyl (Bisacodyl 5 Mg Tablet.Dr) 10 mg PO DAILY [facility] Last Admin: 01/29/23 08:14 Dose: 10 mg Docusate Sodium (Docusate Sodium 100 Mg Capsule) 100 mg PO DAILY [facility] Last Admin: 02/06/23 08:51 Dose: 100 mg Gabapentin (Gabapentin 100 Mg Capsule) 100 mg PO BID [facility] Last Admin: 02/06/23 08:52 Dose: 100 mg Guaifenesin (Guaifenesin La 600 Mg Tab.Er.12h) 600 mg PO BID PRN PRN Reason: Congestion Hydroxyzine HCl (Hydroxyzine Hcl 25 Mg Tablet) 25 mg PO Q6H PRN PRN Reason: Anxiety Last Admin: 02/05/23 16:42 Dose: 25 mg Lamotrigine (Lamotrigine 25 Mg Tablet) 150 mg PO BID [facility] Last Admin: 02/06/23 08:50 Dose: 150 mg [place] Carbonate ([place] Carbonate 300 Mg Capsule) 300 mg PO DAILY [facility] Last Admin: 02/06/23 12:20 Dose: 300 mg Lurasidone HCl (Lurasidone Hcl 80 Mg Tablet) 80 mg PO DAILY@1900 [facility] Last Admin: 02/05/23 18:35 Dose: 80 mg Magnesium Hydroxide (Milk Of Magnesia 30 Ml Oral.Susp) 30 ml PO DAILY PRN PRN Reason: Constipation Last Admin: 01/29/23 11:34 Dose: 30 ml Nicotine Polacrilex (Nicotine Polacrilex 2 Mg Gum) 4 mg BUCCAL Q2H PRN PRN Reason: Nicotine Cravings Olanzapine (Olanzapine Odt 10 Mg Tab.Rapdis) 5 mg TRANSLINGU DAILY PRN PRN Reason: psychosis Last Admin: 02/05/23 18:35 Dose: 5 mg Olanzapine (Olanzapine 7.5 Mg Tablet) 15 mg PO BID [facility] Oxcarbazepine (Oxcarbazepine 150 Mg Tablet) 150 mg PO BID [facility] Last Admin: 02/06/23 08:51 Dose: 150 mg Polyethylene Glycol (Polyethylene Glycol 3350 17 Gm Powd.Pack) 17 gm PO BEDTIME PRN PRN Reason: Constipation Last Admin: 01/28/23 21:27 Dose: 17 gm Propranolol HCl (Propranolol Hcl 10 Mg Tablet) 10 mg PO BID PRN; Protocol PRN Reason: anxiety Pyridoxine HCl (Pyridoxine Hcl (Vitamin B6) 50 Mg Tablet) 25 mg PO DAILY [facility] Last Admin: 02/06/23 08:52 Dose: 25 mg Trazodone HCl (Trazodone Hcl 50 Mg Tablet) 50 mg PO BEDTIME PRN PRN Reason: Insomnia Last Admin: 02/04/23 19:52 Dose: 50 mg Vitamin D (Cholecalciferol (Vitamin D3) 10 Mcg Tablet) 20 mcg PO DAILY [facility] Last Admin: 02/06/23 08:49 Dose: 20 mcg Allergies Allergies Allergy/AdvReac Type Severity Reaction Status Date / Time Sulfa (Sulfonamide Allergy Unknown HIVES Verified 05/06/20 20:38 Antibiotics) [SULFA (SULFONAMIDE ANTIBIOTICS)] Assessment & Plan Assessment & Plan (1) Altered mental status: Qualifiers: Altered mental status type: disorientation Qualified Code(s): R41.0 - Disorientation, unspecified Status: Acute Code(s): R41.82 - Altered mental status, unspecified (2) PTSD (post-traumatic stress disorder): Status: Acute Code(s): F43.10 - Post-traumatic stress disorder, unspecified (3) Bipolar disorder: Status: Acute Code(s): F31.9 - Bipolar disorder, unspecified Plan 52 yo single woman with Bipolar Disorder, PTSD and confusion with past medical history of hyperthyroidism presently admitted for management of Bipolar/depression. Plan: cv 15 min checks latuda reduced to 60 mg daily due to possible akathesia trileptal increased to 300mg BID lamictal decreased to 150 mg in am and 100mg at bedtime due to elevated liver enzymes and poor sleep trazodone in creased to 75 mg at hs and MRx1 consider imaging for frontal lobe deterioration clarification collateral contact 01/22/23 Pt experiencing visual/auditory fearful perceptual alterations -Zydis 10 mg bid prn for relieve of severe sx. -AIMS=0, no akathesia noted today Message left for pt's therapist who has called in today. 01/23/23 Continue current regime Encourage milieu involvement Collateral contact 01/24/23 Change Zydis to scheduled vs prn 01/25/23 Decrease Zyprexa to 5 mg bid 01/26/23 Increase Trileptal to 300 mg a.m, 600 mg hs 01/27/23: Patient reports sleeping better; continue current treatment plan 01/28/23:??Continue?current?treatment?plan 01/29/23: Pt requests to make regime changes to those she was taking prior to admission. -Decrease colace to 100 mg daily -Increase Latuda to 80 mg daily -Increase Lamictal to 150 mg bid -Decrease Trileptal to 150 mg bid -Change Propranolol to prn -Decrease Trazodone to 50 mg hs prn -Change Olanzapine to prn -[facility] -Hospitalist consult- R arm edema, forearm, wrist, hand -Meeting with mother and a support of her choice on 01/29. Mother reports pt is not being cared for properly. Pt agrees to this meeting. 01/30/23 Haldol trial to augment Latuda CAT Brain 01/31/23 DC Haldol Return to Zydis 10 mg bid 02/01/23 Patient remains confused. Yesterday evening 2nd shift patient urinated in the defecated on herself, worried that there might not being of toilet paper for other people. Today she says she is not great... And that she is confused. She says I do not know where I am but then when asked says [facility]; she then says I do not know the president but then says [facility]. Patient looks at comic writer's watch, points to an says it has been a long-time... 02/02/23 Symptoms of dysphoric samuel. Pt agrees to allow tapering of Gabapentin 200 mg bid 02/02-, 100 mg bid 02/04 then re-assess. Continue Olanzapine Mother requests hospitalist consult for upper extremity edema- completed 01/29 and PET scan[place] [facility] [place] neurology is closed today for holiday, pt's team will return 02/05. Mother visited and expressed concern for peripheral edema Considered lowering gabapentin which could be a potential cause, however patient was admitted already on this medication; comic writer reviewed progress notes and Calvin aware (has discussed with mother) and will be back tomorrow 02/04/2023: CT pending. No changes to current plan 02/05: Patient presents calm, cooperative; difficulty focusing on conversation; pt stated, I'm feeling anxious, manic perhaps. I got all of my medications mixed up at home . Patient reports she believed she was going home today. denies SI/HI/VH/AH. Continue current tx plan. 02/06: Increase Olanzapine to 15 mg bid [place] 300 mg daily to augment Lamictal (level 2.9) Range 2.5-15 Increase Lamictal to 175 mg bid EKG Patient educated on: medication risk/benefits and therapeutic strategies Informed Consent: understands and further education needed Reason for continued inpatient stay Substantial Risk for: rapid decompensation Time Spent With Patient Time: Total time managing care of this patient today ____ minutes.
[2023-02-06 15:48] LABS: Lamotrigine Lamictal 2.9 mcg/mL (2.5-15.0)
[2023-02-06 18:40] LABS: COVID-19 Test Negative (Negative); IDNOW Serial# 58CA691E
[2023-02-06] MEDS: Lurasidone HCl 80 MG TABLET PO (20:03)
[2023-02-06] MEDS: OLANZapine 7.5 MG TABLET 15 MG PO (20:03)
[2023-02-06] MEDS: traZODone HCL 50 MG TABLET PO (20:04)
[2023-02-06] MEDS: polyethylene glycoL 3350 17 GM POWD.PACK PO (20:07)
[2023-02-07] VITALS (7 sets, daily range): BP systolic 107–136; BP diastolic 52–76; PULSE 84–105; RESP 16; TEMP 37; O2SAT 98
--- NOTE | 2023-02-07 01:41 | PM.EVENT ---
Event Note Date of Service: 02/06/23 Event Note: Pt is a 52-year-old female with PMH of bipolar disorder, PTSD, and obese class III who is admitted to Psychiatry with consult placed to hospitalist service for evaluation of right upper extremity edema that has been ongoing for the past few days. Patient denies any trauma to the area. No pain or reduction of active ROM. Of note, pt recently complained of left upper extremity edema where workup was negative, including a venous duplex of LUE that was negative for DVT. Pt denies a PMH of blood clots. Physical exam reveals no appreciable right upper extremity edema as compared to the left. Pt has fat pads of the upper extremities bilaterally that appear equal in size. No focal swelling or edema noted. Right wrist, elbow, and shoulder are nontender to palpation with intact ROM. No erythema, warmth, or signs of cellulitis. 5/5 strength bue. At this time, there does not appear to be any acute medical issue, though will check venous duplex of RUE to rule out DVT, though suspicion is very low for this. Thank you for allowing us to participate in the care of this patient. Signing off at this time. Please re-consult if any acute complaints or issues arise. Time Spent With Patient Time: Total time managing care of this patient today ____ minutes.
[2023-02-07] MEDS: OLANZapine 7.5 MG TABLET 15 MG PO ×2 (08:24→20:23)
[2023-02-07] MEDS: OXcarbazepine 150 MG TABLET PO ×2 (08:25→20:23)
[2023-02-07] MEDS: Gabapentin 100 MG CAPSULE PO ×2 (08:25→20:23)
[2023-02-07] MEDS: Docusate Sodium 100 MG CAPSULE PO (08:25)
[2023-02-07] MEDS: Lithium Carbonate 300 MG CAPSULE PO (08:25)
[2023-02-07] MEDS: Pyridoxine HCl (Vitamin B6) 50 MG TABLET 25 MG PO (08:25)
[2023-02-07] MEDS: Cholecalciferol (Vitamin D3) 10 MCG TABLET 20 MCG PO (08:26)
[2023-02-07] MEDS: guaiFENesin LA 600 MG TAB.ER.12H PO ×2 (11:06→19:47)
--- NOTE | 2023-02-07 11:58 | MHC.SL.SWA ---
Risk of Aspiration Due to: Neurological Condition Reduced Cognition Dysphasia Diet Status: NO CHANGE Liquid Consistency and Strategies for Safe Swallow: Liquid Intake Recommendation: Thin Liquid Intake Strategies: Small Sips Solid Food Consistency: Dietary Recommendations: Regular Oral Medication Intake: Whole with Liquid Please contact the pharmacy regarding appropriate crushable or liquid drug formulations that are available whenever modified delivery is recommended. Compensatory Strategies and Precautions to be Taken for Safe Swallow: Sitting Upright (90 deg) Small Bites and Sips Alternate Liquids/Solids Rate of Ingestion Change Supervision While Eating and Drinking for Safe Swallow: Intermittent Supervision Recommendation for Speech: Comment: Patient tolerated regular solids and thin liquids with no s/s aspiration. Recommend patient continue w/ this diet. Recommend intermittent supervision to monitor for any s/s aspiration (i.e. coughing/choking/throat clearing). Recommend 1 f/u by INDUSTRY CONSULTANT. Frequency/Duration: 1 f/u Naturopathic Doctor Clinican/Clinical Fellow: No Supervisory Statement: I have reviewed and agree with the student/clinical fellow's documentation: N/A Speech Language Pathologist: Lor Conti M.A., CCC-INDUSTRY CONSULTANT
--- NOTE | 2023-02-07 16:57 | P.PNPSI_ITS ---
Subjective Subjective Date of Service: 02/07/23 Reason For Visit: disorganized agitated behavior Subjective Notes: Conditional Voluntary Healthcare Proxy: No Guardianship: No Medical Problems Affecting Mental Status: No Interim History: COVID negative. Not using CPAP Spit up meds this a.m. believes she is being given Haldol/Ativan. Full med review with pt. States she is having perimenopausal sx. asks for FSH, estradiol levels. Disconnected, tearful, labile, with disorganization and distress. Medication Compliance: No Side effects from medications: No Attending Groups: No Review of Systems Acute medical concerns: No Medical Review of Systems: unchanged Review of Systems Comments: reports congestion Mental Status Exam Mental Status Exam Patient Appearance: Unkempt Patient Orientation: Person, Place and Situation Level of Consciousness: Alert Patient Behavior: Talkative, Cooperative, Passive, Anxious, Fatigued, Distractible, Confused (at times), Good Eye Contact and Crying (at times) Mood Description: Sad Affect Description: Flat Patient Cognition Impaired: No Speech Pattern: Perseverating, Spontaneous Speech and Soft-Spoken Memory Description: Episodic Impaired Hallucinations: None (denies) Delusions: Not Present Perceptual Disturbances: Depersonalization and Derealization Thought Process: Distracted, Rumination, Goal Oriented and Confusion (at times) Thought Content: positive for [place], positive for Circumstantial, positive for Perseveration, positive for Loose Associations, positive for Tangential, positive for Disorganized (at times) and positive for Suicidal Ideation (denies SI, plan, intent) Depressive Symptoms: Increased Anxiety, Diff. Making Decisions, Crying Spells, Thoughts of /Suicide (denies SI, plan, intent) and Low Self Esteem Judgement: Fair Diagnostics Vital Signs (24Hr): Vital Signs - 24 hr 02/06/23 17:27 02/06/23 17:27 02/06/23 18:00 Temperature Pulse Rate 85 90 80 Respiratory Rate Blood Pressure 113/58 L 120/88 119/80 Pulse Oximetry Oxygen Delivery Method 02/07/23 08:00 02/07/23 11:09 02/07/23 11:10 Temperature 98.6 F Pulse Rate 84 90 98 Respiratory Rate 16 Blood Pressure 119/72 127/59 L 117/52 L Pulse Oximetry 98 Oxygen Delivery Method Room Air 02/07/23 11:11 02/07/23 16:00 02/07/23 16:16 Temperature Pulse Rate 105 H 93 90 Respiratory Rate Blood Pressure 107/56 L 136/76 126/72 Pulse Oximetry Oxygen Delivery Method 02/07/23 16:17 Temperature Pulse Rate 94 Respiratory Rate Blood Pressure 130/68 Pulse Oximetry Oxygen Delivery Method BMI result Body Mass Index 41.6 Labs 01/30/23 09:02 01/30/23 09:02 Labs: Laboratory Results - last 48 hr 02/03/23 02/06/23 02/06/23 07:15 12:28 18:20 Urine Color Yellow Urine Appearance Cloudy Urine pH 6.0 Ur Specific [place] 1.015 Urine Protein Negative Urine Glucose (UA) Negative Urine Ketones Negative Urine Blood Moderate (2+) H Urine Nitrite Negative Ur Leukocyte Esterase Negative Urine RBC >20 H Urine WBC 0-5 Ur Squamous Epith Cells 3-5 Urine Bacteria None Seen Hyaline Casts 0-2 Lamotrigine 2.9 COVID-19 ([facility]AN) Negative COVID-19 Clin Com See Note Imaging Radiology Impressions: ITS Impressions Venous Duplex 01/30/23 10:06 IMPRESSION: No DVT demonstrated in the left upper extremity Head CT 01/30/23 15:17 IMPRESSION: Mild volume loss. No acute intracranial pathology. Venous Duplex 02/06/23 15:21 IMPRESSION: No DVT demonstrated in the right upper extremity Medications Medications Current Medications Acetaminophen (Acetaminophen 325 Mg Tablet) 650 mg PO Q6H PRN PRN Reason: Headache/Pain Mild Scale (1-3) Last Admin: 02/03/23 18:14 Dose: 650 mg Al Hydroxide/Mg Hydroxide (Magnesium Hydrox/Alum Hydrox 30 Ml Oral.Susp) 30 ml PO Q6H PRN PRN Reason: Heartburn/Nausea Last Admin: 02/03/23 18:15 Dose: 30 ml Bisacodyl (Bisacodyl 5 Mg Tablet.Dr) 10 mg PO DAILY COUNTS INCLUDE 234 BEDS AT THE [facility] Last Admin: 01/29/23 08:14 Dose: 10 mg Docusate Sodium (Docusate Sodium 100 Mg Capsule) 100 mg PO DAILY COUNTS INCLUDE 234 BEDS AT THE [facility] Last Admin: 02/07/23 08:25 Dose: 100 mg Fluticasone Propionate (Fluticasone Propionate Nasal 16 Gm [place]) 1 spray NOSTRIL-B BID PRN PRN Reason: congestion Gabapentin (Gabapentin 100 Mg Capsule) 100 mg PO BID COUNTS INCLUDE 234 BEDS AT THE [facility] Last Admin: 02/07/23 08:25 Dose: 100 mg Guaifenesin (Guaifenesin La 600 Mg Tab.Er.12h) 600 mg PO BID PRN PRN Reason: Congestion Last Admin: 02/07/23 11:06 Dose: 600 mg Hydroxyzine HCl (Hydroxyzine Hcl 25 Mg Tablet) 25 mg PO Q6H PRN PRN Reason: Anxiety Last Admin: 02/05/23 16:42 Dose: 25 mg Lamotrigine 100 mg/ (Lamotrigine 75 mg) 175 mg PO BID COUNTS INCLUDE 234 BEDS AT THE [facility] Last Admin: 02/07/23 08:26 Dose: 175 mg Rosharon Carbonate (Rosharon Carbonate 300 Mg Capsule) 300 mg PO DAILY COUNTS INCLUDE 234 BEDS AT THE [facility] Last Admin: 02/07/23 08:25 Dose: 300 mg Lurasidone HCl (Lurasidone Hcl 80 Mg Tablet) 80 mg PO DAILY@1900 COUNTS INCLUDE 234 BEDS AT THE [facility] Last Admin: 02/06/23 20:03 Dose: 80 mg Magnesium Hydroxide (Milk Of Magnesia 30 Ml Oral.Susp) 30 ml PO DAILY PRN PRN Reason: Constipation Last Admin: 01/29/23 11:34 Dose: 30 ml Olanzapine (Olanzapine Odt 10 Mg Tab.Rapdis) 5 mg TRANSLINGU DAILY PRN PRN Reason: psychosis Last Admin: 02/05/23 18:35 Dose: 5 mg Olanzapine (Olanzapine 7.5 Mg Tablet) 15 mg PO BID COUNTS INCLUDE 234 BEDS AT THE [facility] Last Admin: 02/07/23 08:24 Dose: 15 mg Oxcarbazepine (Oxcarbazepine 150 Mg Tablet) 150 mg PO BID COUNTS INCLUDE 234 BEDS AT THE [facility] Last Admin: 02/07/23 08:25 Dose: 150 mg Polyethylene Glycol (Polyethylene Glycol 3350 17 Gm Powd.Pack) 17 gm PO BEDTIME PRN PRN Reason: Constipation Last Admin: 02/06/23 20:07 Dose: 17 gm Propranolol HCl (Propranolol Hcl 10 Mg Tablet) 10 mg PO BID PRN; Protocol PRN Reason: anxiety Pyridoxine HCl (Pyridoxine Hcl (Vitamin B6) 50 Mg Tablet) 25 mg PO DAILY COUNTS INCLUDE 234 BEDS AT THE [facility] Last Admin: 02/07/23 08:25 Dose: 25 mg Trazodone HCl (Trazodone Hcl 50 Mg Tablet) 50 mg PO BEDTIME PRN PRN Reason: Insomnia Last Admin: 02/06/23 20:04 Dose: 50 mg Vitamin D (Cholecalciferol (Vitamin D3) 10 Mcg Tablet) 20 mcg PO DAILY COUNTS INCLUDE 234 BEDS AT THE [facility] Last Admin: 02/07/23 08:26 Dose: 20 mcg Allergies Allergies Allergy/AdvReac Type Severity Reaction Status Date / Time Sulfa (Sulfonamide Allergy Unknown HIVES Verified 05/06/20 20:38 Antibiotics) [SULFA (SULFONAMIDE ANTIBIOTICS)] Assessment & Plan Assessment & Plan (1) Altered mental status: Qualifiers: Altered mental status type: disorientation Qualified Code(s): R41.0 - Disorientation, unspecified Status: Acute Code(s): R41.82 - Altered mental status, unspecified (2) PTSD (post-traumatic stress disorder): Status: Acute Code(s): F43.10 - Post-traumatic stress disorder, unspecified (3) Bipolar disorder: Status: Acute Code(s): F31.9 - Bipolar disorder, unspecified Plan 52 yo single woman with Bipolar Disorder, PTSD and confusion with past medical history of hyperthyroidism presently admitted for management of Bipolar/depression. Plan: cv 15 min checks latuda reduced to 60 mg daily due to possible akathesia trileptal increased to 300mg BID lamictal decreased to 150 mg in am and 100mg at bedtime due to elevated liver enzymes and poor sleep trazodone in creased to 75 mg at hs and MRx1 consider imaging for frontal lobe deterioration clarification collateral contact 01/22/23 Pt experiencing visual/auditory fearful perceptual alterations -Zydis 10 mg bid prn for relieve of severe sx. -AIMS=0, no akathesia noted today Message left for pt's therapist who has called in today. 01/23/23 Continue current regime Encourage milieu involvement Collateral contact 01/24/23 Change Zydis to scheduled vs prn 01/25/23 Decrease Zyprexa to 5 mg bid 01/26/23 Increase Trileptal to 300 mg a.m, 600 mg hs 01/27/23: Patient reports sleeping better; continue current treatment plan 01/28/23:??Continue?current?treatment?plan 01/29/23: Pt requests to make regime changes to those she was taking prior to admission. -Decrease colace to 100 mg daily -Increase Latuda to 80 mg daily -Increase Lamictal to 150 mg bid -Decrease Trileptal to 150 mg bid -Change Propranolol to prn -Decrease Trazodone to 50 mg hs prn -Change Olanzapine to prn -[facility] -Hospitalist consult- R arm edema, forearm, wrist, hand -Meeting with mother and a support of her choice on 01/29. Mother reports pt is not being cared for properly. Pt agrees to this meeting. 01/30/23 Haldol trial to augment Latuda CAT Brain 01/31/23 DC Haldol Return to Zydis 10 mg bid 02/01/23 Patient remains confused. Yesterday evening 2nd shift patient urinated in the defecated on herself, worried that there might not being of toilet paper for other people. Today she says she is not great... And that she is confused. She says I do not know where I am but then when asked says [facility]; she then says I do not know the president but then says John. Patient looks at law writer's watch, points to an says it has been a long-time... 02/02/23 Symptoms of dysphoric samuel. Pt agrees to allow tapering of Gabapentin 200 mg bid 02/02-, 100 mg bid 02/04 then re-assess. Continue Olanzapine Mother requests hospitalist consult for upper extremity edema- completed 01/29 and PET scan-call to [facility] however neurology is closed today for holiday, pt's team will return 02/05. Mother visited and expressed concern for peripheral edema Considered lowering gabapentin which could be a potential cause, however patient was admitted already on this medication; law writer reviewed progress notes and Calvin aware (has discussed with mother) and will be back tomorrow 02/04/2023: CT pending. No changes to current plan 02/05: Patient presents calm, cooperative; difficulty focusing on conversation; pt stated, I'm feeling anxious, manic perhaps. I got all of my medications mixed up at home . Patient reports she believed she was going home today. denies SI/HI/VH/AH. Continue current tx plan. 02/06: Increase Olanzapine to 15 mg bid Rosharon 300 mg daily to augment Lamictal (level 2.9) Range 2.5-15 Increase Lamictal to 175 mg bid EKG 02/07/23 Seen by hospitalist team. No DVT- no medical issues identified. Continue current regime-pt non compliant at this time. Decrease orthostatic vital signs to daily. Encourage CPAP Message left with Genev[facility] regarding potential consult for neurology (diagnosed with FTE 2019 at [facility]). FSH, Estradiol Patient educated on: medication risk/benefits, therapeutic strategies and medical condition Informed Consent: does not understand and further education needed Reason for continued inpatient stay Substantial Risk for: rapid decompensation Time Spent With Patient Time: Total time managing care of this patient today ____ minutes.
[2023-02-07] MEDS: Lurasidone HCl 80 MG TABLET PO (19:47)
[2023-02-07] MEDS: Fluticasone Propionate Nasal 16 GM SPRAY 1 SPRAY NOSTRIL-B (20:23)
[2023-02-08 08:25] VITALS: BP 116/67; PULSE 91; RESP 18; TEMP 36.5; O2SAT 97
[2023-02-08] MEDS: Pyridoxine HCl (Vitamin B6) 50 MG TABLET 25 MG PO (09:00)
[2023-02-08] MEDS: OLANZapine 7.5 MG TABLET 15 MG PO ×2 (09:00→20:31)
[2023-02-08] MEDS: Gabapentin 100 MG CAPSULE PO ×2 (09:01→20:30)
[2023-02-08] MEDS: Docusate Sodium 100 MG CAPSULE PO (09:01)
[2023-02-08] MEDS: Cholecalciferol (Vitamin D3) 10 MCG TABLET 20 MCG PO (09:02)
[2023-02-08] MEDS: Lithium Carbonate 300 MG CAPSULE PO (09:02)
[2023-02-08] MEDS: OXcarbazepine 150 MG TABLET PO ×2 (09:02→20:30)
[2023-02-08 11:20] VITALS: BP 113/53; PULSE 77
[2023-02-08 11:21] VITALS: BP 101/54; PULSE 84
[2023-02-08 13:35] LABS: COVID-19 Test Positive (Negative); IDNOW Serial# 08D9AD1C
--- NOTE | 2023-02-08 13:41 | MHC.SL.SWA ---
Speech Pathologist Impression: Risk of Aspiration Due to: Neurological Condition Reduced Cognition Dysphasia Diet Status: Recommend continue on Regular diet with thin liquids, pills whole with liquid. Patient may need occasional supervision during meals due to evident confusion. Will d/c speech as patient is on least restrictive diet and tolerating well. Liquid Consistency and Strategies for Safe Swallow: Liquid Intake Recommendation: Thin Liquid Intake Strategies: Small Sips Solid Food Consistency: Dietary Recommendations: Regular Additional Modifications to Solid Foods: Oral Medication Intake: Whole with Liquid Please contact the pharmacy regarding appropriate crushable or liquid drug formulations that are available whenever modified delivery is recommended. Compensatory Strategies and Precautions to be Taken for Safe Swallow: Sitting Upright (90 deg) Small Bites and Sips Alternate Liquids/Solids Rate of Ingestion Change Supervision While Eating and Drinking for Safe Swallow: Intermittent Supervision Foods to Avoid: Patient tolerated regular solids and thin liquids with no s/s aspiration. Recommend patient continue w/ this diet. Recommend intermittent supervision to monitor for confusion/impulsive behavior. Swallowing Recommended Treatments: Recommendation for Speech: Comment: Patient seen at lunch in her room which is shared with another patient. Patient had already begun lunch when therapist arrived, asked appropriate questions about why I was there which was explained and accepted. Patient was pleasant and cooperative, but occasionally made unexpected comments about police being present on the floor and other visitors acting oddly. Patient was observed consuming juice and sipping water from a cup with swallow presenting as WFL. Patient also ate bites of turkey sandwich, dipping sandwich into salad dressing to moisten before eating. On bites of food, patient produced a timely rotary chew, timely swallow, no clinical signs of aspiration. Patient did at times seem confused, tearing off pieces of sandwich rather than biting, using salad dressing as a dip, etc., but evidenced no clinical signs of aspiration. Patient is tolerating this least restrictive diet well, may need occasional supervision during meals due to evident confusion. Recommend continue on Regular diet with thin liquids, pills whole with liquid. Will d/c speech as patient is on least restrictive diet and tolerating well. Frequency/Duration: Date Range for Service Req: Timeline to reassess: Custom Leather Products Maker Clinican/Clinical Fellow: No Supervisory Statement: I have reviewed and agree with the student/clinical fellow's documentation: N/A Speech Language Pathologist: Reema Moran M.A., CCC-FINISHER MAP [employer] CHART
[2023-02-08] MEDS: guaiFENesin LA 600 MG TAB.ER.12H PO (13:56)
[2023-02-08] MEDS: polyethylene glycoL 3350 17 GM POWD.PACK PO (14:01)
[2023-02-08 14:35] VITALS: TEMP 36.7
--- NOTE | 2023-02-08 14:43 | HO.PSYCHPN ---
Subjective Subjective Date of Service: 02/08/23 Reason For Visit: disorganized agitated behavior Subjective Notes: Conditional Voluntary Interim History: Reviewed with . Pt present guarded and confused; laying in bed, tearful. Pt stated, I'm feeling sad and anxious. Maybe I'm hallucinating? I'm having a hard time figuring out what is real or not real. I may need medication adjustments. I don't know . Review of Systems Constitutional: Reports as per HPI Eyes: Reports as per HPI Reports as per HPI Cardiovascular: Reports as per HPI Respiratory: Reports as per HPI Gastrointestinal: Reports as per HPI Genitourinary: Reports as per HPI Musculoskeletal: Reports as per HPI Skin/Breast: Reports as per HPI Reports as per HPI Psychiatric: Reports as per HPI Endocrine: Reports as per HPI Hematologic/Lymphatic: Reports as per HPI Allergic/Immunologic: Reports as per HPI Mental Status Exam Mental Status Exam Narrative: Pt behavior is cooperative and calm; dressed in casual attire; mood is described as sad and anxious ; eye contact appropriate; Speech is normal rate, volume and prosody and not pressured; thought process is organized and goal directed; some confusion; denies SI/HI/VH/AH. Diagnostics Vital Signs (24Hr): Vital Signs - 24 hr 02/07/23 16:00 02/07/23 16:16 02/07/23 16:17 Temperature Pulse Rate 93 90 94 Respiratory Rate Blood Pressure 136/76 126/72 130/68 Pulse Oximetry Oxygen Delivery Method 02/08/23 08:25 02/08/23 11:20 02/08/23 11:21 Temperature 97.7 F Pulse Rate 91 77 84 Respiratory Rate 18 Blood Pressure 116/67 113/53 L 101/54 L Pulse Oximetry 97 Oxygen Delivery Method Room Air 02/08/23 14:35 Temperature 98.1 F Pulse Rate Respiratory Rate Blood Pressure Pulse Oximetry Oxygen Delivery Method BMI result Body Mass Index 41.6 Labs 01/30/23 09:02 01/30/23 09:02 Labs: Laboratory Results - last 48 hr 02/03/23 02/06/23 02/08/23 07:15 18:20 13:14 Lamotrigine 2.9 COVID-19 ([facility]) Negative Positive A COVID-19 Clin Com See Note See Note Imaging Radiology Impressions: ITS Impressions Venous Duplex 01/30/23 10:06 IMPRESSION: No DVT demonstrated in the left upper extremity Head CT 01/30/23 15:17 IMPRESSION: Mild volume loss. No acute intracranial pathology. Venous Duplex 02/06/23 15:21 IMPRESSION: No DVT demonstrated in the right upper extremity Medications Medications Current Medications Acetaminophen (Acetaminophen 325 Mg Tablet) 650 mg PO Q6H PRN PRN Reason: Headache/Pain Mild Scale (1-3) Last Admin: 02/03/23 18:14 Dose: 650 mg Al Hydroxide/Mg Hydroxide (Magnesium Hydrox/Alum Hydrox 30 Ml Oral.Susp) 30 ml PO Q6H PRN PRN Reason: Heartburn/Nausea Last Admin: 02/03/23 18:15 Dose: 30 ml Bisacodyl (Bisacodyl 5 Mg Tablet.Dr) 10 mg PO DAILY [facility] Last Admin: 01/29/23 08:14 Dose: 10 mg Docusate Sodium (Docusate Sodium 100 Mg Capsule) 100 mg PO DAILY [facility] Last Admin: 02/08/23 09:01 Dose: 100 mg Fluticasone Propionate (Fluticasone Propionate Nasal 16 Gm [place]) 1 spray NOSTRIL-B BID PRN PRN Reason: congestion Last Admin: 02/07/23 20:23 Dose: 1 spray Gabapentin (Gabapentin 100 Mg Capsule) 100 mg PO BID [facility] Last Admin: 02/08/23 09:01 Dose: 100 mg Guaifenesin (Guaifenesin La 600 Mg Tab.Er.12h) 600 mg PO BID PRN PRN Reason: Congestion Last Admin: 02/08/23 13:56 Dose: 600 mg Hydroxyzine HCl (Hydroxyzine Hcl 25 Mg Tablet) 25 mg PO Q6H PRN PRN Reason: Anxiety Last Admin: 02/05/23 16:42 Dose: 25 mg Lamotrigine 100 mg/ (Lamotrigine 75 mg) 175 mg PO BID [facility] Last Admin: 02/08/23 09:01 Dose: 175 mg [employer] Carbonate ([employer] Carbonate 300 Mg Capsule) 300 mg PO DAILY [facility] Last Admin: 02/08/23 09:02 Dose: 300 mg Lurasidone HCl (Lurasidone Hcl 80 Mg Tablet) 80 mg PO DAILY@1900 [facility] Last Admin: 02/07/23 19:47 Dose: 80 mg Magnesium Hydroxide (Milk Of Magnesia 30 Ml Oral.Susp) 30 ml PO DAILY PRN PRN Reason: Constipation Last Admin: 01/29/23 11:34 Dose: 30 ml Olanzapine (Olanzapine Odt 10 Mg Tab.Rapdis) 5 mg TRANSLINGU DAILY PRN PRN Reason: psychosis Last Admin: 02/05/23 18:35 Dose: 5 mg Olanzapine (Olanzapine 7.5 Mg Tablet) 15 mg PO BID [facility] Last Admin: 02/08/23 09:00 Dose: 15 mg Oxcarbazepine (Oxcarbazepine 150 Mg Tablet) 150 mg PO BID [facility] Last Admin: 02/08/23 09:02 Dose: 150 mg Polyethylene Glycol (Polyethylene Glycol 3350 17 Gm Powd.Pack) 17 gm PO BEDTIME PRN PRN Reason: Constipation Last Admin: 02/08/23 14:01 Dose: 17 gm Propranolol HCl (Propranolol Hcl 10 Mg Tablet) 10 mg PO BID PRN; Protocol PRN Reason: anxiety Pyridoxine HCl (Pyridoxine Hcl (Vitamin B6) 50 Mg Tablet) 25 mg PO DAILY [facility] Last Admin: 02/08/23 09:00 Dose: 25 mg Trazodone HCl (Trazodone Hcl 50 Mg Tablet) 50 mg PO BEDTIME PRN PRN Reason: Insomnia Last Admin: 02/06/23 20:04 Dose: 50 mg Vitamin D (Cholecalciferol (Vitamin D3) 10 Mcg Tablet) 20 mcg PO DAILY [facility] Last Admin: 02/08/23 09:02 Dose: 20 mcg Allergies Allergies Allergy/AdvReac Type Severity Reaction Status Date / Time Sulfa (Sulfonamide Allergy Unknown HIVES Verified 05/06/20 20:38 Antibiotics) [SULFA (SULFONAMIDE ANTIBIOTICS)] Assessment & Plan Assessment & Plan (1) Altered mental status: Qualifiers: Altered mental status type: disorientation Qualified Code(s): R41.0 - Disorientation, unspecified Status: Acute Code(s): R41.82 - Altered mental status, unspecified (2) PTSD (post-traumatic stress disorder): Status: Acute Code(s): F43.10 - Post-traumatic stress disorder, unspecified (3) Bipolar disorder: Status: Acute Code(s): F31.9 - Bipolar disorder, unspecified Plan 52 yo single woman with Bipolar Disorder, PTSD and confusion with past medical history of hyperthyroidism presently admitted for management of Bipolar/depression. Plan: cv 15 min checks latuda reduced to 60 mg daily due to possible akathesia trileptal increased to 300mg BID lamictal decreased to 150 mg in am and 100mg at bedtime due to elevated liver enzymes and poor sleep trazodone in creased to 75 mg at hs and MRx1 consider imaging for frontal lobe deterioration clarification collateral contact 01/22/23 Pt experiencing visual/auditory fearful perceptual alterations -Zydis 10 mg bid prn for relieve of severe sx. -AIMS=0, no akathesia noted today Message left for pt's therapist who has called in today. 01/23/23 Continue current regime Encourage milieu involvement Collateral contact 01/24/23 Change Zydis to scheduled vs prn 01/25/23 Decrease Zyprexa to 5 mg bid 01/26/23 Increase Trileptal to 300 mg a.m, 600 mg hs 01/27/23: Patient reports sleeping better; continue current treatment plan 01/28/23:??Continue?current?treatment?plan 01/29/23: Pt requests to make regime changes to those she was taking prior to admission. -Decrease colace to 100 mg daily -Increase Latuda to 80 mg daily -Increase Lamictal to 150 mg bid -Decrease Trileptal to 150 mg bid -Change Propranolol to prn -Decrease Trazodone to 50 mg hs prn -Change Olanzapine to prn -[facility] -Hospitalist consult- R arm edema, forearm, wrist, hand -Meeting with mother and a support of her choice on 01/29. Mother reports pt is not being cared for properly. Pt agrees to this meeting. 01/30/23 Haldol trial to augment Latuda CAT Brain 01/31/23 DC Haldol Return to Zydis 10 mg bid 02/01/23 Patient remains confused. Yesterday evening 2nd shift patient urinated in the defecated on herself, worried that there might not being of toilet paper for other people. Today she says she is not great... And that she is confused. She says I do not know where I am but then when asked says [facility]; she then says I do not know the president but then says John. Patient looks at medical technical writer's watch, points to an says it has been a long-time... 02/02/23 Symptoms of dysphoric samuel. Pt agrees to allow tapering of Gabapentin 200 mg bid 02/02-, 100 mg bid 02/04 then re-assess. Continue Olanzapine Mother requests hospitalist consult for upper extremity edema-completed 01/29 and PET scan-call to [facility] however neurology is closed today for holiday, pt's team will return 02/05. Mother visited and expressed concern for peripheral edema Considered lowering gabapentin which could be a potential cause, however patient was admitted already on this medication; medical technical writer reviewed progress notes and Calvin donahue (has discussed with mother) and will be back tomorrow 02/04/2023: CT pending. No changes to current plan 02/05: Patient presents calm, cooperative; difficulty focusing on conversation; pt stated, I'm feeling anxious, manic perhaps. I got all of my medications mixed up at home . Patient reports she believed she was going home today. denies SI/HI/VH/AH. Continue current tx plan. 02/06: Increase Olanzapine to 15 mg bid [employer] 300 mg daily to augment Lamictal (level 2.9) Range 2.5-15 Increase Lamictal to 175 mg bid EKG 02/07/23 Seen by hospitalist team. No DVT- no medical issues identified. Continue current regime-pt non compliant at this time. Decrease orthostatic vital signs to daily. Encourage CPAP Message left with Genevieve [facility] regarding potential consult for neurology (diagnosed with FTE 2019 at [facility]). FSH, Estradiol 02/08: Pt present guarded and confused; laying in bed, tearful. Pt stated, I'm feeling sad and anxious. Maybe I'm hallucinating? I'm having a hard time figuring out what is real or not real. I may need medication adjustments. I don't know . Continue current tx plan. Patient educated on: diagnosis and medication risk/benefits Informed Consent: understands and further education needed Reason for continued inpatient stay Substantial Risk for: med/psych decompensation Time Spent With Patient Time: Total time managing care of this patient today _20___ minutes.
[2023-02-08] MEDS: Lurasidone HCl 80 MG TABLET PO (20:30)
[2023-02-09] MEDS: OLANZapine 7.5 MG TABLET 15 MG PO ×2 (09:35→20:12)
[2023-02-09] MEDS: Pyridoxine HCl (Vitamin B6) 50 MG TABLET 25 MG PO (09:35)
[2023-02-09] MEDS: Cholecalciferol (Vitamin D3) 10 MCG TABLET 20 MCG PO (09:36)
[2023-02-09] MEDS: Docusate Sodium 100 MG CAPSULE PO (09:36)
[2023-02-09] MEDS: OXcarbazepine 150 MG TABLET PO ×2 (09:36→20:12)
[2023-02-09] MEDS: Gabapentin 100 MG CAPSULE PO ×2 (09:36→20:12)
[2023-02-09] MEDS: Lithium Carbonate 300 MG CAPSULE PO (09:36)
[2023-02-09 09:44] LABS: Follicle Stimulating Hormone 77.3 mIU/mL
[2023-02-09 10:00] VITALS: BP 129/63; PULSE 82; RESP 18; TEMP 37.1; O2SAT 97
--- NOTE | 2023-02-09 12:53 | P.PNPSI_ITS ---
Subjective Subjective Date of Service: 02/09/23 Reason For Visit: disorganized agitated behavior Subjective Notes: Conditional Voluntary Healthcare Proxy: No Guardianship: No Medical Problems Affecting Mental Status: No Interim History: COVID +. T 98.8, Reports intermittent cough, congestion, fatigue. Denies SOB. Body aches, and headache are intermittent. Continues with flight of ideas, disorganized, tangential content.Tearful at times. Medications are difficult for pt. She continues to believe she is receiving Haldol, Lorazepam when they are not ordered. Discussed with pt. I might not need medicine. Discussion with pt's therapist- they will zoom on 02/12 12pm. Discussion of pt not wanting to improve as she will need to discharge. OP team believes this is why pt is not improving as she finds safety in hospital and will not need to manage stressors if she is allowed to remain. Medication Compliance: Intermittent Side effects from medications: No Attending Groups: No Review of Systems Acute medical concerns: Yes COVID+ Medical Review of Systems: unchanged Review of Systems Constitutional: Reports body ache(s), Reports fatigue, Reports lethargy and Reports malaise Endocrine: Reports fatigue Mental Status Exam Mental Status Exam Patient Appearance: Unkempt Patient Orientation: Person, Place and Situation Level of Consciousness: Alert Patient Behavior: Talkative, Cooperative, Passive, Anxious, Fatigued, Distractible, Confused (at times), Good Eye Contact and Crying (at times) Mood Description: Sad Affect Description: Flat Patient Cognition Impaired: No Speech Pattern: Perseverating, Spontaneous Speech and Soft-Spoken Memory Description: Episodic Impaired Hallucinations: None (denies) Delusions: Not Present Perceptual Disturbances: Depersonalization and Derealization Thought Process: Distracted, Rumination, Goal Oriented and Confusion (at times) Thought Content: positive for [place], positive for Circumstantial, positive for Perseveration, positive for Loose Associations, positive for Tangential, positive for Disorganized (at times) and positive for Suicidal Ideation (denies SI, plan, intent) Depressive Symptoms: Increased Anxiety, Diff. Making Decisions, Crying Spells, Thoughts of /Suicide (denies SI, plan, intent) and Low Self Esteem Judgement: Fair Diagnostics Vital Signs (24Hr): Vital Signs - 24 hr 02/08/23 14:35 Temperature 98.1 F BMI result Body Mass Index 41.6 Labs 01/30/23 09:02 01/30/23 09:02 Labs: Laboratory Results - last 48 hr 02/08/23 02/08/23 08:50 13:14 FSH 77.3 COVID-19 ([facility]AN) Positive A COVID-19 Clin Com See Note Imaging Radiology Impressions: ITS Impressions Venous Duplex 01/30/23 10:06 IMPRESSION: No DVT demonstrated in the left upper extremity Head CT 01/30/23 15:17 IMPRESSION: Mild volume loss. No acute intracranial pathology. Venous Duplex 02/06/23 15:21 IMPRESSION: No DVT demonstrated in the right upper extremity Medications Medications Current Medications Acetaminophen (Acetaminophen 325 Mg Tablet) 650 mg PO Q6H PRN PRN Reason: Headache/Pain Mild Scale (1-3) Last Admin: 02/03/23 18:14 Dose: 650 mg Al Hydroxide/Mg Hydroxide (Magnesium Hydrox/Alum Hydrox 30 Ml Oral.Susp) 30 ml PO Q6H PRN PRN Reason: Heartburn/Nausea Last Admin: 02/03/23 18:15 Dose: 30 ml Benzocaine (Throat Lozenge, Medicated Lozenge) 1 lozenge MUCOUS MEM Q2H PRN PRN Reason: Sore Throat Bisacodyl (Bisacodyl 5 Mg Tablet.Dr) 10 mg PO DAILY REPLACED BY [facility] Last Admin: 01/29/23 08:14 Dose: 10 mg Docusate Sodium (Docusate Sodium 100 Mg Capsule) 100 mg PO DAILY REPLACED BY [facility] Last Admin: 02/09/23 09:36 Dose: 100 mg Fluticasone Propionate (Fluticasone Propionate Nasal 16 Gm [place]) 1 spray NOSTRIL-B BID PRN PRN Reason: congestion Last Admin: 02/07/23 20:23 Dose: 1 spray Gabapentin (Gabapentin 100 Mg Capsule) 100 mg PO BID REPLACED BY [facility] Last Admin: 02/09/23 09:36 Dose: 100 mg Guaifenesin (Guaifenesin La 600 Mg Tab.Er.12h) 600 mg PO BID PRN PRN Reason: Congestion Last Admin: 02/08/23 13:56 Dose: 600 mg Hydroxyzine HCl (Hydroxyzine Hcl 25 Mg Tablet) 25 mg PO Q6H PRN PRN Reason: Anxiety Last Admin: 02/05/23 16:42 Dose: 25 mg Lamotrigine 100 mg/ (Lamotrigine 75 mg) 175 mg PO BID REPLACED BY [facility] Last Admin: 12/01/23 09:36 Dose: 175 mg [place] Carbonate ([place] Carbonate 300 Mg Capsule) 300 mg PO DAILY REPLACED BY [facility] Last Admin: 02/09/23 09:36 Dose: 300 mg Lurasidone HCl (Lurasidone Hcl 80 Mg Tablet) 80 mg PO DAILY@1900 REPLACED BY [facility] Last Admin: 02/08/23 20:30 Dose: 80 mg Magnesium Hydroxide (Milk Of Magnesia 30 Ml Oral.Susp) 30 ml PO DAILY PRN PRN Reason: Constipation Last Admin: 01/29/23 11:34 Dose: 30 ml Olanzapine (Olanzapine Odt 10 Mg Tab.Rapdis) 5 mg TRANSLINGU DAILY PRN PRN Reason: psychosis Last Admin: 02/05/23 18:35 Dose: 5 mg Olanzapine (Olanzapine 7.5 Mg Tablet) 15 mg PO BID REPLACED BY [facility] Last Admin: 02/09/23 09:35 Dose: 15 mg Oxcarbazepine (Oxcarbazepine 150 Mg Tablet) 150 mg PO BID REPLACED BY [facility] Last Admin: 02/09/23 09:36 Dose: 150 mg Polyethylene Glycol (Polyethylene Glycol 3350 17 Gm Powd.Pack) 17 gm PO BEDTIME PRN PRN Reason: Constipation Last Admin: 02/08/23 14:01 Dose: 17 gm Propranolol HCl (Propranolol Hcl 10 Mg Tablet) 10 mg PO BID PRN; Protocol PRN Reason: anxiety Pyridoxine HCl (Pyridoxine Hcl (Vitamin B6) 50 Mg Tablet) 25 mg PO DAILY REPLACED BY [facility] Last Admin: 02/09/23 09:35 Dose: 25 mg Trazodone HCl (Trazodone Hcl 50 Mg Tablet) 50 mg PO BEDTIME PRN PRN Reason: Insomnia Last Admin: 02/06/23 20:04 Dose: 50 mg Vitamin D (Cholecalciferol (Vitamin D3) 10 Mcg Tablet) 20 mcg PO DAILY REPLACED BY [facility] Last Admin: 02/09/23 09:36 Dose: 20 mcg Allergies Allergies Allergy/AdvReac Type Severity Reaction Status Date / Time Sulfa (Sulfonamide Allergy Unknown HIVES Verified 05/06/20 20:38 Antibiotics) [SULFA (SULFONAMIDE ANTIBIOTICS)] Assessment & Plan Assessment & Plan (1) Altered mental status: Qualifiers: Altered mental status type: disorientation Qualified Code(s): R41.0 - Disorientation, unspecified Status: Acute Code(s): R41.82 - Altered mental status, unspecified (2) PTSD (post-traumatic stress disorder): Status: Acute Code(s): F43.10 - Post-traumatic stress disorder, unspecified (3) Bipolar disorder: Status: Acute Code(s): F31.9 - Bipolar disorder, unspecified Plan 52 yo single woman with Bipolar Disorder, PTSD and confusion with past medical history of hyperthyroidism presently admitted for management of Bipolar/depression. Plan: cv 15 min checks latuda reduced to 60 mg daily due to possible akathesia trileptal increased to 300mg BID lamictal decreased to 150 mg in am and 100mg at bedtime due to elevated liver enzymes and poor sleep trazodone in creased to 75 mg at hs and MRx1 consider imaging for frontal lobe deterioration clarification collateral contact 01/22/23 Pt experiencing visual/auditory fearful perceptual alterations -Zydis 10 mg bid prn for relieve of severe sx. -AIMS=0, no akathesia noted today Message left for pt's therapist who has called in today. 01/23/23 Continue current regime Encourage milieu involvement Collateral contact 01/24/23 Change Zydis to scheduled vs prn 01/25/23 Decrease Zyprexa to 5 mg bid 01/26/23 Increase Trileptal to 300 mg a.m, 600 mg hs 01/27/23: Patient reports sleeping better; continue current treatment plan 01/28/23:??Continue?current?treatment?plan 01/29/23: Pt requests to make regime changes to those she was taking prior to admission. -Decrease colace to 100 mg daily -Increase Latuda to 80 mg daily -Increase Lamictal to 150 mg bid -Decrease Trileptal to 150 mg bid -Change Propranolol to prn -Decrease Trazodone to 50 mg hs prn -Change Olanzapine to prn -[facility] -Hospitalist consult- R arm edema, forearm, wrist, hand -Meeting with mother and a support of her choice on 01/29. Mother reports pt is not being cared for properly. Pt agrees to this meeting. 01/30/23 Haldol trial to augment Latuda CAT Brain 01/31/23 DC Haldol Return to Zydis 10 mg bid 02/01/23 Patient remains confused. Yesterday evening 2nd shift patient urinated in the defecated on herself, worried that there might not being of toilet paper for other people. Today she says she is not great... And that she is confused. She says I do not know where I am but then when asked says [facility]; she then says I do not know the president but then says John. Patient looks at feature writer's watch, points to an says it has been a long-time... 02/02/23 Symptoms of dysphoric samuel. Pt agrees to allow tapering of Gabapentin 200 mg bid 02/02-, 100 mg bid 02/04 then re-assess. Continue Olanzapine Mother requests hospitalist consult for upper extremity edema- completed 01/29 and [place] [facility] [place] today for holiday, pt's team will return 02/05. Mother visited and expressed concern for peripheral edema Considered lowering gabapentin which could be a potential cause, however patient was admitted already on this medication; feature writer reviewed progress notes and Calvin donahue (has discussed with mother) and will be back tomorrow 02/04/2023: CT pending. No changes to current plan 02/05: Patient presents calm, cooperative; difficulty focusing on conversation; pt stated, I'm feeling anxious, manic perhaps. I got all of my medications mixed up at home . Patient reports she believed she was going home today. denies SI/HI/VH/AH. Continue current tx plan. 02/06: Increase Olanzapine to 15 mg bid [place] 300 mg daily to augment Lamictal (level 2.9) Range 2.5-15 Increase Lamictal to 175 mg bid EKG 02/07/23 Seen by hospitalist team. No DVT- no medical issues identified. Continue current regime-pt non compliant at this time. Decrease orthostatic vital signs to daily. Encourage CPAP Message left with Genevieve [facility] [place] consult for neurology (diagnosed with FTE 2019 [place] [facility] FSH, Estradiol 02/08: Pt present guarded and confused; laying in bed, tearful. Pt stated, I'm feeling sad and anxious. Maybe I'm hallucinating? I'm having a hard time figuring out what is real or not real. I may need medication adjustments. I don't know . Continue current tx plan. 02/09/23 Continue current regime and plan of care. Monitoring of COVID symptoms and resolution. Patient educated on: medication risk/benefits and therapeutic strategies Informed Consent: understands and further education needed Reason for continued inpatient stay Substantial Risk for: med/psych decompensation Time Spent With Patient Time: Total time managing care of this patient today ____ minutes.
[2023-02-09 17:05] VITALS: BP 113/73; PULSE 78; RESP 18; O2SAT 97
[2023-02-09] MEDS: Lurasidone HCl 80 MG TABLET PO (20:12)
[2023-02-09] MEDS: traZODone HCL 50 MG TABLET PO (20:12)
[2023-02-09] MEDS: guaiFENesin LA 600 MG TAB.ER.12H PO (20:16)
[2023-02-10 08:11] LABS: Lithium 0.16 mmol/L (0.60-1.20)
--- NOTE | 2023-02-10 08:42 | P.PNPSI_ITS ---
Subjective Subjective Date of Service: 02/10/23 Reason For Visit: disorganized agitated behavior Subjective Notes: Conditional Voluntary Healthcare Proxy: Yes Guardianship: No Medical Problems Affecting Mental Status: No Interim History: Pt was seen and discussed with team. COVID+, reports sx of congestion, cough Accepted medications, although continues with paranoia around types of meds and doses. Care discussed with therapist on 02/09. Therapist will zoom with pt on 02/12 12pm. Medication Compliance: Yes Side effects from medications: No Attending Groups: No Review of Systems Acute medical concerns: Yes COVID + Medical Review of Systems: unchanged Review of Systems Constitutional: Reports body ache(s), Reports fatigue, Reports lethargy and Reports malaise Respiratory: Reports cough Endocrine: Reports fatigue Mental Status Exam Mental Status Exam Patient Appearance: Unkempt Patient Orientation: Person, Place and Situation Level of Consciousness: Alert Patient Behavior: Talkative, Cooperative, Passive, Anxious, Fatigued, Distractible, Confused (at times), Good Eye Contact and Crying (at times) Mood Description: Sad Affect Description: Flat Patient Cognition Impaired: No Speech Pattern: Perseverating, Spontaneous Speech and Soft-Spoken Memory Description: Episodic Impaired Hallucinations: None (denies) Delusions: Not Present Perceptual Disturbances: Depersonalization and Derealization Thought Process: Distracted, Rumination, Goal Oriented and Confusion (at times) Thought Content: positive for [place], positive for Circumstantial, positive for Perseveration, positive for Loose Associations, positive for Tangential, positive for Disorganized (at times) and positive for Suicidal Ideation (denies SI, plan, intent) Depressive Symptoms: Increased Anxiety, Diff. Making Decisions, Crying Spells, Thoughts of /Suicide (denies SI, plan, intent) and Low Self Esteem Judgement: Fair Diagnostics Vital Signs (24Hr): Vital Signs - 24 hr 02/09/23 10:00 02/09/23 17:05 Temperature 98.8 F Pulse Rate 82 78 Respiratory Rate 18 18 Blood Pressure 129/63 113/73 Pulse Oximetry 97 97 Oxygen Delivery Method Room Air Room Air BMI result Body Mass Index 41.6 Labs 01/30/23 09:02 01/30/23 09:02 Labs: Laboratory Results - last 48 hr 02/08/23 02/08/23 02/10/23 08:50 13:14 07:53 FSH 77.3 Latta 0.16 L COVID-19 ([facility]) Positive A COVID-19 Clin Com See Note Imaging Radiology Impressions: ITS Impressions Venous Duplex 01/30/23 10:06 IMPRESSION: No DVT demonstrated in the left upper extremity Head CT 01/30/23 15:17 IMPRESSION: Mild volume loss. No acute intracranial pathology. Venous Duplex 02/06/23 15:21 IMPRESSION: No DVT demonstrated in the right upper extremity Medications Medications Current Medications Acetaminophen (Acetaminophen 325 Mg Tablet) 650 mg PO Q6H PRN PRN Reason: Headache/Pain Mild Scale (1-3) Last Admin: 02/03/23 18:14 Dose: 650 mg Al Hydroxide/Mg Hydroxide (Magnesium Hydrox/Alum Hydrox 30 Ml Oral.Susp) 30 ml PO Q6H PRN PRN Reason: Heartburn/Nausea Last Admin: 02/03/23 18:15 Dose: 30 ml Benzocaine (Throat Lozenge, Medicated Lozenge) 1 lozenge MUCOUS MEM Q2H PRN PRN Reason: Sore Throat Bisacodyl (Bisacodyl 5 Mg Tablet.Dr) 10 mg PO DAILY [facility] Last Admin: 01/29/23 08:14 Dose: 10 mg Docusate Sodium (Docusate Sodium 100 Mg Capsule) 100 mg PO DAILY [facility] Last Admin: 02/09/23 09:36 Dose: 100 mg Fluticasone Propionate (Fluticasone Propionate Nasal 16 Gm [place]) 1 spray NOSTRIL-B BID PRN PRN Reason: congestion Last Admin: 02/07/23 20:23 Dose: 1 spray Gabapentin (Gabapentin 100 Mg Capsule) 100 mg PO BID [facility] Last Admin: 02/09/23 20:12 Dose: 100 mg Guaifenesin (Guaifenesin La 600 Mg Tab.Er.12h) 600 mg PO BID PRN PRN Reason: Congestion Last Admin: 02/09/23 20:16 Dose: 600 mg Hydroxyzine HCl (Hydroxyzine Hcl 25 Mg Tablet) 25 mg PO Q6H PRN PRN Reason: Anxiety Last Admin: 02/05/23 16:42 Dose: 25 mg Lamotrigine 100 mg/ (Lamotrigine 75 mg) 175 mg PO BID [facility] Last Admin: 02/09/23 20:12 Dose: 175 mg [place] Carbonate ([place] Carbonate 300 Mg Capsule) 300 mg PO DAILY [facility] Last Admin: 02/09/23 09:36 Dose: 300 mg Lurasidone HCl (Lurasidone Hcl 80 Mg Tablet) 80 mg PO DAILY@1900 [facility] Last Admin: 02/09/23 20:12 Dose: 80 mg Magnesium Hydroxide (Milk Of Magnesia 30 Ml Oral.Susp) 30 ml PO DAILY PRN PRN Reason: Constipation Last Admin: 01/29/23 11:34 Dose: 30 ml Olanzapine (Olanzapine Odt 10 Mg Tab.Rapdis) 5 mg TRANSLINGU DAILY PRN PRN Reason: psychosis Last Admin: 02/05/23 18:35 Dose: 5 mg Olanzapine (Olanzapine 7.5 Mg Tablet) 15 mg PO BID [facility] Last Admin: 02/09/23 20:12 Dose: 15 mg Oxcarbazepine (Oxcarbazepine 150 Mg Tablet) 150 mg PO BID [facility] Last Admin: 02/09/23 20:12 Dose: 150 mg Polyethylene Glycol (Polyethylene Glycol 3350 17 Gm Powd.Pack) 17 gm PO BEDTIME PRN PRN Reason: Constipation Last Admin: 02/08/23 14:01 Dose: 17 gm Propranolol HCl (Propranolol Hcl 10 Mg Tablet) 10 mg PO BID PRN; Protocol PRN Reason: anxiety Pyridoxine HCl (Pyridoxine Hcl (Vitamin B6) 50 Mg Tablet) 25 mg PO DAILY [facility] Last Admin: 02/09/23 09:35 Dose: 25 mg Trazodone HCl (Trazodone Hcl 50 Mg Tablet) 50 mg PO BEDTIME PRN PRN Reason: Insomnia Last Admin: 02/09/23 20:12 Dose: 50 mg Vitamin D (Cholecalciferol (Vitamin D3) 10 Mcg Tablet) 20 mcg PO DAILY [facility] Last Admin: 02/09/23 09:36 Dose: 20 mcg Allergies Allergies Allergy/AdvReac Type Severity Reaction Status Date / Time Sulfa (Sulfonamide Allergy Unknown HIVES Verified 05/06/20 20:38 Antibiotics) [SULFA (SULFONAMIDE ANTIBIOTICS)] Assessment & Plan Assessment & Plan (1) Altered mental status: Qualifiers: Altered mental status type: disorientation Qualified Code(s): R41.0 - Disorientation, unspecified Status: Acute Code(s): R41.82 - Altered mental status, unspecified (2) PTSD (post-traumatic stress disorder): Status: Acute Code(s): F43.10 - Post-traumatic stress disorder, unspecified (3) Bipolar disorder: Status: Acute Code(s): F31.9 - Bipolar disorder, unspecified Plan 52 yo single woman with Bipolar Disorder, PTSD and confusion with past medical history of hyperthyroidism presently admitted for management of Bipolar/depression. Plan: cv 15 min checks latuda reduced to 60 mg daily due to possible akathesia trileptal increased to 300mg BID lamictal decreased to 150 mg in am and 100mg at bedtime due to elevated liver enzymes and poor sleep trazodone in creased to 75 mg at hs and MRx1 consider imaging for frontal lobe deterioration clarification collateral contact 01/22/23 Pt experiencing visual/auditory fearful perceptual alterations -Zydis 10 mg bid prn for relieve of severe sx. -AIMS=0, no akathesia noted today Message left for pt's therapist who has called in today. 01/23/23 Continue current regime Encourage milieu involvement Collateral contact 01/24/23 Change Zydis to scheduled vs prn 01/25/23 Decrease Zyprexa to 5 mg bid 01/26/23 Increase Trileptal to 300 mg a.m, 600 mg hs 01/27/23: Patient reports sleeping better; continue current treatment plan 01/28/23:??Continue?current?treatment?plan 01/29/23: Pt requests to make regime changes to those she was taking prior to admission. -Decrease colace to 100 mg daily -Increase Latuda to 80 mg daily -Increase Lamictal to 150 mg bid -Decrease Trileptal to 150 mg bid -Change Propranolol to prn -Decrease Trazodone to 50 mg hs prn -Change Olanzapine to prn -[facility] -Hospitalist consult- R arm edema, forearm, wrist, hand -Meeting with mother and a support of her choice on 01/29. Mother reports pt is not being cared for properly. Pt agrees to this meeting. 01/30/23 Haldol trial to augment Latuda CAT Brain 01/31/23 DC Haldol Return to Zydis 10 mg bid 02/01/23 Patient remains confused. Yesterday evening 2nd shift patient urinated in the defecated on herself, worried that there might not being of toilet paper for other people. Today she says she is not great... And that she is confused. She says I do not know where I am but then when asked says [facility]; she then says I do not know the president but then says John. Patient looks at software writer's watch, points to an says it has been a long-time... 02/02/23 Symptoms of dysphoric samuel. Pt agrees to allow tapering of Gabapentin 200 mg bid 02/02-, 100 mg bid 02/04 then re-assess. Continue Olanzapine Mother requests hospitalist consult for upper extremity edema- completed 01/29 and [place] [facility] today for [place], pt's team will return 02/05. Mother visited and expressed concern for peripheral edema Considered lowering gabapentin which could be a potential cause, however patient was admitted already on this medication; software writer reviewed progress notes and Calvin donahue (has discussed with mother) and will be back tomorrow 02/04/2023: CT pending. No changes to current plan 02/05: Patient presents calm, cooperative; difficulty focusing on conversation; pt stated, I'm feeling anxious, manic perhaps. I got all of my medications mixed up at home . Patient reports she believed she was going home today. denies SI/HI/VH/AH. Continue current tx plan. 02/06: Increase Olanzapine to 15 mg bid [place] 300 mg daily to augment Lamictal (level 2.9) Range 2.5-15 Increase Lamictal to 175 mg bid EKG 02/07/23 Seen by hospitalist team. No DVT- no medical issues identified. Continue current regime-pt non compliant at this time. Decrease orthostatic vital signs to daily. Encourage CPAP Message left with Genevieve [facility] [place] consult for [place]y ([place] with FTE 2019 [place] [facility] [place] FSH, Estradiol 02/08: Pt present guarded and confused; laying in bed, tearful. Pt stated, I'm feeling sad and anxious. Maybe I'm hallucinating? I'm having a hard time figuring out what is real or not real. I may need medication adjustments. I don't know . Continue current tx plan. 02/09/23 Continue current regime and plan of care. Monitoring of COVID symptoms and resolution. 02/10/23 Continue current regime and plan. Pt will meet with her therapist 02/12 12pm via zoom. Patient educated on: therapeutic strategies Informed Consent: further education needed Reason for continued inpatient stay Substantial Risk for: rapid decompensation Time Spent With Patient Time: Total time managing care of this patient today ____ minutes.
[2023-02-10 09:15] VITALS: BP 113/80; PULSE 85; RESP 18; TEMP 36.6; O2SAT 96
[2023-02-10] MEDS: OLANZapine 7.5 MG TABLET 15 MG PO ×2 (09:22→20:59)
[2023-02-10] MEDS: Lithium Carbonate 300 MG CAPSULE PO (09:23)
[2023-02-10] MEDS: OXcarbazepine 150 MG TABLET PO ×2 (09:23→20:57)
[2023-02-10] MEDS: Gabapentin 100 MG CAPSULE PO ×2 (09:24→20:58)
[2023-02-10] MEDS: Cholecalciferol (Vitamin D3) 10 MCG TABLET 20 MCG PO (09:25)
[2023-02-10] MEDS: Pyridoxine HCl (Vitamin B6) 50 MG TABLET 25 MG PO (09:25)
[2023-02-10] MEDS: Docusate Sodium 100 MG CAPSULE PO (11:14)
[2023-02-10 16:49] VITALS: BP 107/58; PULSE 62; TEMP 36.4; O2SAT 99
[2023-02-10] MEDS: Lurasidone HCl 80 MG TABLET PO (18:21)
[2023-02-10] MEDS: hydrOXYzine HCL 25 MG TABLET PO (18:21)
[2023-02-10] MEDS: traZODone HCL 50 MG TABLET PO (20:57)
[2023-02-11 08:30] VITALS: PULSE 70; TEMP 36.6; O2SAT 95
[2023-02-11] MEDS: OXcarbazepine 150 MG TABLET PO ×2 (09:54→20:06)
[2023-02-11] MEDS: OLANZapine 7.5 MG TABLET 15 MG PO ×2 (09:54→20:09)
[2023-02-11] MEDS: Docusate Sodium 100 MG CAPSULE PO (09:55)
[2023-02-11] MEDS: Lithium Carbonate 300 MG CAPSULE PO (09:55)
[2023-02-11] MEDS: Cholecalciferol (Vitamin D3) 10 MCG TABLET 20 MCG PO (09:55)
[2023-02-11] MEDS: Pyridoxine HCl (Vitamin B6) 50 MG TABLET 25 MG PO (10:04)
[2023-02-11] MEDS: Gabapentin 100 MG CAPSULE PO ×2 (10:24→20:09)
--- NOTE | 2023-02-11 14:23 | HO.PSYCHPN ---
Subjective Subjective Date of Service: 02/11/23 Reason For Visit: disorganized agitated behavior Subjective Notes: Conditional Voluntary Healthcare Proxy: No Guardianship: No Medical Problems Affecting Mental Status: No Interim History: Pt seen, discussed with team. Overwhelmed. States she has received too many cards and things from family and friends- they mean well but are making it worse. Accepting meds-given one at a time by nursing. Pt will ask for a new med list today. Continues to ask how much ativan and haldol she is receiving-reviewed with pt Agrees to talk with her therapist on 02/12 via zoom. Questions validity of COVID diagnosis Discussed counting and OCD sx. which are present. Medication Compliance: Yes Side effects from medications: No Attending Groups: No Review of Systems Acute medical concerns: No COVID+ Medical Review of Systems: unchanged Review of Systems Constitutional: Reports body ache(s), Reports fatigue, Reports lethargy and Reports malaise Respiratory: Reports cough Endocrine: Reports fatigue Mental Status Exam Mental Status Exam Patient Appearance: Unkempt Patient Orientation: Person, Place and Situation Level of Consciousness: Alert Patient Behavior: Talkative, Cooperative, Passive, Anxious, Fatigued, Distractible, Confused (at times), Good Eye Contact and Crying (at times) Mood Description: Sad Affect Description: Flat Patient Cognition Impaired: No Speech Pattern: Perseverating, Spontaneous Speech and Soft-Spoken Memory Description: Episodic Impaired Hallucinations: None (denies) Delusions: Not Present Perceptual Disturbances: Depersonalization and Derealization Thought Process: Distracted, Rumination, Goal Oriented and Confusion (at times) Thought Content: positive for [place], positive for Circumstantial, positive for Perseveration, positive for Loose Associations, positive for Tangential, positive for Disorganized (at times) and positive for Suicidal Ideation (denies SI, plan, intent) Depressive Symptoms: Increased Anxiety, Diff. Making Decisions, Crying Spells, Thoughts of /Suicide (denies SI, plan, intent) and Low Self Esteem Judgement: Fair Diagnostics Vital Signs (24Hr): Vital Signs - 24 hr 02/10/23 16:49 02/11/23 08:30 Temperature 97.5 F 98 F Pulse Rate 62 70 Blood Pressure 107/58 L Pulse Oximetry 99 95 Oxygen Delivery Method Room Air Room Air BMI result Body Mass Index 41.6 Labs 01/30/23 09:02 01/30/23 09:02 Labs: Laboratory Results - last 48 hr 02/10/23 07:53 [place] 0.16 L Imaging Radiology Impressions: ITS Impressions Venous Duplex 01/30/23 10:06 IMPRESSION: No DVT demonstrated in the left upper extremity Head CT 01/30/23 15:17 IMPRESSION: Mild volume loss. No acute intracranial pathology. Venous Duplex 02/06/23 15:21 IMPRESSION: No DVT demonstrated in the right upper extremity Medications Medications Current Medications Acetaminophen (Acetaminophen 325 Mg Tablet) 650 mg PO Q6H PRN PRN Reason: Headache/Pain Mild Scale (1-3) Last Admin: 02/03/23 18:14 Dose: 650 mg Al Hydroxide/Mg Hydroxide (Magnesium Hydrox/Alum Hydrox 30 Ml Oral.Susp) 30 ml PO Q6H PRN PRN Reason: Heartburn/Nausea Last Admin: 02/03/23 18:15 Dose: 30 ml Benzocaine (Throat Lozenge, Medicated Lozenge) 1 lozenge MUCOUS MEM Q2H PRN PRN Reason: Sore Throat Bisacodyl (Bisacodyl 5 Mg Tablet.Dr) 10 mg PO DAILY [facility] Last Admin: 01/29/23 08:14 Dose: 10 mg Docusate Sodium (Docusate Sodium 100 Mg Capsule) 100 mg PO DAILY [facility] Last Admin: 02/11/23 09:55 Dose: 100 mg Fluticasone Propionate (Fluticasone Propionate Nasal 16 Gm [place]) 1 spray NOSTRIL-B BID PRN PRN Reason: congestion Last Admin: 02/07/23 20:23 Dose: 1 spray Gabapentin (Gabapentin 100 Mg Capsule) 100 mg PO BID [facility] Last Admin: 02/11/23 10:24 Dose: 100 mg Guaifenesin (Guaifenesin La 600 Mg Tab.Er.12h) 600 mg PO BID PRN PRN Reason: Congestion Last Admin: 02/09/23 20:16 Dose: 600 mg Hydroxyzine HCl (Hydroxyzine Hcl 25 Mg Tablet) 25 mg PO Q6H PRN PRN Reason: Anxiety Last Admin: 02/10/23 18:21 Dose: 25 mg Lamotrigine 100 mg/ (Lamotrigine 75 mg) 175 mg PO BID [facility] Last Admin: 02/11/23 09:54 Dose: 175 mg [place] Carbonate ([place] Carbonate 300 Mg Capsule) 300 mg PO DAILY [facility] Last Admin: 02/11/23 09:55 Dose: 300 mg Lurasidone HCl (Lurasidone Hcl 80 Mg Tablet) 80 mg PO DAILY@1900 [facility] Last Admin: 02/10/23 18:21 Dose: 80 mg Magnesium Hydroxide (Milk Of Magnesia 30 Ml Oral.Susp) 30 ml PO DAILY PRN PRN Reason: Constipation Last Admin: 01/29/23 11:34 Dose: 30 ml Olanzapine (Olanzapine Odt 10 Mg Tab.Rapdis) 5 mg TRANSLINGU DAILY PRN PRN Reason: psychosis Last Admin: 02/05/23 18:35 Dose: 5 mg Olanzapine (Olanzapine 7.5 Mg Tablet) 15 mg PO BID [facility] Last Admin: 02/11/23 09:54 Dose: 15 mg Oxcarbazepine (Oxcarbazepine 150 Mg Tablet) 150 mg PO BID [facility] Last Admin: 02/11/23 09:54 Dose: 150 mg Polyethylene Glycol (Polyethylene Glycol 3350 17 Gm Powd.Pack) 17 gm PO BEDTIME PRN PRN Reason: Constipation Last Admin: 02/08/23 14:01 Dose: 17 gm Propranolol HCl (Propranolol Hcl 10 Mg Tablet) 10 mg PO BID PRN; Protocol PRN Reason: anxiety Pyridoxine HCl (Pyridoxine Hcl (Vitamin B6) 50 Mg Tablet) 25 mg PO DAILY [facility] Last Admin: 02/11/23 10:04 Dose: 25 mg Trazodone HCl (Trazodone Hcl 50 Mg Tablet) 50 mg PO BEDTIME PRN PRN Reason: Insomnia Last Admin: 02/10/23 20:57 Dose: 50 mg Vitamin D (Cholecalciferol (Vitamin D3) 10 Mcg Tablet) 20 mcg PO DAILY [facility] Last Admin: 02/11/23 09:55 Dose: 20 mcg Allergies Allergies Allergy/AdvReac Type Severity Reaction Status Date / Time Sulfa (Sulfonamide Allergy Unknown HIVES Verified 05/06/20 20:38 Antibiotics) [SULFA (SULFONAMIDE ANTIBIOTICS)] Assessment & Plan Assessment & Plan (1) Altered mental status: Qualifiers: Altered mental status type: disorientation Qualified Code(s): R41.0 - Disorientation, unspecified Status: Acute Code(s): R41.82 - Altered mental status, unspecified (2) PTSD (post-traumatic stress disorder): Status: Acute Code(s): F43.10 - Post-traumatic stress disorder, unspecified (3) Bipolar disorder: Status: Acute Code(s): F31.9 - Bipolar disorder, unspecified Plan 52 yo single woman with Bipolar Disorder, PTSD and confusion with past medical history of hyperthyroidism presently admitted for management of Bipolar/depression. Plan: cv 15 min checks latuda reduced to 60 mg daily due to possible akathesia trileptal increased to 300mg BID lamictal decreased to 150 mg in am and 100mg at bedtime due to elevated liver enzymes and poor sleep trazodone in creased to 75 mg at hs and MRx1 consider imaging for frontal lobe deterioration clarification collateral contact 01/22/23 Pt experiencing visual/auditory fearful perceptual alterations -Zydis 10 mg bid prn for relieve of severe sx. -AIMS=0, no akathesia noted today Message left for pt's therapist who has called in today. 01/23/23 Continue current regime Encourage milieu involvement Collateral contact 01/24/23 Change Zydis to scheduled vs prn 01/25/23 Decrease Zyprexa to 5 mg bid 01/26/23 Increase Trileptal to 300 mg a.m, 600 mg hs 01/27/23: Patient reports sleeping better; continue current treatment plan 01/28/23:??Continue?current?treatment?plan 01/29/23: Pt requests to make regime changes to those she was taking prior to admission. -Decrease colace to 100 mg daily -Increase Latuda to 80 mg daily -Increase Lamictal to 150 mg bid -Decrease Trileptal to 150 mg bid -Change Propranolol to prn -Decrease Trazodone to 50 mg hs prn -Change Olanzapine to prn -[facility] -Hospitalist consult- R arm edema, forearm, wrist, hand -Meeting with mother and a support of her choice on 01/29. Mother reports pt is not being cared for properly. Pt agrees to this meeting. 01/30/23 Haldol trial to augment Latuda CAT Brain 01/31/23 DC Haldol Return to Zydis 10 mg bid 02/01/23 Patient remains confused. Yesterday evening 2nd shift patient urinated in the defecated on herself, worried that there might not being of toilet paper for other people. Today she says she is not great... And that she is confused. She says I do not know where I am but then when asked says [facility]; she then says I do not know the president but then says John. Patient looks at ticket writer's watch, points to an says it has been a long-time... 02/02/23 Symptoms of dysphoric samuel. Pt agrees to allow tapering of Gabapentin 200 mg bid 02/02-, 100 mg bid 02/04 then re-assess. Continue Olanzapine Mother requests hospitalist consult for upper extremity edema-completed 01/29 and PET scan-call to [facility] [place] [place] however neurology is closed today for holiday, pt's team will return 02/05. Mother visited and expressed concern for peripheral edema Considered lowering gabapentin which could be a potential cause, however patient was admitted already on this medication; ticket writer reviewed progress notes and Calvin donahue (has discussed with mother) and will be back tomorrow 02/04/2023: CT pending. No changes to current plan 02/05: Patient presents calm, cooperative; difficulty focusing on conversation; pt stated, I'm feeling anxious, manic perhaps. I got all of my medications mixed up at home . Patient reports she believed she was going home today. denies SI/HI/VH/AH. Continue current tx plan. 02/06: Increase Olanzapine to 15 mg bid [place] 300 mg daily to augment Lamictal (level 2.9) Range 2.5-15 Increase Lamictal to 175 mg bid EKG 02/07/23 Seen by hospitalist team. No DVT- no medical issues identified. Continue current regime-pt non compliant at this time. Decrease orthostatic vital signs to daily. Encourage CPAP Message left with Genevieve [facility] [place] [place] regarding potential consult for neurology (diagnosed with FTE 2019 at [facility] [place] [place] FSH, Estradiol 02/08: Pt present guarded and confused; laying in bed, tearful. Pt stated, I'm feeling sad and anxious. Maybe I'm hallucinating? I'm having a hard time figuring out what is real or not real. I may need medication adjustments. I don't know . Continue current tx plan. 02/09/23 Continue current regime and plan of care. Monitoring of COVID symptoms and resolution. 02/10/23 Continue current regime and plan. Pt will meet with her therapist 02/12 12pm via zoom. 02/11/23 Continue current regime and plan of care Patient educated on: medication risk/benefits, therapeutic strategies and medical condition Informed Consent: further education needed Reason for continued inpatient stay Substantial Risk for: rapid decompensation Time Spent With Patient Time: Total time managing care of this patient today ____ minutes.
[2023-02-11 17:26] VITALS: BP 125/77; PULSE 85; RESP 18; O2SAT 99
[2023-02-11] MEDS: Throat Lozenge, Medicated LOZENGE 1 LOZENGE MUCOUS MEM (17:29)
[2023-02-11] MEDS: traZODone HCL 50 MG TABLET PO (20:07)
[2023-02-11] MEDS: Lurasidone HCl 80 MG TABLET PO (20:07)
[2023-02-11] MEDS: polyethylene glycoL 3350 17 GM POWD.PACK PO (20:13)
[2023-02-12 01:44] LABS: Estradiol Ultra Sensitive 8 pg/mL
[2023-02-12 08:00] VITALS: BP 107/62; PULSE 72
[2023-02-12 08:55] VITALS: PULSE 71; RESP 16; TEMP 37.3; O2SAT 97
[2023-02-12] MEDS: Gabapentin 100 MG CAPSULE PO ×2 (09:00→22:16)
[2023-02-12] MEDS: Pyridoxine HCl (Vitamin B6) 50 MG TABLET 25 MG PO (09:00)
[2023-02-12] MEDS: Docusate Sodium 100 MG CAPSULE PO (09:00)
[2023-02-12] MEDS: Lithium Carbonate 300 MG CAPSULE PO (09:00)
[2023-02-12] MEDS: OLANZapine 7.5 MG TABLET 15 MG PO ×2 (09:00→22:17)
[2023-02-12] MEDS: Cholecalciferol (Vitamin D3) 10 MCG TABLET 20 MCG PO (09:00)
[2023-02-12] MEDS: OXcarbazepine 150 MG TABLET PO ×2 (09:01→22:15)
--- NOTE | 2023-02-12 09:35 | HO.PSYCHPN ---
Subjective Subjective Date of Service: 02/12/23 Reason For Visit: disorganized agitated behavior Subjective Notes: Conditional Voluntary Healthcare Proxy: No Guardianship: No Medical Problems Affecting Mental Status: No Interim History: Pt met with therapist via zoom today which she reported she was pleased with. Less tangential, with more organization today, elevated startle response with noise, Decrease in paranoia. Describes feeling overwhelmed with all the gifts and cards she has received from family and friends. Discussed ways of organizing/storing these to help increase her comfort with all she has received. Talking about going to [facility] and discharge today. Medication Compliance: Yes Side effects from medications: No Attending Groups: No Review of Systems Acute medical concerns: No COVID+ Medical Review of Systems: changed Review of Systems Constitutional: Reports fatigue Respiratory: Reports cough and Reports other (sinus congestion which she reports today is improved.) Endocrine: Reports fatigue Mental Status Exam Mental Status Exam Patient Appearance: Fatigued and Disheveled Patient Orientation: Person, Place, Time and Situation Level of Consciousness: Alert Patient Behavior: Appropriate, Talkative, Cooperative, Passive, Anxious, Fearful (increased hyperactive startle response), Fatigued, Distractible, Good Eye Contact and Crying (when she first saw her therapist) Mood Description: Depressed, Anxious, Nervous and Apprehensive Affect Description: Anxious Patient Cognition Impaired: No Ability to Follow Directions: Good Speech Pattern: Spontaneous Speech Memory Description: Episodic Impaired Hallucinations: None Delusions: Not Present Perceptual Disturbances: Depersonalization and Derealization Thought Process: Distracted and Rumination Thought Content: positive for [place], positive for Obsessional Thoughts, positive for Perseveration and positive for Suicidal Ideation (denies) Depressive Symptoms: Diff. Making Decisions, Crying Spells, Increased Fatigue, Thoughts of /Suicide (denies) and Loss of Energy Judgement: Fair Diagnostics Vital Signs (24Hr): Vital Signs - 24 hr 02/11/23 17:26 02/12/23 08:55 Temperature 99.1 F Pulse Rate 85 71 Respiratory Rate 18 16 Blood Pressure 125/77 Pulse Oximetry 99 97 Oxygen Delivery Method Room Air Room Air BMI result Body Mass Index 41.6 Labs 01/30/23 09:02 01/30/23 09:02 Labs: Laboratory Results - last 48 hr 02/08/23 08:50 Estradiol Ultra LCMSMS 8 Imaging Radiology Impressions: ITS Impressions Venous Duplex 01/30/23 10:06 IMPRESSION: No DVT demonstrated in the left upper extremity Head CT 01/30/23 15:17 IMPRESSION: Mild volume loss. No acute intracranial pathology. Venous Duplex 02/06/23 15:21 IMPRESSION: No DVT demonstrated in the right upper extremity Medications Medications Current Medications Acetaminophen (Acetaminophen 325 Mg Tablet) 650 mg PO Q6H PRN PRN Reason: Headache/Pain Mild Scale (1-3) Last Admin: 02/03/23 18:14 Dose: 650 mg Al Hydroxide/Mg Hydroxide (Magnesium Hydrox/Alum Hydrox 30 Ml Oral.Susp) 30 ml PO Q6H PRN PRN Reason: Heartburn/Nausea Last Admin: 02/03/23 18:15 Dose: 30 ml Benzocaine (Throat Lozenge, Medicated Lozenge) 1 lozenge MUCOUS MEM Q2H PRN PRN Reason: Sore Throat Last Admin: 02/11/23 17:29 Dose: 1 lozenge Bisacodyl (Bisacodyl 5 Mg Tablet.Dr) 10 mg PO DAILY [facility] Last Admin: 01/29/23 08:14 Dose: 10 mg Docusate Sodium (Docusate Sodium 100 Mg Capsule) 100 mg PO DAILY [facility] Last Admin: 02/12/23 09:00 Dose: 100 mg Fluticasone Propionate (Fluticasone Propionate Nasal 16 Gm [place]) 1 spray NOSTRIL-B BID PRN PRN Reason: congestion Last Admin: 02/07/23 20:23 Dose: 1 spray Gabapentin (Gabapentin 100 Mg Capsule) 100 mg PO BID [facility] Last Admin: 02/12/23 09:00 Dose: 100 mg Guaifenesin (Guaifenesin La 600 Mg Tab.Er.12h) 600 mg PO BID PRN PRN Reason: Congestion Last Admin: 02/09/23 20:16 Dose: 600 mg Hydroxyzine HCl (Hydroxyzine Hcl 25 Mg Tablet) 25 mg PO Q6H PRN PRN Reason: Anxiety Last Admin: 02/10/23 18:21 Dose: 25 mg Lamotrigine 100 mg/ (Lamotrigine 75 mg) 175 mg PO BID [facility] Last Admin: 02/12/23 08:59 Dose: 175 mg [place] Carbonate ([place] Carbonate 300 Mg Capsule) 300 mg PO DAILY [facility] Last Admin: 02/12/23 09:00 Dose: 300 mg Lurasidone HCl (Lurasidone Hcl 80 Mg Tablet) 80 mg PO DAILY@1900 [facility] Last Admin: 02/11/23 20:07 Dose: 80 mg Magnesium Hydroxide (Milk Of Magnesia 30 Ml Oral.Susp) 30 ml PO DAILY PRN PRN Reason: Constipation Last Admin: 01/29/23 11:34 Dose: 30 ml Olanzapine (Olanzapine Odt 10 Mg Tab.Rapdis) 5 mg TRANSLINGU DAILY PRN PRN Reason: psychosis Last Admin: 02/05/23 18:35 Dose: 5 mg Olanzapine (Olanzapine 7.5 Mg Tablet) 15 mg PO BID [facility] Last Admin: 02/12/23 09:00 Dose: 15 mg Oxcarbazepine (Oxcarbazepine 150 Mg Tablet) 150 mg PO BID [facility] Last Admin: 02/12/23 09:01 Dose: 150 mg Polyethylene Glycol (Polyethylene Glycol 3350 17 Gm Powd.Pack) 17 gm PO BEDTIME PRN PRN Reason: Constipation Last Admin: 02/11/23 20:13 Dose: 17 gm Propranolol HCl (Propranolol Hcl 10 Mg Tablet) 10 mg PO BID PRN; Protocol PRN Reason: anxiety Pyridoxine HCl (Pyridoxine Hcl (Vitamin B6) 50 Mg Tablet) 25 mg PO DAILY [facility] Last Admin: 02/12/23 09:00 Dose: 25 mg Trazodone HCl (Trazodone Hcl 50 Mg Tablet) 50 mg PO BEDTIME PRN PRN Reason: Insomnia Last Admin: 02/11/23 20:07 Dose: 50 mg Vitamin D (Cholecalciferol (Vitamin D3) 10 Mcg Tablet) 20 mcg PO DAILY [facility] Last Admin: 02/12/23 09:00 Dose: 20 mcg Allergies Allergies Allergy/AdvReac Type Severity Reaction Status Date / Time Sulfa (Sulfonamide Allergy Unknown HIVES Verified 05/06/20 20:38 Antibiotics) [SULFA (SULFONAMIDE ANTIBIOTICS)] Assessment & Plan Assessment & Plan (1) Altered mental status: Qualifiers: Altered mental status type: disorientation Qualified Code(s): R41.0 - Disorientation, unspecified Status: Acute Code(s): R41.82 - Altered mental status, unspecified (2) PTSD (post-traumatic stress disorder): Status: Acute Code(s): F43.10 - Post-traumatic stress disorder, unspecified (3) Bipolar disorder: Status: Acute Code(s): F31.9 - Bipolar disorder, unspecified Plan 52 yo single woman with Bipolar Disorder, PTSD and confusion with past medical history of hyperthyroidism presently admitted for management of Bipolar/depression. Plan: cv 15 min checks latuda reduced to 60 mg daily due to possible akathesia trileptal increased to 300mg BID lamictal decreased to 150 mg in am and 100mg at bedtime due to elevated liver enzymes and poor sleep trazodone in creased to 75 mg at hs and MRx1 consider imaging for frontal lobe deterioration clarification collateral contact 01/22/23 Pt experiencing visual/auditory fearful perceptual alterations -Zydis 10 mg bid prn for relieve of severe sx. -AIMS=0, no akathesia noted today Message left for pt's therapist who has called in today. 01/23/23 Continue current regime Encourage milieu involvement Collateral contact 01/24/23 Change Zydis to scheduled vs prn 01/25/23 Decrease Zyprexa to 5 mg bid 01/26/23 Increase Trileptal to 300 mg a.m, 600 mg hs 01/27/23: Patient reports sleeping better; continue current treatment plan 01/28/23:??Continue?current?treatment?plan 01/29/23: Pt requests to make regime changes to those she was taking prior to admission. -Decrease colace to 100 mg daily -Increase Latuda to 80 mg daily -Increase Lamictal to 150 mg bid -Decrease Trileptal to 150 mg bid -Change Propranolol to prn -Decrease Trazodone to 50 mg hs prn -Change Olanzapine to prn -[facility] -Hospitalist consult- R arm edema, forearm, wrist, hand -Meeting with mother and a support of her choice on 01/29. Mother reports pt is not being cared for properly. Pt agrees to this meeting. 01/30/23 Haldol trial to augment Latuda CAT Brain 01/31/23 DC Haldol Return to Zydis 10 mg bid 02/01/23 Patient remains confused. Yesterday evening 2nd shift patient urinated in the defecated on herself, worried that there might not being of toilet paper for other people. Today she says she is not great... And that she is confused. She says I do not know where I am but then when asked says [facility]; she then says I do not know the president but then says John. Patient looks at literary writer's watch, points to an says it has been a long-time... 02/02/23 Symptoms of dysphoric samuel. Pt agrees to allow tapering of Gabapentin 200 mg bid 02/02-, 100 mg bid 02/04 then re-assess. Continue Olanzapine Mother requests hospitalist consult for upper extremity edema-completed 01/29 and [place] [facility] [facility] [place] today for holiday, pt's team will return 02/05. Mother visited and expressed concern for peripheral edema Considered lowering gabapentin which could be a potential cause, however patient was admitted already on this medication; literary writer reviewed progress notes and Calvin aware (has discussed with mother) and will be back tomorrow 02/04/2023: CT pending. No changes to current plan 02/05: Patient presents calm, cooperative; difficulty focusing on conversation; pt stated, I'm feeling anxious, manic perhaps. I got all of my medications mixed up at home . Patient reports she believed she was going home today. denies SI/HI/VH/AH. Continue current tx plan. 02/06: Increase Olanzapine to 15 mg bid [place] 300 mg daily to augment Lamictal (level 2.9) Range 2.5-15 Increase Lamictal to 175 mg bid EKG 02/07/23 Seen by hospitalist team. No DVT- no medical issues identified. Continue current regime-pt non compliant at this time. Decrease orthostatic vital signs to daily. Encourage CPAP Message left with Genevieve [facility] [place] for [place] with FTE 2019 [place] [facility] [place] FSH, Estradiol 02/08: Pt present guarded and confused; laying in bed, tearful. Pt stated, I'm feeling sad and anxious. Maybe I'm hallucinating? I'm having a hard time figuring out what is real or not real. I may need medication adjustments. I don't know . Continue current tx plan. 02/09/23 Continue current regime and plan of care. Monitoring of COVID symptoms and resolution. 02/10/23 Continue current regime and plan. Pt will meet with her therapist 02/12 12pm via zoom. 02/11/23 Continue current regime and plan of care 02/12/23 Some improvement, continue current regime and plan of care Patient educated on: therapeutic strategies Informed Consent: understands and further education needed Reason for continued inpatient stay Substantial Risk for: rapid decompensation Time Spent With Patient Time: Total time managing care of this patient today ____ minutes.
[2023-02-12 18:00] VITALS: BP 127/59; PULSE 80; RESP 16; TEMP 37.2; O2SAT 94
[2023-02-12] MEDS: guaiFENesin LA 600 MG TAB.ER.12H PO (18:15)
[2023-02-12] MEDS: Lurasidone HCl 80 MG TABLET PO (22:16)
[2023-02-13 08:00] VITALS: BP 111/61; PULSE 70; RESP 18; TEMP 37; O2SAT 99
[2023-02-13] MEDS: Lithium Carbonate 300 MG CAPSULE PO (09:52)
[2023-02-13] MEDS: Pyridoxine HCl (Vitamin B6) 50 MG TABLET 25 MG PO (09:52)
[2023-02-13] MEDS: OLANZapine 7.5 MG TABLET 15 MG PO ×2 (09:52→20:34)
[2023-02-13] MEDS: OXcarbazepine 150 MG TABLET PO ×2 (09:52→20:34)
[2023-02-13] MEDS: Gabapentin 100 MG CAPSULE PO ×2 (09:52→20:34)
[2023-02-13] MEDS: Cholecalciferol (Vitamin D3) 10 MCG TABLET 20 MCG PO (09:53)
[2023-02-13] MEDS: Docusate Sodium 100 MG CAPSULE PO (09:53)
[2023-02-13] MEDS: guaiFENesin LA 600 MG TAB.ER.12H PO (09:58)
--- NOTE | 2023-02-13 15:11 | P.PNPSI_ITS ---
Subjective Subjective Date of Service: 02/13/23 Reason For Visit: disorganized agitated behavior Subjective Notes: Conditional Voluntary Healthcare Proxy: Yes Guardianship: No Medical Problems Affecting Mental Status: No Interim History: Pt continues to quarantine with COVID until 02/14. She is alert, oriented, ruminative at times. We spoke briefly-she was asleep when tw returned to meet with her. She reported feeling improved yet tired. PHP will meet with her for intake on 02/15-we are looking for discharge at that time should she remain without symptoms. Medication Compliance: Yes Side effects from medications: No Attending Groups: No Review of Systems Acute medical concerns: No COVID+ Medical Review of Systems: unchanged Review of Systems Constitutional: Reports fatigue and Reports malaise Comments: Pt reports improvement in respiratory sx of COVID Endocrine: Reports fatigue Mental Status Exam Mental Status Exam Patient Appearance: Fatigued Patient Orientation: Person, Place, Time and Situation Level of Consciousness: Alert Patient Behavior: Appropriate, Talkative, Cooperative, Passive, Anxious, Fatigued, Distractible and Good Eye Contact Mood Description: Anxious, Nervous and Apprehensive Affect Description: Anxious Patient Cognition Impaired: No Ability to Follow Directions: Good Speech Pattern: Spontaneous Speech Memory Description: Episodic Impaired Hallucinations: None Delusions: Not Present Perceptual Disturbances: Depersonalization and Derealization Thought Process: Distracted and Rumination Thought Content: positive for [place], positive for Perseveration and positive for Suicidal Ideation (denies) Depressive Symptoms: Diff. Making Decisions, Increased Fatigue, Thoughts of /Suicide (denies) and Loss of Energy Judgement: Fair Diagnostics Vital Signs (24Hr): Vital Signs - 24 hr 02/12/23 18:00 Temperature 98.9 F Pulse Rate 80 Respiratory Rate 16 Blood Pressure 127/59 L Pulse Oximetry 94 Oxygen Delivery Method Room Air BMI result Body Mass Index 41.6 Labs 01/30/23 09:02 01/30/23 09:02 Labs: Laboratory Results - last 48 hr 02/08/23 08:50 Estradiol Ultra LCMSMS 8 Imaging Radiology Impressions: ITS Impressions Venous Duplex 01/30/23 10:06 IMPRESSION: No DVT demonstrated in the left upper extremity Head CT 01/30/23 15:17 IMPRESSION: Mild volume loss. No acute intracranial pathology. Venous Duplex 02/06/23 15:21 IMPRESSION: No DVT demonstrated in the right upper extremity Medications Medications Current Medications Acetaminophen (Acetaminophen 325 Mg Tablet) 650 mg PO Q6H PRN PRN Reason: Headache/Pain Mild Scale (1-3) Last Admin: 02/03/23 18:14 Dose: 650 mg Al Hydroxide/Mg Hydroxide (Magnesium Hydrox/Alum Hydrox 30 Ml Oral.Susp) 30 ml PO Q6H PRN PRN Reason: Heartburn/Nausea Last Admin: 02/03/23 18:15 Dose: 30 ml Benzocaine (Throat Lozenge, Medicated Lozenge) 1 lozenge MUCOUS MEM Q2H PRN PRN Reason: Sore Throat Last Admin: 02/11/23 17:29 Dose: 1 lozenge Bisacodyl (Bisacodyl 5 Mg Tablet.Dr) 10 mg PO DAILY [facility] Last Admin: 01/29/23 08:14 Dose: 10 mg Docusate Sodium (Docusate Sodium 100 Mg Capsule) 100 mg PO DAILY [facility] Last Admin: 02/13/23 09:53 Dose: 100 mg Fluticasone Propionate (Fluticasone Propionate Nasal 16 Gm [place]) 1 spray NOSTRIL-B BID PRN PRN Reason: congestion Last Admin: 02/07/23 20:23 Dose: 1 spray Gabapentin (Gabapentin 100 Mg Capsule) 100 mg PO BID [facility] Last Admin: 02/13/23 09:52 Dose: 100 mg Guaifenesin (Guaifenesin [place] 600 Mg Tab.Er.12h) 600 mg PO BID PRN PRN Reason: Congestion Last Admin: 02/13/23 09:58 Dose: 600 mg Hydroxyzine HCl (Hydroxyzine Hcl 25 Mg Tablet) 25 mg PO Q6H PRN PRN Reason: Anxiety Last Admin: 02/10/23 18:21 Dose: 25 mg Lamotrigine 100 mg/ (Lamotrigine 75 mg) 175 mg PO BID [facility] Last Admin: 02/13/23 09:51 Dose: 175 mg [place] Carbonate ([place] Carbonate 300 Mg Capsule) 300 mg PO DAILY [facility] Last Admin: 02/13/23 09:52 Dose: 300 mg Lurasidone HCl (Lurasidone Hcl 80 Mg Tablet) 80 mg PO DAILY@1900 [facility] Last Admin: 02/12/23 22:16 Dose: 80 mg Magnesium Hydroxide (Milk Of Magnesia 30 Ml Oral.Susp) 30 ml PO DAILY PRN PRN Reason: Constipation Last Admin: 01/29/23 11:34 Dose: 30 ml Olanzapine (Olanzapine Odt 10 Mg Tab.Rapdis) 5 mg TRANSLINGU DAILY PRN PRN Reason: psychosis Last Admin: 02/05/23 18:35 Dose: 5 mg Olanzapine (Olanzapine 7.5 Mg Tablet) 15 mg PO BID [facility] Last Admin: 02/13/23 09:52 Dose: 15 mg Oxcarbazepine (Oxcarbazepine 150 Mg Tablet) 150 mg PO BID [facility] Last Admin: 02/13/23 09:52 Dose: 150 mg Polyethylene Glycol (Polyethylene Glycol 3350 17 Gm Powd.Pack) 17 gm PO BEDTIME PRN PRN Reason: Constipation Last Admin: 02/11/23 20:13 Dose: 17 gm Propranolol HCl (Propranolol Hcl 10 Mg Tablet) 10 mg PO BID PRN; Protocol PRN Reason: anxiety Pyridoxine HCl (Pyridoxine Hcl (Vitamin B6) 50 Mg Tablet) 25 mg PO DAILY [facility] Last Admin: 02/13/23 09:52 Dose: 25 mg Trazodone HCl (Trazodone Hcl 50 Mg Tablet) 50 mg PO BEDTIME PRN PRN Reason: Insomnia Last Admin: 02/11/23 20:07 Dose: 50 mg Vitamin D (Cholecalciferol (Vitamin D3) 10 Mcg Tablet) 20 mcg PO DAILY [facility] Last Admin: 02/13/23 09:53 Dose: 20 mcg Allergies Allergies Allergy/AdvReac Type Severity Reaction Status Date / Time Sulfa (Sulfonamide Allergy Unknown HIVES Verified 05/06/20 20:38 Antibiotics) [SULFA (SULFONAMIDE ANTIBIOTICS)] Assessment & Plan Assessment & Plan (1) Altered mental status: Qualifiers: Altered mental status type: disorientation Qualified Code(s): R41.0 - Disorientation, unspecified Status: Acute Code(s): R41.82 - Altered mental status, unspecified (2) PTSD (post-traumatic stress disorder): Status: Acute Code(s): F43.10 - Post-traumatic stress disorder, unspecified (3) Bipolar disorder: Status: Acute Code(s): F31.9 - Bipolar disorder, unspecified Plan 52 yo single woman with Bipolar Disorder, PTSD and confusion with past medical history of hyperthyroidism presently admitted for management of Bipolar/depression. Plan: cv 15 min checks latuda reduced to 60 mg daily due to possible akathesia trileptal increased to 300mg BID lamictal decreased to 150 mg in am and 100mg at bedtime due to elevated liver enzymes and poor sleep trazodone in creased to 75 mg at hs and MRx1 consider imaging for frontal lobe deterioration clarification collateral contact 01/22/23 Pt experiencing visual/auditory fearful perceptual alterations -Zydis 10 mg bid prn for relieve of severe sx. -AIMS=0, no akathesia noted today Message left for pt's therapist who has called in today. 01/23/23 Continue current regime Encourage milieu involvement Collateral contact 01/24/23 Change Zydis to scheduled vs prn 01/25/23 Decrease Zyprexa to 5 mg bid 01/26/23 Increase Trileptal to 300 mg a.m, 600 mg hs 01/27/23: Patient reports sleeping better; continue current treatment plan 01/28/23:??Continue?current?treatment?plan 01/29/23: Pt requests to make regime changes to those she was taking prior to admission. -Decrease colace to 100 mg daily -Increase Latuda to 80 mg daily -Increase Lamictal to 150 mg bid -Decrease Trileptal to 150 mg bid -Change Propranolol to prn -Decrease Trazodone to 50 mg hs prn -Change Olanzapine to prn -[facility] -Hospitalist consult- R arm edema, forearm, wrist, hand -Meeting with mother and a support of her choice on 01/29. Mother reports pt is not being cared for properly. Pt agrees to this meeting. 01/30/23 Haldol trial to augment Latuda CAT Brain 01/31/23 DC Haldol Return to Zydis 10 mg bid 02/01/23 Patient remains confused. Yesterday evening 2nd shift patient urinated in the defecated on herself, worried that there might not being of toilet paper for other people. Today she says she is not great... And that she is confused. She says I do not know where I am but then when asked says [facility]; she then says I do not know the president but then says John. Patient looks at typewriter mechanic's watch, points to an says it has been a long-time... 02/02/23 Symptoms of dysphoric samuel. Pt agrees to allow tapering of Gabapentin 200 mg bid 02/02-, 100 mg bid 02/04 then re-assess. Continue Olanzapine Mother requests hospitalist consult for upper extremity edema- completed 01/29 and PET scan[place] [facility] [place] neurology is closed today for holiday, pt's team will return 02/05. Mother visited and expressed concern for peripheral edema Considered lowering gabapentin which could be a potential cause, however patient was admitted already on this medication; typewriter mechanic reviewed progress notes and Calvin donahue (has discussed with mother) and will be back tomorrow 02/04/2023: CT pending. No changes to current plan 02/05: Patient presents calm, cooperative; difficulty focusing on conversation; pt stated, I'm feeling anxious, manic perhaps. I got all of my medications mixed up at home . Patient reports she believed she was going home today. denies SI/HI/VH/AH. Continue current tx plan. 02/06: Increase Olanzapine to 15 mg bid [place] 300 mg daily to augment Lamictal (level 2.9) Range 2.5-15 Increase Lamictal to 175 mg bid EKG 02/07/23 Seen by hospitalist team. No DVT- no medical issues identified. Continue current regime-pt non compliant at this time. Decrease orthostatic vital signs to daily. Encourage CPAP Message left with Genevieve [facility] regarding potential consult for neurology (diagnosed with FTE 2019 at [facility]). [facility], Estradiol 02/08: Pt present guarded and confused; laying in bed, tearful. Pt stated, I'm feeling sad and anxious. Maybe I'm hallucinating? I'm having a hard time figuring out what is real or not real. I may need medication adjustments. I don't know . Continue current tx plan. 02/09/23 Continue current regime and plan of care. Monitoring of COVID symptoms and resolution. 02/10/23 Continue current regime and plan. Pt will meet with her therapist 02/12 12pm via zoom. 02/11/23 Continue current regime and plan of care 02/12/23 Some improvement, continue current regime and plan of care 02/13/23 Continues to improve-PHP intake 02/15. Tentative discharge to begin PHP. Informed Consent: understands and further education needed Reason for continued inpatient stay Substantial Risk for: rapid decompensation Time Spent With Patient Time: Total time managing care of this patient today ____ minutes.
[2023-02-13 18:00] VITALS: BP 120/64; PULSE 93; RESP 16; TEMP 36.1; O2SAT 94
[2023-02-13] MEDS: Throat Lozenge, Medicated LOZENGE 1 LOZENGE MUCOUS MEM (20:34)
[2023-02-13] MEDS: traZODone HCL 50 MG TABLET PO (20:35)
[2023-02-13] MEDS: Lurasidone HCl 80 MG TABLET PO (20:35)
[2023-02-13] MEDS: hydrOXYzine HCL 25 MG TABLET PO (20:36)
[2023-02-14 08:00] VITALS: BP 110/63; PULSE 82; RESP 16; TEMP 36.4; O2SAT 99
[2023-02-14] MEDS: Docusate Sodium 100 MG CAPSULE PO (08:54)
[2023-02-14] MEDS: Cholecalciferol (Vitamin D3) 10 MCG TABLET 20 MCG PO (08:54)
[2023-02-14] MEDS: Gabapentin 100 MG CAPSULE PO ×2 (08:54→19:59)
[2023-02-14] MEDS: Pyridoxine HCl (Vitamin B6) 50 MG TABLET 25 MG PO (08:55)
[2023-02-14] MEDS: Lithium Carbonate 300 MG CAPSULE PO (08:55)
[2023-02-14] MEDS: OXcarbazepine 150 MG TABLET PO ×2 (08:56→19:59)
[2023-02-14] MEDS: OLANZapine 7.5 MG TABLET 15 MG PO ×2 (08:56→19:59)
[2023-02-14 16:30] VITALS: BP 115/62; PULSE 96; RESP 16; TEMP 36.1; O2SAT 94
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
[2023-02-14] MEDS: Lurasidone HCl 80 MG TABLET PO (18:50)
[2023-02-14] MEDS: hydrOXYzine HCL 25 MG TABLET PO (18:51)
[2023-02-14] MEDS: polyethylene glycoL 3350 17 GM POWD.PACK PO (19:57)
[2023-02-14] MEDS: traZODone HCL 50 MG TABLET PO (20:03)
[2023-02-15 08:00] VITALS: BP 104/66; PULSE 70; RESP 16; TEMP 37.9; O2SAT 97
[2023-02-15] MEDS: Acetaminophen 325 MG TABLET 650 MG PO (08:11)
[2023-02-15] MEDS: OLANZapine 7.5 MG TABLET 15 MG PO (08:13)
[2023-02-15] MEDS: Gabapentin 100 MG CAPSULE PO (08:13)
[2023-02-15] MEDS: OXcarbazepine 150 MG TABLET PO (08:13)
[2023-02-15] MEDS: Cholecalciferol (Vitamin D3) 10 MCG TABLET 20 MCG PO (08:14)
[2023-02-15] MEDS: Pyridoxine HCl (Vitamin B6) 50 MG TABLET 25 MG PO (08:15)
[2023-02-15] MEDS: Lithium Carbonate 300 MG CAPSULE PO (08:15)
[2023-02-15] MEDS: Docusate Sodium 100 MG CAPSULE PO (08:16)
[2023-02-15 09:46] VITALS: TEMP 37.3
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
== END 2023-02-15 11:50 | disposition home or self-care (01) | DRG 885 ==
PROVIDERS: Psychiatry & Neurology Psychiatry; Admitting Provider Psychiatry & Neurology Psychiatry; Visit Provider Clinical Nurse Specialist Psychiatric/Mental Health, Adult
DX: F31.9 Bipolar disorder, unspecified (principal); U07.1 COVID-19; Z68.41 Body mass index [BMI] 40.0-44.9, adult; E66.01 Morbid (severe) obesity due to excess calories; F43.10 Post-traumatic stress disorder, unspecified; E03.9 Hypothyroidism, unspecified; Z79.899 Other long term (current) drug therapy
CPT/HCPCS: 36415; 70450; 80053; 80061; 80175; 80178; 81001; 82607; 82670; 82746; 83001; 83036; 84439; 84443; 85025; 87086; 87635; 92507; 92610; 93005; 93971; 94660

== ENCOUNTER → 2023-01-19 19:57 | Outpatient (BNV) | payer MEDICARE, MEDICAID, SELFPAY | PROVIDERS: Admitting Provider Psychiatry & Neurology Psychiatry; Visit Provider Internal Medicine | DX: Z02.2 Encounter for examination for admission to residential institution (principal) | CPT/HCPCS: 99429; 99499 ==

== ENCOUNTER → 2023-01-19 19:57 | Outpatient (BNV) | payer MEDICARE, MEDICAID, SELFPAY | PROVIDERS: Admitting Provider Psychiatry & Neurology Psychiatry; Visit Provider Clinical Nurse Specialist Psychiatric/Mental Health | DX: F31.2 Bipolar disorder, current episode manic severe with psychotic features (principal); F43.11 Post-traumatic stress disorder, acute | CPT/HCPCS: 90792; 99231; 99232; 99239 ==